=== PATIENT | male | born 1960 | race Caucasian/White ===

== ENCOUNTER 2021-08-29 17:02 | Emergency (ER) | payer OTHER, MEDICAID, SELFPAY ==
[2021-08-29] VITALS (7 sets, daily range): BP systolic 139–178; BP diastolic 89–104; PULSE 74–100; RESP 16–18; TEMP 36.8; O2SAT 96–99; BMI 21.8
[2021-08-29 18:05] LABS: Bacteria Urine None Seen; RBC Urine None Seen (0-5/HPF); WBC Urine None Seen (0-5/HPF)
[2021-08-29 18:57] LABS: Add Manual Diff / Slide Review NO; Basophils Absolute Auto 0 /uL (0-100); Basophils Percent Auto 0.5 % (0-2); Eosinophils Absolute Auto 0 /uL (0-450); Eosinophils Percent Auto 0.1 % (2-4); Hematocrit 36.5 % (41-53); Hemoglobin 12.7 g/dL (13.5-17.5); Lymphocytes Absolute Auto 1100 /uL (1100-4500); Lymphocytes Percent Auto 16.4 % (25-40); Mean Corpuscular HGB Conc 34.9 % (30-36); Mean Corpuscular Hemoglobin 28.6 PG (26-34); Mean Corpuscular Volume 82.1 fL (80-100); Monocytes Absolute Auto 600 /uL (0-900); Monocytes Percent Auto 9.3 % (3-14); Neutrophils Absolute Auto 5000 /uL (1500-7000); Neutrophils Percent Auto 73.7 % (50-75); Platelet Count 221 X10^3/uL (150-400); Red Blood Cell Count 4.45 X10^6/uL (4.5-5.9); White Blood Cell Count 6.8 X10^3/uL (4.5-11.0)
[2021-08-29] MEDS: KETOROLAC 30 MG/ML VIAL IV (18:57)
[2021-08-29 19:08] LABS: Alanine Aminotransferase 56 IU/L (<50); Albumin 3.7 g/dL (3.5-5.0); Alkaline Phosphatase 165 U/L (38-126); Aspartate Aminotransferase 33 IU/L (17-59); BUN Creatinine Ratio 26.2 (6-22); Bilirubin Total 0.5 mg/dL (0.2-1.3); Blood Urea Nitrogen 17 mg/dL (9-20); Carbon Dioxide 32 mmol/L (22-32); Chloride 88 mmol/L (98-107); Estimated Glomerular Filt Rate > 60.0 mL/min (>60); Globulin 3.3 g/dL (1.7-4.1); Potassium 3.7 mmol/L (3.4-5.1); Sodium 128 mmol/L (137-145)
[2021-08-29 19:09] LABS: Albumin Globulin Ratio 1.1 (1.0-2.8); HEMOLYSIS < 15 (0-50); Lipase 65 U/L (23-300)
[2021-08-29 19:11] LABS: Glucose 604 mg/dL (70-100)
--- NOTE | 2021-08-29 19:54 | ED_ITS ---
HPI - Back Pain/Injury General Chief Complaint: Back Pain/Injury Stated Complaint: BODY ACHES/ABD AND LOW BACK PAIN Time Seen by Provider: 08/29/21 18:51 Source: patient History of Present Illness HPI Narrative: Patient is a 60-year-old male with history of uncontrolled type 2 diabetes presenting with variety of complaints. He has had ongoing lower lumbar spine pain for last several months which he thinks started when he was getting a mold infested RV. He has no new numbness tingling or weakness in his legs. He does state he has some tingling down his legs but it has been ongoing since this summer when his back started. He also is states that he has not had a bowel movement for about 9 days. He was seen evaluated at [facility] on 08/26/2021 where he had blood work and CT of his abdomen and pelvis. He has been constipated for few days before that time, CT was negative. He was given hydrocodone is to control the pain which he says does help some he says ibuprofen is not helping. He continues to have on going back pain. He has been taking CBD and marijuana. He denies any abdominal pain. His back is definitely worse with any type of movement. He has a urinal at his bedside because he is unable to get to the restroom due to pain. Related Data Allergies Allergy/AdvReac Type Severity Reaction Status Date / Time No Known Drug Allergies Allergy Verified 08/29/21 17:17 Review of Systems Review of Systems Narrative: GENERAL: Denies chills, fatigue, malaise, fever, sweats, travel HEENT: Denies sinus pain, ear pain, sore throat, difficulty swallowing, neck pain RESPIRATORY: Denies dyspnea, cough, wheezing, hemoptysis, sputum. CARDIOVASCULAR: Denies chest pain, palpitations, orthopnea, edema GASTROINTESTINAL: See HPI : Denies dysuria, frequency, incontinence, hematuria, urinary retention, flank pain. MUSCULOSKELETAL: See HPI SKIN: No rash, no erythema, no pruritus NEUROLOGIC: Denies weakness, dizziness, headache, numbness, change in speech, confusion PSYCHIATRIC: No concerning psychosocial issues. 12 point review of systems is negative except for those stated above and HPI Patient History Social History Smoking Status: Former smoker Smoking Status: Former smoker alcohol intake frequency: holidays/special occasions only Substance Use Type: marijuana Exam Initial Vital Signs Initial Vital Signs: Vital Signs Temperature 98.2 F 08/29/21 17:17 Pulse Rate 100 H 08/29/21 17:17 Respiratory Rate 18 08/29/21 17:17 Blood Pressure 139/89 08/29/21 17:17 Pulse Oximetry 99 08/29/21 17:17 GENERAL: Thin chronically ill 60-year-old male appears older than stated age HEENT: Head atraumatic,EOMI, pupils reactive, face symmetric, [moist] mucous membranes CARDIOVASCULAR: Regular rate and rhythm without murmurs, rubs or gallops. RESPIRATORY: Breath sounds equal bilaterally, no wheezes rales or rhonchi. ABDOMEN: Soft, nontender. Normoactive bowel sounds all 4 quadrants. No guarding or rebound. BACK: Vertebral tenderness and L4-L5 area no step-off no sign of trauma : No CVA tenderness EXTREMITIES: Normal range of motion, no clubbing or edema. Neurovascularly intact NEUROLOGICAL: Alert and oriented x4.Normal gait and speech. Lower extremity strength equals sensation in lower extremities intact no saddle anesthesia SKIN: Warm, dry, no laceration, no petechiae, no rashes or lesions. Course Orders Ordered: ED Orders 08/29/21 17:30 Urine Culture Stat Urine Microscopic Stat 08/29/21 18:45 Complete Blood Count AUTO DIFF Stat Comprehensive Metabolic Panel Stat Lipase Stat 08/29/21 20:05 XR abdomen min 2V Stat Discontinued Medications Hydromorphone HCl (Hydromorphone 1 Mg Inj) 1 mg IV NOW ONE Stop: 08/29/21 22:15 Last Admin: 08/29/21 22:26 Dose: 1 mg Documented by: KELSY Ketorolac Tromethamine (Ketorolac 30 Mg/Ml Vial) 30 mg IV NOW ONE Stop: 08/29/21 18:52 Last Admin: 08/29/21 18:57 Dose: 30 mg Documented by: JESUS Magnesium Citrate (Magnesium Citrate 300 Ml Solution) 300 ml PO NOW ONE Stop: 08/29/21 22:15 Last Admin: 08/29/21 22:27 Dose: 300 ml Documented by: KELSY Vital Signs Vital signs: Vital Signs - 8 hr 08/29/21 17:17 08/29/21 21:10 08/29/21 21:11 Temperature 98.2 F Pulse Rate 100 H 82 84 Respiratory Rate 18 16 Blood Pressure 139/89 172/96 H Pulse Oximetry 99 97 98 08/29/21 21:30 08/29/21 22:00 08/29/21 22:30 Temperature Pulse Rate 84 74 84 Respiratory Rate Blood Pressure Pulse Oximetry 96 96 99 08/29/21 22:31 Temperature Pulse Rate 86 Respiratory Rate Blood Pressure 178/104 H Pulse Oximetry 99 MDM - Back Pain/Injury Lab Data Result diagrams: 08/29/21 18:45 08/29/21 18:45 Labs: Lab Results 08/29/21 08/29/21 08/29/21 Range/Units 17:30 18:45 18:45 WBC 6.8 (4.5-11.0) X10^3/uL RBC 4.45 L (4.5-5.9) X10^6/uL Hgb 12.7 L (13.5-17.5) g/dL Hct 36.5 L (41-53) % MCV 82.1 (80-100) fL MCH 28.6 (26-34) PG MCHC 34.9 (30-36) % RDW 13.0 (11.6-14.8) % Plt Count 221 (150-400) X10^3/uL Neut % (Auto) 73.7 (50-75) % Lymph % (Auto) 16.4 L (25-40) % Emmons % (Auto) 9.3 (3-14) % Eos % (Auto) 0.1 L (2-4) % Baso % (Auto) 0.5 (0-2) % Neut # (Auto) 5000 (8526-1636) /uL Lymph # (Auto) 1100 (3381-7581) /uL Emmons # (Auto) 600 (0-900) /uL Eos # (Auto) 0 (0-450) /uL Baso # (Auto) 0 (0-100) /uL Sodium 128 L (137-145) mmol/L Potassium 3.7 (3.4-5.1) mmol/L Chloride 88 L (98-107) mmol/L Carbon Dioxide 32 (22-32) mmol/L BUN 17 (9-20) mg/dL Creatinine 0.65 L (0.66-1.25) mg/dL Estimated GFR > 60.0 (>60) mL/min BUN/Creatinine Ratio 26.2 H (6-22) Glucose 604 H* (70-100) mg/dL Calcium 9.0 (8.4-10.2) mg/dL Total Bilirubin 0.5 (0.2-1.3) mg/dL AST 33 (17-59) IU/L ALT 56 H (<50) IU/L Alkaline Phosphatase 165 H (38-126) U/L Total Protein 7.0 (6.3-8.2) g/dL Albumin 3.7 (3.5-5.0) g/dL Globulin 3.3 (1.7-4.1) g/dL Albumin/Globulin Ratio 1.1 (1.0-2.8) Lipase 65 (23-300) U/L Urine RBC None seen (0-5/HPF) Urine WBC None seen (0-5/HPF) Urine Bacteria None seen (None) Ur Culture Indicated? Culture not indicate Point of Care Testing Glucose POC 480 Urine Dip Bedside Urine Glucose 1000 mg/dl Bedside Urine Bilirubin - Negative Bedside Urine Ketone ++ 40 Urine Specific [place]range 1.010 Bedside Urine Occult Blood - Negative Bedside Urine pH 6 Bedside Urine Protein - Negative Bedside Urine Urobilinogen - Negative Bedside Urine Nitrite - Negative Bedside Urine Leukocytes - Negative Esterase Imaging Data Abdominal x-ray: Radiologist's Impression: PROCEDURE:? XR ABDOMEN MIN 2V ? INDICATIONS:? ab pain no bm [address] at [facility] ? TECHNIQUE:? 2 views of the abdomen were acquired.? ? COMPARISON:? CT abdomen pelvis dated August 26, 2021. ? FINDINGS:? Surgical changes and devices:? None.? ? Bowel:? No pneumoperitoneum.? Scattered air-fluid levels throughout the small bowel, concerning for enteritis or ileus.? Moderate stool burden in the descending colon. ? Soft tissues:? No masses; visualized solid organ contours appear normal in size.? No suspicious abdominal calcifications.? ? Bones:? No suspicious bony abnormalities.? ? IMPRESSION:? Nonobstructive bowel gas pattern. ? ? MDM Narrative Medical decision making narrative: Patient has uncontrolled diabetes glucose remains elevated with hyponatremia which does correct to 136. No evidence of DKA. He has chronic on going back pain which he has had for a number of months. He has had no new changes since then. He has numbness and tingling in the bottom of his feet probable neuropathy from uncontrolled diabetes he states the pain is so bad when he has to urinate at night he can not get to the bathroom in time. However no incontinence. Pain is definitely worse with movement. CT from a few days ago shows no abdominal process and lumbar degenerative changes with canal stenosis L4-L5. He does have primary care provider. Also complaining of no bowel movem ent but actually has no abdominal pain abdomen is quite soft he has no nausea or vomiting. X-ray shows nonspecific nonobstructive bowel. No large amounts of stool. However patient has not had bowel movement for 9 days. Abdomen remains soft and nontender, no need to repeat CT at this time. At this time patient is given a bottle of magnesium citrate to take at home. Along with discussion of [id number] medications to try to have bowel movement. X-ray does suggest possible ileus. Again patient does not have abdominal pain only complaining of ongoing back pain for at least the last 4-5 months. Recommend patient have outpatient MRI. Discharge Plan Departure Patient Disposition: Home Clinical Impression: Chronic back pain, Constipation Instructions: DI for Low Back Pain, DI for Constipation Activity Restrictions/Additional Instructions: *You have been diagnosed with constipation in acute on chronic back pain *What to do: At this time please discuss with your primary care provider outpatient MRI and physical therapy. Opiate medication will continue to cause constipation. Recommend increasing water intake and movement as tolerated. Your diabetes is also significantly out of control likely contributing to some symptoms, and causing complications. Please discuss treatment and care with your primary care provider *Continue to take medications as directed MiraLax once daily as needed for constipation. Senna 2-4 tabs, 1- 2 times a day as needed for constipation Docustae 1-2 tabs, 1-2 times a day as needed for constipation *Follow up with your primary care provider in 2-3 days or call [phone] *Return to ER if you should have increasing pain, weakness in legs, unable to toe when you after use the restroom, increasing abdominal pain, persistent vomiting or new, worsening or concerning symptoms Referrals: Jhony Dodd MD [Primary Care Provider] -
--- NOTE | 2021-08-29 20:05 | DI.RAD.S_ITS ---
PROCEDURE: XR ABDOMEN MIN 2V INDICATIONS: ab pain no bm [address] at [facility] TECHNIQUE: 2 views of the abdomen were acquired. COMPARISON: CT abdomen pelvis dated August 26, 2021. FINDINGS: Surgical changes and devices: None. Bowel: No pneumoperitoneum. Scattered air-fluid levels throughout the small bowel, concerning for enteritis or ileus. Moderate stool burden in the descending colon. Soft tissues: No masses; visualized solid organ contours appear normal in size. No suspicious abdominal calcifications. Bones: No suspicious bony abnormalities. IMPRESSION: Nonobstructive bowel gas pattern. Dictated by: Ye Angelo M.D. on 08/29/2021 at 20:35 Approved by: Ye Angelo M.D. on 08/29/2021 at 20:37
[2021-08-29] MEDS: HYDROMORPHONE 1 MG INJ IV (22:26)
[2021-08-29] MEDS: MAGNESIUM CITRATE 300 ML SOLUTION PO (22:27)
== END 2021-08-29 22:50 | disposition home or self-care (01) ==
PROVIDERS: Emergency Medicine; Emergency Provider Emergency Medicine; PCP Internal Medicine
DX: M54.59 Other low back pain (principal); K59.00 Constipation, unspecified; E11.65 Type 2 diabetes mellitus with hyperglycemia
CPT/HCPCS: 36415; 74019; 80053; 81003; 81015; 82962; 83690; 85025; 87086; 96374; 96375; 99284; J1170; J1885

== ENCOUNTER 2021-11-03 19:00 | Emergency (ER) | payer OTHER, MEDICAID, SELFPAY ==
[2021-11-03] VITALS (11 sets, daily range): BP systolic 153–188; BP diastolic 87–107; PULSE 87–100; RESP 9–25; TEMP 36.9; O2SAT 94–100; BMI 24.4
--- NOTE | 2021-11-03 19:22 | DI.CT.S_ITS ---
PROCEDURE: CT THORACIC SPINE W CON INDICATIONS: pain prior L4/L5 infection now having hi pain TECHNIQUE: After the administration of intravenous Isovue contrast, 3 mm thick sections acquired through the levels of interest. Sagittal and coronal reformats were then constructed. For radiation dose reduction, the following was used: automated exposure control. COMPARISON: None. FINDINGS: Image quality: Diagnostic Bones: Osseous structures are intact. No acute fracture identified. No acute compression fractures of the imaged spine. Multilevel thoracic spondylitic changes seen throughout. Alignment is anatomic. Soft tissues: Visualized portions of the inferior liver, stomach, spleen, adrenal glands, heart, mediastinal structures, and thyroid appear unremarkable. Atherosclerosis of the coronary arteries. Visualized vascular structures appear to be normally opacified. No aneurysmal dilatation of the thoracic aorta or pulmonary artery. No suspicious areas of enhancement. No evidence for significant stenosis of the spinal canal. Visualized portion of the lungs demonstrate no acute airspace disease. IMPRESSION: Thoracic spine without acute osseous abnormalities. No suspicious soft tissue abnormalities or abnormal enhancement identified. No acute osseous abnormalities or malalignment. No evidence for spinal canal stenosis secondary to bony or soft tissue etiology. Multilevel thoracic spondylosis. Dictated by: Colin Cantu M.D. on 11/03/2021 at 20:02 Approved by: Colin Cantu M.D. on 11/03/2021 at 20:07
--- NOTE | 2021-11-03 19:22 | DI.CT.S_ITS ---
PROCEDURE: CT LUMBAR SPINE W CON INDICATIONS: pain, prior infection TECHNIQUE: After the administration of intravenous Isovue contrast, 3 mm thick sections acquired through the levels of interest. Sagittal and coronal reformats were then constructed. For radiation dose reduction, the following was used: automated exposure control. COMPARISON: None. FINDINGS: Image quality: Excellent. Findings: There is osseous destruction involving the inferior endplate of L4 and the superior endplate of L5 with numerous osseous fragments. There is a moderate amount of surrounding perivertebral soft tissue prominence and inflammation which extends to the distal abdominal aorta and iliac vessels. There is also heterogeneous attenuation of the medial margins of the bilateral psoas muscles more pronounced on the right. Inflammatory changes also surround the common iliac veins bilaterally. There is suggestion of mild narrowing of the common iliac veins. No evidence for intraluminal filling defects on this examination. Inflammation extends into the epidural space with severe stenosis noted at L4-5 extending to L5-S1. There also apparent postsurgical changes involving the posterior aspect of the L4-5 interspace with a suspected fluid collection measuring 3.1 x 2.9 cm in transverse dimension (image 63/series 4). There is a small locule of air. There is overlying subcutaneous soft tissue edema and skin thickening at this level. No acute compression fractures of the lumbar spine. Multilevel spondylitic changes. Severe bilateral neural foraminal narrowing at L3-4, L4-5, and L5-S1. IMPRESSION: 1. Findings compatible with osteomyelitis/discitis at L4-5 with associated osseous destruction of the inferior endplate of L4 and superior endplate of L5 with extensive inflammatory soft tissue changes at this level extending to the paravertebral space as well as the epidural space. Inflammatory changes extend into the retroperitoneum of the lower pelvis. Findings also result in significant spinal canal stenosis from L4-5 through L5-S1. 2. Apparent postsurgical changes of the posterior elements of L4-5 with associated fluid collection measuring 3.1 x 2.9 cm. There is a small locule of air which may represent sequela of recent intervention versus possible early abscess formation. 3. Background advanced degenerative changes of the lumbar spine most severe from L3-4 through L5-S1. There is also severe bilateral neuroforaminal stenosis at these levels. 4. Inflammatory changes extend to involve the distal abdominal aorta near the bifurcation, common iliac arteries as well as the common iliac veins. Although there appears to be some mild mass effect, no evidence for occlusion or intraluminal filling defects. Findings were discussed with Dr. Velasco at 2024 hrs. Dictated by: Colin Cantu M.D. on 11/03/2021 at 20:08 Approved by: Colin Cantu M.D. on 11/03/2021 at 20:33
--- NOTE | 2021-11-03 19:22 | ED.BACK ---
HPI - Back Pain/Injury General Chief Complaint: Back Pain/Injury Stated Complaint: Low back pain Time Seen by Provider: 11/03/21 19:09 History of Present Illness HPI Narrative: Patient is a 61-year-old female with history of insulin-dependent diabetes, recent intraspinal abscess and granuloma, osteomyelitis of the vertebrae in the lumbar region and foot ulcer. He was hospitalized September 05 at [facility] in [place], he was released and went to rehab facility he has been home for approximately 5 days. He is having increased pain. He denies any fever. He can still tell when he has to urinate however he has not had a bowel movement for a number of days. He has severe back pain whenever he moves his legs. He states his furniture is not high enough he has difficulty getting in and out of it. He can walk with a walker but is shuffling only. Overall not doing well at home. Related Data Allergies Allergy/AdvReac Type Severity Reaction Status Date / Time No Known Drug Allergies Allergy Verified 08/29/21 17:17 Review of Systems Review of Systems Narrative: GENERAL: Denies chills, fatigue, malaise, fever, sweats, travel HEENT: Denies sinus pain, ear pain, sore throat, difficulty swallowing, neck pain RESPIRATORY: Denies dyspnea, cough, wheezing, hemoptysis, sputum. CARDIOVASCULAR: Denies chest pain, palpitations, orthopnea, edema GASTROINTESTINAL: Denies nausea, vomiting, abdominal pain, diarrhea, constipation, melena. : Denies dysuria, frequency, incontinence, hematuria, urinary retention, flank pain. MUSCULOSKELETAL: See HPI SKIN: No rash, no erythema, no pruritus NEUROLOGIC: Denies weakness, dizziness, headache, numbness, change in speech, confusion PSYCHIATRIC: No concerning psychosocial issues. 12 point review of systems is negative except for those stated above and HPI Patient History Social History Smoking Status: Former smoker Smoking Status: Former smoker alcohol intake frequency: holidays/special occasions only Substance Use Type: marijuana Exam Initial Vital Signs Initial Vital Signs: Vital Signs Temperature 98.5 F 11/03/21 19:19 Pulse Rate 96 H 11/03/21 19:19 Respiratory Rate 18 11/03/21 19:19 Blood Pressure 188/100 H 11/03/21 19:19 Pulse Oximetry 100 11/03/21 19:19 GENERAL: Alert 61-year-old male appears older than stated age HEENT: Head atraumatic,EOMI, pupils reactive, face symmetric, moist mucous membranes CARDIOVASCULAR: Regular rate and rhythm without murmurs, rubs or gallops. RESPIRATORY: Breath sounds equal bilaterally, no wheezes rales or rhonchi. ABDOMEN: Soft, nontender. Normoactive bowel sounds all 4 quadrants. No guarding or rebound. EXTREMITIES: Normal range of motion, no clubbing or edema. Neurovascularly intact BACK: Midline tenderness, lower thoracic and Lumbar, healing incision. NEUROLOGICAL: Alert and oriented x4. SKIN: Skin breakdown and sacral area with erythema only incision site has scab Course Orders Ordered: ED Orders 11/03/21 19:22 CT lumbar spine w con Stat CT thoracic spine w con Stat 11/03/21 19:27 CBC Auto Diff [Complete Blood Count AUTO DIFF] Stat CMP [Comprehensive Metabolic Panel] Stat CRP [C-Reactive Protein Quant] Stat ESR [Erythrocyte Sedimentation Rate] Stat Lactate (Lactic Acid) Stat Procalcitonin Stat Troponin & CK Cardiac Panel Stat EKG-12 Lead Stat 11/03/21 20:08 Blood Culture Stat 11/03/21 23:56 COVID19 -Nasal swab/Pre-Proc Stat Discontinued Medications Hydromorphone HCl (Hydromorphone 1 Mg Inj) 1 mg IV NOW ONE Stop: 11/03/21 19:23 Last Admin: 11/03/21 19:58 Dose: 1 mg Documented by: BOO Hydromorphone HCl (Hydromorphone 1 Mg Inj) 1 mg IV NOW ONE Stop: 11/03/21 20:51 Last Admin: 11/03/21 21:06 Dose: 1 mg Documented by: MAXINE Hydromorphone HCl (Hydromorphone 1 Mg Inj) 1 mg IV NOW ONE Stop: 11/03/21 23:05 Last Admin: 11/03/21 23:09 Dose: 1 mg Documented by: REED Hydromorphone HCl (Hydromorphone 1 Mg Inj) 1 mg IV NOW ONE Stop: 11/04/21 01:48 Last Admin: 11/04/21 01:54 Dose: 1 mg Documented by: BOO Sodium Chloride (Normal Saline 0.9%) 1,000 mls @ 1,000 mls/hr IV BOLUS ONE Stop: 11/03/21 21:04 Last Infusion: 11/03/21 23:03 Dose: 0 mls/hr Documented by: Admin: 11/03/21 20:16 Dose: 1,000 mls/hr Documented by: BOO Piperacillin Sod/Tazobactam (Sod 4.5 gm/ Sodium Chloride) 100 mls @ 200 mls/hr IV NOW ONE Stop: 11/03/21 20:25 Last Infusion: 11/03/21 23:03 Dose: 0 mls/hr Documented by: Admin: 11/03/21 21:06 Dose: 200 mls/hr Documented by: MAXINE Vancomycin HCl (Vancomycin) 1,250 mg in 250 mls @ 250 mls/hr IV NOW ONE Stop: 11/03/21 21:24 Last Infusion: 11/03/21 23:03 Dose: 0 mls/hr Documented by: Admin: 11/03/21 21:53 Dose: 250 mls/hr Documented by: MAXINE Vital Signs Vital signs: Vital Signs - 8 hr 11/03/21 20:00 11/03/21 20:12 11/03/21 20:30 Pulse Rate 96 H 100 H 96 H Respiratory Rate 20 Blood Pressure 184/107 H 175/106 H Pulse Oximetry 95 94 97 11/03/21 21:00 11/03/21 21:30 11/03/21 22:00 Pulse Rate 95 H 93 H 89 Respiratory Rate 25 H 19 20 Blood Pressure Pulse Oximetry 99 97 96 11/03/21 22:30 11/03/21 22:44 11/03/21 23:00 Pulse Rate 87 87 87 Respiratory Rate 9 L 18 23 Blood Pressure 153/87 H Pulse Oximetry 96 98 98 11/03/21 23:30 11/04/21 00:00 11/04/21 00:30 Pulse Rate 90 86 87 Respiratory Rate 22 21 18 Blood Pressure Pulse Oximetry 99 99 99 11/04/21 01:00 11/04/21 01:30 11/04/21 02:00 Pulse Rate 88 88 90 Respiratory Rate 19 22 19 Blood Pressure Pulse Oximetry 98 98 100 11/04/21 02:30 Pulse Rate 87 Respiratory Rate 16 Blood Pressure Pulse Oximetry 99 MDM - Back Pain/Injury Lab Data Result diagrams: 11/03/21 19:27 11/03/21 19:27 Labs: Lab Results 11/03/21 11/03/21 11/03/21 Range/Units 19:27 19:27 19:27 WBC 5.4 (4.5-11.0) X10^3/uL RBC 4.23 L (4.5-5.9) X10^6/uL Hgb 11.2 L (13.5-17.5) g/dL Hct 33.4 L (41-53) % MCV 79.0 L (80-100) fL MCH 26.4 (26-34) PG MCHC 33.4 (30-36) % RDW 14.8 (11.6-14.8) % Plt Count 277 (150-400) X10^3/uL Neut % (Auto) 64.1 (50-75) % Lymph % (Auto) 21.7 L (25-40) % [place] % (Auto) 12.7 (3-14) % Eos % (Auto) 0.5 L (2-4) % Baso % (Auto) 1.0 (0-2) % Neut # (Auto) 3500 (4415-7149) /uL Lymph # (Auto) 1200 (0821-0508) /uL [place] # (Auto) 700 (0-900) /uL Eos # (Auto) 0 (0-450) /uL Baso # (Auto) 100 (0-100) /uL ESR 66 H (0-15) MM/HR Sodium 136 L (137-145) mmol/L Potassium 3.1 L (3.4-5.1) mmol/L Chloride 97 L (98-107) mmol/L Carbon Dioxide 28 (22-32) mmol/L BUN 14 (9-20) mg/dL Creatinine 0.59 L (0.66-1.25) mg/dL Estimated GFR > 60.0 (>60) mL/min BUN/Creatinine Ratio 23.7 H (6-22) Glucose 228 H (70-100) mg/dL Lactate 3.1 H (0.7-2.1) mmol/L Calcium 9.6 (8.4-10.2) mg/dL Total Bilirubin 0.7 (0.2-1.3) mg/dL AST 24 (17-59) IU/L ALT 13 (<50) IU/L Alkaline Phosphatase 86 (38-126) U/L Total Creatine Kinase (55-170) U/L CK-MB (CK-2) CK-MB (CK-2) Rel Index Troponin I (0.01-0.034) ng/mL C-Reactive Protein 6.4 H (<1.0) mg/dL Total Protein 8.5 H (6.3-8.2) g/dL Albumin 4.4 (3.5-5.0) g/dL Globulin 4.1 (1.7-4.1) g/dL Albumin/Globulin Ratio 1.1 (1.0-2.8) Procalcitonin (<0.5) ng/mL SARS-CoV-2 (PCR) (Negative) 11/03/21 11/03/21 11/03/21 Range/Units 19:27 19:27 21:45 WBC (4.5-11.0) X10^3/uL RBC (4.5-5.9) X10^6/uL Hgb (13.5-17.5) g/dL Hct (41-53) % MCV (80-100) fL MCH (26-34) PG MCHC (30-36) % RDW (11.6-14.8) % Plt Count (150-400) X10^3/uL Neut % (Auto) (50-75) % Lymph % (Auto) (25-40) % [place] % (Auto) (3-14) % Eos % (Auto) (2-4) % Baso % (Auto) (0-2) % Neut # (Auto) (6814-1864) /uL Lymph # (Auto) (6879-3843) /uL [place] # (Auto) (0-900) /uL Eos # (Auto) (0-450) /uL Baso # (Auto) (0-100) /uL ESR (0-15) MM/HR Sodium (137-145) mmol/L Potassium (3.4-5.1) mmol/L Chloride (98-107) mmol/L Carbon Dioxide (22-32) mmol/L BUN (9-20) mg/dL Creatinine (0.66-1.25) mg/dL Estimated GFR (>60) mL/min BUN/Creatinine Ratio (6-22) Glucose (70-100) mg/dL Lactate 1.2 (0.7-2.1) mmol/L Calcium (8.4-10.2) mg/dL Total Bilirubin (0.2-1.3) mg/dL AST (17-59) IU/L ALT (<50) IU/L Alkaline Phosphatase (38-126) U/L Total Creatine Kinase 47 L (55-170) U/L CK-MB (CK-2) TNP CK-MB (CK-2) Rel Index TNP Troponin I < 0.012 (0.01-0.034) ng/mL C-Reactive Protein (<1.0) mg/dL Total Protein (6.3-8.2) g/dL Albumin (3.5-5.0) g/dL Globulin (1.7-4.1) g/dL Albumin/Globulin Ratio (1.0-2.8) Procalcitonin 0.16 (<0.5) ng/mL SARS-CoV-2 (PCR) (Negative) 11/03/21 Range/Units 23:56 WBC (4.5-11.0) X10^3/uL RBC (4.5-5.9) X10^6/uL Hgb (13.5-17.5) g/dL Hct (41-53) % MCV (80-100) fL MCH (26-34) PG MCHC (30-36) % RDW (11.6-14.8) % Plt Count (150-400) X10^3/uL Neut % (Auto) (50-75) % Lymph % (Auto) (25-40) % [place] % (Auto) (3-14) % Eos % (Auto) (2-4) % Baso % (Auto) (0-2) % Neut # (Auto) (2832-4196) /uL Lymph # (Auto) (4245-8137) /uL [place] # (Auto) (0-900) /uL Eos # (Auto) (0-450) /uL Baso # (Auto) (0-100) /uL ESR (0-15) MM/HR Sodium (137-145) mmol/L Potassium (3.4-5.1) mmol/L Chloride (98-107) mmol/L Carbon Dioxide (22-32) mmol/L BUN (9-20) mg/dL Creatinine (0.66-1.25) mg/dL Estimated GFR (>60) mL/min BUN/Creatinine Ratio (6-22) Glucose (70-100) mg/dL Lactate (0.7-2.1) mmol/L Calcium (8.4-10.2) mg/dL Total Bilirubin (0.2-1.3) mg/dL AST (17-59) IU/L ALT (<50) IU/L Alkaline Phosphatase (38-126) U/L Total Creatine Kinase (55-170) U/L CK-MB (CK-2) CK-MB (CK-2) Rel Index Troponin I (0.01-0.034) ng/mL C-Reactive Protein (<1.0) mg/dL Total Protein (6.3-8.2) g/dL Albumin (3.5-5.0) g/dL Globulin (1.7-4.1) g/dL Albumin/Globulin Ratio (1.0-2.8) Procalcitonin (<0.5) ng/mL SARS-CoV-2 (PCR) Negative (Negative) Imaging Data CT Thoracic: Radiologist's Impression: PROCEDURE:? CT THORACIC SPINE W CON ? INDICATIONS:? pain prior L4/L5 infection now having hi pain ? TECHNIQUE:? After the administration of intravenous Isovue contrast, 3 mm thick sections acquired through the levels of interest.? Sagittal and coronal reformats were then constructed.? For radiation dose reduction, the following was used:? automated exposure control.? ? COMPARISON:? None. ? FINDINGS:? Image quality:? Diagnostic ? Bones:? Osseous structures are intact.? No acute fracture identified.? No acute compression fractures of the imaged spine.? Multilevel thoracic spondylitic changes seen throughout.? Alignment is anatomic. ? Soft tissues:? Visualized portions of the inferior liver, stomach, spleen, adrenal glands, heart, mediastinal structures, and thyroid appear unremarkable.? Atherosclerosis of the coronary arteries.? Visualized vascular structures appear to be normally opacified.? No aneurysmal dilatation of the thoracic aorta or pulmonary artery.? No suspicious areas of enhancement.? No evidence for significant stenosis of the spinal canal.? Visualized portion of the lungs demonstrate no acute airspace disease. ? IMPRESSION:? Thoracic spine without acute osseous abnormalities.? No suspicious soft tissue abnormalities or abnormal enhancement identified.? No acute osseous abnormalities or malalignment.? No evidence for spinal canal stenosis secondary to bony or soft tissue etiology. Multilevel thoracic spondylosis.? ? Dictated by: Colin Cantu M.D. on 11/03/2021 at 20:02 ? ? CT Lumbar: Radiologist's Impression: PROCEDURE:? CT LUMBAR SPINE W CON ? INDICATIONS:? pain, prior infection ? TECHNIQUE:? After the administration of intravenous Isovue contrast, 3 mm thick sections acquired through the levels of interest.? Sagittal and coronal reformats were then constructed.? For radiation dose reduction, the following was used:? automated exposure control.? ? COMPARISON:? None. ? FINDINGS:? Image quality:? Excellent.? ? Findings:? There is osseous destruction involving the inferior endplate of L4 and the superior endplate of L5 with numerous osseous fragments.? There is a moderate amount of surrounding perivertebral soft tissue prominence and inflammation which extends to the distal abdominal aorta and iliac vessels.? There is also heterogeneous attenuation of the medial margins of the bilateral psoas muscles more pronounced on the right.? Inflammatory changes also surround the common iliac veins bilaterally.? There is suggestion of mild narrowing of the common iliac veins.? No evidence for intraluminal filling defects on this examination.? Inflammation extends into the epidural space with severe stenosis noted at L4-5 extending to L5-S1.? There also apparent postsurgical changes involving the posterior aspect of the L4-5 interspace with a suspected fluid collection measuring 3.1 x 2.9 cm in transverse dimension (image 63/series 4).? There is a small locule of air.? There is overlying subcutaneous soft tissue edema and skin thickening at this level. No acute compression fractures of the lumbar spine.? Multilevel spondylitic changes.? Severe bilateral neural foraminal narrowing at L3-4, L4-5, and L5-S1. ? IMPRESSION:? ? 1. Findings compatible with osteomyelitis/discitis at L4-5 with associated osseous destruction of the inferior endplate of L4 and superior endplate of L5 with extensive inflammatory soft tissue changes at this level extending to the paravertebral space as well as the epidural space.? Inflammatory changes extend into the retroperitoneum of the lower pelvis.? Findings also result in significant spinal canal stenosis from L4-5 through L5-S1. ? 2. Apparent postsurgical changes of the posterior elements of L4-5 with associated fluid collection measuring 3.1 x 2.9 cm.? There is a small locule of air which may represent sequela of recent intervention versus possible early abscess formation. ? 3. Background advanced degenerative changes of the lumbar spine most severe from L3-4 through L5-S1.? There is also severe bilateral neuroforaminal stenosis at these levels. ? 4. Inflammatory changes extend to involve the distal abdominal aorta near the bifurcation, common iliac arteries as well as the common iliac veins.? Although there appears to be some mild mass effect, no evidence for occlusion or intraluminal filling defects. ? Findings were discussed with Dr. Velasco at 2024 hrs. ? Dictated by: Colin Cantu M.D. on 11/03/2021 at 20:08 ? ? Approved by: Colin Cantu M.D. on 11/03/2021 at 20:33 ? ECG Data Interpretation: Sinus tachycardia rate 95 ME interval 148 QRS [address] changes or T-wave inversions MDM Narrative Medical decision making narrative: Patient has had prior surgery he is having increasing pain over last few days he is also having difficulty at home. Elevated ESR CRP lactic acid, concerning for possible new infection. He is afebrile without leukocytosis. However CT does show a lot of inflammation difficult to tell if this is old or new. Patient is empirically given Zosyn and vancomycin. Otherwise he is hemodynamically stable. He has an improving lactic acid. The patient also noted to have visual hallucinations after dilaudid. He is neurologically intact. No saddle anesthesia or cauda equina syndromes. Unable to get MRI currently his hospital MRI is down and usually not available at this time. 22:51 Dr. Urbina, orthopedic on-call at [facility] has reviewed patient's I have updated him on symptoms on test results today. He previously had MRI in September which did show a phlegmon that was 4 cm. However it appears that his ESR and CRP are rising. Difficult to tell again if this is old or new. Agrees to transfer patient. 00:20 Dr. Mcintyre hospitalist is updated patient's symptoms test results and is happily accept patient. Discharge Plan Departure Patient Disposition: [facility] Clinical Impression: Osteomyelitis of lumbar vertebra Referrals: Jhony Dodd MD [Primary Care Provider] -
--- NOTE | 2021-11-03 19:28 | PC.NURSE ---
EMS reports pt is type II DM w/ hx of foot ulcer/wound.
[2021-11-03 19:38] LABS: Add Manual Diff / Slide Review NO; Basophils Absolute Auto 100 /uL (0-100); Eosinophils Absolute Auto 0 /uL (0-450); Eosinophils Percent Auto 0.5 % (2-4); Hematocrit 33.4 % (41-53); Hemoglobin 11.2 g/dL (13.5-17.5); Lymphocytes Absolute Auto 1200 /uL (1100-4500); Lymphocytes Percent Auto 21.7 % (25-40); Mean Corpuscular HGB Conc 33.4 % (30-36); Mean Corpuscular Hemoglobin 26.4 PG (26-34); Monocytes Absolute Auto 700 /uL (0-900); Monocytes Percent Auto 12.7 % (3-14); Neutrophils Absolute Auto 3500 /uL (1500-7000); Neutrophils Percent Auto 64.1 % (50-75); Platelet Count 277 X10^3/uL (150-400); Red Blood Cell Count 4.23 X10^6/uL (4.5-5.9); Red Cell Distribution Width 14.8 % (11.6-14.8); White Blood Cell Count 5.4 X10^3/uL (4.5-11.0)
[2021-11-03 19:51] LABS: Creatine Kinase 47 U/L (55-170); Lactate (Lactic Acid) 3.1 mmol/L (0.7-2.1)
[2021-11-03 19:53] LABS: Alanine Aminotransferase 13 IU/L (<50); Albumin 4.4 g/dL (3.5-5.0); Albumin Globulin Ratio 1.1 (1.0-2.8); Alkaline Phosphatase 86 U/L (38-126); Aspartate Aminotransferase 24 IU/L (17-59); BUN Creatinine Ratio 23.7 (6-22); Bilirubin Total 0.7 mg/dL (0.2-1.3); Blood Urea Nitrogen 14 mg/dL (9-20); C-Reactive Protein Quant 6.4 mg/dL (<1.0); Calcium 9.6 mg/dL (8.4-10.2); Carbon Dioxide 28 mmol/L (22-32); Chloride 97 mmol/L (98-107); Estimated Glomerular Filt Rate > 60.0 mL/min (>60); Globulin 4.1 g/dL (1.7-4.1); Glucose 228 mg/dL (70-100); Sodium 136 mmol/L (137-145); Total Protein 8.5 g/dL (6.3-8.2)
[2021-11-03 19:58] LABS: HEMOLYSIS 52 (0-50); Potassium 3.1 mmol/L (3.4-5.1)
[2021-11-03] MEDS: HYDROMORPHONE 1 MG INJ IV ×3 (19:58→23:09)
[2021-11-03 20:04] LABS: Erythrocyte Sedimentation Rate 66 MM/HR (0-15); Troponin I < 0.012 ng/mL (0.01-0.034)
[2021-11-03 20:09] LABS: Procalcitonin 0.16 ng/mL (<0.5)
[2021-11-03] MEDS: SODIUM CHLORIDE 0.9% 1,000 ML 1000 ML IV (20:16)
[2021-11-03] MEDS: PIPERACILLIN/TAZO 4.5 GM in SODIUM CHLORIDE 0.9% 100 ML 200 ML IV (21:06)
[2021-11-03 21:34] LABS: Reflexed Lactate in 2 Hours Y
[2021-11-03] MEDS: VANCOMYCIN 1,250 MG/250 ML PIGGYBACK 250 MG IV (21:53)
[2021-11-03 22:04] LABS: Lactate 2HR (Lactic Acid Rflx) 1.2 mmol/L (0.7-2.1)
[2021-11-04] VITALS: PULSE 86; RESP 21; O2SAT 99
[2021-11-04 00:21] LABS: COVID19 -Nasal RAPID Negative (Negative)
[2021-11-04 00:30] VITALS: PULSE 87; RESP 18; O2SAT 99
[2021-11-04 01:00] VITALS: PULSE 88; RESP 19; O2SAT 98
[2021-11-04 01:30] VITALS: PULSE 88; RESP 22; O2SAT 98
[2021-11-04] MEDS: HYDROMORPHONE 1 MG INJ IV (01:54)
[2021-11-04 02:00] VITALS: PULSE 90; RESP 19; O2SAT 100
[2021-11-04 02:30] VITALS: PULSE 87; RESP 16; O2SAT 99
== END 2021-11-04 02:41 | disposition short-term general hospital (02) ==
PROVIDERS: Emergency Provider Emergency Medicine; PCP Internal Medicine
DX: E11.69 Type 2 diabetes mellitus with other specified complication (principal); M46.26 Osteomyelitis of vertebra, lumbar region; Z79.4 Long term (current) use of insulin; Z87.891 Personal history of nicotine dependence; Z20.822 Contact with and (suspected) exposure to COVID-19
CPT/HCPCS: 36415; 72129; 72132; 80053; 82550; 83605; 84145; 84484; 85025; 85651; 86140; 87040; 87635; 93005; 96361; 96365; 96366; 96368; 96375; 96376; 99284; 99285; C9803; J1170; J2543; Q9967

== ENCOUNTER 2023-08-24 21:03 | Emergency (ER) | payer OTHER, MEDICAID, SELFPAY ==
[2023-08-24 21:08] VITALS: BP 232/123; PULSE 89; RESP 18; TEMP 36.3; O2SAT 99; BMI 23.7
--- NOTE | 2023-08-24 21:26 | ED.SKABFB ---
HPI - Skin/Abscess/Foreign Bdy General Chief complaint: Skin/Abscess/Foreign Body Stated complaint: abscesses showing up Time Seen by Provider: 08/24/23 21:15 Source: patient and family Mode of arrival: Ambulatory History of Present Illness HPI narrative: Patient is a 62-year-old male who is here for evaluation of a swelling/redness/abscess to his left inguinal region and also a wound on his penis. He states that they have been there between 1 and 2 days. Denies any trauma. No history of sexually transmitted diseases. He states the 1 in his penis is now draining. There is redness on the area. He is not having any urinary symptoms. No concern about sexually transmitted infections. He is a diabetic. He has been doing illicit drugs such as methamphetamine to try to control the discomfort. No fevers. Related Data Previous Rx's Medication Instructions Recorded doxycycline monohydrate 100 mg 100 mg PO BID 7 days #14 caps 08/24/23 capsule Allergies Allergy/AdvReac Type Severity Reaction Status Date / Time No Known Drug Allergies Allergy Verified 08/29/21 17:17 Review of Systems Constitutional Constitutional: Reports system reviewed and no additional complaints, except as documented Genitourinary Genitourinary: Reports system reviewed and no additional complaints, except as documented Musculoskeletal Musculoskeletal: Reports system reviewed and no additional complaints, except as documented Integumentary/Breasts Skin/Breast: Reports system reviewed and no additional complaints, except as documented Neurologic Neurologic: Reports system reviewed and no additional complaints, except as documented Patient History Social History Smoking Status: Former smoker Smoking Status: Former smoker alcohol intake frequency: holidays/special occasions only Substance Use Type: marijuana and prescription drug Exam Initial Vital Signs Initial Vital Signs: Vital Signs Temperature 97.4 F L 08/24/23 21:08 Pulse Rate 89 08/24/23 21:08 Respiratory Rate 18 08/24/23 21:08 Blood Pressure 232/123 H 08/24/23 21:08 Pulse Oximetry 99 08/24/23 21:08 Oxygen Delivery Method Room Air 08/24/23 21:08 Const General: No ill appearing Other: Disheveled HENMT Head: normal to inspection and normocephalic Resp Effort & Inspection: normal respiratory effort Cardio Rate: regular rate GI Inspection: no edema and non-distended External: circumcised Penis: no masses, no nodules, no swelling and no vesicles Meatus: meatus normal Skin Other: Patient with a 2 cm x 2 cm abscess with a black top on it to his left inguinal region. There is a surrounding area of erythema. He has a separate lesion on the right side of his penile shaft. It is approximately 0.5 cm x 1 cm. It is an ulceration. It does appear to be purulent drainage. There is also surrounding erythema from this. No vesicles noted. Neuro General: patient alert, patient awake and moves all extremities Procedures Abscess I/D I&D #1: Site: other (Inguinal region) Side (if applicable): left Local Anesthetic: lidocaine 1% Amount of anesthesia used (mL): 2 Technique: incised with #11 blade Irrigation: No Packing used?: none Complications: pain Course Orders Ordered: ED Orders 08/24/23 21:27 Hepatitis Acute Panel Stat RPR W Reflex to Titer Stat 08/24/23 21:44 Chlamydia Gonorrhea PCR -URINE Stat Wound Culture and Gram Stain Stat Wound Culture and Gram Stain Stat 08/24/23 21:47 BMP [Basic Metabolic Panel] Stat CBC Auto Diff [Complete Blood Count AUTO DIFF] Stat HIV 1 & 2 Ab/Ag 4th Gen Combo Stat Discontinued Medications Doxycycline Hyclate (Doxycycline Hyclate 100 Mg Tablet) 100 mg PO NOW ONE Stop: 08/24/23 21:40 Last Admin: 08/24/23 21:54 Dose: 100 mg Documented By: DEBORAH Vital Signs Vital signs: Vital Signs - 8 hr 08/24/23 21:08 08/24/23 22:15 Temperature 97.4 F L 97.7 F Pulse Rate 89 92 H Respiratory Rate 18 18 Blood Pressure 232/123 H 188/100 H Pulse Oximetry 99 98 Oxygen Delivery Method Room Air Room Air MDM - Skin/Abscess/Foreign Bdy Lab Data Attestation: I reviewed the patient's lab results. 08/24/23 21:47 08/24/23 21:47 Labs: Lab Results 08/24/23 Range/Units 21:47 WBC 7.6 (4.5-11.0) X10^3/uL RBC 4.57 (4.5-5.9) X10^6/uL Hgb 12.7 L (13.5-17.5) g/dL Hct 37.9 L (41-53) % MCV 83.0 (80-100) fL MCH 27.9 (26-34) PG MCHC 33.6 (30-36) % RDW 14.2 (11.6-14.8) % Plt Count 209 (150-400) X10^3/uL Neut % (Auto) 71.3 (50-75) % Lymph % (Auto) 20.0 L (25-40) % [place] % (Auto) 6.8 (3-14) % Eos % (Auto) 1.2 L (2-4) % Baso % (Auto) 0.7 (0-2) % Neut # (Auto) 5400 (8069-7208) /uL Lymph # (Auto) 1500 (2648-6896) /uL [place] # (Auto) 500 (0-900) /uL Eos # (Auto) 100 (0-450) /uL Baso # (Auto) 100 (0-100) /uL Sodium 136 L (137-145) mmol/L Potassium 3.5 (3.4-5.1) mmol/L Chloride 98 (98-107) mmol/L Carbon Dioxide 26 (22-32) mmol/L BUN 27 H (9-20) mg/dL Creatinine 0.88 (0.66-1.25) mg/dL Estimated GFR > 60 (>60) mL/min BUN/Creatinine Ratio 30.7 H (6-22) Glucose 473 H (80-110) mg/dL Calcium 9.8 (8.4-10.2) mg/dL HIV 1&2 Ab/P24 Ag 4thGn Negative (NEGATIVE) MDM Narrative Medical decision making narrative: The wound in his left inguinal region is consistent with an abscess. It was incised and drained. There was surrounding erythema so he will be started on antibiotics. His 1st dose was given here in the emergency department. He does have wound on his penis that does appear to be an ulceration. This could very well have been an abscess that has drained but there was also some concern about chancroid, syphilis for other STD. Bacterial and viral cultures were obtained from this wound. Just a bacterial culture was obtained from the wound in his inguinal region. Patient is not septic. Blood work was obtained and we did test for HIV which was negative. Also do an RPR which was pending at the time of discharge. Patient was given strict return precautions and care instructions. He expressed understanding and agreement. Discharge Plan Departure Patient Disposition: Home Clinical Impression: Abscess, Cellulitis Instructions: DI for Incision and Drainage of a Skin Abscess, DI for Skin Abscess Activity Restrictions/Additional Instructions: We did take multiple cultures and blood work during your visit here today. These will take several days to result we will contact you if we need to start were change any antibiotics. I would expect some drainage from the area that we cut open today. Take the antibiotics as directed. Return to the emergency department for new symptoms. Prescriptions: New doxycycline monohydrate 100 mg capsule 100 mg PO BID 7 Days Qty: 14 0RF Referrals: Jhony Dodd MD [Primary Care Provider] - Stand Alone Forms: Patient Portal/API
[2023-08-24] MEDS: DOXYCYCLINE HYCLATE 100 MG TABLET PO (21:54)
[2023-08-24 22:07] LABS: Add Manual Diff / Slide Review NO; Basophils Absolute Auto 100 /uL (0-100); Basophils Percent Auto 0.7 % (0-2); Eosinophils Absolute Auto 100 /uL (0-450); Eosinophils Percent Auto 1.2 % (2-4); Hematocrit 37.9 % (41-53); Hemoglobin 12.7 g/dL (13.5-17.5); Lymphocytes Absolute Auto 1500 /uL (1100-4500); Mean Corpuscular HGB Conc 33.6 % (30-36); Mean Corpuscular Hemoglobin 27.9 PG (26-34); Monocytes Absolute Auto 500 /uL (0-900); Monocytes Percent Auto 6.8 % (3-14); Neutrophils Absolute Auto 5400 /uL (1500-7000); Neutrophils Percent Auto 71.3 % (50-75); Platelet Count 209 X10^3/uL (150-400); Red Blood Cell Count 4.57 X10^6/uL (4.5-5.9); Red Cell Distribution Width 14.2 % (11.6-14.8); White Blood Cell Count 7.6 X10^3/uL (4.5-11.0)
[2023-08-24 22:15] VITALS: BP 188/100; PULSE 92; RESP 18; TEMP 36.5; O2SAT 98
[2023-08-24 22:42] LABS: BUN Creatinine Ratio 30.7 (6-22); Blood Urea Nitrogen 27 mg/dL (9-20); Calcium 9.8 mg/dL (8.4-10.2); Carbon Dioxide 26 mmol/L (22-32); Chloride 98 mmol/L (98-107); Estimated Glomerular Filt Rate > 60 mL/min (>60); Glucose 473 mg/dL (80-110); HEMOLYSIS 16 (0-50); Potassium 3.5 mmol/L (3.4-5.1); Sodium 136 mmol/L (137-145)
[2023-08-24 23:37] LABS: HIV 1 & 2 Ab/Ag 4th Gen Combo NEGATIVE (NEGATIVE)
[2023-09-02 09:47] LABS: HBsAg Screen Negative (Negative); Hepatitis A Antibody IgM Negative (Negative); Hepatitis B Core Antibody IgM Negative (Negative); Hepatitis C Antibody Non Reactive (Non Reactive)
== END 2023-08-24 22:19 | disposition home or self-care (01) ==
PROVIDERS: Emergency Provider Emergency Medicine; PCP Internal Medicine
DX: L02.214 Cutaneous abscess of groin (principal); N48.89 Other specified disorders of penis
CPT/HCPCS: 10060; 80048; 80074; 85025; 86592; 87070; 87075; 87077; 87147; 87186; 87205; 87252; 87389; 99283

== ENCOUNTER 2023-09-16 00:05 | Inpatient (IN) | payer MEDICAID, OTHER, SELFPAY ==
[2023-09-16] VITALS (13 sets, daily range): BP systolic 155–218; BP diastolic 81–110; PULSE 84–132; RESP 16–25; TEMP 36.4–37; O2SAT 97–100; BMI 23.4; BMI 23.1
--- NOTE | 2023-09-16 00:19 | DI.CT.S_ITS ---
PROCEDURE: CT LE LT W CON INDICATIONS: Left lower extremity swelling/infection TECHNIQUE: After the administration of intravenous contrast, 3 mm axial sections acquired of the left , with coronal and sagittal reformats. COMPARISON: None. FINDINGS: Image quality: Excellent. Bones: The osseous structures are intact without evidence of osteomyelitis. Soft tissues: Diffuse subcutaneous edema and skin thickening throughout the left lower leg. The muscles of the calf are within normal limits without abscess or intramuscular edema. Heterogeneity of the plantar muscles of the foot medially and posteriorly with small collections, for example a 12 x 7 mm collection (7/554) posteriorly and a 29 x 7 mm collection medially. Additional collections are noted within the medial plantar musculature of the foot. There appears to be ulceration on the posterior medial aspect of the foot, recommend clinical correlation. IMPRESSION: 1. Diffuse subcutaneous edema and skin thickening throughout the left lower leg and foot. There appears to be ulceration along the posterior medial aspect of the foot. Small collections are noted within the plantar musculature of the foot, most pronounced within the medial musculature, as described above. Findings concerning for myositis and abscess. 2. The osseous structures are intact. No evidence of osteomyelitis. Dictated by: Allan Garcia M.D. on 09/16/2023 at 1:56 Approved by: Allan Garcia M.D. on 09/16/2023 at 2:02
--- NOTE | 2023-09-16 00:21 | ED.EXTPRO ---
HPI - Extremity Problem General Chief complaint: Extremity Problem,Nontraumatic Stated complaint: R Foot red&swollen/fell yest. passed out Time Seen by Provider: 09/16/23 00:12 History of Present Illness HPI Narrative: 63-year-old male who presents with distal left lower extremity erythema, edema, purulent drainage and multiple lesions noticed several days ago. Patient denies known left lower extremity injuries or fall. Patient does report striking his head yesterday on a board while exiting a storage unit. Loss of consciousness unknown. Patient has various lesions over the right lower extremity at various stages of healing. Patient has a history of diabetes and reports being out of his insulin for a couple weeks. Patient was seen in this emergency department on 08/24/2023 for evaluation of abscesses located of left groin. Patient reports that groin abscesses have healed. Patient is brought into the emergency department by ?friend. Patient arrives awake, alert, in no apparent distress and maintaining his own airway. Related Data Home Medications Medication Instructions Recorded Confirmed amlodipine 5 mg tablet mg PO BID 09/16/23 lisinopril 40 mg tablet 40 mg PO DAILY 09/16/23 09/16/23 Allergies Allergy/AdvReac Type Severity Reaction Status Date / Time No Known Drug Allergies Allergy Verified 08/29/21 17:17 Review of Systems Review of Systems Narrative: See HPI for pertinent positives, otherwise review of systems negative Patient History Social History Smoking Status: Former smoker Smoking Status: Former smoker alcohol intake frequency: holidays/special occasions only Substance Use Type: marijuana and prescription drug Exam Initial Vital Signs Initial Vital Signs: Vital Signs Temperature 98.2 F 09/16/23 00:10 Pulse Rate 108 H 09/16/23 00:10 Respiratory Rate 19 09/16/23 00:10 Blood Pressure 218/110 H 09/16/23 00:10 Pulse Oximetry 98 09/16/23 00:10 Oxygen Delivery Method Room Air 09/16/23 00:10 Const General: cooperative, well developed, No acute distress, disheveled, No ill appearing and No lethargic HENMT Head: normal to inspection, normocephalic and atraumatic Nose: external nose normal and nares normal Eyes General: Yes appearance normal, both eyes and all related structures Neck Neck: normal visual inspection, full ROM and no meningeal signs Chest Chest: normal inspection of the chest Resp Effort & Inspection: normal respiratory effort, able to speak in complete sentences and no respiratory distress Cardio Rate: tachycardic Rhythm: regular rhythm Pulses: radial pulses present GI Inspection: normal to inspection External: normal external exam, circumcised and other (Bilateral inguinal healing sides of I &D from prior abscesses) Penis: normal penis Back/Spine/Pelvis Back: normal to inspection, No back tenderness and No crepitance Skin General: other (Distal left, posterior medial erythema, edema of left lower extremity ) Other: See nursing pictures for visualization diabetic wounds Neuro General: patient alert, patient awake, patient oriented x3, moves all extremities and no focal motor deficits Extrem General: full ROM Other: See skin findings Psych Appearance: disheveled Speech and Movement: speech and movement normal Course Course Course Narrative: See MDM Orders Ordered: ED Orders 09/16/23 00:19 CT LE LT w con Stat 09/16/23 00:30 CBC Auto Diff [Complete Blood Count AUTO DIFF] Stat CMP [Comprehensive Metabolic Panel] Stat Lactate (Lactic Acid) Stat 09/16/23 00:31 Blood Culture Stat 09/16/23 00:52 Urinalysis and Microscopic Stat Potassium Chloride/Sodium Chloride (Ns With Kcl 20 Meq) 1,000 mls @ 125 mls/hr IV CONT SRAAH Last Admin: 09/16/23 01:39 Dose: 125 mls/hr Documented By: MAXIMINO Discontinued Medications Sodium Chloride (Normal Saline 0.9%) 1,000 mls @ 1,000 mls/hr IV BOLUS ONE Stop: 09/16/23 01:19 Last Infusion: 09/16/23 01:36 Dose: Infused Documented By: Admin: 09/16/23 00:33 Dose: 1,000 mls/hr Documented By: MAXIMINO Piperacillin Sod/Tazobactam (Sod 3.375 gm/ Sodium Chloride) 100 mls @ 200 mls/hr IV NOW ONE Stop: 09/16/23 00:21 Last Infusion: 09/16/23 01:20 Dose: Infused Documented By: Admin: 09/16/23 00:50 Dose: 200 mls/hr Documented By: CARLINE Vancomycin HCl (Vancomycin) 1,250 mg in 250 mls @ 250 mls/hr IV NOW ONE Stop: 09/16/23 01:52 Last Admin: 09/16/23 01:37 Dose: 250 mls/hr Documented By: MAXIMINO Insulin Human Regular (Insulin Regular 100 Unit/Ml 3 Ml Vial) 15 unit IV NOW ONE Stop: 09/16/23 01:07 Last Admin: 09/16/23 01:13 Dose: 15 unit Documented By: CARLINE Co-signed By: SB Morphine Sulfate (Morphine 4 Mg/Ml Inj) 4 mg IV NOW ONE Stop: 09/16/23 01:08 Last Admin: 09/16/23 01:15 Dose: 4 mg Documented By: CARLINE Vital Signs Vital signs: Vital Signs - 8 hr 09/16/23 00:10 09/16/23 01:05 09/16/23 01:06 Temperature 98.2 F Pulse Rate 108 H 98 H 99 H Respiratory Rate 19 21 22 Blood Pressure 218/110 H Pulse Oximetry 98 97 97 Oxygen Delivery Method Room Air Room Air 09/16/23 01:06 09/16/23 01:36 Temperature Pulse Rate 100 H Respiratory Rate 25 H Blood Pressure 178/84 H Pulse Oximetry 97 Oxygen Delivery Method MDM - Extremity (Nontraumatic) Differential Diagnosis Differential diagnosis: Likely gout, cellulitis, lower extremity edema, deep vein thrombosis of lower extremity and other (Abscess, myositis, osteomyelitis) Lab Data Lab results narrative: Leukocytosis with pseudohyponatremia and hyperglycemia 09/16/23 00:30 09/16/23 00:30 Labs: Lab Results 09/16/23 09/16/23 Range/Units 00:30 00:52 WBC 11.8 H (4.5-11.0) X10^3/uL RBC 4.03 L (4.5-5.9) X10^6/uL Hgb 11.1 L (13.5-17.5) g/dL Hct 32.7 L (41-53) % MCV 81.1 (80-100) fL MCH 27.4 (26-34) PG MCHC 33.8 (30-36) % RDW 13.6 (11.6-14.8) % Plt Count 220 (150-400) X10^3/uL Neut % (Auto) 85.4 H (50-75) % Lymph % (Auto) 6.0 L (25-40) % [place] % (Auto) 8.2 (3-14) % Eos % (Auto) 0.1 L (2-4) % Baso % (Auto) 0.3 (0-2) % Neut # (Auto) 63868 H (9079-8236) /uL Lymph # (Auto) 700 L (2526-2886) /uL [place] # (Auto) 1000 H (0-900) /uL Eos # (Auto) 0 (0-450) /uL Baso # (Auto) 0 (0-100) /uL Sodium 130 L (137-145) mmol/L Potassium 3.7 (3.4-5.1) mmol/L Chloride 94 L (98-107) mmol/L Carbon Dioxide 28 (22-32) mmol/L BUN 18 (9-20) mg/dL Creatinine 0.64 L (0.66-1.25) mg/dL Estimated GFR > 60 (>60) mL/min BUN/Creatinine Ratio 28.1 H (6-22) Glucose 597 H* (80-110) mg/dL Lactate 1.8 (0.7-2.1) mmol/L Calcium 8.7 (8.4-10.2) mg/dL Total Bilirubin 0.5 (0.2-1.3) mg/dL AST 21 (17-59) IU/L ALT 20 (<50) IU/L Alkaline Phosphatase 143 H (38-126) U/L Total Protein 7.2 (6.3-8.2) g/dL Albumin 3.5 (3.5-5.0) g/dL Globulin 3.7 (1.7-4.1) g/dL Albumin/Globulin Ratio 0.9 L (1.0-2.8) Urine Color Yellow Urine Appearance Clear Urine pH 5.0 (4.5-8.0) Ur Specific [place] <=1.005 (1.000-1.035) Urine Protein Negative (Negative) Urine Glucose (UA) 3+ H (Negative) g/dL Urine Ketones 1+ H (NEGATIVE) Urine Occult Blood 1+ H (Negative) Urine Nitrate Negative (Negative) Urine Bilirubin Negative (NEGATIVE) Urine Urobilinogen 1.0 (0.2) E.U./dL Ur Leukocyte Esterase Negative (NEGATIVE) Urine RBC 5-10/hpf H (0-5/HPF) Urine WBC None seen (0-5/HPF) Ur Squamous Epith Cells 0-1 /hpf (0-5/HPF) Urine Bacteria None seen (None) Ur Culture Indicated? Cult not indicated Urine Dip Bedside Urine Glucose 1000 mg/dl Bedside Urine Bilirubin - Negative Bedside Urine Ketone + 15 Urine Specific [place] 1.010 Bedside Urine Occult Blood ++ Bedside Urine pH 6.0 Bedside Urine Protein +/- 15 Bedside Urine Urobilinogen - Negative Bedside Urine Nitrite - Negative Bedside Urine Leukocytes - Negative Esterase Imaging Data CT Lower extremity: My Impression: Diffuse edema of left lower extremity with fluid collections of plantar surface suggestive of abscess and/or myositis Radiologist's Impression: See above MDM Narrative Medical decision making narrative: Patient presents with left lower extremity erythema, edema and presumed diabetic foot ulcers. Tachycardia noted along with hypertension. Pain control given with lower blood pressure reading and currently nonactionable. Patient reports taking amlodipine and lisinopril but questionable whether patient has been taking medication as patient reports not taking insulin for at least 2 weeks. Leukocytosis noted along with pseudohyponatremia and hyperglycemia. 1 L 0.9% normal saline IV bolus given. 20 mEq potassium given as 15 units regular insulin IV given. Zosyn 3.375 g IV given along with 12 50 mg of vancomycin given. Patient did culture positive for MRSA from prior wound culture. Imaging warranted and shows diffuse edema of left lower extremity concerning for myositis and small collections of plantar muscle concerning for developing abscesses. Patient is stable the warrants admission for further evaluation and management. Discussed case with hospitalist at 0230. Patient stable at time of transfer to the floor at [facility] Discharge Plan Departure Patient Disposition: Admitted As Inpatient Clinical Impression: Abscess, Hyperglycemia due to diabetes mellitus Cellulitis Qualifiers: Site of cellulitis: extremity Site of cellulitis of extremity: lower extremity Laterality: left Qualified Code(s): L03.116 - Cellulitis of left lower limb Referrals: Jhony Dodd MD [Primary Care Provider] - Admit Date/Time: 09/16/23 02:34 Admit Provider: Boone Stock
[2023-09-16] MEDS: SODIUM CHLORIDE 0.9% 1,000 ML 1000 ML IV (00:33)
[2023-09-16 00:44] LABS: Add Manual Diff / Slide Review NO; Basophils Absolute Auto 0 /uL (0-100); Basophils Percent Auto 0.3 % (0-2); Eosinophils Absolute Auto 0 /uL (0-450); Eosinophils Percent Auto 0.1 % (2-4); Hematocrit 32.7 % (41-53); Hemoglobin 11.1 g/dL (13.5-17.5); Lymphocytes Absolute Auto 700 /uL (1100-4500); Mean Corpuscular HGB Conc 33.8 % (30-36); Mean Corpuscular Hemoglobin 27.4 PG (26-34); Mean Corpuscular Volume 81.1 fL (80-100); Monocytes Absolute Auto 1000 /uL (0-900); Monocytes Percent Auto 8.2 % (3-14); Neutrophils Absolute Auto 10100 /uL (1500-7000); Neutrophils Percent Auto 85.4 % (50-75); Platelet Count 220 X10^3/uL (150-400); Red Blood Cell Count 4.03 X10^6/uL (4.5-5.9); Red Cell Distribution Width 13.6 % (11.6-14.8); White Blood Cell Count 11.8 X10^3/uL (4.5-11.0)
[2023-09-16] MEDS: PIPERACILLIN/TAZO 3.375 GM in SODIUM CHLORIDE 0.9% 100 ML IV (00:50)
[2023-09-16 00:53] LABS: Lactate (Lactic Acid) 1.8 mmol/L (0.7-2.1)
[2023-09-16 00:54] LABS: Alanine Aminotransferase 20 IU/L (<50); Albumin 3.5 g/dL (3.5-5.0); Albumin Globulin Ratio 0.9 (1.0-2.8); Alkaline Phosphatase 143 U/L (38-126); Aspartate Aminotransferase 21 IU/L (17-59); BUN Creatinine Ratio 28.1 (6-22); Bilirubin Total 0.5 mg/dL (0.2-1.3); Blood Urea Nitrogen 18 mg/dL (9-20); Calcium 8.7 mg/dL (8.4-10.2); Carbon Dioxide 28 mmol/L (22-32); Chloride 94 mmol/L (98-107); Estimated Glomerular Filt Rate > 60 mL/min (>60); Globulin 3.7 g/dL (1.7-4.1); HEMOLYSIS < 15 (0-50); Potassium 3.7 mmol/L (3.4-5.1); Sodium 130 mmol/L (137-145); Total Protein 7.2 g/dL (6.3-8.2)
--- NOTE | 2023-09-16 00:57 | PC.NURSE ---
Left foot wounds
[2023-09-16 01:02] LABS: Appearance Urine UA CLEAR; Bilirubin Urine UA NEGATIVE (NEGATIVE); Color Urine UA YELLOW; Glucose Urine UA 3+ g/dL (Negative); Ketones Urine UA 1+ (NEGATIVE); Leukocyte Esterase Urine UA NEGATIVE (NEGATIVE); Nitrite Urine UA NEGATIVE (Negative); Occult Blood Urine UA 1+ (Negative); Protein Urine UA NEGATIVE (Negative); Specific Gravity Urine UA <=1.005 (1.000-1.035)
[2023-09-16 01:06] LABS: Glucose 597 mg/dL (80-110)
[2023-09-16 01:07] LABS: Bacteria Urine None Seen; Culture Indicated Urine Cult Not Indicated; RBC Urine 5-10/HPF (0-5/HPF); Squamous Epithelial Cell Urine 0-1 /HPF (0-5/HPF); WBC Urine None Seen (0-5/HPF)
[2023-09-16] MEDS: INSULIN REGULAR 100 UNIT/ML 3 ML VIAL 15 UNIT IV (01:13)
[2023-09-16] MEDS: MORPHINE 4 MG/ML INJ IV (01:15)
[2023-09-16] MEDS: VANCOMYCIN 1,250 MG/250 ML PIGGYBACK 250 MG IV ×3 (01:37→17:20)
[2023-09-16] MEDS: KCL 20 MEQ IN NS 1,000 ML 125 MEQ IV (01:39)
--- NOTE | 2023-09-16 03:18 | PM.HP.1 ---
History of Present Illness History of Present Illness Date Patient Seen: 09/16/23 Chief complaint: L Foot red&swollen/fell, passed out Narrative: 63 y/o with PMH of HTN, IDDMT2, non-compliance with medications, presented to ED with Lt foot cellulitis and large blister over the heel that got de-roofed in the ED. His Rt foot has several ulcers and wounds as well. 2-3 weeks ago seen in ED with Lt groin abscess. Glc and BP on admission high. Not in DKA. Ran out of medications couple of weeks ago. Admitted for IV abx [facility] Medical History (Updated 09/16/23 @ 04:22 by Boone Carrera MD) HTN (hypertension) Type 2 diabetes mellitus Social History household members: none Smoking Status: Former smoker alcohol intake: current Meds Home Medications and Allergies Home Medications Medication Instructions Recorded Confirmed Type amlodipine 5 mg tablet 5 mg PO BID 09/16/23 09/16/23 History baclofen 10 mg tablet 10 mg PO QID PRN Spasms 09/16/23 09/16/23 History insulin glargine 100 unit/mL 22 unit SUBCUT QAM 09/16/23 09/16/23 History subcutaneous cartridge insulin lispro 100 unit/mL 5 unit SUBCUT TID 09/16/23 09/16/23 History subcutaneous cartridge (Humalog U-100 Insulin) lisinopril 40 mg tablet 40 mg PO DAILY 09/16/23 09/16/23 History Allergies Allergy/AdvReac Type Severity Reaction Status Date / Time No Known Drug Allergies Allergy Verified 08/29/21 17:17 Review of Systems Constitutional Comments: w/p fever or chills Eyes Comments: w/o vision changes Cardiovascular Comments: w/o chest pain or palpitations Respiratory Comments: w/o shortness of breath Gastrointestinal Comments: w/o complaints Genitourinary Comments: w/o difficulty voiding Musculoskeletal Comments: Lt foot / heel pain, difficulty bearing weight and walking Exam Vital Signs (past 8 hours): - 09/16/23 00:10 09/16/23 01:05 09/16/23 01:06 Temperature 98.2 F Pulse Rate 108 H 98 H 99 H Respiratory Rate 19 21 22 Blood Pressure 218/110 H Pulse Oximetry 98 97 97 Oxygen Delivery Method Room Air Room Air 09/16/23 01:06 09/16/23 01:36 09/16/23 02:00 Temperature Pulse Rate 100 H 111 H Respiratory Rate 25 H Blood Pressure 178/84 H Pulse Oximetry 97 97 Oxygen Delivery Method 09/16/23 02:21 09/16/23 02:26 09/16/23 02:30 Temperature Pulse Rate 132 H 115 H Respiratory Rate Blood Pressure 195/95 H Pulse Oximetry 99 99 Oxygen Delivery Method 09/16/23 02:30 Temperature Pulse Rate Respiratory Rate Blood Pressure 195/88 H Pulse Oximetry Oxygen Delivery Method Oxygen Delivery Method Room Air Const Other: in no distress, laying in bed HENMT Other: normocephalic Eyes Other: normal appearance, eomi Neck Other: supple Resp Other: normal respiratory effort Cardio Other: RRR GI Other: w/o distension, not tender Skin Other: see HPI Neuro Other: w/o focal deficits Extrem Other: swollen, erythematous, tender Lt foot Psych Other: decisional Objective Labs 09/16/23 00:30 09/16/23 00:30 Labs: Laboratory Results - last 24 hr 09/16/23 09/16/23 00:30 00:52 WBC 11.8 H RBC 4.03 L Hgb 11.1 L Hct 32.7 L MCV 81.1 MCH 27.4 MCHC 33.8 RDW 13.6 Plt Count 220 Neut % (Auto) 85.4 H Lymph % (Auto) 6.0 L [place] % (Auto) 8.2 Eos % (Auto) 0.1 L Baso % (Auto) 0.3 Neut # (Auto) 44619 H Lymph # (Auto) 700 L [place] # (Auto) 1000 H Eos # (Auto) 0 Baso # (Auto) 0 Sodium 130 L Potassium 3.7 Chloride 94 L Carbon Dioxide 28 BUN 18 Creatinine 0.64 L Estimated GFR > 60 BUN/Creatinine Ratio 28.1 H Glucose 597 H* Lactate 1.8 Calcium 8.7 Total Bilirubin 0.5 AST 21 ALT 20 Alkaline Phosphatase 143 H Total Protein 7.2 Albumin 3.5 Globulin 3.7 Albumin/Globulin Ratio 0.9 L Urine Color Yellow Urine Appearance Clear Urine pH 5.0 Ur Specific [place] <=1.005 Urine Protein Negative Urine Glucose (UA) 3+ H Urine Ketones 1+ H Urine Occult Blood 1+ H Urine Nitrate Negative Urine Bilirubin Negative Urine Urobilinogen 1.0 Ur Leukocyte Esterase Negative Urine RBC 5-10/hpf H Urine WBC None seen Ur Squamous Epith Cells 0-1 /hpf Urine Bacteria None seen Ur Culture Indicated? Cult not indicated Assessment & Plan Assessment and plan (1) Cellulitis and abscess of left lower extremity: Status: Acute Plan: - got Zosyn / Vancomycin in the ED - Lt groin abscess from ~ 2 weeks ago grew MRSA - continue vancomycin - not septic - he might need debridement of Lt heel (2) Uncontrolled hypertension: Status: Acute Plan: - doesn't take medications regularly - Lisinopril 40 mg daily, Norbasc 5 mg daily (3) Type 2 diabetes, uncontrolled, with pressure ulcer of heel: Status: Acute Plan: - not using insulin in the last few weeks, ran out of it - 22 U of long acting, SS, CCD - A1C pending (4) Noncompliance w/medication treatment due to intermit use of medication: Status: Acute Plan: see above - at risk for limb loss
[2023-09-16] MEDS: BACLOFEN 10 MG TABLET PO ×3 (03:53→15:25)
[2023-09-16] MEDS: OXYCODONE IR 10 MG TABLET PO ×5 (03:53→21:14)
[2023-09-16] MEDS: lisinopriL 10 MG TABLET 20 MG PO (05:15)
[2023-09-16 06:41] LABS: BUN Creatinine Ratio 22.7 (6-22); Blood Urea Nitrogen 15 mg/dL (9-20); Calcium 8.3 mg/dL (8.4-10.2); Carbon Dioxide 25 mmol/L (22-32); Chloride 96 mmol/L (98-107); Estimated Glomerular Filt Rate > 60 mL/min (>60); Glucose 343 mg/dL (80-110); HEMOLYSIS < 15 (0-50); Potassium 3.5 mmol/L (3.4-5.1); Sodium 130 mmol/L (137-145)
[2023-09-16] MEDS: ACETAMINOPHEN 325 MG TABLET 650 MG PO ×3 (07:47→21:14)
[2023-09-16] MEDS: INFLUENZA VACCINE QIV 0.5 ML SYRINGE IM (08:55)
[2023-09-16] MEDS: INSULIN GLARGINE 100 UNIT/ML 3ML PEN 22 UNIT SUBCUT (08:56)
[2023-09-16] MEDS: AMLODIPINE 5 MG TABLET PO ×2 (08:57→21:14)
[2023-09-16] MEDS: lisinopriL 20 MG TABLET 40 MG PO (08:57)
[2023-09-16] MEDS: POTASSIUM CHLORIDE 20 MEQ TAB 40 MEQ PO (08:57)
[2023-09-16] MEDS: ENOXAPARIN 40 MG/0.4 ML SYRINGE SUBCUT (08:59)
[2023-09-16] MEDS: SODIUM CHLORIDE 0.9% FLUSH 10 ML IV ×2 (08:59→21:15)
--- NOTE | 2023-09-16 09:23 | P.HP_ITS ---
History of Present Illness History of Present Illness Date Patient Seen: 09/16/23 Time Patient Seen: 09:23 Chief complaint: L Foot red&swollen/fell, passed out Narrative: 63 year old male with PMH of HTN, DM with insulin use, history of polymicrobial bacteremia, sepsis, vertebral (lumbar L4/5) osteomyelitis/discitis in 2021 at [facility], s/p drainage of epidural abscess who presents with l ankle and foot swelling, pain, and redness he says for the past couple of days. He has also been out of his insulin for the past couple of weeks. He was recently here in the ER with a groin abscess which cultures grew MRSA. He started developing severe pain on his left foot, with swelling and then blistering. He was given antibiotics in the ER, one of the lesions was drained in the emergency room. He was then admitted for further management. Overnight he was given zosyn in the ER, vancomycin ordered per pharmacy. I placed him on ceftriaxone in addition to the vancomycin this morning. [facility] Medical History HTN (hypertension) Type 2 diabetes mellitus Social History household members: none Smoking Status: Former smoker alcohol intake: current Meds Home Medications and Allergies Home Medications Medication Instructions Recorded Confirmed Type amlodipine 5 mg tablet 5 mg PO BID 09/16/23 09/16/23 History baclofen 10 mg tablet 10 mg PO QID PRN Spasms 09/16/23 09/16/23 History insulin glargine 100 unit/mL 22 unit SUBCUT QAM 09/16/23 09/16/23 History subcutaneous cartridge insulin lispro 100 unit/mL 5 unit SUBCUT TID 09/16/23 09/16/23 History subcutaneous cartridge (Humalog U-100 Insulin) lisinopril 40 mg tablet 40 mg PO DAILY 09/16/23 09/16/23 History Allergies Allergy/AdvReac Type Severity Reaction Status Date / Time No Known Drug Allergies Allergy Verified 08/29/21 17:17 Review of Systems Review of Systems Narrative: All other systems reviewed with the patient and are negative unless otherwise stated. Exam Vital Signs (past 8 hours): - 09/16/23 01:36 09/16/23 02:00 09/16/23 02:21 Temperature Pulse Rate 100 H 111 H 132 H Respiratory Rate 25 H Blood Pressure Pulse Oximetry 97 97 99 Oxygen Flow Rate 09/16/23 02:26 09/16/23 02:30 09/16/23 02:30 Temperature Pulse Rate 115 H Respiratory Rate Blood Pressure 195/95 H 195/88 H Pulse Oximetry 99 Oxygen Flow Rate 09/16/23 02:50 09/16/23 05:15 Temperature 97.6 F Pulse Rate 94 H 90 Respiratory Rate 17 Blood Pressure 184/103 H 168/81 H Pulse Oximetry 100 Oxygen Flow Rate 0 Oxygen Delivery Method Room Air Oxygen Flow Rate 0 Narrative Exam Narrative: General:?Chronically ill appearing male, no acute distress, appears comfortable in hospital bed. HEENT:? Normocephalic, atraumatic, extraocular muscles intact, oral pharynx is clear and mucous membranes are moist. Neck: supple and symmetric, trachea is midline, no cervical adenopathy. Chest:? Normal AP diameter and contour without kyphoscoliosis, no tachypnea, equal chest rise bilaterally. Lungs:? CTA b/l no wheezing rhonchi or rales. Cardio:?RRR no m/r/g. Abdomen: S NT ND. Musculoskeletal:? Muscle strength and tone are equal within normal limits, no deformity. Extremities: Left foot and ankle bandaged, with, edema, erythema, warmth circumferentially. extends proximally to lower 1/3 of his shaw. Skin: as above Neuro:? Alert and orientated x3, no focal deficits Psych:? Patient has a well-kept appearance, appropriate affect, mental status attitude thought context and judgment are appropriate for age. Objective Labs 09/16/23 00:30 09/16/23 05:28 Labs: Laboratory Results - last 24 hr 09/16/23 09/16/23 09/16/23 00:30 00:52 05:28 WBC 11.8 H RBC 4.03 L Hgb 11.1 L Hct 32.7 L MCV 81.1 MCH 27.4 MCHC 33.8 RDW 13.6 Plt Count 220 Neut % (Auto) 85.4 H Lymph % (Auto) 6.0 L [place] % (Auto) 8.2 Eos % (Auto) 0.1 L Baso % (Auto) 0.3 Neut # (Auto) 59111 H Lymph # (Auto) 700 L [place] # (Auto) 1000 H Eos # (Auto) 0 Baso # (Auto) 0 Sodium 130 L 130 L Potassium 3.7 3.5 Chloride 94 L 96 L Carbon Dioxide 28 25 BUN 18 15 Creatinine 0.64 L 0.66 Estimated GFR > 60 > 60 BUN/Creatinine Ratio 28.1 H 22.7 H Glucose 597 H* 343 H D Lactate 1.8 Calcium 8.7 8.3 L Total Bilirubin 0.5 AST 21 ALT 20 Alkaline Phosphatase 143 H Total Protein 7.2 Albumin 3.5 Globulin 3.7 Albumin/Globulin Ratio 0.9 L Urine Color Yellow Urine Appearance Clear Urine pH 5.0 Ur Specific [place] <=1.005 Urine Protein Negative Urine Glucose (UA) 3+ H Urine Ketones 1+ H Urine Occult Blood 1+ H Urine Nitrate Negative Urine Bilirubin Negative Urine Urobilinogen 1.0 Ur Leukocyte Esterase Negative Urine RBC 5-10/hpf H Urine WBC None seen Ur Squamous Epith Cells 0-1 /hpf Urine Bacteria None seen Ur Culture Indicated? Cult not indicated Assessment & Plan Assessment & Plan narrative: (1) Diabetic foot infection / Cellulitis and abscess of left lower extremity: - continue ceftriaxone and vancomycin, patient also with notable history of bacteremia, spinal osteomyelitis with need for neurosurgery. No lower extremity symptoms currently to suggest involvement of spine currently. With extensive involvement of his foot, lower calf, and possible need for surgery for drainage, patient's stay is anticipated to exceed two midnights. - Recent L groin abscess drained in the ER with MRSA from cultures. - consulted with orthopedics provider whom will formally evaluate tomorrow but recommended ESR, CRP and MRI of left foot which were ordered. - CT shows multiple plantar fluid collections - pain control as needed. - DM control as noted below (2) hypertension: - doesn't take medications regularly - continue Lisinopril 40 mg daily, Norvasc 5 mg BID, may need additional adjustments (3) Type 2 diabetes, uncontrolled, with pressure ulcer of heel: - not using insulin in the last few weeks, ran out of it, fired by PCP per patient. 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 Per prior D/C summary he was well controlled on the lantus only while in the hospital. - A1C ordered Code: Full, surrogate is patient's friend Pat DVT: Lovenox, hold if surgical procedure is needed. I have utilized all available immediate resources to obtain, update, or review the patient's current medications. Discussed with case management, orthopedics provider, and overnight hospitalist to formulate the above history, assessment and plan. Quality MIPS - Admit I confirm the patient?s Advance Care Plan is present, Code status is documented, Surrogate decision maker is in patient?s record [If Yes, STOP here]: Yes
[2023-09-16] MEDS: cefTRIAXone 2,000 MG in SODIUM CHLORIDE 0.9% 100 ML 200 MG IV (09:26)
--- NOTE | 2023-09-16 10:09 | DI.MRI.S_ITS ---
PROCEDURE: MR FOOT LT WO/W CON INDICATIONS: assess infection of L foot, ? osteomyelitis TECHNIQUE: Noncontrast coronal T1 spin echo and STIR, sagittal T1 spin echo with fat saturation and STIR, axial T1 spin echo and T2 fast spin echo with fat saturation. After the administration of contrast, axial/sagittal/coronal T1 spin echo with fat saturation through the forefoot. COMPARISON: [facility], CT, CT LE LT W CON, 09/16/2023, 0:34. [facility], CR, XR FOOT 3+ VIEWS RIGHT, 09/15/2022, 0:28. FINDINGS: Image quality: Excellent. Bones: Generalized degenerative changes are seen. The degenerative changes are worst involving the 1st metatarsophalangeal joint. No significant abnormal signal can be seen within the bones. No abnormal enhancement can be seen. Toe alignment abnormalities are seen. Soft tissues: Extensive distal soft tissue swelling is seen, with generalized edema. Mild T2 hyperintense stranding can be seen involving the muscles of the plantar foot. Mildly increased enhancement can be seen. On these images, no loculated/rim enhancing abscess can be seen. IMPRESSION: Generalized soft tissue swelling can be seen, with fluid and fatty stranding. There is stranding seen of the muscles inferiorly, with mildly increased enhancement, which is consistent with myositis. No focal abscess is seen. No findings of osteomyelitis Dictated by: Wilmar Ray M.D. on 09/16/2023 at 13:52 Approved by: Wilmar Ray M.D. on 09/16/2023 at 13:56
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
[2023-09-16] MEDS: INSULIN LISPRO 100 UNIT/ML 3ML VIAL SUBCUT ×3 (12:14→21:15)
[2023-09-17 02:00] VITALS: BP 167/89; PULSE 91; RESP 18; TEMP 36.6; O2SAT 97
[2023-09-17] MEDS: VANCOMYCIN 1,250 MG/250 ML PIGGYBACK 250 MG IV ×3 (02:11→18:55)
[2023-09-17] MEDS: OXYCODONE IR 10 MG TABLET PO ×2 (02:12→05:33)
[2023-09-17] MEDS: SODIUM CHLORIDE 0.9% FLUSH 10 ML IV ×2 (02:12→20:27)
[2023-09-17] MEDS: BACLOFEN 10 MG TABLET PO ×2 (02:12→16:07)
--- NOTE | 2023-09-17 02:59 | PC.NURSE ---
Patient is alert and oriented. Breath sounds CTA with RA sat of 97%. HRR. Continues to have elevated BP at 155/96 and 167/89 but improved over admission BP. Denied nausea. BT present and abdomen is soft. Denied dysuria and is voiding per urinal. Is able to move himself in bed. Gait not assessed as has not been out of bed related to pain in left LE. Left LE remains erythemic but does not seem as bright; continues to be swollen and warm to touch. When staff not in room patient is quiet, calm and mostly sleeping but as soon as awakened he being crying and holler out related to pain. When questioned he states pain never better than 8/10 and is 10/10 with any movement; has been medicated twice this shift, so far, with oxycodone as well as given baclofen x 1. Has numbness in left foot but able to feel light touch. Dressing to left foot is intact with areas of shadow drainage. Fall risk assessment is high and bed alarm is activated. CBG trending high and is on sliding scale coverage + Lantus.
[2023-09-17] MEDS: ACETAMINOPHEN 325 MG TABLET 650 MG PO ×4 (03:14→20:27)
[2023-09-17 06:11] LABS: Add Manual Diff / Slide Review NO; Basophils Absolute Auto 0 /uL (0-100); Basophils Percent Auto 0.4 % (0-2); Eosinophils Absolute Auto 200 /uL (0-450); Eosinophils Percent Auto 1.4 % (2-4); Hematocrit 29.7 % (41-53); Hemoglobin 10.1 g/dL (13.5-17.5); Lymphocytes Absolute Auto 1300 /uL (1100-4500); Lymphocytes Percent Auto 11.4 % (25-40); Mean Corpuscular HGB Conc 34.1 % (30-36); Mean Corpuscular Hemoglobin 27.3 PG (26-34); Mean Corpuscular Volume 79.8 fL (80-100); Monocytes Absolute Auto 800 /uL (0-900); Monocytes Percent Auto 7.2 % (3-14); Neutrophils Absolute Auto 9100 /uL (1500-7000); Neutrophils Percent Auto 79.6 % (50-75); Platelet Count 201 X10^3/uL (150-400); Red Blood Cell Count 3.72 X10^6/uL (4.5-5.9); Red Cell Distribution Width 13.8 % (11.6-14.8); White Blood Cell Count 11.4 X10^3/uL (4.5-11.0)
[2023-09-17 06:18] LABS: BUN Creatinine Ratio 26.9 (6-22); Blood Urea Nitrogen 18 mg/dL (9-20); Calcium 8.8 mg/dL (8.4-10.2); Carbon Dioxide 30 mmol/L (22-32); Chloride 94 mmol/L (98-107); Estimated Glomerular Filt Rate > 60 mL/min (>60); Glucose 259 mg/dL (80-110); HEMOLYSIS < 15 (0-50); Magnesium 1.9 mg/dL (1.6-2.3); Potassium 3.4 mmol/L (3.4-5.1); Sodium 130 mmol/L (137-145)
[2023-09-17 06:25] LABS: Hemoglobin A1C% w Est Avg Glu 12.1 % (4.0-6.0)
[2023-09-17 06:34] LABS: C-Reactive Protein Quant 21.8 mg/dL (<1.0)
[2023-09-17 07:30] VITALS: BP 178/100; PULSE 85; RESP 24; O2SAT 97
[2023-09-17] MEDS: cefTRIAXone 2,000 MG in SODIUM CHLORIDE 0.9% 100 ML 200 MG IV (08:23)
[2023-09-17] MEDS: INSULIN GLARGINE 100 UNIT/ML 3ML PEN 22 UNIT SUBCUT (08:23)
[2023-09-17] MEDS: INSULIN LISPRO 100 UNIT/ML 3ML VIAL SUBCUT ×5 (08:24→20:27)
[2023-09-17] MEDS: lisinopriL 20 MG TABLET 40 MG PO (08:25)
[2023-09-17] MEDS: ENOXAPARIN 40 MG/0.4 ML SYRINGE SUBCUT (08:25)
[2023-09-17] MEDS: AMLODIPINE 5 MG TABLET PO ×2 (08:25→20:27)
[2023-09-17 08:38] VITALS: TEMP 37.2
[2023-09-17] MEDS: POTASSIUM CHLORIDE 20 MEQ TAB 40 MEQ PO (08:49)
--- NOTE | 2023-09-17 09:35 | DI.CT.S_ITS ---
PROCEDURE: CT THORACIC SPINE WO CON INDICATIONS: ground level fall TECHNIQUE: Noncontrast 3 mm thick sections acquired through the region of interest in the thoracic spine. Sagittal and coronal reformats were then constructed. For radiation dose reduction, the following was used: automated exposure control. COMPARISON: [facility], CR, XR CHEST 1 VIEW, 09/15/2022, 0:28. FINDINGS: Image quality: Excellent. Bones: There is normal overall bony alignment. No acute vertebral body compression fractures. No suspicious sclerotic or lytic bony lesions. Central spinal canal is of normal overall caliber. Age-appropriate bony degenerative changes are seen. Accentuated thoracic kyphosis is seen. Minimal dextroconvex scoliotic curvature is seen. Soft tissues: There is a small left-sided pleural effusion and a trace right-sided pleural effusion. Overlying atelectasis can be seen. There is a moderate volume of stool seen within the visualized colon. A water density right renal cyst is seen. Moderate coronary artery calcification can be seen. IMPRESSION: Negative for acute fracture. There is a small left-sided pleural effusion and a trace right-sided pleural effusion. Degenerative changes and minimal dextroconvex scoliotic curvature can be seen. There is a moderate amount of stool seen within the colon. Please correlate with an underlying history of constipation. Additional findings: Moderate coronary artery calcification Simple right renal cyst Dictated by: Wilmar Ray M.D. on 09/17/2023 at 12:15 Approved by: Wilmar Ray M.D. on 09/17/2023 at 12:17
--- NOTE | 2023-09-17 09:36 | PM.PN.1 ---
Subjective Subjective Date Patient Seen: 09/17/23 Interval history: Pt with c/o sev pain in left foot. Also having intermittent sev pain in thoracic spine since he fell on his back several days ago. Awaiting ortho consult on left foot MRI findings. Exam Vital Signs (past 8 hours): - 09/17/23 02:00 09/17/23 02:50 09/17/23 07:30 Temperature 98 F Pulse Rate 91 H 85 Respiratory Rate 18 24 Blood Pressure 167/89 H 178/100 H Pulse Oximetry 97 97 Oxygen Delivery Method Room Air Oxygen Flow Rate 0 0 09/17/23 08:38 Temperature 99.0 F Pulse Rate Respiratory Rate Blood Pressure Pulse Oximetry Oxygen Delivery Method Oxygen Flow Rate Oxygen Delivery Method Room Air Oxygen Flow Rate 0 Narrative Exam Narrative: Gen: alert, grimacing in obvious pain Lungs: Breathing normally Back: no bruising, tender over mid thoracic spine Ext: Left foot and ankle bandaged, with, edema, erythema, warmth circumferentially. extends proximally to lower 1/3 of his shaw. Objective Labs 09/17/23 05:25 09/17/23 05:25 Labs: Laboratory Results - last 24 hr 09/17/23 05:25 WBC 11.4 H RBC 3.72 L Hgb 10.1 L Hct 29.7 L MCV 79.8 L MCH 27.3 MCHC 34.1 RDW 13.8 Plt Count 201 Neut % (Auto) 79.6 H Lymph % (Auto) 11.4 L [place] % (Auto) 7.2 Eos % (Auto) 1.4 L Baso % (Auto) 0.4 Neut # (Auto) 9100 H Lymph # (Auto) 1300 [place] # (Auto) 800 Eos # (Auto) 200 Baso # (Auto) 0 Sodium 130 L Potassium 3.4 Chloride 94 L Carbon Dioxide 30 BUN 18 Creatinine 0.67 Estimated GFR > 60 BUN/Creatinine Ratio 26.9 H Glucose 259 H Hemoglobin A1c 12.1 H Calcium 8.8 Magnesium 1.9 C-Reactive Protein 21.8 H PFSH Medical History HTN (hypertension) Type 2 diabetes mellitus Social History household members: none Smoking Status: Former smoker alcohol intake: current Assessment & Plan Assessment & Plan narrative: (1) Diabetic foot infection / Cellulitis and abscess of left lower extremity: - continue ceftriaxone and vancomycin, patient also with notable history of bacteremia, spinal osteomyelitis with need for neurosurgery 2021, prev hx osteo in rt foot big toe. - has extensive involvement of his foot, lower calf, and possible need for surgery for drainage, patient's stay is anticipated to exceed two midnights. - Recent L groin abscess drained in the ER with MRSA from cultures. - consulted with orthopedics pending - MR shows extensive soft tissue swelling, findings of stranding in muscles of plantar foot, no evidence of abscess or osteo - pain control as needed - inc oxycodone to 15 mg q3h prn. - DM control as noted below (2) hypertension: - doesn't take medications regularly - continue Lisinopril 40 mg daily, Norvasc 5 mg BID, may need additional adjustments (3) Type 2 diabetes, uncontrolled, with pressure ulcer of heel: - not using insulin in the last few weeks, ran out of it, fired by PCP per patient. 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 Per prior D/C summary he was well controlled on the lantus only while in the hospital. - A1C 12.1, poor control (4) Thoracic spine pain s/p recent GLF - ordered t-spine CT, r/o fx Code: Full, surrogate is patient's friend Pat DVT: Lovenox, hold if surgical procedure is needed.
[2023-09-17] MEDS: OXYCODONE IR 5 MG TABLET 15 MG PO ×3 (09:47→19:06)
[2023-09-17 10:21] LABS: Vancomycin Trough 10.1 ug/mL (10-20)
[2023-09-17] MEDS: VANCOMYCIN TROUGH 1 REQUEST MISC (10:30)
[2023-09-17 12:00] VITALS: BP 141/80; PULSE 81; RESP 20; TEMP 36.7; O2SAT 97
--- NOTE | 2023-09-17 12:20 | P.HP_ITS ---
History of Present Illness History of Present Illness Chief complaint: L Foot red&swollen/fell, passed out Narrative: 63-year-old male seen at the request of the primary service for his left foot. He came in with redness and swelling. He has been placed on antibiotics while inpatient and has had improvement in the coloration of the foot. He also complains of back pain. He has a history of infections both in his feet and his spine. He continues to complain of pain which is aggravated by movement and partially alleviated by rest. Per chart review he is a poorly-controlled diabetic who has been off of his medications recently [facility] Medical History HTN (hypertension) Type 2 diabetes mellitus Social History household members: none Smoking Status: Former smoker alcohol intake: current Meds Home Medications and Allergies Home Medications Medication Instructions Recorded Confirmed Type amlodipine 5 mg tablet 5 mg PO BID 09/16/23 09/16/23 History baclofen 10 mg tablet 10 mg PO QID PRN Spasms 09/16/23 09/16/23 History insulin glargine 100 unit/mL 22 unit SUBCUT QAM 09/16/23 09/16/23 History subcutaneous cartridge insulin lispro 100 unit/mL 5 unit SUBCUT TID 09/16/23 09/16/23 History subcutaneous cartridge (Humalog U-100 Insulin) lisinopril 40 mg tablet 40 mg PO DAILY 09/16/23 09/16/23 History Allergies Allergy/AdvReac Type Severity Reaction Status Date / Time No Known Drug Allergies Allergy Verified 08/29/21 17:17 Review of Systems Review of Systems ROS: Yes All systems reviewed with the patient and are negative except as otherwise documented Exam Vital Signs (past 8 hours): - 09/17/23 07:30 09/17/23 08:38 Temperature 99.0 F Pulse Rate 85 Respiratory Rate 24 Blood Pressure 178/100 H Pulse Oximetry 97 Oxygen Flow Rate 0 Oxygen Delivery Method Room Air Oxygen Flow Rate 0 Narrative Exam Narrative: Left lower extremity examination demonstrates a chronic appearing superficial wound over the medial aspect of the 1st metacarpophalangeal joint. There is eschar over that wound. Additionally over the medial aspect of the heel is skin desquamation with blistering. This appears to be limited to the skin and subcutaneous tissues. It is not a full-thickness defect. There was no calcaneus exposed in the wound bed. There is relatively mild erythema throughout the foot. There is no purulent drainage from any of the wounds Const General: cooperative Orientation: alert and awake [facility] Head: normal to inspection Ears: hearing grossly normal bilaterally Eyes General: appearance normal, both eyes and all related structures Neck Neck: normal visual inspection Resp Effort & Inspection: normal respiratory effort and able to speak in complete sentences Cardio Pulses: other (peripheral pulses present) Skin Lesions: no lesions Rashes: no rashes Neuro General: patient alert, patient awake and moves all extremities Psych Appearance: grossly normal Objective Imaging Left foot MRI: My impression: Left foot MRI reviewed which does not demonstrate any focal osteomyelitis or large abscess formation in the subcutaneous tissues surrounding the wounds in the medial hallux and calcaneus Radiologist's impression: IMPRESSION:?? Generalized?soft?tissue?swelling?can?be?seen,?with?fluid?and?fatty?stranding.??T here?is?stranding?se en?of?the?muscles?inferiorly,?with?mildly?increased?enhancement,?which?is?consis tent?with?myositis. No?focal?abscess?is?seen. No?findings?of?osteomyelitis Labs 09/17/23 05:25 09/17/23 05:25 Labs: Laboratory Results - last 24 hr 09/17/23 09/17/23 05:25 09:35 WBC 11.4 H RBC 3.72 L Hgb 10.1 L Hct 29.7 L MCV 79.8 L MCH 27.3 MCHC 34.1 RDW 13.8 Plt Count 201 Neut % (Auto) 79.6 H Lymph % (Auto) 11.4 L [place] % (Auto) 7.2 Eos % (Auto) 1.4 L Baso % (Auto) 0.4 Neut # (Auto) 9100 H Lymph # (Auto) 1300 [place] # (Auto) 800 Eos # (Auto) 200 Baso # (Auto) 0 Sodium 130 L Potassium 3.4 Chloride 94 L Carbon Dioxide 30 BUN 18 Creatinine 0.67 Estimated GFR > 60 BUN/Creatinine Ratio 26.9 H Glucose 259 H Hemoglobin A1c 12.1 H Calcium 8.8 Magnesium 1.9 C-Reactive Protein 21.8 H Vancomycin Trough 10.1 Assessment & Plan Assessment and plan (1) Cellulitis and abscess of left lower extremity: Status: Acute Plan Uncontrolled diabetic with chronic appearing wound to the 1st ray and a new wound in the medial aspect of his heel. Neither of these associated with osteomyelitis or abscess formation on MRI. Erythema has improved with antibiotics. Recommend continued wound care during this admission and outpatient follow up with Podiatry. Do not see any obvious areas in which his condition would be improved with urgent surgical debridement at this time. CRP is markedly elevated at 21. Primary team planning to obtain CT scan for evaluation of spine given history of epidural abscess
--- NOTE | 2023-09-17 12:25 | PC.NURSE ---
Dr. Quinonez in room, drg. removed. See provider note. Drg. was remove by provider. Redressed by RN.
[2023-09-17 16:58] VITALS: BP 182/101; PULSE 97; RESP 24; TEMP 37.9; O2SAT 93
[2023-09-17 20:00] VITALS: BP 152/91; PULSE 86; RESP 16; TEMP 36.5; O2SAT 94
[2023-09-17] MEDS: SENNOSIDES 8.6 MG TABLET 17.2 MG PO (20:27)
[2023-09-17] MEDS: DOCUSATE 100 MG CAPSULE PO (20:27)
[2023-09-18 02:00] VITALS: BP 156/89; PULSE 87; RESP 18; TEMP 36.7; O2SAT 96
[2023-09-18] MEDS: VANCOMYCIN 1,250 MG/250 ML PIGGYBACK 250 MG IV ×3 (02:39→17:10)
[2023-09-18] MEDS: OXYCODONE IR 5 MG TABLET 15 MG PO ×4 (02:45→13:25)
[2023-09-18] MEDS: ACETAMINOPHEN 325 MG TABLET 650 MG PO ×3 (02:45→21:03)
[2023-09-18 06:08] LABS: Add Manual Diff / Slide Review NO; Basophils Absolute Auto 0 /uL (0-100); Basophils Percent Auto 0.3 % (0-2); Eosinophils Absolute Auto 100 /uL (0-450); Eosinophils Percent Auto 1.4 % (2-4); Hematocrit 29.6 % (41-53); Hemoglobin 10.1 g/dL (13.5-17.5); Lymphocytes Absolute Auto 1100 /uL (1100-4500); Lymphocytes Percent Auto 11.1 % (25-40); Mean Corpuscular HGB Conc 34.2 % (30-36); Mean Corpuscular Hemoglobin 27.2 PG (26-34); Mean Corpuscular Volume 79.7 fL (80-100); Monocytes Absolute Auto 800 /uL (0-900); Monocytes Percent Auto 8.5 % (3-14); Neutrophils Absolute Auto 7700 /uL (1500-7000); Neutrophils Percent Auto 78.7 % (50-75); Platelet Count 213 X10^3/uL (150-400); Red Blood Cell Count 3.71 X10^6/uL (4.5-5.9); Red Cell Distribution Width 14.1 % (11.6-14.8); White Blood Cell Count 9.8 X10^3/uL (4.5-11.0)
[2023-09-18 06:18] LABS: BUN Creatinine Ratio 20.5 (6-22); Blood Urea Nitrogen 15 mg/dL (9-20); Calcium 8.8 mg/dL (8.4-10.2); Carbon Dioxide 30 mmol/L (22-32); Chloride 95 mmol/L (98-107); Estimated Glomerular Filt Rate > 60 mL/min (>60); Glucose 209 mg/dL (80-110); HEMOLYSIS < 15 (0-50); Magnesium 1.9 mg/dL (1.6-2.3); Potassium 3.6 mmol/L (3.4-5.1); Sodium 131 mmol/L (137-145)
[2023-09-18 07:39] VITALS: BP 124/72; PULSE 86; RESP 24; TEMP 36.8; O2SAT 93
[2023-09-18] MEDS: INSULIN LISPRO 100 UNIT/ML 3ML VIAL SUBCUT ×7 (08:17→21:04)
[2023-09-18 08:19] VITALS: BP 124/72
[2023-09-18] MEDS: SODIUM CHLORIDE 0.9% FLUSH 10 ML IV ×2 (08:19→21:03)
[2023-09-18] MEDS: lisinopriL 20 MG TABLET 40 MG PO (08:19)
[2023-09-18] MEDS: DOCUSATE 100 MG CAPSULE PO ×2 (08:19→21:03)
[2023-09-18] MEDS: polyethylene glycoL 3350 17 GM POWD.PACK PO (08:19)
[2023-09-18] MEDS: AMLODIPINE 5 MG TABLET PO ×2 (08:19→21:03)
[2023-09-18] MEDS: ENOXAPARIN 40 MG/0.4 ML SYRINGE SUBCUT (08:19)
[2023-09-18] MEDS: cefTRIAXone 2,000 MG in SODIUM CHLORIDE 0.9% 100 ML 200 MG IV (08:21)
[2023-09-18] MEDS: INSULIN GLARGINE 100 UNIT/ML 3ML PEN 25 UNIT SUBCUT (08:35)
--- NOTE | 2023-09-18 11:17 | CM.DPC ---
DCP Cont: Per MD, pt remains on IV-Abx and pain management and Wound Consult order placed as Ortho Consulted and currently no need for surgical intervention and no current sign of osteomyelitis. PT ordered and pending. SW called [facility] and updated on Wound Consult order and faxed facesheet and H&P to review. They confirm that they will meet bedside with pt later today. NOEMY called pt's PCP office for Dr. Dodd as pt states he was fired for missing a couple appointments. [facility] confirms that they cannot schedule pt for a f/u appointment until he calls [facility] at [phone] to discuss the process of being reinstated with Dr. Dodd. SW called Medicaid transportation and confirmed that pt DOES have Medicaid transportation benefits in case needed at discharge to get pt back home if his friend cannot drive him. SW met bedside with pt and updated on above and provided the number for him to call [facility] towards attempting to remain established with Dr. Dodd. SW also inquired if pt has applied for LTC or RUTH and he states at a prior hospitalization he completed the application process and was approved but no RUTH CG ever started and he states he was also very sick at that time and might have missed finalizing the RUTH process. Pt confirms that he has been to [facility] for wound care previously and had Dr. Zamora and would be willing to go there again if needed as [place] would likely be too far for him to travel from [place]. NOEMY called [facility] and confirmed that pt did have an application submitted in March 2023 this summer and in May a SW reached out to patient without a return call and a letter was issued to him via mail. Pt is part of the [employer] program and therefore would not need to re-submit a LTC/RUTH application and that [facility] will just submit right now a request for RUTH and pt should receive a call from [facility] in the next 1-2 weeks for assessment and RUTH. [facility] will attempt to call pt now on his cell phone and hospital room phone to update him and confirm his phone number so that they can move forward with getting pt approved for RUTH. NOEMY made referral to [facility] in anticipation of likely ongoing care and currently [facility] only agency that can accept [facility] and covers [place]. F2F completed but not faxed. Plan: SW to follow closely for Wound Consult and PT eval to determine patient's discharge needs and his current lack of PCP may be a barrier but [facility] reviewing to determine if he would qualify for HH or HACH program. Jennyfer Miramontes MSW
[2023-09-18 11:54] VITALS: BP 125/71; PULSE 76; RESP 16; TEMP 36.5; O2SAT 93
[2023-09-18] MEDS: MAGNESIUM HYDROXIDE 30 ML UDC PO (13:25)
--- NOTE | 2023-09-18 13:26 | PM.CN ---
History of Present Illness Consult details Date Patient Seen: 09/18/23 Time Patient Seen: 12:30 Chief complaint: L Foot red&swollen/fell, passed out Narrative: The patient is a 63-year-old male with poorly controlled diabetes who was admitted to the hospital September 16 2023 for treatment of a left diabetic foot infection. The patient reports developing redness, pain, and swelling along the medial aspect of his left heel that 1st began about 1 week prior to his admission. He denies having any fever or chills. The patient did have a CT scan of the left lower extremity which showed evidence for some fluid collections on the medial plantar side however the MRI did not show any obvious abscess or evidence for osteomyelitis. The patient was admitted to the hospital started on vancomycin and ceftriaxone. A wound consult was then obtained for recommendations regarding the wound on his medial left heel and over the 1st metatarsal head. The patient does have a prior history of having diabetic foot infections and has previously undergone a toe amputation on the right. He also has a past history of having an epidural abscess as well as recent MRSA abscess of the groin. The patient reports that his left foot remains very painful and he is unable to bear weight. Meds Home Medications and Allergies Home Medications Medication Instructions Recorded Confirmed Type amlodipine 5 mg tablet 5 mg PO BID 09/16/23 09/16/23 History baclofen 10 mg tablet 10 mg PO QID PRN Spasms 09/16/23 09/16/23 History insulin glargine 100 unit/mL 22 unit SUBCUT QAM 09/16/23 09/16/23 History subcutaneous cartridge insulin lispro 100 unit/mL 5 unit SUBCUT TID 09/16/23 09/16/23 History subcutaneous cartridge (Humalog U-100 Insulin) lisinopril 40 mg tablet 40 mg PO DAILY 09/16/23 09/16/23 History Allergies Allergy/AdvReac Type Severity Reaction Status Date / Time No Known Drug Allergies Allergy Verified 08/29/21 17:17 Review of Systems Musculoskeletal Comments: Swelling and tenderness left foot, history of callus over 1st metatarsal head left foot Exam Vital Signs (past 8 hours): - 09/18/23 07:39 09/18/23 08:19 09/18/23 11:54 Temperature 98.2 F 97.7 F Pulse Rate 86 76 Respiratory Rate 24 16 Blood Pressure 124/72 124/72 125/71 Pulse Oximetry 93 93 Oxygen Flow Rate 0 0 Oxygen Delivery Method Room Air Oxygen Flow Rate 0 Const Other: Well-developed well-nourished male alert and oriented no apparent distress Skin Other: erythema left foot Extrem Other: Erythema, swelling, and tenderness medial plantar aspect of left foot with large ulcer medial left heel with necrotic tissue and excoriation of periwound skin, thick callous over 1st metatarsal head with small ulcer Objective Labs 09/18/23 05:32 09/18/23 05:32 Labs: Laboratory Results - last 24 hr 09/18/23 05:32 WBC 9.8 RBC 3.71 L Hgb 10.1 L Hct 29.6 L MCV 79.7 L MCH 27.2 MCHC 34.2 RDW 14.1 Plt Count 213 Neut % (Auto) 78.7 H Lymph % (Auto) 11.1 L [place] % (Auto) 8.5 Eos % (Auto) 1.4 L Baso % (Auto) 0.3 Neut # (Auto) 7700 H Lymph # (Auto) 1100 [place] # (Auto) 800 Eos # (Auto) 100 Baso # (Auto) 0 Sodium 131 L Potassium 3.6 Chloride 95 L Carbon Dioxide 30 BUN 15 Creatinine 0.73 Estimated GFR > 60 BUN/Creatinine Ratio 20.5 Glucose 209 H Calcium 8.8 Magnesium 1.9 PFSH Medical History HTN (hypertension) Type 2 diabetes mellitus Social History household members: none Tobacco & Substance Use Smoking Status: Former smoker alcohol intake: current Assessment & Plan Assessment and plan (1) Type 2 diabetes mellitus with foot ulcer: Status: Acute (2) Non-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 CT scan did show evidence for fluid collection on the plantar medial aspect higher of the MRI did not clearly show an abscess. Recommend dressing changes with Hydrofera blue, continue IV antibiotic therapy, arterial Doppler to assess arterial circulation, consider I&D if foot fails to improve with IV antibiotic therapy, follow up at wound center after discharge. Time Spent With Patient Time with patient: 30 to 49 minutes with 50% spent counseling/coordinating care
[2023-09-18] MEDS: OXYCODONE IR 10 MG TABLET PO (17:09)
[2023-09-18] MEDS: hydrOXYzine pamoate 25 MG CAPSULE PO ×2 (17:09→21:13)
--- NOTE | 2023-09-18 18:35 | P.PN_ITS ---
Subjective Subjective Interval history: Patient dealing with alot right now. Says he is still having pain in his foot. Said he hasn't had a BM in several days. Exam Vital Signs (past 8 hours): - 09/18/23 11:54 Temperature 97.7 F Pulse Rate 76 Respiratory Rate 16 Blood Pressure 125/71 Pulse Oximetry 93 Oxygen Flow Rate 0 Oxygen Delivery Method Room Air Oxygen Flow Rate 0 Narrative Exam Narrative: Gen: alert, appears to be in pain Lungs: Breathing normally Back: no bruising, tender over mid thoracic spine Ext: Left foot and ankle bandaged, with, edema, erythema, warmth circumferentially. extends proximally to lower 1/3 of his shaw. Objective Labs 09/18/23 05:32 09/18/23 05:32 Labs: Laboratory Results - last 24 hr 09/18/23 05:32 WBC 9.8 RBC 3.71 L Hgb 10.1 L Hct 29.6 L MCV 79.7 L MCH 27.2 MCHC 34.2 RDW 14.1 Plt Count 213 Neut % (Auto) 78.7 H Lymph % (Auto) 11.1 L [place] % (Auto) 8.5 Eos % (Auto) 1.4 L Baso % (Auto) 0.3 Neut # (Auto) 7700 H Lymph # (Auto) 1100 [place] # (Auto) 800 Eos # (Auto) 100 Baso # (Auto) 0 Sodium 131 L Potassium 3.6 Chloride 95 L Carbon Dioxide 30 BUN 15 Creatinine 0.73 Estimated GFR > 60 BUN/Creatinine Ratio 20.5 Glucose 209 H Calcium 8.8 Magnesium 1.9 PFSH Medical History HTN (hypertension) Type 2 diabetes mellitus Social History household members: none Smoking Status: Former smoker alcohol intake: current Assessment & Plan Assessment & Plan narrative: # Diabetic foot infection / Cellulitis and abscess of left lower extremity: - continue ceftriaxone and vancomycin, patient also with notable history of bacteremia, spinal osteomyelitis with need for neurosurgery 2021, prev hx osteo in rt foot big toe. - has extensive involvement of his foot, lower calf, and possible need for surgery for drainage, patient's stay is anticipated to exceed two midnights. - Recent L groin abscess drained in the ER with MRSA from cultures. - consulted with orthopedics, no surgery needed at this time - MR shows extensive soft tissue swelling, findings of stranding in muscles of plantar foot, no evidence of abscess or osteo - pain control as needed - inc oxycodone to 15 mg q3h prn. - DM control as noted below - wound care gave dressings recs on 09/18, said if not improving consider OR debridement # Hypertension: - doesn't take medications regularly - continue Lisinopril 40 mg daily, Norvasc 5 mg BID, may need additional adjustments # Type 2 diabetes, uncontrolled, with pressure ulcer of heel: - not using insulin in the last few weeks, ran out of it, fired by PCP per patient. 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 Per prior D/C summary he was well controlled on the lantus only while in the hospital. - A1C 12.1, poor control # Thoracic spine pain s/p recent GLF - CT thoracic negative for fracture - pain control # constipation - daily laxatives - dulcolax PRN Code: Full, surrogate is patient's friend Pat DVT: Lovenox, hold if surgical procedure is needed. Dispo: Pending improvement in cellulitis. 2-3 days.
[2023-09-18 20:34] VITALS: BP 151/75; PULSE 92; RESP 20; TEMP 37; O2SAT 92
[2023-09-18] MEDS: SENNOSIDES 8.6 MG TABLET 17.2 MG PO (21:02)
--- NOTE | 2023-09-18 21:20 | PC.NURSE ---
This RN went to give bedtime and pain medications, checked patient's pulse ox, Sa02 in low 80s. Placed on 4L NC now at 94%. RR 22 equal rise and fall of chest. Educated patient on respiratory depression from oxycodone, agreeable to taking vistaril for pain. Updated hospitalist Dr. Carrera.
[2023-09-18] MEDS: OXYCODONE IR 5 MG TABLET PO (23:26)
[2023-09-18] MEDS: IBUPROFEN 400 MG TABLET PO (23:27)
[2023-09-19] VITALS (7 sets, daily range): BP systolic 132–157; BP diastolic 79–89; PULSE 62–84; RESP 16–22; TEMP 36.4–37.1; O2SAT 92–100
[2023-09-19] MEDS: VANCOMYCIN 1,250 MG/250 ML PIGGYBACK 250 MG IV ×2 (02:38→10:35)
[2023-09-19] MEDS: ACETAMINOPHEN 325 MG TABLET 650 MG PO ×4 (02:38→20:13)
[2023-09-19] MEDS: hydrOXYzine pamoate 25 MG CAPSULE PO ×2 (02:38→09:30)
[2023-09-19 06:46] LABS: Add Manual Diff / Slide Review NO; Basophils Absolute Auto 100 /uL (0-100); Basophils Percent Auto 1.2 % (0-2); Eosinophils Absolute Auto 100 /uL (0-450); Eosinophils Percent Auto 2.1 % (2-4); Hematocrit 28.3 % (41-53); Hemoglobin 9.7 g/dL (13.5-17.5); Lymphocytes Absolute Auto 1100 /uL (1100-4500); Lymphocytes Percent Auto 15.7 % (25-40); Mean Corpuscular HGB Conc 34.3 % (30-36); Mean Corpuscular Hemoglobin 27.8 PG (26-34); Mean Corpuscular Volume 80.8 fL (80-100); Monocytes Absolute Auto 600 /uL (0-900); Monocytes Percent Auto 7.9 % (3-14); Neutrophils Absolute Auto 5300 /uL (1500-7000); Neutrophils Percent Auto 73.1 % (50-75); Platelet Count 233 X10^3/uL (150-400); Red Cell Distribution Width 14.1 % (11.6-14.8); White Blood Cell Count 7.2 X10^3/uL (4.5-11.0)
[2023-09-19 06:59] LABS: BUN Creatinine Ratio 21.7 (6-22); Blood Urea Nitrogen 15 mg/dL (9-20); Calcium 8.8 mg/dL (8.4-10.2); Carbon Dioxide 32 mmol/L (22-32); Chloride 98 mmol/L (98-107); Estimated Glomerular Filt Rate > 60 mL/min (>60); Glucose 119 mg/dL (80-110); HEMOLYSIS < 15 (0-50); Potassium 3.6 mmol/L (3.4-5.1); Sodium 135 mmol/L (137-145)
--- NOTE | 2023-09-19 08:15 | PM.PN.1 ---
Subjective Subjective Date Patient Seen: 09/19/23 Time Patient Seen: 08:15 Interval history: Patient states he continues to have significant left foot pain. Denies fever or chills. No nausea or vomiting. Exam Vital Signs (past 8 hours): - 09/19/23 02:40 09/19/23 06:00 Temperature 98.4 F Pulse Rate 75 62 Respiratory Rate 16 17 Blood Pressure 132/80 Pulse Oximetry 96 100 Oxygen Delivery Method Nasal Cannula Oxygen Flow Rate 3 2 Oxygen Delivery Method Nasal Cannula Oxygen Flow Rate 2 Narrative Exam Narrative: Dressing taken down. Shows erythema and ulcer medial aspect of the left foot/calcaneus. No active drainage. Dressing reapplied. Const General: cooperative and comfortable Nutritional Appearance: average body habitus Resp Effort & Inspection: normal respiratory effort and able to speak in complete sentences Objective Labs 09/19/23 06:20 09/19/23 06:20 Labs: Laboratory Results - last 24 hr 09/19/23 06:20 WBC 7.2 RBC 3.50 L Hgb 9.7 L Hct 28.3 L MCV 80.8 MCH 27.8 MCHC 34.3 RDW 14.1 Plt Count 233 Neut % (Auto) 73.1 Lymph % (Auto) 15.7 L [place] % (Auto) 7.9 Eos % (Auto) 2.1 Baso % (Auto) 1.2 Neut # (Auto) 5300 Lymph # (Auto) 1100 [place] # (Auto) 600 Eos # (Auto) 100 Baso # (Auto) 100 Sodium 135 L Potassium 3.6 Chloride 98 Carbon Dioxide 32 BUN 15 Creatinine 0.69 Estimated GFR > 60 BUN/Creatinine Ratio 21.7 Glucose 119 H Calcium 8.8 PFSH Medical History HTN (hypertension) Type 2 diabetes mellitus Social History household members: none Smoking Status: Former smoker alcohol intake: current Assessment & Plan Assessment & Plan narrative: Dr. Brenner September 17, 2023. Continue antibiotics per hospitalist. Continue wound management per wound care. Follow up with Podiatry as an outpatient. Ortho. to continue to follow while inpatient.
[2023-09-19] MEDS: DOCUSATE 100 MG CAPSULE PO ×2 (09:22→20:12)
[2023-09-19] MEDS: ENOXAPARIN 40 MG/0.4 ML SYRINGE SUBCUT (09:22)
[2023-09-19] MEDS: INSULIN GLARGINE 100 UNIT/ML 3ML PEN 25 UNIT SUBCUT (09:22)
[2023-09-19] MEDS: AMLODIPINE 5 MG TABLET PO ×2 (09:23→20:12)
[2023-09-19] MEDS: lisinopriL 20 MG TABLET 40 MG PO (09:24)
[2023-09-19] MEDS: cefTRIAXone 2,000 MG in SODIUM CHLORIDE 0.9% 100 ML 200 MG IV (09:24)
[2023-09-19] MEDS: INSULIN LISPRO 100 UNIT/ML 3ML VIAL SUBCUT ×5 (09:24→16:35)
[2023-09-19] MEDS: polyethylene glycoL 3350 17 GM POWD.PACK PO (09:24)
[2023-09-19] MEDS: SODIUM CHLORIDE 0.9% FLUSH 10 ML IV ×2 (09:24→20:13)
[2023-09-19] MEDS: OXYCODONE IR 5 MG TABLET PO (09:30)
--- NOTE | 2023-09-19 11:11 | PT.IIE ---
Current Diagnoses Type 2 diabetes mellitus with foot ulcer (09/16/23) Essential (primary) hypertension (09/16/23) Cutaneous abscess of left lower limb (09/16/23) Cellulitis of left lower limb (09/16/23) Non-pressure chronic ulcer of left heel and midfoot with fat layer exposed (09/16/23) Non-pressure chronic ulcer of other part of unspecified foot with unspecified severity (09/16/23) Patient's other noncompliance with medication regimen for other reason (09/16/23) Medical History (Last Reviewed 09/18/23 @ 13:29 by Felton Braden MD) HTN (hypertension) Type 2 diabetes mellitus Physical Therapy Inpatient Evaluation/Re-Eval M1 PT/OT-IP Prior Functional Status Start: 09/19/23 12:18 Freq: NEEDED Status: Active Protocol: Document 09/19/23 11:11 AB (Rec: 09/19/23 12:36 AB [email or web address]) Medical Review Prior Functional Status Medical History Reviewed Yes Communication able to make needs known Mobility and Gait pt stated that he is modified independent with all mobilities and ambulation without AD but occasionally uses SPC due to LE and back pain Social History Household Members none Living Arrangements Apartment/Condo Number of Floors (Floors) One Floor Number of Stairs To Enter/Railing? pt lives on a 2nd level apartment: 20 steps B rails to enter Home Environment High Toilet,Tub/Shower M2 PT-IP Current Condition Start: 09/19/23 12:18 Freq: NEEDED Status: Active Protocol: Document 09/19/23 11:11 AB (Rec: 09/19/23 12:36 AB [email or web address]) Physical Therapy Current Condition Current Condition Evaluation Date 09/19/23 Treatment Diagnosis LLE cellulitis; difficulty in walking Onset Date 09/16/23 M3 PT-IP Subjective Start: 09/19/23 12:18 Freq: NEEDED Status: Active Protocol: Document 09/19/23 11:11 AB (Rec: 09/19/23 12:36 AB [email or web address]) Subjective Physical Therapy Visit Type Type Initial Evaluation Visit Start Time 11:11 Visit Stop Time 11:50 Total Visit Minutes 39 Number of PLATFORM SOFTWARE ENGINEER Visits 0 Physical Therapy Visit Comments Patient Comments agreeable to do PT Therapy Pain Assessment Pain When Pain Assessed At Rest Pain Present Pain Present Pain Reported Location Left Leg Intensity 9 Scale Used Numeric (0 - 10) Pain Management Techniques Distraction,Modification of Treatment,Re-positioning, Timing of Activity with Medications M4 PT-IP Mobility and Gait Start: 09/19/23 12:18 Freq: NEEDED Status: Active Protocol: Document 09/19/23 11:11 AB (Rec: 09/19/23 12:36 AB [email or web address]) PT-Bed Mobility Assessment Supine to Sit Supine to Sit Standby Assistance PT-Transfer Assessment Sit to and From Stand Sit to and from Stand Contact Guard Assistance,1 Person Assistance,Use of Upper Extremities Equipment Transfer Assistive Device Gait Belt,Front Wheeled Walker Orthotic/Prosthetic Devices or Brace: No Transfers Transfer Destination Chair Transfer Technique ambulated Transfer Ability Level of Assist Contact Guard Assistance,1 Person Assistance,Use of Upper Extremities Comments Mobility Comments pt supine in bed and agreeable to do PT. PLOF and home set up obtained. Pt with O2 at 2L /min and O2 sat 98%. assesed O2 sat without O2 on and O2 sat maintained 93-96% throughout PT session. BP in supine: 130/78. pt completed supine to sit SBA. able to sit on EOB SBA. completed sit to stand CGA and ambulated in room ~ 25 ft using FWW. pt presents with antalgic gait withh heavy UE use on FWW. pt c/o L foot pain. pt agreed to stay up on the chair. positioned pt on the chair. call light and table placed within reach. Gait Assessment Gait Gait Assistance Required: Contact Guard Assist Distance (Feet) 25 Able to Maintain Weight Bearing Status Yes During Gait Assistive Devices Assistive Device Gait Belt,Front Wheeled Walker Orthotic/Prosthetic Devices or Brace: No Gait Deviations General Gait Pattern Antalgic,Decreased Stride Length,Decreased Feet Clearance,Step-to Gait Factors Limiting Gait Function Factors Limiting Gait Function Decreased Activity Tolerance, Decreased Sensation,Decreased Strength,Limited Range of Motion,Pain,Poor Balance,Poor Safety Awareness PT-Balance Assessment Sitting Balance and Reactions Static Sitting Balance Ability Normal Dynamic Sitting Balance Ability Good Standing Balance and Reactions Static Standing Balance Ability Fair Dynamic Standing Balance Ability Fair Device Used FWW M5 PT-IP Objective Assessments Start: 09/19/23 12:18 Freq: NEEDED Status: Active Protocol: Document 09/19/23 11:11 AB (Rec: 01/09/24 12:36 AB [email or web address]) Orientation Orientation/Cognition Level of Alertness Alert Orientation Name,Place,Situation Language Function Ability No Deficits Noted Safety Awareness Decreased Safety Awareness Memory Description No Deficits Noted Gross Range of Motion Lower Extremity ROM Assessment Within Functional Limits Strength Lower Extremity Strength Assessment Within Functional Limits Muscle Tone Muscle Tone WNL Yes M6 PT-IP Treatment Start: 09/19/23 12:18 Freq: NEEDED Status: Active Protocol: Document 09/19/23 11:11 AB (Rec: 09/19/23 12:36 AB [email or web address]) Physical Therapy Treatment Education Education Provided Safety M7 PT-IP Assessment and Plan Start: 09/19/23 12:18 Freq: NEEDED Status: Active Protocol: Document 09/19/23 11:11 AB (Rec: 09/19/23 12:36 AB [email or web address]) PT Summary Assessment and Plan Potential Rehabilitation Potential Fair Status of Condition at Evaluation Evolving Summary Impairments Pain,ROM,Strength,Balance, Coordination,Sensation,Tone, Cognition,Bed Mobility, Transfers,Gait,Activity Tolerance Assessment Summary pt is a 63 y/o M who presented to the ED for LLE edema, erythema and drainage. pt admitted for LLE cellulitis. pt requiring SBA with bed mobility, CGA for transfers and ambulation using FWW but pt only was able to ambulate ~ 25 ft. pt presents with antalgic gait with c/o increase L foot pain. pt lives alone and has 20 steps to get into his apartment. pt will benefit from SNF at this time. will continue to assess progress. Goals Bed Mobility Goal Independent Transfer Goal Independent,Front Wheeled Walker Gait Goal Independent,Front Wheel Walker Gait Distance 250 Other Goals up/down 20 steps B rail SBA improve transfers/ambulation using LRAD/without AD 300 ft SBA Days to Meet Goals 10 Frequency of Treatment Frequency Of Treatment Once a Day Treatment Plan Physical Therapy Treatment Plan Bed Mobility Training,Transfer Training,Gait Training, Therapeutic Exercise,Balance Retraining,Discharge Planning, Hot or Cold Pack,Neuromuscular Re-ed,Coordination Retraining Precautions Other Precautions contact precautions: MRSA nares/wound: pending Recommendations To Nursing Amount of Assist Needed 1 Person Assist Discharge Recommendations PT Discharge Recommendations SNF Rehab Equipment Needed for Home Before FWW Discharge Transportation Needs at Discharge Private Vehicle,Wheelchair/ Cabulance
[2023-09-19] MEDS: OXYCODONE IR 10 MG TABLET PO ×2 (12:16→15:50)
--- NOTE | 2023-09-19 12:30 | DI.US.S_ITS ---
PROCEDURE: US ARTERIAL DUPLEX LE BI INDICATIONS: rule out claudication TECHNIQUE: Color and pulse Doppler interrogation was performed of both lower extremity arterial systems, with image documentation. COMPARISON: None. FINDINGS: Left lower extremity: Common femoral artery: 102 cm/sec, with triphasic flow. Deep femoral artery: 56 cm/sec, with triphasic flow. Proximal superficial femoral artery: 68 cm/sec, with triphasic flow. Mid superficial femoral artery: 105 cm/sec, with triphasic flow. Distal superficial femoral artery: 76 cm/sec, with triphasic flow. Popliteal artery: 87 cm/sec, with triphasic flow. Posterior tibial artery: 104 cm/sec, with biphasic (above baseline) flow. Anterior tibial artery/dorsalis pedis: 141 cm/sec, with biphasic (above baseline) flow. Glez-scale imaging description: Minimal scattered plaque below the knee. Right lower extremity: Common femoral artery: 75 cm/sec, with triphasic flow. Deep femoral artery: 42 cm/sec, with triphasic flow. Proximal superficial femoral artery: 65 cm/sec, with triphasic flow. Mid superficial femoral artery: 77 cm/sec, with triphasic flow. Distal superficial femoral artery: 65 cm/sec, with triphasic flow. Popliteal artery: 63 cm/sec, with triphasic flow. Posterior tibial artery: 74 cm/sec, with triphasic flow. Anterior tibial artery/dorsalis pedis: 43 cm/sec, with biphasic flow. Glez-scale imaging description: Minimal scattered plaque [id number]. IMPRESSION: Multiphasic waveforms of the bilateral lower extremity arterial vasculature with no velocity shift to suggest a hemodynamically significant stenosis. Dictated by: Jeri Aguilera M.D. on 09/19/2023 at 15:00 Approved by: Jeri Aguilera M.D. on 09/19/2023 at 15:03
--- NOTE | 2023-09-19 12:30 | DI.MRI.S_ITS ---
PROCEDURE: MR ANKLE LT WO/W CON INDICATIONS: heel ulcer TECHNIQUE: Noncontrast sagittal T1 spin echo and T2 fast spin echo with fat saturation, axial proton density fast spin echo and T2 fast spin echo with fat saturation, axial T1 spin echo with fat saturation, coronal T1 spin echo and T2 fast spin echo with fat saturation through the ankle/hindfoot. Post-contrast axial, coronal, and sagittal T1 spin echo with fat saturation through the ankle/hindfoot. COMPARISON: None. FINDINGS: Image quality: Excellent. Bones and joints: There is [id number] marrow edema involving mid to posterior portion of calcaneus with subtle cortical irregularity involving medial cortex of posterior calcaneus and show mild contrast enhancement in this area concerning for early osteomyelitis. No other area of abnormal marrow signal. No acute fracture or dislocation. Well-defined plantar calcaneal enthesophyte is seen. No gross osteochondral injuries of talar dome. Moderate tibiotalar and subtalar joint effusion is seen, no gross loose bodies. Medial structures: Soft tissue ulceration involving medial aspect of hindfoot is seen with significant soft tissue swelling, extensive subcutaneous fat stranding and edema and show heterogeneous contrast enhancement. There is extensive edema involving abductor hallucis muscle as well as quadratus plantar muscle with lobulated intramuscular T2 hyperintense signal and peripheral contrast enhancement concerning for myositis and intramuscular abscess collection. Extensive edema involving flexor digitorum brevis muscle and abductor digiti minimi muscle is also seen. Heterogeneous contrast enhancement in the visualized medial and plantar foot muscles are noted. The posterior tibialis, flexor digitorum longus, and flexor hallucis longus tendons are intact. Fluid distending flexor tendon sheath is seen. The posterior tibial neurovascular bundle appears normal within the tarsal tunnel, without extrinsic mass effect. The deltoid ligament and spring ligament are grossly intact. Lateral structures: The anterior talofibular, calcaneofibular, and posterior talofibular ligaments appear intact. More superiorly, the anterior and posterior tibiofibular ligaments appear intact, as is the intermalleolar ligament. The tibiofibular syndesmosis is normal in width at 2 mm or less. The peroneus longus and brevis tendons demonstrate normal location and morphology. Adjacent bony peroneal tubercle and retrotrochlear prominence are normal in size. The sinus tarsi demonstrates normal fatty signal, without edema, fibrosis, or cyst formation. Visualized sinus tarsi components (cervical ligament, interosseous talocalcaneal ligament, roots of the inferior extensor retinaculum) appear normal. Anterior structures: The tibialis anterior, extensor hallucis longus, and extensor digitorum longus tendons appear intact. The dorsal talonavicular ligament appears intact. Posterior and plantar structures: Achilles tendon is intact. Medial and lateral bands of the plantar fascia are of normal thickness. IMPRESSION: 1. Ulceration involving medial aspect of hindfoot with extensive cellulitis in midfoot and hindfoot as well as distal lower leg. Suggestion of extensive myositis throughout medial and plantar foot muscles as described above. Suggestion of ill-defined intramuscular abscess collections within abductor hallucis muscle as well as quadratus plantar muscle. 2. Finding is concerning for early osteomyelitis involving posterior and medial periphery of calcaneus with subtle cortical erosion and adjacent marrow edema. No fracture or dislocation. No other area of abnormal marrow signal. Well-defined plantar and dorsal calcaneal enthesophytes. No gross osteochondral injuries of talar dome. 3. Moderate joint effusion in tibiotalar joint and subtalar joint, no gross loose bodies. 4. Low-grade tenosynovitis involving flexor tendons. Dictated by: Joel Ho M.D. on 09/19/2023 at 15:16 Approved by: Joel Ho M.D. on 09/19/2023 at 15:35
[2023-09-19 13:46] LABS: MRSA (Nasal) PCR DETECTED (Not Detect)
--- NOTE | 2023-09-19 17:35 | DIET.CONS ---
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 RD consulted due to MNA of 10. Noah reports PMH of T2DM for 20+ years. States he does not have a PCP due to missed appts. Use to have wound care and diabetes ed visits, but all stopped due to insurance and and no longer having a PCP per report. He does tell me that SW has contacted PCP and he can call them after discharge. States he was keeping BG under 150mg/dl when seeing Dm educator at [facility]. Open to resuming these visits. H/o CGM use to manage BG. Endorses transportation as a barrier, however is able to utilize [employer] public transportation prn. Also endorses limited income, but states he is able to access enough food. use to work at [employer]. Arrived with elevated BG due to running out of insulin. HgA1c elevated at 12.1%. Endorses drinking mostly juice and milk for fluids. Also endorses cutting foot calluses off with heated and rubbing alcohol dipped knife. Also endorses finding beads embedded in his feet. Checks feet once per week. Wears socks, no slippers in the home. Tries to keep floors clear of items he could step on. Reports he continues to get infections and is unsure why. Reports toe amputation Apr 2023. Per wt hx, has had some modest weight loss. Perhaps r/t hyperglycemia. States he is unable to put weight on. -2kg in the last month (no significant for PCM). Some mild wasting at temples. Ht: 180.34 cm Wt: 75.1 kg BMI: 23.1 Last BM: 09/15/23 (09/16/23 02:52) MNA: 10 Pal Score: 19 Diet: 09/16/23 Breakfast Carbohydrate Consistent Diet Diet Modifications: Carbohydrate level: Medium (3 CHO) Reflex DM orders: No 09/20/23 00:01 NPO Diet Diet Modifications: NPO Type: NPO except for Meds Nutrition Percent Meal Consumed 25% 09/18/23 19:00 Percent Meal Consumed 75% 09/17/23 17:52 Labs: RBC 3.50 X10^6/uL (4.5-5.9) L 09/19/23 06:20 Hgb 9.7 g/dL (13.5-17.5) L 09/19/23 06:20 Hct 28.3 % (41-53) L 09/19/23 06:20 Creatinine 0.69 mg/dL (0.66-1.25) 09/19/23 06:20 Hemoglobin A1c 12.1 % (4.0-6.0) H 09/17/23 05:25 Lactate 1.8 mmol/L (0.7-2.1) 09/16/23 00:30 Nutrition Diagnosis: Excessive carbohydrate intake r/t nutrition knowledge deficit and stage of change aeb report of high sugar beverages and hga1c of 12.1% and chronic LE wounds Interventions: 1. Will send Chuck BID for enhanced wound healing 2. Reviewed importance of foot health and risk for amputation. Checking feet daily Avoiding removing calluses himself Podiatry referral once established with PCP 3. Reviewed impact of hyperglycemia on wounds and amputation risk Encouraged reconnecting with [employer] simulation educator Encouraged reduced/discontinued intake of juice and reduced milk intake EER: 45g CCD Monitoring/Evaluations: Rec OP follow-up in DSME program Electronically Signed by: Echo Morales 09/19/23 17:36 Clinical Dietitian [address] [id number]
--- NOTE | 2023-09-19 17:44 | PM.CN ---
History of Present Illness Consult details Date Patient Seen: 09/19/23 Time Patient Seen: 17:44 Chief complaint: L Foot red&swollen/fell, passed out Reason for consult: Left heel ulcer Requesting provider: John Berger Narrative: 63 year old male with PMH of HTN, DM with insulin use, history of polymicrobial bacteremia, sepsis, vertebral (lumbar L4/5) osteomyelitis/discitis in [address] [facility], s/p drainage of epidural abscess who presents with l ankle and foot swelling, pain, and redness he says for the past couple of days. He has also been out of his insulin for the past couple of weeks. He was recently here in the ER with a groin abscess which cultures grew MRSA. He started developing severe pain on his left foot, with swelling and then blistering. He states this is really started over the last week or week and half. He was given antibiotics in the ER, one of the lesions was drained in the emergency room. He was then admitted for further management. Overnight he was given zosyn in the ER, vancomycin ordered per pharmacy. Hospitalist placed him on ceftriaxone in addition to the vancomycin---hemoglobin A1c 12 History of the callus, ulceration around the 1st MTP joint that he has been watching. Endorses a lot of pain from the new medial ankle and foot swelling and wound. States it kind of came up all of a sudden. He endorses difficulty weight-bearing. Pain with motion. Meds Home Medications and Allergies Home Medications Medication Instructions Recorded Confirmed Type amlodipine 5 mg tablet 5 mg PO BID 09/16/23 09/16/23 History baclofen 10 mg tablet 10 mg PO QID PRN Spasms 09/16/23 09/16/23 History insulin glargine 100 unit/mL 22 unit SUBCUT QAM 09/16/23 09/16/23 History subcutaneous cartridge insulin lispro 100 unit/mL 5 unit SUBCUT TID 09/16/23 09/16/23 History subcutaneous cartridge (Humalog U-100 Insulin) lisinopril 40 mg tablet 40 mg PO DAILY 09/16/23 09/16/23 History Allergies Allergy/AdvReac Type Severity Reaction Status Date / Time No Known Drug Allergies Allergy Verified 08/29/21 17:17 Review of Systems Review of Systems Narrative: Alert and oriented no acute distress lying in bed. Denies acute fever but states he has been hot and cold. Otherwise grossly negative review of systems except for the recent groin abscess Exam Vital Signs (past 8 hours): - 09/19/23 09:57 09/19/23 16:37 Temperature 97.5 F L 98.5 F Pulse Rate 62 84 Respiratory Rate 18 16 Blood Pressure 144/79 H 154/85 H Pulse Oximetry 98 92 Oxygen Flow Rate 2 2 Oxygen Delivery Method Nasal Cannula Oxygen Flow Rate 2 Narrative Exam Narrative: Alert oriented no acute distress lying in bed wants to questions appropriately HEENT exam normocephalic atraumatic Respiratory exam unlabored on room air Heart regular rate and rhythm Extremities left lower extremity demonstrates swelling erythema medial foot and heel to the medial ankle. There is a distal medial heel ulceration full-thickness with central eschar measuring approximately 4 x 5 cm and necrotic white tissue superior to this just distal to the medial malleolus. There is firmness and induration traveling along the course of the abductor hallucis towards the midfoot. There is a palpable dorsalis pedis pulse. Calf is soft. There is no streaking up the calf or thigh. Knee is benign. There is a chronic appearing callus partial-thickness ulceration at the plantar 1st MTP joint. Patient is painful to movement of the ankle and foot. Moderate peripheral neuropathy there does appear to be a scant amount of purulence around the medial heel ulceration Objective Imaging MRI ankle left: My impression: Medial heel ulceration. Swelling intramedullary access medial toe the ulceration at the heel and the subcutaneous fat and along the abductor hallucis Radiologist's impression: Ulceration involving medial aspect of hindfoot with extensive cellulitis in midfoot and hindfoot as well as distal lower leg. Suggestion of extensive myositis throughout medial and plantar foot muscles as described above. Suggestion of ill-defined intramuscular abscess collections within abductor hallucis muscle as well as quadratus plantar muscle. 2. Finding is concerning for early osteomyelitis involving posterior and medial periphery of calcaneus with subtle cortical erosion and adjacent marrow edema. No fracture or dislocation. No other area of abnormal marrow signal. Well-defined plantar and dorsal calcaneal enthesophytes. No gross osteochondral injuries of talar dome. 3. Moderate joint effusion in tibiotalar joint and subtalar joint, no gross loose bodies. 4. Low-grade tenosynovitis involving flexor tendons. Dictated by: Joel Ho M.D. on 09/19/2023 at 15:16 Labs 09/19/23 06:20 09/19/23 06:20 Labs: Laboratory Results - last 24 hr 09/19/23 09/19/23 06:20 11:55 WBC 7.2 RBC 3.50 L Hgb 9.7 L Hct 28.3 L MCV 80.8 MCH 27.8 MCHC 34.3 RDW 14.1 Plt Count 233 Neut % (Auto) 73.1 Lymph % (Auto) 15.7 L [place] % (Auto) 7.9 Eos % (Auto) 2.1 Baso % (Auto) 1.2 Neut # (Auto) 5300 Lymph # (Auto) 1100 [place] # (Auto) 600 Eos # (Auto) 100 Baso # (Auto) 100 Sodium 135 L Potassium 3.6 Chloride 98 Carbon Dioxide 32 BUN 15 Creatinine 0.69 Estimated GFR > 60 BUN/Creatinine Ratio 21.7 Glucose 119 H Calcium 8.8 Nasal Screen MRSA (PCR) Detected H [facility] Medical History HTN (hypertension) Type 2 diabetes mellitus Social History household members: none Tobacco & Substance Use Smoking Status: Former smoker alcohol intake: current Assessment & Plan Assessment and plan (1) Non-pressure chronic ulcer of left heel and midfoot with fat layer exposed: Status: Acute (2) Type 2 diabetes mellitus with foot ulcer: Status: Acute (3) Cellulitis and abscess of left lower extremity: Status: Acute (4) Type 2 diabetes, uncontrolled, with pressure ulcer of heel: Status: Acute Plan The patient has a medial heel ulceration with extensive myositis intramedullary abscess and uncontrolled diabetes. I discussed with this patient he is at very high risk for necessity of below-knee amputation. We discussed difficulty with wound healing in this area risk for proximal extension and chronic wounds. I discussed trying a debridement with debridement of muscle and the abscess and application of wound VAC. At minimum he would need extensive wound care with VAC changes as an outpatient with wound care. I discussed that he still may require below-knee amputation to the extensive this of the soft tissue involvement at the level of the medial heel and the location is often not a candidate for other tissue coverage. The patient understands. We will plan for irrigation debridement heel abscess skin soft tissue muscle and bone with bone biopsies and application of wound VAC in the operating room for tomorrow. I discussed if he has any acute worsening prior to the operation that the salvage procedure would be below-knee amputation. Patient understands agrees with plan. Does not currently have a leukocytosis. He will be maintained on his IV antibiotics as scheduled. Plan was communicated to the hospitalist Dr. John Berger High-level medical decision-making. Decision for surgery. Time Spent With Patient Time with patient: 50 to 69 minutes with 50% spent counseling/coordinating care
--- NOTE | 2023-09-19 17:49 | PM.PN.1 ---
Subjective Subjective Interval history: Patient still having quite a bit of pain in his left foot. Spoke with ortho who recommended repeat MRI of ankle to assess heel fully. Also dopplers to assess for blood flow to extremities. Exam Vital Signs (past 8 hours): - 09/19/23 09:57 09/19/23 16:37 Temperature 97.5 F L 98.5 F Pulse Rate 62 84 Respiratory Rate 18 16 Blood Pressure 144/79 H 154/85 H Pulse Oximetry 98 92 Oxygen Flow Rate 2 2 Oxygen Delivery Method Nasal Cannula Oxygen Flow Rate 2 Narrative Exam Narrative: Gen: alert, appears to be in pain Lungs: Breathing normally Back: no bruising, tender over mid thoracic spine Ext: Left foot and ankle bandaged, with, edema, erythema, warmth circumferentially. extends proximally to lower 1/3 of his shaw. Objective Labs 09/19/23 06:20 09/19/23 06:20 Labs: Laboratory Results - last 24 hr 09/19/23 09/19/23 06:20 11:55 WBC 7.2 RBC 3.50 L Hgb 9.7 L Hct 28.3 L MCV 80.8 MCH 27.8 MCHC 34.3 RDW 14.1 Plt Count 233 Neut % (Auto) 73.1 Lymph % (Auto) 15.7 L [place] % (Auto) 7.9 Eos % (Auto) 2.1 Baso % (Auto) 1.2 Neut # (Auto) 5300 Lymph # (Auto) 1100 [place] # (Auto) 600 Eos # (Auto) 100 Baso # (Auto) 100 Sodium 135 L Potassium 3.6 Chloride 98 Carbon Dioxide 32 BUN 15 Creatinine 0.69 Estimated GFR > 60 BUN/Creatinine Ratio 21.7 Glucose 119 H Calcium 8.8 Nasal Screen MRSA (PCR) Detected H [facility] Medical History HTN (hypertension) Type 2 diabetes mellitus Social History household members: none Smoking Status: Former smoker alcohol intake: current Assessment & Plan Assessment & Plan narrative: # Diabetic foot infection / Cellulitis and abscess of left lower extremity: - continue ceftriaxone and vancomycin, patient also with notable history of bacteremia, spinal osteomyelitis with need for neurosurgery 2021, prev hx osteo in rt foot big toe. - has extensive involvement of his foot, lower calf, and possible need for surgery for drainage, patient's stay is anticipated to exceed two midnights. - Recent L groin abscess drained in the ER with MRSA from cultures. - consulted with orthopedics, no surgery needed at this time - MR foot shows extensive soft tissue swelling, findings of stranding in muscles of plantar foot - pain control as needed - oxycodone 10mg q3h prn. - DM control as noted below - wound care gave dressings recs on 09/18, said if not improving consider OR debridement - repeat MRI of L ankle with abscess and possible osteo of calcaneus, arterial doppler US without stenosis - Dr. Sultana ortho evaluated on 09/19 and recommended OR debridement and possible BKA - NPO midnight for OR on 09/20 # Hypertension: - doesn't take medications regularly - continue Lisinopril 40 mg daily, Norvasc 5 mg BID, may need additional adjustments # Type 2 diabetes, uncontrolled, with pressure ulcer of heel: - not using insulin in the last few weeks, ran out of it, fired by PCP per patient. 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 Per prior D/C summary he was well controlled on the lantus only while in the hospital. - A1C 12.1, poor control # Thoracic spine pain s/p recent GLF - CT thoracic negative for fracture - pain control # constipation - daily laxatives - dulcolax PRN Code: Full, surrogate is patient's friend Pat DVT: Lovenox, hold if surgical procedure is needed. Dispo: Pending OR debridement on 09/20.
[2023-09-19] MEDS: VANCOMYCIN 1,250 MG/250 ML PIGGYBACK 200 MG IV (18:30)
[2023-09-19] MEDS: SENNOSIDES 8.6 MG TABLET 17.2 MG PO (20:13)
[2023-09-20] VITALS (18 sets, daily range): BP systolic 120–181; BP diastolic 66–101; PULSE 68–85; RESP 10–18; TEMP 35.9–37.1; O2SAT 91–98; BMI 23.1
--- NOTE | 2023-09-20 | DI.RAD.S_ITS ---
PROCEDURE: XR CALCANEOUS LT MIN 2V INDICATIONS: INCISION AND DRAINAGE LEFT CALCANEOUS TECHNIQUE: Single lateral views of the calcaneus is acquired. COMPARISON: [facility], MR, ANKLE LT WO/W CON, 09/19/2023, 14:25. [facility], MR, FOOT LT WO/W CON, 09/16/2023, 13:06. FINDINGS: Bones: Single fluoroscopic lateral view of the calcaneus is provided with surgical instrument projecting over the posterior calcaneus. Soft tissues: Unremarkable on fluoroscopically. IMPRESSION: Intraoperative image as noted above Dictated by: Cr Wright M.D. on 09/21/2023 at 10:58 Approved by: Cr Wright M.D. on 09/21/2023 at 11:04
[2023-09-20] MEDS: OXYCODONE IR 10 MG TABLET PO ×3 (02:11→20:13)
[2023-09-20] MEDS: ACETAMINOPHEN 325 MG TABLET 650 MG PO ×3 (02:11→20:12)
[2023-09-20] MEDS: VANCOMYCIN 1,250 MG/250 ML PIGGYBACK 250 MG IV ×2 (02:12→18:35)
[2023-09-20 06:59] LABS: Add Manual Diff / Slide Review NO; Basophils Absolute Auto 0 /uL (0-100); Basophils Percent Auto 0.4 % (0-2); Eosinophils Absolute Auto 100 /uL (0-450); Eosinophils Percent Auto 1.4 % (2-4); Hematocrit 29.9 % (41-53); Hemoglobin 10.2 g/dL (13.5-17.5); Lymphocytes Absolute Auto 1200 /uL (1100-4500); Lymphocytes Percent Auto 14.8 % (25-40); Mean Corpuscular Hemoglobin 27.5 PG (26-34); Mean Corpuscular Volume 80.7 fL (80-100); Monocytes Absolute Auto 600 /uL (0-900); Monocytes Percent Auto 7.2 % (3-14); Neutrophils Absolute Auto 6100 /uL (1500-7000); Neutrophils Percent Auto 76.2 % (50-75); Platelet Count 331 X10^3/uL (150-400); Red Blood Cell Count 3.71 X10^6/uL (4.5-5.9)
[2023-09-20 07:07] LABS: BUN Creatinine Ratio 24.7 (6-22); Blood Urea Nitrogen 18 mg/dL (9-20); Calcium 8.8 mg/dL (8.4-10.2); Carbon Dioxide 30 mmol/L (22-32); Chloride 98 mmol/L (98-107); Estimated Glomerular Filt Rate > 60 mL/min (>60); Glucose 125 mg/dL (80-110); HEMOLYSIS < 15 (0-50); Potassium 3.9 mmol/L (3.4-5.1); Sodium 134 mmol/L (137-145)
--- NOTE | 2023-09-20 08:44 | P.PN_ITS ---
Subjective Subjective Interval history: Patient awaiting foot surgery today. He is worried he may lose his foot, but understands that may be what it takes to improve. He has no other complaints. Exam Vital Signs (past 8 hours): - 09/20/23 02:00 09/20/23 08:18 Temperature 98.8 F 97.8 F Pulse Rate 85 80 Respiratory Rate 16 18 Blood Pressure 171/94 H 169/93 H Pulse Oximetry 95 91 Oxygen Flow Rate 0 0 Oxygen Delivery Method Nasal Cannula Oxygen Flow Rate 0 Narrative Exam Narrative: Gen: alert, appears to be in pain Lungs: Breathing normally Back: no bruising, tender over mid thoracic spine Ext: Left foot and ankle bandaged, with, edema, erythema, warmth circumferentially which is improving. extends proximally to lower 1/3 of his shaw. Objective Labs 09/20/23 06:20 09/20/23 06:20 Labs: Laboratory Results - last 24 hr 09/19/23 09/20/23 11:55 06:20 WBC 8.0 RBC 3.71 L Hgb 10.2 L Hct 29.9 L MCV 80.7 MCH 27.5 MCHC 34.0 RDW 14.0 Plt Count 331 Neut % (Auto) 76.2 H Lymph % (Auto) 14.8 L [place] % (Auto) 7.2 Eos % (Auto) 1.4 L Baso % (Auto) 0.4 Neut # (Auto) 6100 Lymph # (Auto) 1200 [place] # (Auto) 600 Eos # (Auto) 100 Baso # (Auto) 0 Sodium 134 L Potassium 3.9 Chloride 98 Carbon Dioxide 30 BUN 18 Creatinine 0.73 Estimated GFR > 60 BUN/Creatinine Ratio 24.7 H Glucose 125 H Calcium 8.8 Nasal Screen MRSA (PCR) Detected H [facility] Medical History HTN (hypertension) Type 2 diabetes mellitus Social History household members: none Smoking Status: Former smoker alcohol intake: current Assessment & Plan Assessment & Plan narrative: # Diabetic foot infection / Cellulitis and abscess of left lower extremity: - continue ceftriaxone and vancomycin, patient also with notable history of bacteremia, spinal osteomyelitis with need for neurosurgery 2021, prev hx osteo in rt foot big toe. - has extensive involvement of his foot, lower calf, and possible need for surgery for drainage, patient's stay is anticipated to exceed two midnights. - Recent L groin abscess drained in the ER with MRSA from cultures. - consulted with orthopedics, no surgery needed at this time - MR foot shows extensive soft tissue swelling, findings of stranding in muscles of plantar foot - pain control as needed - oxycodone 10mg q3h prn. - DM control as noted below - wound care gave dressings recs on 09/18, said if not improving consider OR debridement - repeat MRI of L ankle with abscess and possible osteo of calcaneus, arterial doppler US without stenosis - Dr. Sultana ortho evaluated on 09/19 and recommended OR debridement and possible BKA - OR today 09/20 for washout and wound vac placement # Hypertension: - doesn't take medications regularly - continue Lisinopril 40 mg daily, Norvasc 5 mg BID, may need additional adjustments # Type 2 diabetes, uncontrolled, with pressure ulcer of heel: - not using insulin in the last few weeks, ran out of it, fired by PCP per patient. 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 Per prior D/C summary he was well controlled on the lantus only while in the hospital. - A1C 12.1, poor control # Thoracic spine pain s/p recent GLF - CT thoracic negative for fracture - pain control # constipation - daily laxatives - dulcolax PRN Code: Full, surrogate is patient's friend Pat DVT: Lovenox, hold if surgical procedure is needed. Dispo: Pending OR course and possible BKA. Several days.
[2023-09-20] MEDS: lisinopriL 20 MG TABLET 40 MG PO (09:24)
[2023-09-20] MEDS: AMLODIPINE 5 MG TABLET PO ×2 (09:24→20:14)
[2023-09-20] MEDS: DOCUSATE 100 MG CAPSULE PO ×2 (09:24→20:14)
[2023-09-20] MEDS: cefTRIAXone 2,000 MG in SODIUM CHLORIDE 0.9% 100 ML 200 MG IV (09:25)
[2023-09-20] MEDS: SODIUM CHLORIDE 0.9% FLUSH 10 ML IV (09:25)
[2023-09-20] MEDS: INSULIN GLARGINE 100 UNIT/ML 3ML PEN 25 UNIT SUBCUT (09:28)
--- NOTE | 2023-09-20 10:17 | CM.DPNOTE ---
Addendum entered by HOME Nj 09/20/23 10:28: ADD: May also be helpful to place call to [facility] to update on clinical course and discharge plan once clinical course unfolds Original Note: DCP Cont According to conversation in multi-disciplinary rounds, patient is scheduled for the OR this afternoon w/Dr Sultana. According to DR Berger, Dr Sultana is starting with I+D however patient is at risk of amputation. Wound vac anticipated per RN Coordinator. PT currently recommending SNF as patient lives alone. Anticipate patient will need SNF upon discharge, CM team following clinical course closely. Plan to review discharge plan options with patient once discharge needs are better defined after OR JW
[2023-09-20 10:33] LABS: Vancomycin Trough 15.1 ug/mL (10-20)
[2023-09-20] MEDS: VANCOMYCIN 1,250 MG/250 ML PIGGYBACK 200 MG IV (10:40)
[2023-09-20] MEDS: polyethylene glycoL 3350 17 GM POWD.PACK PO (10:41)
--- NOTE | 2023-09-20 11:49 | PT-IP ANOTE ---
checked on pt and pt refused PT. stated that he is tired and just want to rest before scheduled I&D on his LLE. will f/u .
--- NOTE | 2023-09-20 14:05 | PT-IP ANOTE ---
pt is scheduled for surgery this afternoon. will hold PT at this time. will f/u tomorrow.
--- NOTE | 2023-09-20 14:11 | PC.NURSE ---
Pt to OR via bed with chart by OR personnel.
[2023-09-20] MEDS: LACTATED RINGERS 1,000 ML 42 ML IV (14:38)
--- NOTE | 2023-09-20 15:29 | PM.PREOP ---
Pre-operative Note Interval Note History & Physical reviewed/Exam performed by Physician: Yes Changes to H&P: No
--- NOTE | 2023-09-20 16:24 | SUR.OPER ---
Supine on padded OR bed, head on pillow, arms secured on padded arm boards at <90 degrees abduction, legs uncrossed, safety belt at thigh, tape over blanket over RIGHT LOWER LEG.
[2023-09-20] MEDS: BUPIVACAINE 0.25% (PF) 30 ML, EPINEPHrine 0.15 MG INJ (16:36)
[2023-09-20] MEDS: THROMBIN (RECOMBINANT) 5,000 UNIT VIAL 5000 UNIT TOP (16:58)
[2023-09-20] MEDS: OXYCODONE IR 5 MG TABLET PO (17:35)
[2023-09-20] MEDS: hydrOXYzine pamoate 25 MG CAPSULE PO ×2 (17:36→20:13)
--- NOTE | 2023-09-20 17:45 | P.OP_ITS ---
Operative Date/Time/Diagnoses Date of procedure: 09/20/23 Time of procedure: 16:00 Pre-op diagnosis: Diabetic heel ulcer full-thickness, uncontrolled diabetes, foot cellulitis and abscess, intramuscular abscess Post-op diagnosis: same Procedure & Clinicians Procedure: Excisional debridement and irrigation, extensive left foot involving bone fascia skin subcutaneous tissue 24890 Calcaneus bone biopsy Application of negative pressure wound VAC dressing device CPT 94740 Same procedure as scheduled: Yes Indications: Patient is a 63-year-old diabetic male with uncontrolled diabetes hemoglobin A1c of 12. Came in for acute swelling pain and medial heel ulceration left heel. MRI of the ankle demonstrated intramuscular abscess. Patient was started on IV antibiotics. He was indicated for incision and drainage. I discussed with the patient very high risk of necessity for below-knee amputation. He is indicated for incision debridement calcaneal bone biopsy and wound VAC placement and exploration. The risks and benefits of the procedure have been discussed with the patient and given the opportunity to ask questions. The risks of surgery include but are not limited to infection, malunion, nonunion, persistence of pain, damage to nerves and blood vessels, posttraumatic arthritis, DVT, PE, cardiopulmonary complications and . The patient expressed a thorough understanding of the risks and benefits of surgery and has elected to proceed. Consent was signed. Surgeon: Marisa Sultana Click Yes if Unassisted: Yes Anesthesia Type: General Operative Notes Findings: Medial heel ulcer measuring approximately 2 x 3 cm with purulence. Induration swelling along the medial ankle and foot into the arch. Upon incision there was copious purulence tracking down to the medial wall of the calcaneus as well as posteriorly around the back of the heel and into the sub calcaneal fat with fat necrosis. Additionally there was abscess intramuscular in the abductor hallucis muscle and into the quadratus plantae. Neurovascular bundle was visualized and protected. After evacuation of the purulence and debridement of the necrotic bone skin fascia and muscle there was noted to be brisk bleeding from the bone and soft tissues demonstrating adequate vascular supply. After excisional debridement the remaining wound was 9 cm x 3 cm x 2 cm deep Closure Type: not applicable Specimen(s): other (Calcaneus bone sent for culture) Applied: other (Wound VAC) Estimated Blood Loss (mL): 50 Blood products transfused: none Tourniquet time (min): 25 Procedure in detail: Patient was seen in the preoperative area the site of surgery was marked informed consent confirmed. The patient was brought back to the operating room by the anesthesia team positioned supine on operative table. Anesthetic was administered. Was noted by the BROKERAGE OFFICE MANAGER that on opening the patient's jaw to insert the LMA 1 of his few remaining bottom incisors did break. The left lower extremity was prepped and draped in standard sterile fashion a formal time-out procedure was performed confirming the patient's side and site of surgery administration of appropriate antibiotics. The patient was on scheduled antibiotics. Attention was turned to the left lower extremity gravity exsanguination was utilized and the tourniquet raised in the thigh to 250 mmHg. Wounds were ellipsed to size out on the medial heel and foot and extended proximally just posterior to the medial malleolus and distally along the course of the plantar arch and abductor hallucis muscle. Next sharp scalpel was used to ellipse size the ulcer wounds and extend the incisions. Copious purulence was noted tract along the quadratus plantae abductor hallucis and into the sub calcaneal fat plantar and posterior. The neurovascular bundle was carefully dissected and protected. The medial wall of the calcaneus was exposed a trephine was used to obtain a bone biopsy. Additionally a rongeur was used to debride necrotic skin fascia muscle and bone. Next the pulsatile lavage was brought in and 3 L of saline was used to irrigate the wound following this irrigation the tourniquet was released hemostasis was achieved using Gelfoam and thrombin and pressure. The muscle and bone were noted to bleed well. Once I was satisfied that all necrotic tissue possible was debrided wound was once again irrigated with saline and then dried. Maribel-ulcer area was cleaned and the wound VAC dressing film was placed around this area. Then the small black wound VAC sponge was placed into the wound. The distal limb the arch was closed with simple nylon sutures. The remainder of the wound measured 9 cm x 3 cm x 2 cm and was filled with a VAC sponge. The sponge film dressing was then placed and the track pad placed in the usual fashion and hooked up to suction at -125 mmHg. Good suction was obtained. The foot had been noted to pink up well after tourniquet released. An ABD pad and Hoang wrap were placed on the lower extremity and the patient was woken from anesthesia drapes removed and the patient was taken to the recovery unit in good condition. Complications: other (BROKERAGE OFFICE MANAGER noted while placing the LMA 1 of the patient's inferior teeth broke) Post-operative Condition: stable Disposition: PACU Plan for aftercare: Touchdown for balance on the left lower extremity. Continued scheduled antibiotics we will plan for wound VAC change on the floor 09/23/2023. Depending on what this looks like and other medical factors were discussed further timing of below-knee amputation versus continued wound care with wound VAC changes. Guarded prognosis. Due to the size and location of the wound it will be very difficult for coverage for for closure and due to level of contamination may ultimately require below-knee amputation but at this point patient is not septic this would not be urgent and we can see what his response to the antibiotics and debridement are over the next few days.
[2023-09-20] MEDS: SODIUM CHLORIDE 0.9% 1,000 ML 100 ML IV (18:39)
[2023-09-20] MEDS: HYDROMORPHONE 0.5 MG INJ IV ×2 (18:46→22:30)
[2023-09-20] MEDS: BACLOFEN 10 MG TABLET PO (18:46)
[2023-09-20] MEDS: IBUPROFEN 400 MG TABLET PO (20:13)
[2023-09-20] MEDS: INSULIN LISPRO 100 UNIT/ML 3ML VIAL SUBCUT (20:23)
[2023-09-20] MEDS: SENNOSIDES 8.6 MG TABLET 17.2 MG PO (22:31)
[2023-09-21] MEDS: SODIUM CHLORIDE 0.9% FLUSH 10 ML IV ×2 (00:18→21:47)
[2023-09-21] MEDS: hydrOXYzine pamoate 25 MG CAPSULE PO ×2 (00:49→04:09)
[2023-09-21] MEDS: OXYCODONE IR 10 MG TABLET PO ×6 (00:49→22:30)
[2023-09-21 01:00] VITALS: BP 138/75; PULSE 74; RESP 16; TEMP 36.4; O2SAT 94
[2023-09-21] MEDS: VANCOMYCIN 1,250 MG/250 ML PIGGYBACK 250 MG IV ×3 (02:09→17:39)
[2023-09-21] MEDS: HYDROMORPHONE 0.5 MG INJ IV ×2 (02:09→17:51)
[2023-09-21] MEDS: IBUPROFEN 400 MG TABLET PO ×2 (04:09→12:13)
[2023-09-21] MEDS: ACETAMINOPHEN 325 MG TABLET 650 MG PO ×4 (04:09→21:54)
[2023-09-21] MEDS: SODIUM CHLORIDE 0.9% 1,000 ML 100 ML IV (05:55)
[2023-09-21 06:00] VITALS: BP 144/85; PULSE 88; RESP 16; TEMP 37; O2SAT 96
[2023-09-21 06:14] LABS: Add Manual Diff / Slide Review NO; Basophils Absolute Auto 100 /uL (0-100); Basophils Percent Auto 1.1 % (0-2); Eosinophils Absolute Auto 100 /uL (0-450); Eosinophils Percent Auto 1.5 % (2-4); Hematocrit 28.6 % (41-53); Hemoglobin 9.8 g/dL (13.5-17.5); Lymphocytes Absolute Auto 1000 /uL (1100-4500); Lymphocytes Percent Auto 13.5 % (25-40); Mean Corpuscular HGB Conc 34.1 % (30-36); Mean Corpuscular Hemoglobin 27.7 PG (26-34); Mean Corpuscular Volume 81.3 fL (80-100); Monocytes Absolute Auto 700 /uL (0-900); Monocytes Percent Auto 8.5 % (3-14); Neutrophils Absolute Auto 5700 /uL (1500-7000); Neutrophils Percent Auto 75.4 % (50-75); Platelet Count 337 X10^3/uL (150-400); Red Blood Cell Count 3.52 X10^6/uL (4.5-5.9); Red Cell Distribution Width 14.1 % (11.6-14.8); White Blood Cell Count 7.6 X10^3/uL (4.5-11.0)
[2023-09-21 06:37] LABS: Blood Urea Nitrogen 17 mg/dL (9-20); Calcium 8.4 mg/dL (8.4-10.2); Carbon Dioxide 30 mmol/L (22-32); Chloride 98 mmol/L (98-107); Estimated Glomerular Filt Rate > 60 mL/min (>60); Glucose 208 mg/dL (80-110); HEMOLYSIS < 15 (0-50); Potassium 4.1 mmol/L (3.4-5.1); Sodium 134 mmol/L (137-145)
[2023-09-21] MEDS: INSULIN GLARGINE 100 UNIT/ML 3ML PEN 25 UNIT SUBCUT (08:05)
[2023-09-21] MEDS: INSULIN LISPRO 100 UNIT/ML 3ML VIAL SUBCUT ×7 (08:07→20:43)
[2023-09-21] MEDS: CEFEPIME 2 GM in SODIUM CHLORIDE 0.9% 100 ML IV ×2 (08:17→20:30)
[2023-09-21 08:20] VITALS: BP 125/78; PULSE 93
[2023-09-21] MEDS: AMLODIPINE 5 MG TABLET PO ×2 (08:20→20:38)
[2023-09-21] MEDS: DOCUSATE 100 MG CAPSULE PO ×2 (08:20→20:38)
[2023-09-21] MEDS: lisinopriL 20 MG TABLET 40 MG PO (08:20)
[2023-09-21] MEDS: metroNIDAZOLE 500 MG TABLET PO ×3 (08:21→20:38)
[2023-09-21] MEDS: polyethylene glycoL 3350 17 GM POWD.PACK PO (08:21)
[2023-09-21] MEDS: ENOXAPARIN 40 MG/0.4 ML SYRINGE SUBCUT (08:21)
--- NOTE | 2023-09-21 08:55 | P.PN_ITS ---
Subjective Subjective Date Patient Seen: 09/21/23 Time Patient Seen: 08:55 Interval history: 63 year old male with PMH of HTN, DM with insulin use, history of polymicrobial bacteremia, sepsis, vertebral (lumbar L4/5) osteomyelitis/discitis in [address] [facility], s/p drainage of epidural abscess who presented with left ankle and foot swelling, pain, and redness he says for the past couple of days. He has also been out of his insulin for the past couple of weeks. He was recently here in the ER with a groin abscess which cultures grew MRSA. He started developing severe pain on his left foot, with swelling and then blistering. He states this is really started over the last week or week and half. He was given antibiotics in the ER, one of the lesions was drained in the emergency room. He was then admitted for further management. Overnight he was given zosyn in the ER, vancomycin ordered per pharmacy. Hospitalist placed him on ceftriaxone in addition to the vancomycin---hemoglobin A1c 12 He has an ulceration around the 1st MTP joint that he has been watching. He also has a medial heel ulceration with extensive myositis, intramedullary abscess and uncontrolled diabetes. Dr Sultana took him to the OR last night for extensive debridement of the heel including skin, fascia, muscle and bone. Calcaneous bone was sent for culture and a wound VAC was placed. Dr Sultana has discussed the possible need for eventual BKA with the pt. On visit this morning, he is sitting up in bed comfortably eating breakfast. He expresses gratitude for Dr Sultana's intervention and his hopeful that he can avoid BKA. Exam Vital Signs (past 8 hours): - 09/21/23 01:00 09/21/23 06:00 09/21/23 08:20 Temperature 97.6 F 98.6 F Pulse Rate 74 88 93 H Respiratory Rate 16 16 Blood Pressure 138/75 144/85 H 125/78 Pulse Oximetry 94 96 Oxygen Flow Rate 0 0 Oxygen Delivery Method Room Air Oxygen Flow Rate 0 Narrative Exam Narrative: MC wrap over wound VAC in place. Pt able to wiggle toes, has intact sensation to touch. 1st MTP joint ulcer noted. Gram stain w/ GPC, aerobic and anaerobic cultures pending. Objective Labs 09/21/23 05:55 09/21/23 05:55 Labs: Laboratory Results - last 24 hr 09/20/23 09/21/23 09:30 05:55 WBC 7.6 RBC 3.52 L Hgb 9.8 L Hct 28.6 L MCV 81.3 MCH 27.7 MCHC 34.1 RDW 14.1 Plt Count 337 Neut % (Auto) 75.4 H Lymph % (Auto) 13.5 L [place] % (Auto) 8.5 Eos % (Auto) 1.5 L Baso % (Auto) 1.1 Neut # (Auto) 5700 Lymph # (Auto) 1000 L [place] # (Auto) 700 Eos # (Auto) 100 Baso # (Auto) 100 Sodium 134 L Potassium 4.1 Chloride 98 Carbon Dioxide 30 BUN 17 Creatinine 0.74 Estimated GFR > 60 BUN/Creatinine Ratio 23.0 H Glucose 208 H Calcium 8.4 Vancomycin Trough 15.1 PFSH Medical History HTN (hypertension) Type 2 diabetes mellitus Social History household members: none Smoking Status: Former smoker alcohol intake: current Assessment & Plan Post-op Assessment and plan (1) Cellulitis and abscess of left lower extremity: Assessment and Plan narrative: Continue scheduled antibiotics (cefepime and vanco). Plan for wound VAC change on the floor 09/23/2023. Depending on what this looks like and other medical factors, will discuss further below-knee amputation versus continued wound care with wound VAC changes. Guarded prognosis. Due to the size and location of the wound it will be very difficult for coverage for for closure and due to level of contamination may ultimately require below-knee amputation but at this point patient is not septic this would not be urgent and we can see what his response to the antibiotics and debridement are over the next few days. Postoperative Procedures: Procedures Operation Date: 09/20/23 13:15 Actual Procedure Side Surgeon p Incision and Drainage Heel + wound vac Left Marisa Sultana MD Postoperative day: 1
[2023-09-21] MEDS: BACLOFEN 10 MG TABLET PO (10:05)
[2023-09-21 12:00] VITALS: BP 135/79; PULSE 80; RESP 16; TEMP 37; O2SAT 93
--- NOTE | 2023-09-21 13:59 | CM.DPNOTE ---
DCP Cont Patient is POD1 from I+D, bone biopsy and wound vac placement for diabetic heel ulcer with possible osteo of calcaneus. Patient may require ongoing, lengthy admission. Faxed expedited request to [facility] for functional assessment. Received call from Keisha at [facility] [phone]. Keisha is requesting assistance with obtaining patient's signatures on utility assistance forms. Agreed to help facilitate. Keisha emailed these forms. This [employer]NA[employer] printed the forms, met with patient-obtained patient signatures and emailed back to Keisha Christie at [email or web address]. During visit with patient, discussed discharge plan briefly. Medical plan of care still unfolding. Suggested to patient he may benefit from SNF stay and patient agrees, says he has been to a SNF in the past. Explained SNF search will be in consideration of patient's [facility] MCR and patient states understanding. Plan: CM team will continue to follow clinical course closely as it unfolds. Patient will likely benefit from SNF stay, begin referrals once needs are better identified. DARIA
--- NOTE | 2023-09-21 14:16 | P.PN_ITS ---
Subjective Subjective Interval history: Patient underwent successful washout of foot in OR yesterday. He is more pain today and requesting higher dose pain meds. Wound cultures growing GNR so cefepime and flagyl added. Plan is for wound vac change on 09/23. Exam Vital Signs (past 8 hours): - 09/21/23 08:20 Pulse Rate 93 H Blood Pressure 125/78 Oxygen Delivery Method Room Air Oxygen Flow Rate 0 Narrative Exam Narrative: Gen: alert, oriented, calm Lungs: Breathing normally Back: no bruising, tender over mid thoracic spine Ext: Left foot and ankle with MC wrap and wound vac in place Objective Labs 09/21/23 05:55 09/21/23 05:55 Labs: Laboratory Results - last 24 hr 09/21/23 05:55 WBC 7.6 RBC 3.52 L Hgb 9.8 L Hct 28.6 L MCV 81.3 MCH 27.7 MCHC 34.1 RDW 14.1 Plt Count 337 Neut % (Auto) 75.4 H Lymph % (Auto) 13.[address] [place] % (Auto) 8.5 Eos % (Auto) 1.5 L Baso % (Auto) 1.1 Neut # (Auto) 5700 Lymph # (Auto) [address] [place] # (Auto) 700 Eos # (Auto) 100 Baso # (Auto) 100 Sodium 134 L Potassium 4.1 Chloride 98 Carbon Dioxide 30 BUN 17 Creatinine 0.74 Estimated GFR > 60 BUN/Creatinine Ratio 23.0 H Glucose 208 H Calcium 8.4 PFSH Medical History HTN (hypertension) Type 2 diabetes mellitus Social History household members: none Smoking Status: Former smoker alcohol intake: current Assessment & Plan Assessment & Plan narrative: # Diabetic foot infection / Cellulitis and abscess of left lower extremity: - patient also with notable history of bacteremia, spinal osteomyelitis with need for neurosurgery 2021, prev hx osteo in rt foot big toe. - has extensive involvement of his foot, lower calf, and possible need for surgery for drainage, patient's stay is anticipated to exceed two midnights. - Recent L groin abscess drained in the ER with MRSA from cultures. - consulted with orthopedics, no surgery needed at this time - MR foot shows extensive soft tissue swelling, findings of stranding in muscles of plantar foot - pain control as needed - oxycodone 10mg q3h prn and dilaudid IV PRN - DM control as noted below - wound care gave dressings recs on 09/18, said if not improving consider OR debridement - repeat MRI of L ankle with abscess and possible osteo of calcaneus, arterial doppler US without stenosis - Dr. Sultana ortho evaluated on 09/19 and recommended OR debridement and possible BKA - underwent washout and wound vac placement on 09/20 - plan for wound vac change on 09/23 to decide if able to continue wound care vs BKA - continue cefepime, vanc and flagyl - follow-up wound cultures then narrow abx # Hypertension: - doesn't take medications regularly - continue Lisinopril 40 mg daily, Norvasc 5 mg BID, may need additional adjustments # Type 2 diabetes, uncontrolled, with pressure ulcer of heel: - not using insulin in the last few weeks, ran out of it, fired by PCP per patient. 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 Per prior D/C summary he was well controlled on the lantus only while in the hospital. - A1C 12.1, poor control # Thoracic spine pain s/p recent GLF - CT thoracic negative for fracture - pain control # constipation - daily laxatives - dulcolax PRN Code: Full, surrogate is patient's friend Pat DVT: Lovenox, hold if surgical procedure is needed. Dispo: Pending course of wound healing and potential need for BKA. Several days.
--- NOTE | 2023-09-21 14:54 | PT.IPRE ---
Current Diagnoses Type 2 diabetes mellitus with foot ulcer (09/16/23) Essential (primary) hypertension (09/16/23) Cutaneous abscess of left lower limb (09/16/23) Cellulitis of left lower limb (09/16/23) Non-pressure chronic ulcer of left heel and midfoot with fat layer exposed (09/16/23) Non-pressure chronic ulcer of other part of unspecified foot with unspecified severity (09/16/23) Patient's other noncompliance with medication regimen for other reason (09/16/23) Surgery Performed Operation Date: 09/20/23 13:15 Actual Procedures p Incision and Drainage Heel + wound vac(Left) - Marisa Sultana MD Medical History (Last Reviewed 09/19/23 @ 17:46 by Marisa Sultana MD) HTN (hypertension) Type 2 diabetes mellitus Physical Therapy Inpatient Evaluation/Re-Eval M1 PT/OT-IP Prior Functional Status Start: 09/19/23 12:18 Freq: NEEDED Status: Active Protocol: Document 09/21/23 14:25 MB (Rec: 09/21/23 14:53 MB [id number]) Medical Review Prior Functional Status Medical History Reviewed Yes Communication able to make needs known Mobility and Gait pt stated that he is modified independent with all mobilities and ambulation without AD but occasionally uses SPC due to LE and back pain Social History Household Members none Living Arrangements Apartment/Condo Number of Floors (Floors) One Floor Number of Stairs To Enter/Railing? pt lives on a 2nd level apartment: 20 steps B rails to enter M2 PT-IP Current Condition Start: 09/19/23 12:18 Freq: NEEDED Status: Active Protocol: Document 09/19/23 11:11 AB (Rec: 09/19/23 12:36 AB [id number]) Physical Therapy Current Condition Current Condition Evaluation Date 09/19/23 Treatment Diagnosis LLE cellulitis; difficulty in walking Onset Date 09/16/23 M3 PT-IP Subjective Start: 09/19/23 12:18 Freq: NEEDED Status: Active Protocol: Document 09/21/23 14:25 MB (Rec: 09/21/23 14:53 MB [id number]) Subjective Physical Therapy Visit Type Type Re-Evaluation Visit Start Time 14:25 Visit Stop Time 14:45 Total Visit Minutes 20 Number of POULTRY FARMER EGG Visits 0 Physical Therapy Visit Comments Patient Comments Pt reports 9/10 pain in his left heel/foot Therapy Pain Assessment Pain When Pain Assessed At Rest Pain Present Pain Present Pain Reported Location Left Leg Intensity 9 Scale Used Numeric (0 - 10) Pain Management Techniques Distraction,Modification of Treatment,Re-positioning M4 PT-IP Mobility and Gait Start: 09/19/23 12:18 Freq: NEEDED Status: Active Protocol: Document 09/21/23 14:25 MB (Rec: 09/21/23 14:53 MB [id number]) PT-Bed Mobility Assessment Supine to Sit Supine to Sit Standby Assistance Sit to Supine Sit to Supine Standby Assistance PT-Transfer Assessment Sit to and From Stand Sit to and from Stand Minimal Assistance,1 Person Assistance,Use of Upper Extremities Equipment Transfer Assistive Device Gait Belt,Front Wheeled Walker Orthotic/Prosthetic Devices or Brace: No Transfer Ability Level of Assist Minimal Assistance,1 Person Assistance,Use of Upper Extremities Comments Mobility Comments Pt s/p left heel surgery and wound vac placement and he has skin breakdown at right metatarsal area as well. He is now touchdown WB for balance post-op. He requires cues for hand placement for transfers. Gait Assessment Gait Gait Assistance Required: Minimum Assistance,1 Person Assist Distance (Feet) 1 Able to Maintain Weight Bearing Status Yes During Gait Assistive Devices Assistive Device Gait Belt,Front Wheeled Walker Orthotic/Prosthetic Devices or Brace: No Gait Deviations General Gait Pattern Antalgic,Decreased Stride Length,Decreased Feet Clearance,Step-to Gait Factors Limiting Gait Function Factors Limiting Gait Function Decreased Activity Tolerance, Decreased Sensation,Decreased Strength,Limited Range of Motion,Pain,Poor Balance,Poor Safety Awareness Comments Gait Comments Pt takes left side steps up to the HOB and c/o pain with mobility and does not tolerate further mobility/gait. He is able to maintain touchdown/toe touch WB with use of RW PT-Balance Assessment Sitting Balance and Reactions Static Sitting Balance Ability Good Dynamic Sitting Balance Ability Good Standing Balance and Reactions Static Standing Balance Ability Fair Dynamic Standing Balance Ability Fair Device Used RW M5 PT-IP Objective Assessments Start: 09/19/23 12:18 Freq: NEEDED Status: Active Protocol: Document 09/19/23 11:11 AB (Rec: 09/19/23 12:36 AB [id number]) Orientation Orientation/Cognition Level of Alertness Alert Orientation Name,Place,Situation Language Function Ability No Deficits Noted Safety Awareness Decreased Safety Awareness Memory Description No Deficits Noted Gross Range of Motion Lower Extremity ROM Assessment Within Functional Limits Strength Lower Extremity Strength Assessment Within Functional Limits Muscle Tone Muscle Tone WNL Yes M6 PT-IP Treatment Start: 09/19/23 12:18 Freq: NEEDED Status: Active Protocol: Document 09/21/23 14:25 MB (Rec: 09/21/23 14:53 MB [id number]) Physical Therapy Treatment Education Education Provided Weight Bearing Status,Safety M7 PT-IP Assessment and Plan Start: 09/19/23 12:18 Freq: NEEDED Status: Active Protocol: Document 09/21/23 14:25 MB (Rec: 09/21/23 14:53 MB [id number]) PT Summary Assessment and Plan Potential Rehabilitation Potential Fair Status of Condition at Evaluation Unstable Summary Impairments Pain,ROM,Strength,Balance, Coordination,Sensation,Bed Mobility,Transfers,Gait, Activity Tolerance Assessment Summary Pt underwent PT assessment on 09/19/23. Since that time, he underwent ankle MRI and was found to have osteo in his left calcaneus and he underwent surgical debridement and wound vac placement. Pt has high pain. He also has skin breakdown under his first metatarsal and so PT performs toe touch WB on the left with pt. Per notes, pt may be candidate for BKA in the future. He has 20 steps to enter his second story apartment and this is going to be very challenging. Will want to minimize WB/gait/time up on feet d/t wounds. Goals Bed Mobility Goal Independent Transfer Goal Independent,Front Wheeled Walker Gait Goal Independent,Front Wheel Walker Gait Distance 25 Other Goals up/down 20 steps B rail SBA Days to Meet Goals 10 Frequency of Treatment Frequency Of Treatment Once a Day Treatment Plan Physical Therapy Treatment Plan Bed Mobility Training,Transfer Training,Gait Training, Therapeutic Exercise,Balance Retraining,Discharge Planning, Hot or Cold Pack,Neuromuscular Re-ed,Coordination Retraining Precautions Other Precautions contact precautions: MRSA nares/wound: pending Recommendations To Nursing Amount of Assist Needed 1 Person Assist Discharge Recommendations PT Discharge Recommendations SNF Rehab Equipment Needed for Home Before FWW Discharge Transportation Needs at Discharge Private Vehicle,Wheelchair/ Cabulance
--- NOTE | 2023-09-21 14:55 | PT.IPRE ---
Current Diagnoses Type 2 diabetes mellitus with foot ulcer (09/16/23) Essential (primary) hypertension (09/16/23) Cutaneous abscess of left lower limb (09/16/23) Cellulitis of left lower limb (09/16/23) Non-pressure chronic ulcer of left heel and midfoot with fat layer exposed (09/16/23) Non-pressure chronic ulcer of other part of unspecified foot with unspecified severity (09/16/23) Patient's other noncompliance with medication regimen for other reason (09/16/23) Surgery Performed Operation Date: 09/20/23 13:15 Actual Procedures p Incision and Drainage Heel + wound vac(Left) - Marisa Sultana MD Medical History (Last Reviewed 09/19/23 @ 17:46 by Marisa Sultana MD) HTN (hypertension) Type 2 diabetes mellitus Physical Therapy Inpatient Evaluation/Re-Eval M1 PT/OT-IP Prior Functional Status Start: 09/19/23 12:18 Freq: NEEDED Status: Active Protocol: Document 09/21/23 14:25 MB (Rec: 09/21/23 14:53 MB [id number]) Medical Review Prior Functional Status Medical History Reviewed Yes Communication able to make needs known Mobility and Gait pt stated that he is modified independent with all mobilities and ambulation without AD but occasionally uses SPC due to LE and back pain Social History Household Members none Living Arrangements Apartment/Condo Number of Floors (Floors) One Floor Number of Stairs To Enter/Railing? pt lives on a 2nd level apartment: 20 steps B rails to enter M2 PT-IP Current Condition Start: 09/19/23 12:18 Freq: NEEDED Status: Active Protocol: Document 09/19/23 11:11 AB (Rec: 09/19/23 12:36 AB [id number]) Physical Therapy Current Condition Current Condition Evaluation Date 09/19/23 Treatment Diagnosis LLE cellulitis; difficulty in walking Onset Date 09/16/23 M3 PT-IP Subjective Start: 09/19/23 12:18 Freq: NEEDED Status: Active Protocol: Document 09/21/23 14:25 MB (Rec: 09/21/23 14:53 MB [id number]) Subjective Physical Therapy Visit Type Type Re-Evaluation Visit Start Time 14:25 Visit Stop Time 14:45 Total Visit Minutes 20 Number of MECHANICAL INSPECTOR Visits 0 Physical Therapy Visit Comments Patient Comments Pt reports 9/10 pain in his left heel/foot Therapy Pain Assessment Pain When Pain Assessed At Rest Pain Present Pain Present Pain Reported Location Left Leg Intensity 9 Scale Used Numeric (0 - 10) Pain Management Techniques Distraction,Modification of Treatment,Re-positioning M4 PT-IP Mobility and Gait Start: 09/19/23 12:18 Freq: NEEDED Status: Active Protocol: Document 09/21/23 14:25 MB (Rec: 09/21/23 14:53 MB [id number]) PT-Bed Mobility Assessment Supine to Sit Supine to Sit Standby Assistance Sit to Supine Sit to Supine Standby Assistance PT-Transfer Assessment Sit to and From Stand Sit to and from Stand Minimal Assistance,1 Person Assistance,Use of Upper Extremities Equipment Transfer Assistive Device Gait Belt,Front Wheeled Walker Orthotic/Prosthetic Devices or Brace: No Transfer Ability Level of Assist Minimal Assistance,1 Person Assistance,Use of Upper Extremities Comments Mobility Comments Pt s/p left heel surgery and wound vac placement and he has skin breakdown at right metatarsal area as well. He is now touchdown WB for balance post-op. He requires cues for hand placement for transfers. Gait Assessment Gait Gait Assistance Required: Minimum Assistance,1 Person Assist Distance (Feet) 1 Able to Maintain Weight Bearing Status Yes During Gait Assistive Devices Assistive Device Gait Belt,Front Wheeled Walker Orthotic/Prosthetic Devices or Brace: No Gait Deviations General Gait Pattern Antalgic,Decreased Stride Length,Decreased Feet Clearance,Step-to Gait Factors Limiting Gait Function Factors Limiting Gait Function Decreased Activity Tolerance, Decreased Sensation,Decreased Strength,Limited Range of Motion,Pain,Poor Balance,Poor Safety Awareness Comments Gait Comments Pt takes left side steps up to the HOB and c/o pain with mobility and does not tolerate further mobility/gait. He is able to maintain touchdown/toe touch WB with use of RW PT-Balance Assessment Sitting Balance and Reactions Static Sitting Balance Ability Good Dynamic Sitting Balance Ability Good Standing Balance and Reactions Static Standing Balance Ability Fair Dynamic Standing Balance Ability Fair Device Used RW M5 PT-IP Objective Assessments Start: 09/19/23 12:18 Freq: NEEDED Status: Active Protocol: Document 09/19/23 11:11 AB (Rec: 09/19/23 12:36 AB [id number]) Orientation Orientation/Cognition Level of Alertness Alert Orientation Name,Place,Situation Language Function Ability No Deficits Noted Safety Awareness Decreased Safety Awareness Memory Description No Deficits Noted Gross Range of Motion Lower Extremity ROM Assessment Within Functional Limits Strength Lower Extremity Strength Assessment Within Functional Limits Muscle Tone Muscle Tone WNL Yes M6 PT-IP Treatment Start: 09/19/23 12:18 Freq: NEEDED Status: Active Protocol: Document 09/21/23 14:25 MB (Rec: 09/21/23 14:53 MB [id number]) Physical Therapy Treatment Education Education Provided Weight Bearing Status,Safety M7 PT-IP Assessment and Plan Start: 09/19/23 12:18 Freq: NEEDED Status: Active Protocol: Document 09/21/23 14:25 MB (Rec: 09/21/23 14:53 MB [id number]) PT Summary Assessment and Plan Potential Rehabilitation Potential Fair Status of Condition at Evaluation Unstable Summary Impairments Pain,ROM,Strength,Balance, Coordination,Sensation,Bed Mobility,Transfers,Gait, Activity Tolerance Assessment Summary Pt underwent PT assessment on 09/19/23. Since that time, he underwent ankle MRI and was found to have osteo in his left calcaneus and he underwent surgical debridement and wound vac placement. Pt has high pain. He also has skin breakdown under his first metatarsal and so PT performs toe touch WB on the left with pt. Per notes, pt may be candidate for BKA in the future. He has 20 steps to enter his second story apartment and this is going to be very challenging. Will want to minimize WB/gait/time up on feet d/t wounds. Goals Bed Mobility Goal Independent Transfer Goal Independent,Front Wheeled Walker Gait Goal Independent,Front Wheel Walker Gait Distance 25 Other Goals up/down 20 steps B rail SBA Days to Meet Goals 10 Frequency of Treatment Frequency Of Treatment Once a Day Treatment Plan Physical Therapy Treatment Plan Bed Mobility Training,Transfer Training,Gait Training, Therapeutic Exercise,Balance Retraining,Discharge Planning, Hot or Cold Pack,Neuromuscular Re-ed,Coordination Retraining Precautions Other Precautions contact precautions: MRSA nares/wound: pending Weight Bearing Status Weight Bearing Status Touch Down Weight Bearing Recommendations To Nursing Amount of Assist Needed 1 Person Assist Discharge Recommendations PT Discharge Recommendations SNF Rehab Equipment Needed for Home Before FWW Discharge Transportation Needs at Discharge Private Vehicle,Wheelchair/ Cabulance
--- NOTE | 2023-09-21 16:41 | P.PN_ITS ---
Subjective Subjective Interval history: Spoke with pt this evening regarding tooth breakage during anesthetic. Explained to pt exactly what happened: was using scissor maneuver to open mouth and bottom tooth broke under pressure. Pt states he understands and that his other teeth have broken under very little stress as well. Pt states he is not upset and does not wish to pursue incident further. States he is happy it happened in a controlled environment and not while he was eating when he may have choked on it. He is not feeling any pain from the tooth and no notable sharpness from the remaining piece that may cause injury. No further action taken at this time. Explained to pt how to contact anesthesia if he had further questions. Exam Vital Signs (past 8 hours): - 09/21/23 12:00 Temperature 98.6 F Pulse Rate 80 Respiratory Rate 16 Blood Pressure 135/79 Pulse Oximetry 93 Oxygen Delivery Method Room Air Oxygen Flow Rate 0 Objective Labs 09/21/23 05:55 09/21/23 05:55 Labs: Laboratory Results - last 24 hr 09/21/23 05:55 WBC 7.6 RBC 3.52 L Hgb 9.8 L Hct 28.6 L MCV 81.3 MCH 27.7 MCHC 34.1 RDW 14.1 Plt Count 337 Neut % (Auto) 75.4 H Lymph % (Auto) 13.5 L [place] % (Auto) 8.5 Eos % (Auto) 1.5 L Baso % (Auto) 1.1 Neut # (Auto) 5700 Lymph # (Auto) 1000 L [place] # (Auto) 700 Eos # (Auto) 100 Baso # (Auto) 100 Sodium 134 L Potassium 4.1 Chloride 98 Carbon Dioxide 30 BUN 17 Creatinine 0.74 Estimated GFR > 60 BUN/Creatinine Ratio 23.0 H Glucose 208 H Calcium 8.4 PFSH Medical History HTN (hypertension) Type 2 diabetes mellitus Social History household members: none Smoking Status: Former smoker alcohol intake: current Assessment & Plan Post-op Postoperative Procedures: Procedures Operation Date: 09/20/23 13:15 Actual Procedure Side Surgeon p Incision and Drainage Heel + wound vac Left Marisa Sultana MD
[2023-09-21 18:00] VITALS: BP 149/79; PULSE 78; RESP 16; TEMP 36.7; O2SAT 92
[2023-09-21 20:00] VITALS: BP 160/74; PULSE 72; RESP 16; TEMP 37; O2SAT 96
[2023-09-21] MEDS: HYDROMORPHONE 1 MG INJ IV (20:29)
[2023-09-21] MEDS: SENNOSIDES 8.6 MG TABLET 17.2 MG PO (20:38)
[2023-09-22] MEDS: OXYCODONE IR 10 MG TABLET PO ×5 (01:23→21:43)
[2023-09-22] MEDS: VANCOMYCIN 1,250 MG/250 ML PIGGYBACK 250 MG IV ×3 (01:24→17:47)
[2023-09-22 02:00] VITALS: BP 132/66; PULSE 74; RESP 16; TEMP 36.5; O2SAT 95
[2023-09-22] MEDS: BACLOFEN 10 MG TABLET PO ×3 (04:00→20:25)
[2023-09-22] MEDS: ACETAMINOPHEN 325 MG TABLET 650 MG PO ×3 (04:00→20:26)
[2023-09-22] MEDS: HYDROMORPHONE 0.5 MG INJ IV ×2 (05:31→23:34)
[2023-09-22 06:23] LABS: Add Manual Diff / Slide Review NO; Basophils Absolute Auto 0 /uL (0-100); Basophils Percent Auto 0.7 % (0-2); Eosinophils Absolute Auto 200 /uL (0-450); Eosinophils Percent Auto 3.6 % (2-4); Hematocrit 28.3 % (41-53); Hemoglobin 9.5 g/dL (13.5-17.5); Lymphocytes Absolute Auto 1300 /uL (1100-4500); Lymphocytes Percent Auto 22.3 % (25-40); Mean Corpuscular HGB Conc 33.4 % (30-36); Mean Corpuscular Hemoglobin 27.1 PG (26-34); Mean Corpuscular Volume 81.1 fL (80-100); Monocytes Absolute Auto 500 /uL (0-900); Monocytes Percent Auto 8.2 % (3-14); Neutrophils Absolute Auto 3900 /uL (1500-7000); Neutrophils Percent Auto 65.2 % (50-75); Platelet Count 381 X10^3/uL (150-400); Red Blood Cell Count 3.49 X10^6/uL (4.5-5.9); Red Cell Distribution Width 14.1 % (11.6-14.8)
[2023-09-22 06:28] LABS: Blood Urea Nitrogen 21 mg/dL (9-20); Calcium 8.5 mg/dL (8.4-10.2); Carbon Dioxide 32 mmol/L (22-32); Chloride 98 mmol/L (98-107); Estimated Glomerular Filt Rate > 60 mL/min (>60); Glucose 150 mg/dL (80-110); HEMOLYSIS < 15 (0-50); Potassium 4.3 mmol/L (3.4-5.1); Sodium 133 mmol/L (137-145)
[2023-09-22 06:43] LABS: C-Reactive Protein Quant 10.6 mg/dL (<1.0)
[2023-09-22 08:00] VITALS: BP 161/88; PULSE 73; RESP 16; TEMP 36.5; O2SAT 95
[2023-09-22] MEDS: INSULIN LISPRO 100 UNIT/ML 3ML VIAL SUBCUT ×4 (08:10→12:11)
[2023-09-22] MEDS: INSULIN GLARGINE 100 UNIT/ML 3ML PEN 25 UNIT SUBCUT (08:16)
[2023-09-22 08:26] VITALS: BP 161/88
[2023-09-22] MEDS: polyethylene glycoL 3350 17 GM POWD.PACK PO (08:26)
[2023-09-22] MEDS: AMLODIPINE 5 MG TABLET PO ×2 (08:26→20:27)
[2023-09-22] MEDS: lisinopriL 20 MG TABLET 40 MG PO (08:26)
[2023-09-22] MEDS: DOCUSATE 100 MG CAPSULE PO ×2 (08:26→20:26)
[2023-09-22] MEDS: ENOXAPARIN 40 MG/0.4 ML SYRINGE SUBCUT (08:27)
[2023-09-22] MEDS: CEFEPIME 2 GM in SODIUM CHLORIDE 0.9% 100 ML IV ×2 (08:28→20:33)
--- NOTE | 2023-09-22 09:17 | PT.IPTN ---
Current Diagnoses Type 2 diabetes mellitus with foot ulcer (09/16/23) Essential (primary) hypertension (09/16/23) Cutaneous abscess of left lower limb (09/16/23) Cellulitis of left lower limb (09/16/23) Non-pressure chronic ulcer of left heel and midfoot with fat layer exposed (09/16/23) Non-pressure chronic ulcer of other part of unspecified foot with unspecified severity (09/16/23) Patient's other noncompliance with medication regimen for other reason (09/16/23) Surgery Performed Operation Date: 09/20/23 13:15 Actual Procedures p Incision and Drainage Heel + wound vac(Left) - Marisa Sultana MD Physical Therapy Treatment Note M2 PT-IP Current Condition Start: 09/19/23 12:18 Freq: NEEDED Status: Active Protocol: Document 09/19/23 11:11 AB (Rec: 09/19/23 12:36 AB [id number]) Physical Therapy Current Condition Current Condition Evaluation Date 09/19/23 Treatment Diagnosis LLE cellulitis; difficulty in walking Onset Date 09/16/23 M3 PT-IP Subjective Start: 09/19/23 12:18 Freq: NEEDED Status: Active Protocol: Document 09/22/23 09:17 AB (Rec: 09/22/23 12:05 AB [email or web address]) Subjective Physical Therapy Visit Type Type Treatment Note Visit Start Time 09:17 Visit Stop Time 09:33 Total Visit Minutes 16 Number of YOUTH PROBATION OFFICER Visits 0 Physical Therapy Visit Comments Patient Comments agreeable to do PT Therapy Pain Assessment Pain When Pain Assessed At Rest Location Left Leg Intensity 8 Scale Used increases to >10/10 with mobility per pt Pain Management Techniques Distraction,Elevation, Modification of Treatment,Re- positioning,Timing of Activity with Medications M4 PT-IP Mobility and Gait Start: 09/19/23 12:18 Freq: NEEDED Status: Active Protocol: Document 09/22/23 09:17 AB (Rec: 09/22/23 12:05 AB [id number]) PT-Bed Mobility Assessment Supine to Sit Supine to Sit Standby Assistance Sit to Supine Sit to Supine Standby Assistance PT-Transfer Assessment Sit to and From Stand Sit to and from Stand Contact Guard Assistance,1 Person Assistance,Use of Upper Extremities Equipment Transfer Assistive Device Gait Belt,Front Wheeled Walker Orthotic/Prosthetic Devices or Brace: No Comments Mobility Comments pt agreeable to do PT. pt is aware of NWB on LLE to minimize weight bearing on LLE but can do touch down weight bearing for balance per ortho MD order. completed supine to sit SBA. completed sit to stand CGA and cues to maintain NWB on LLE. pt ambulated 5 ft forward using FWW min A and wants to go back to bed and stepped backwards 5 ft uisng FWW min A. pt able to maintain NWB/touch down weight bearing on LLE. completed sit to supine SBA. positioned pt on the bed. call light and table placed within reach. Gait Assessment Gait Gait Assistance Required: Minimum Assistance Distance (Feet) 10 Able to Maintain Weight Bearing Status Yes During Gait Assistive Devices Assistive Device Gait Belt,Front Wheeled Walker Orthotic/Prosthetic Devices or Brace: No Factors Limiting Gait Function Factors Limiting Gait Function Decreased Activity Tolerance, Decreased Strength,Limited Range of Motion,Pain,Poor Balance,Poor Safety Awareness M5 PT-IP Objective Assessments Start: 09/19/23 12:18 Freq: NEEDED Status: Active Protocol: Document 09/19/23 11:11 AB (Rec: 09/19/23 12:36 AB [id number]) Orientation Orientation/Cognition Level of Alertness Alert Orientation Name,Place,Situation Language Function Ability No Deficits Noted Safety Awareness Decreased Safety Awareness Memory Description No Deficits Noted Gross Range of Motion Lower Extremity ROM Assessment Within Functional Limits Strength Lower Extremity Strength Assessment Within Functional Limits Muscle Tone Muscle Tone WNL Yes M6 PT-IP Treatment Start: 09/19/23 12:18 Freq: NEEDED Status: Active Protocol: Document 09/22/23 09:17 AB (Rec: 09/22/23 12:05 AB [id number]) Physical Therapy Treatment Education Education Provided Weight Bearing Status,Safety M7 PT-IP Assessment and Plan Start: 09/19/23 12:18 Freq: NEEDED Status: Active Protocol: Document 09/22/23 09:17 AB (Rec: 09/22/23 12:05 AB [email or web address]) PT Summary Assessment and Plan Potential Rehabilitation Potential Fair Summary Impairments Pain,ROM,Strength,Balance, Coordination,Sensation,Tone, Cognition,Bed Mobility, Transfers,Gait,Activity Tolerance Progress Towards Goals Slow Progress due to Pain,Slow Progress due to Medical Issues,Slow Progress due to Activity Tolerance Assessment Summary pt progressing slowly and ambulated ~ 10 ft using FWW min A and cues and continue to have decrease actvity tolerance. pt s/p L foot I&D and wound vac placement and is touch down weight bearing on LLE for balance. educated pt to do NWB during ambulation using FWW to minimize weight bearing on LLE. pt will benefit from SNF rehab to improve mobility. will continue to assess progress. Goals Bed Mobility Goal Independent Transfer Goal Independent,Front Wheeled Walker Gait Goal Independent,Front Wheel Walker Gait Distance 50 Other Goals improve ambulation using FWW 100 ft SBA up/down 20 steps B rail SBA Days to Meet Goals 10 Frequency of Treatment Frequency Of Treatment Once a Day Treatment Plan Physical Therapy Treatment Plan Bed Mobility Training,Transfer Training,Gait Training, Therapeutic Exercise,Balance Retraining,Post Op Education, Discharge Planning,Hot or Cold Pack,Neuromuscular Re-ed, Coordination Retraining Precautions Other Precautions contact precautions: MRSA nares Weight Bearing Status Weight Bearing Status Touch Down Weight Bearing Allowed Weight Bearing Amount (enter % LLE: touch down weight bearing or #) (%) for balance Recommendations To Nursing Amount of Assist Needed 1 Person Assist Discharge Recommendations PT Discharge Recommendations SNF Rehab Equipment Needed for Home Before FWW Discharge Transportation Needs at Discharge Private Vehicle,Wheelchair/ Cabulance
[2023-09-22] MEDS: metroNIDAZOLE 500 MG TABLET PO ×3 (09:44→20:25)
--- NOTE | 2023-09-22 11:34 | P.PN_ITS ---
Subjective Subjective Date Patient Seen: 09/22/23 Time Patient Seen: 11:34 Interval history: Pt lying in bed, c/o more pain today. Exam Vital Signs (past 8 hours): - 09/22/23 08:00 09/22/23 08:26 Temperature 97.7 F Pulse Rate 73 Respiratory Rate 16 Blood Pressure 161/88 H 161/88 H Pulse Oximetry 95 Oxygen Delivery Method Room Air Oxygen Flow Rate 0 Narrative Exam Narrative: MC wrap over wound VAC in place. Pt able to wiggle toes, has intact sensation to touch. 1st MTP joint ulcer noted. Wound cultures w/ GPC, Klebsiella oxytoca and S aureus. Objective Labs 09/22/23 05:26 09/22/23 05:26 Labs: Laboratory Results - last 24 hr 09/22/23 05:26 WBC 6.0 RBC 3.49 L Hgb 9.5 L Hct 28.3 L MCV 81.1 MCH 27.1 MCHC 33.4 RDW 14.1 Plt Count 381 Neut % (Auto) 65.2 Lymph % (Auto) 22.3 L [place] % (Auto) 8.2 Eos % (Auto) 3.6 Baso % (Auto) 0.7 Neut # (Auto) 3900 Lymph # (Auto) 1300 [place] # (Auto) 500 Eos # (Auto) 200 Baso # (Auto) 0 Sodium 133 L Potassium 4.3 Chloride 98 Carbon Dioxide 32 BUN 21 H Creatinine 0.75 Estimated GFR > 60 BUN/Creatinine Ratio 28.0 H Glucose 150 H Calcium 8.5 C-Reactive Protein 10.6 H [facility] Medical History HTN (hypertension) Type 2 diabetes mellitus Social History household members: none Smoking Status: Former smoker alcohol intake: current Assessment & Plan Post-op Assessment and plan (1) Cellulitis and abscess of left lower extremity: Assessment and Plan narrative: 1) Pt currently on cefepime and vanco; S aureus sensitivities pending, K oxytoca sensitive to cefepime. 2) Plan for wound VAC change on the floor by Dr Sultana on 09/23/2023. Depending on what this looks like and other medical factors, will discuss further below-knee amputation versus continued wound care with wound VAC changes. Guarded prognosis. Due to the size and location of the wound it will be very difficult for coverage for for closure and due to level of contamination may ultimately require below-knee amputation but at this point patient is not septic this would not be urgent and we can see what his response to the antibiotics and debridement are over the next few days. Postoperative Procedures: Procedures Operation Date: 09/20/23 13:15 Actual Procedure Side Surgeon p Incision and Drainage Heel + wound vac Left Marisa Sultana MD Postoperative day: 2
[2023-09-22] MEDS: SODIUM CHLORIDE 0.9% FLUSH 10 ML IV ×2 (11:40→21:06)
--- NOTE | 2023-09-22 11:44 | CM.DPNOTE ---
DCP Note SENIOR ENLISTED ADVISOR reviewed EMR. Per previous CM notes, pt will likely need SNF after pt's scheduled wound vac change 09.23.23. Per provider, pt at risk of BKA. Ins: [facility] [employer] [facility]. SENIOR ENLISTED ADVISOR entered room and introduced self and role. Pt resting in bed. Reports open to SNF if needed. At this time, dc needs are not solidified due to continually developing medical POC. Pt preference is to remain closest to [place] as possible, [place] or [place] first choices. SENIOR ENLISTED ADVISOR reported we would send referrals but could cancel if not needed. Pt adamantly does not want to go anywhere in [facility]- a woman lives there that he hates and he does not want to be in the same city as her. SENIOR ENLISTED ADVISOR completed PASSR. Plan: CM team will continue to follow clinical course closely as it unfolds. Patient will likely benefit from SNF stay, begin referrals once needs are better identified to [place] and [place]. HOME Andrew
--- NOTE | 2023-09-22 15:20 | PC.NURSE ---
Pt resting at intervals. Med w/Oxy and Baclefen as per orders w/relief. Dsg to left foot CDI, wound vac in place. CBG requiring S/S coverage as per orders. Saline Lock TINY intact/patent. Call light w/in reach, bed alarm on for pt safety. Continue w/plan of care.
--- NOTE | 2023-09-22 17:21 | PM.PN.1 ---
Subjective Subjective Interval history: Patient's pain much better controlled today. Wound cultures growing staph aureus and klebsiella. Will keep abx as is for now. Plan for wound vac change tomorrow. Exam Vital Signs (past 8 hours): Oxygen Delivery Method Room Air Oxygen Flow Rate 0 Narrative Exam Narrative: Gen: alert, oriented, calm Lungs: Breathing normally Back: no bruising, tender over mid thoracic spine Ext: Left foot and ankle with MC wrap and wound vac in place Objective Labs 09/22/23 05:26 09/22/23 05:26 Labs: Laboratory Results - last 24 hr 09/22/23 05:26 WBC 6.0 RBC 3.49 L Hgb 9.5 L Hct 28.3 L MCV 81.1 MCH 27.1 MCHC 33.4 RDW 14.1 Plt Count 381 Neut % (Auto) 65.2 Lymph % (Auto) 22.3 L [place] % (Auto) 8.2 Eos % (Auto) 3.6 Baso % (Auto) 0.7 Neut # (Auto) 3900 Lymph # (Auto) 1300 [place] # (Auto) 500 Eos # (Auto) 200 Baso # (Auto) 0 Sodium 133 L Potassium 4.3 Chloride 98 Carbon Dioxide 32 BUN 21 H Creatinine 0.75 Estimated GFR > 60 BUN/Creatinine Ratio 28.0 H Glucose 150 H Calcium 8.5 C-Reactive Protein 10.6 H PFSH Medical History HTN (hypertension) Type 2 diabetes mellitus Social History household members: none Smoking Status: Former smoker alcohol intake: current Assessment & Plan Assessment & Plan narrative: # Diabetic foot infection / Cellulitis and abscess of left lower extremity: - patient also with notable history of bacteremia, spinal osteomyelitis with need for neurosurgery 2021, prev hx osteo in rt foot big toe, recent L groin abscess drained in the ER with MRSA from cultures. - MR foot shows extensive soft tissue swelling, findings of stranding in muscles of plantar foot - pain control as needed - oxycodone 10mg q3h prn and dilaudid IV PRN - DM control as noted below - repeat MRI of L ankle with abscess and possible osteo of calcaneus, arterial doppler US without stenosis - Dr. Sultana ortho evaluated on 09/19 and recommended OR debridement and possible BKA - underwent washout and wound vac placement on 09/20 - plan for wound vac change on 09/23 to decide if able to continue wound care vs BKA - continue cefepime, vanc and flagyl - wound cultures with staph aureus and klebsiella oxytoca, keep abx as is until cultures finalize # Hypertension: - doesn't take medications regularly - continue Lisinopril 40 mg daily, Norvasc 5 mg BID, may need additional adjustments # Type 2 diabetes, uncontrolled, with pressure ulcer of heel: - not using insulin in the last few weeks, ran out of it, fired by PCP per patient. 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 Per prior D/C summary he was well controlled on the lantus only while in the hospital. - A1C 12.1, poor control # Thoracic spine pain s/p recent GLF - CT thoracic negative for fracture - pain control # constipation - daily laxatives - dulcolax PRN Code: Full, surrogate is patient's friend Pat DVT: Lovenox, hold if surgical procedure is needed. Dispo: Pending course of wound healing and potential need for BKA. Several days.
[2023-09-22 18:00] VITALS: BP 157/89; PULSE 76; RESP 16; TEMP 36.3; O2SAT 95
[2023-09-22] MEDS: SENNOSIDES 8.6 MG TABLET 17.2 MG PO (20:25)
[2023-09-22] MEDS: HYDROMORPHONE 1 MG INJ IV (20:32)
[2023-09-22 20:37] VITALS: BP 160/97; PULSE 81; RESP 18; TEMP 36.8; O2SAT 95
[2023-09-23 01:35] VITALS: BP 146/77; PULSE 72; RESP 16; TEMP 36.7; O2SAT 95
[2023-09-23] MEDS: VANCOMYCIN 1,250 MG/250 ML PIGGYBACK 250 MG IV ×3 (01:48→17:22)
[2023-09-23] MEDS: ACETAMINOPHEN 325 MG TABLET 650 MG PO ×3 (01:48→21:30)
[2023-09-23] MEDS: OXYCODONE IR 10 MG TABLET PO ×5 (01:48→21:30)
[2023-09-23 05:52] LABS: Add Manual Diff / Slide Review NO; Basophils Absolute Auto 0 /uL (0-100); Basophils Percent Auto 0.7 % (0-2); Eosinophils Absolute Auto 200 /uL (0-450); Eosinophils Percent Auto 2.9 % (2-4); Hematocrit 29.3 % (41-53); Hemoglobin 9.8 g/dL (13.5-17.5); Lymphocytes Absolute Auto 1400 /uL (1100-4500); Lymphocytes Percent Auto 24.9 % (25-40); Mean Corpuscular HGB Conc 33.5 % (30-36); Mean Corpuscular Hemoglobin 27.2 PG (26-34); Mean Corpuscular Volume 81.2 fL (80-100); Monocytes Absolute Auto 500 /uL (0-900); Monocytes Percent Auto 9.3 % (3-14); Neutrophils Absolute Auto 3500 /uL (1500-7000); Neutrophils Percent Auto 62.2 % (50-75); Platelet Count 497 X10^3/uL (150-400); Red Blood Cell Count 3.61 X10^6/uL (4.5-5.9); Red Cell Distribution Width 14.2 % (11.6-14.8); White Blood Cell Count 5.5 X10^3/uL (4.5-11.0)
[2023-09-23 05:58] LABS: BUN Creatinine Ratio 29.6 (6-22); Blood Urea Nitrogen 24 mg/dL (9-20); Carbon Dioxide 31 mmol/L (22-32); Chloride 96 mmol/L (98-107); Estimated Glomerular Filt Rate > 60 mL/min (>60); Glucose 300 mg/dL (80-110); HEMOLYSIS < 15 (0-50); Potassium 4.2 mmol/L (3.4-5.1); Sodium 132 mmol/L (137-145)
[2023-09-23] MEDS: INSULIN LISPRO 100 UNIT/ML 3ML VIAL SUBCUT ×4 (08:00→17:24)
[2023-09-23 08:21] VITALS: BP 148/80
[2023-09-23] MEDS: lisinopriL 20 MG TABLET 40 MG PO (08:21)
[2023-09-23] MEDS: ENOXAPARIN 40 MG/0.4 ML SYRINGE SUBCUT (08:21)
[2023-09-23] MEDS: DOCUSATE 100 MG CAPSULE PO ×2 (08:22→20:10)
[2023-09-23] MEDS: AMLODIPINE 5 MG TABLET PO ×2 (08:22→20:10)
[2023-09-23] MEDS: INSULIN GLARGINE 100 UNIT/ML 3ML PEN 25 UNIT SUBCUT (08:22)
[2023-09-23] MEDS: polyethylene glycoL 3350 17 GM POWD.PACK PO (08:28)
[2023-09-23] MEDS: CEFEPIME 2 GM in SODIUM CHLORIDE 0.9% 100 ML IV ×2 (08:34→19:38)
[2023-09-23] MEDS: metroNIDAZOLE 500 MG TABLET PO ×3 (08:34→20:09)
[2023-09-23 10:03] LABS: Vancomycin Trough 9.9 ug/mL (10-20)
--- NOTE | 2023-09-23 10:12 | CM.DPNOTE ---
Addendum entered by HOME Andrew 09/23/23 15:43: COLLEGE TUTOR lvm with [place] at [facility]- while that is pt's number 1 choice for SNF they are not contracted with his insurance. It is also unclear if they provide wound vac services- which pt would need. COLLEGE TUTOR spoke with Julienne at . Agreed to review. Typically can do wound vacs but sometimes managed plans such as pt's insurance consider it a HH need. However, with his wound needs also impacting his mobility, he may be able to get rehab for PT/OT needs. Julienne will review and report back to this COLLEGE TUTOR tomorrow with her thoughts. Plan: likely dc to SNF. CM team will follow closely. SL Addendum entered by HOME Andrew 09/23/23 12:25: Per RN, no BKA at this time. Per RN, ortho debating on if they want pt to remain here for wound vac change on 09/26/23 vs dc home vs dc to SNF. CM team will continue to follow clinical course closely as it unfolds Original Note: DCP Note COLLEGE TUTOR reviewed EMR. Per provider in rounds, Dr. Sultana to assess pt today if BKA is appropriate. Wound vac scheduled for today. This COLLEGE TUTOR will hold on SNF referrals pending dcp needs. Pt's preferences remain [facility] vs [facility]. Plan: CM team will continue to follow clinical course closely as it unfolds. Patient will likely benefit from SNF stay, begin referrals once needs are better identified to [facility] and [facility]. HOME Andrew
[2023-09-23] MEDS: SODIUM CHLORIDE 0.9% FLUSH 10 ML IV ×2 (10:20→21:30)
[2023-09-23] MEDS: HYDROMORPHONE 1 MG INJ IV ×3 (10:20→23:58)
[2023-09-23] MEDS: VANCOMYCIN TROUGH 1 REQUEST MISC (10:38)
--- NOTE | 2023-09-23 10:53 | P.PN_ITS ---
Subjective Subjective Date Patient Seen: 09/23/23 Time Patient Seen: 10:54 Interval history: Postop day 3 irrigation debridement excisional debridement left medial heel ulcer and osteomyelitis, bone biopsy and placement of wound VAC. Lying in bed pain controlled at rest. Patient notes that pain is better than presentation redness much improved from presentation. He is in good spirits this morning Exam Vital Signs (past 8 hours): - 09/23/23 08:21 Blood Pressure 148/80 H Oxygen Delivery Method Room Air Oxygen Flow Rate 0 Narrative Exam Narrative: Alert oriented no acute distress Cooperative, in good spirits Pain around the left lower extremity but improved from presentation he notes the erythema and swelling are improved. Wound VAC on left lower extremity functioning bloody drainage in canister. No erythema outside the medial incision site no streaking. Calf is soft. Wound VAC change at bedside today. Wound VAC is taken down patient tolerated this well with 1 mg of Dilaudid IV at the time of wound VAC change. Momentary pain with sponge removal otherwise tolerated well. Wound bed demonstrated appropriate bleeding. No purulence was noted. Wound dimensions approximately 9 x 3 x 2 cm full-thickness to medial calcaneal wall. Distal plantar incision with sutures intact. There is some healing skin around the edges of the wound. No gross necrosis. No malodor on today's exam. No gross purulence. Wound margins are cleansed with chlorhexidine. Border VAC dressing placed and then New small black wound VAC placed into the incision wound VAC film applied and track pad applied and the wound VAC was hooked up to suction again with a good suction obtained at -125 mmHg. The patient tolerated the procedure well. Sensation grossly intact. Objective Labs 09/23/23 05:09 09/23/23 05:09 Labs: Laboratory Results - last 24 hr 09/23/23 09/23/23 05:09 09:30 WBC 5.5 RBC 3.61 L Hgb 9.8 L Hct 29.3 L MCV 81.2 MCH 27.2 MCHC 33.5 RDW 14.2 Plt Count 497 H Neut % (Auto) 62.2 Lymph % (Auto) 24.9 L [place] % (Auto) 9.3 Eos % (Auto) 2.9 Baso % (Auto) 0.7 Neut # (Auto) 3500 Lymph # (Auto) 1400 [place] # (Auto) 500 Eos # (Auto) 200 Baso # (Auto) 0 Sodium 132 L Potassium 4.2 Chloride 96 L Carbon Dioxide 31 BUN 24 H Creatinine 0.81 Estimated GFR > 60 BUN/Creatinine Ratio 29.6 H Glucose 300 H D Calcium 9.0 Vancomycin Trough 9.9 L PFSH Medical History HTN (hypertension) Type 2 diabetes mellitus Social History household members: none Smoking Status: Former smoker alcohol intake: current Assessment & Plan Post-op Postoperative Procedures: Procedures Operation Date: 09/20/23 13:15 Actual Procedure Side Surgeon p Incision and Drainage Heel + wound vac Left Marisa Sultana MD Postoperative day: 3 Postoperative status: doing well Postoperative status narrative: Pain better controlled. Erythema improving. Wound appearance stable no new purulence. Wound VAC working. Postoperative plan narrative: Wound appearance is stable good blood flow and bleeding. Grossly neurovascularly intact. Do not note any significant new necrosis or purulence. Reasonable to attempt serial wound VAC changes and re- engage the wound care team for serial wound VAC changes and consideration of hyperbaric oxygen therapy. Again discussed guarded prognosis and for any acute worsening or prolonged nonhealing the salvage option would be below-knee amputation. He understands he would like to attempt limb salvage with serial wound VAC changes at this time. We did discuss he has a very high risk location wound and may still end up with below-knee amputation despite attempted wound care with serial wound VAC changes. He understands and agrees with the plan. Next wound VAC change would be in approximately 3 days or next Monday itchy there I can do or the wound care team. Patient did tolerate this bedside well with 1 mg of Dilaudid today. Discussed 1st wound VAC change usually the worst mesh and he will tolerate serial VAC changes without problem based on how the VAC change today. Overall feeling better. Nonseptic appearing. On appropriate IV antibiotics for cultures. Time Spent With Patient Time with patient: 15-24 minutes Quality VTE Deep Vein Thrombosis/Pulmonary Embolism Present on Admission: No
--- NOTE | 2023-09-23 11:53 | P.PN_ITS ---
Subjective Subjective Interval history: Minimal left foot pain. He did have issues with insomnia and does take melatonin at home. He denies any dyspnea or chest pain. No other concerns or issues. He had his wound VAC changed today, the orthopedic surgeon thinks that things look somewhat more promising. He continues on antibiotics. He does have multiple small wounds on the right foot and relates a story of using a knife to trim calluses on his feet. Exam Vital Signs (past 8 hours): - 09/23/23 08:21 Blood Pressure 148/80 H Oxygen Delivery Method Room Air Oxygen Flow Rate 0 Narrative Exam Narrative: NAD, fluent speech. Lungs are clear, normal effort. Heart is regular, no murmur. Abdomen is nondistended, non tender. Extremities are free of edema. The left foot has a wrapping and wound VAC. The right foot is examined has multiple small punctate wounds but no areas of fluctuance. Objective Labs 09/23/23 05:09 09/23/23 05:09 Labs: Laboratory Results - last 24 hr 09/23/23 09/23/23 05:09 09:30 WBC 5.5 RBC 3.61 L Hgb 9.8 L Hct 29.3 L MCV 81.2 MCH 27.2 MCHC 33.5 RDW 14.2 Plt Count 497 H Neut % (Auto) 62.2 Lymph % (Auto) 24.9 L [place] % (Auto) 9.3 Eos % (Auto) 2.9 Baso % (Auto) 0.7 Neut # (Auto) 3500 Lymph # (Auto) 1400 [place] # (Auto) 500 Eos # (Auto) 200 Baso # (Auto) 0 Sodium 132 L Potassium 4.2 Chloride 96 L Carbon Dioxide 31 BUN 24 H Creatinine 0.81 Estimated GFR > 60 BUN/Creatinine Ratio 29.6 H Glucose 300 H D Calcium 9.0 Vancomycin Trough 9.9 L PFSH Medical History HTN (hypertension) Type 2 diabetes mellitus Social History household members: none Smoking Status: Former smoker alcohol intake: current Assessment & Plan Assessment & Plan narrative: 1. Diabetic foot infection / Cellulitis and abscess of left lower extremity (medial calcaneous), POA and active: - patient also with notable history of bacteremia, spinal osteomyelitis with need for neurosurgery 2021, prev hx osteo in rt foot big toe, recent L groin abscess drained in the ER with MRSA from cultures. - MR foot shows extensive soft tissue swelling, findings of stranding in muscles of plantar foot - pain control as needed - oxycodone 10mg q3h prn and dilaudid IV PRN - repeat MRI of L ankle with abscess and possible osteo of calcaneus, arterial doppler US without stenosis - Dr. Sultana ortho evaluated on 09/19 and recommended OR debridement. - underwent washout and wound vac placement on 09/20 - plan for wound vac change on 09/23 , this was done and looks better. Continue wound vac for now, next change 09/26. - continue cefepime, vanc and flagyl - wound cultures with staph aureus and klebsiella oxytoca, keep abx as is until cultures finalize 2. Hypertension, POA and active. - doesn't take medications regularly - continue Lisinopril 40 mg daily, Norvasc 5 mg BID, may need additional adjustments 3. Type 2 diabetes, uncontrolled, with pressure ulcer of heel, POA and active. - not using insulin in the last few weeks, ran out of it, fired by PCP per patient. 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 Per prior D/C summary he was well controlled on the lantus only while in the hospital. - A1C 12.1, poor control 4. Thoracic spine pain s/p recent GLF, POA and improving. - CT thoracic negative for fracture - pain control 5. Constipation, POA and improved. - daily laxatives - dulcolax PRN Code: Full, surrogate is patient's friend Pat DVT: Lovenox, hold if surgical procedure is needed. Discharge planning: home with wound vac vs SNF. Quality VTE Deep Vein Thrombosis/Pulmonary Embolism Present on Admission: No
[2023-09-23 12:00] VITALS: RESP 18
--- NOTE | 2023-09-23 13:35 | PT.IPTN ---
Current Diagnoses Type 2 diabetes mellitus with foot ulcer (09/16/23) Essential (primary) hypertension (09/16/23) Cutaneous abscess of left lower limb (09/16/23) Cellulitis of left lower limb (09/16/23) Non-pressure chronic ulcer of left heel and midfoot with fat layer exposed (09/16/23) Non-pressure chronic ulcer of other part of unspecified foot with unspecified severity (09/16/23) Patient's other noncompliance with medication regimen for other reason (09/16/23) Surgery Performed Operation Date: 09/20/23 13:15 Actual Procedures p Incision and Drainage Heel + wound vac(Left) - Marisa Sultana MD Physical Therapy Treatment Note M2 PT-IP Current Condition Start: 09/19/23 12:18 Freq: NEEDED Status: Active Protocol: Document 09/19/23 11:11 AB (Rec: 09/19/23 12:36 AB [id number]) Physical Therapy Current Condition Current Condition Evaluation Date 09/19/23 Treatment Diagnosis LLE cellulitis; difficulty in walking Onset Date 09/16/23 M3 PT-IP Subjective Start: 09/19/23 12:18 Freq: NEEDED Status: Active Protocol: Document 09/23/23 14:11 TS (Rec: 09/23/23 14:29 TS [id number]) Subjective Physical Therapy Visit Type Type Treatment Note Visit Start Time 13:35 Visit Stop Time 14:05 Total Visit Minutes 30 Number of TEACHING PASTOR Visits 1 Physical Therapy Visit Comments Patient Comments Pt found resting in bed, reports irritation and soreness right above buttocks, RN called to check skin, air cushion was provided. Therapy Pain Assessment Pain When Pain Assessed At Rest Pain Present Pain Present Pain Reported Location Left Leg Intensity 9 Description Acute Pain Behaviors Facial Grimacing,Moaning, Wincing Pain Management Techniques Distraction,Elevation, Modification of Treatment,Re- positioning,Timing of Activity with Medications M4 PT-IP Mobility and Gait Start: 09/19/23 12:18 Freq: NEEDED Status: Active Protocol: Document 09/23/23 14:11 TS (Rec: 09/23/23 14:29 TS [id number]) PT-Bed Mobility Assessment Supine to Sit Supine to Sit Standby Assistance Sit to Supine Sit to Supine Standby Assistance Scooting Scooting to Edge of Bed Standby Assistance PT-Transfer Assessment Sit to and From Stand Sit to and from Stand Standby Assistance,Use of Upper Extremities Equipment Transfer Assistive Device Gait Belt,Front Wheeled Walker Orthotic/Prosthetic Devices or Brace: No Comments Mobility Comments Supine to sit SBA with BUE support. He performed sit to stand SBA with heavy UE assist and increased wbering on RLE, pt demonstrates good awareness of TTWB on LLE. Wound vac attached to front of FWW. Pt ambulated ~15' in room SBA with TTWBerin on LLE. Sit to supine into bed SBA, air cushion placed under sacrum. Pt was left in bed, all needs met. Gait Assessment Gait Gait Assistance Required: Standby Assistance Distance (Feet) 15 Able to Maintain Weight Bearing Status Yes During Gait Assistive Devices Assistive Device Gait Belt,Front Wheeled Walker Orthotic/Prosthetic Devices or Brace: No Gait Deviations General Gait Pattern Antalgic,Decreased Stride Length,Decreased Feet Clearance,Step-to Gait Factors Limiting Gait Function Factors Limiting Gait Function Decreased Activity Tolerance, Decreased Strength,Limited Range of Motion,Pain,Poor Balance,Poor Safety Awareness Comments Gait Comments See mobility comments PT-Balance Assessment Sitting Balance and Reactions Static Sitting Balance Ability Good Dynamic Sitting Balance Ability Good Standing Balance and Reactions Static Standing Balance Ability Fair Dynamic Standing Balance Ability Fair Device Used RW M5 PT-IP Objective Assessments Start: 09/19/23 12:18 Freq: NEEDED Status: Active Protocol: Document 09/19/23 11:11 AB (Rec: 09/19/23 12:36 AB [id number]) Orientation Orientation/Cognition Level of Alertness Alert Orientation Name,Place,Situation Language Function Ability No Deficits Noted Safety Awareness Decreased Safety Awareness Memory Description No Deficits Noted Gross Range of Motion Lower Extremity ROM Assessment Within Functional Limits Strength Lower Extremity Strength Assessment Within Functional Limits Muscle Tone Muscle Tone WNL Yes M6 PT-IP Treatment Start: 09/19/23 12:18 Freq: NEEDED Status: Active Protocol: Document 09/23/23 14:11 TS (Rec: 09/23/23 14:29 TS [id number]) Physical Therapy Treatment Education Education Provided Weight Bearing Status,Safety M7 PT-IP Assessment and Plan Start: 09/19/23 12:18 Freq: NEEDED Status: Active Protocol: Document 09/23/23 14:11 TS (Rec: 09/23/23 14:29 TS [id number]) PT Summary Assessment and Plan Potential Rehabilitation Potential Fair Summary Impairments Pain,ROM,Strength,Balance, Coordination,Sensation,Tone, Cognition,Bed Mobility, Transfers,Gait,Activity Tolerance Progress Towards Goals Slow Progress due to Pain,Slow Progress due to Medical Issues,Slow Progress due to Activity Tolerance Assessment Summary Noah continues to make slow progress with his mobility. He is SBA for all bed mobility from flat bed. He performed sit to stand with FWW and demonstrates good awareness of TTB on LLE. He continues to walk a short distance in room with FWW. PT continues to recommend SNF to progress functional mobility and activity tolerance. Goals Bed Mobility Goal Independent Transfer Goal Independent,Front Wheeled Walker Gait Goal Independent,Front Wheel Walker Gait Distance 50 Other Goals improve ambulation using FWW 100 ft SBA up/down 20 steps B rail SBA Days to Meet Goals 10 Frequency of Treatment Frequency Of Treatment Once a Day Treatment Plan Physical Therapy Treatment Plan Bed Mobility Training,Transfer Training,Gait Training, Therapeutic Exercise,Balance Retraining,Post Op Education, Discharge Planning,Hot or Cold Pack,Neuromuscular Re-ed, Coordination Retraining Precautions Other Precautions contact precautions: MRSA nares Weight Bearing Status Weight Bearing Status Touch Down Weight Bearing Allowed Weight Bearing Amount (enter % LLE: touch down weight bearing or #) (%) for balance Recommendations To Nursing Amount of Assist Needed 1 Person Assist Discharge Recommendations PT Discharge Recommendations SNF Rehab Equipment Needed for Home Before FWW Discharge Transportation Needs at Discharge Private Vehicle,Wheelchair/ Cabulance
[2023-09-23] MEDS: VANCOMYCIN PEAK 1 REQUEST MISC (13:45)
[2023-09-23 14:03] LABS: Vancomycin Peak 21.1 ug/mL (20-40)
[2023-09-23] MEDS: HYDROMORPHONE 0.5 MG INJ IV (15:27)
[2023-09-23] MEDS: BACLOFEN 10 MG TABLET PO ×2 (17:21→21:40)
[2023-09-23 18:00] VITALS: RESP 18
--- NOTE | 2023-09-23 18:22 | PC.NURSE ---
Pt A/O MD replaced wound vac dsg Rahul savannahhoharjeet = 9.9 Peak 21 IVBP ABO as per orders. Med several times for discomfort w/relief. Call light w/in reach, bed alarm on for pt safety. Continue w/ plan of care.
[2023-09-23] MEDS: SENNOSIDES 8.6 MG TABLET 17.2 MG PO (20:09)
[2023-09-23 20:45] VITALS: BP 155/84; PULSE 67; RESP 18; TEMP 36.6; O2SAT 96
[2023-09-24] MEDS: OXYCODONE IR 10 MG TABLET PO ×6 (00:55→20:53)
[2023-09-24] MEDS: VANCOMYCIN 1,250 MG/250 ML PIGGYBACK 250 MG IV ×3 (00:57→18:01)
[2023-09-24] MEDS: HYDROMORPHONE 1 MG INJ IV ×5 (03:11→23:34)
[2023-09-24 05:00] VITALS: BP 145/84; PULSE 63; RESP 17; TEMP 36.7; O2SAT 97
[2023-09-24] MEDS: ACETAMINOPHEN 325 MG TABLET 650 MG PO ×4 (05:06→20:53)
[2023-09-24] MEDS: INSULIN LISPRO 100 UNIT/ML 3ML VIAL SUBCUT ×5 (08:12→17:57)
[2023-09-24] MEDS: INSULIN GLARGINE 100 UNIT/ML 3ML PEN 25 UNIT SUBCUT (08:13)
[2023-09-24] MEDS: AMLODIPINE 5 MG TABLET PO ×2 (08:16→20:53)
[2023-09-24 08:17] VITALS: BP 152/92; PULSE 61
[2023-09-24] MEDS: ENOXAPARIN 40 MG/0.4 ML SYRINGE SUBCUT (08:17)
[2023-09-24] MEDS: metroNIDAZOLE 500 MG TABLET PO (08:17)
[2023-09-24] MEDS: polyethylene glycoL 3350 17 GM POWD.PACK PO (08:17)
[2023-09-24] MEDS: lisinopriL 20 MG TABLET 40 MG PO (08:17)
[2023-09-24] MEDS: DOCUSATE 100 MG CAPSULE PO ×2 (08:17→20:54)
[2023-09-24] MEDS: CEFEPIME 2 GM in SODIUM CHLORIDE 0.9% 100 ML IV (08:18)
[2023-09-24 08:27] VITALS: BP 152/92; PULSE 61; RESP 19; TEMP 36.4; O2SAT 99
--- NOTE | 2023-09-24 10:07 | PM.PN.1 ---
Subjective Subjective Interval history: Ongoing left foot pain. He also notes ongoing insomnia and constipation. No BM for about 5 days. He denies any chest pain or dyspnea. He is agreeable to correction facility for rehab both like to limit this to 2 weeks or less. Exam Vital Signs (past 8 hours): - 09/24/23 05:00 09/24/23 08:17 09/24/23 08:27 Temperature 98.1 F 97.6 F Pulse Rate 63 61 61 Respiratory Rate 17 19 Blood Pressure 145/84 H 152/92 H 152/92 H Pulse Oximetry 97 99 Oxygen Flow Rate 0 0 Oxygen Delivery Method Room Air Oxygen Flow Rate 0 Narrative Exam Narrative: NAD, fluent speech. Lungs are clear, normal rate and effort. Heart is regular, no murmur. Abdomen is soft, nontender. Extremities are free of edema. Left foot is wrapped with wound VAC in place. Skin is free of rash or lesions. Objective Labs 09/23/23 05:09 09/23/23 05:09 Labs: Laboratory Results - last 24 hr 09/23/23 13:35 Vancomycin Peak 21.1 PFSH Medical History HTN (hypertension) Type 2 diabetes mellitus Social History household members: none Smoking Status: Former smoker alcohol intake: current Assessment & Plan Assessment & Plan narrative: 1. Diabetic foot infection with abscess of left lmedial foot (medial calcaneous), POA and active: - patient also with notable history of bacteremia, spinal osteomyelitis with need for neurosurgery 2021, prev hx osteo in rt foot big toe, recent L groin abscess drained in the ER with MRSA from cultures. - MR foot shows extensive soft tissue swelling, findings of stranding in muscles of plantar foot - pain control as needed - oxycodone 10mg q3h prn and dilaudid IV PRN - repeat MRI of L ankle with abscess and possible osteo of calcaneus, arterial doppler US without stenosis - Dr. Sultana ortho evaluated on 09/19 and recommended OR debridement. - underwent washout and wound vac placement on 09/20, change on 09/23. - plan for wound vac change on 09/23 , this was done and looks better. Continue wound vac for now, next change 09/26. - initially on cefepime, vanc and flagyl - wound cultures with staph aureus and klebsiella oxytoca. -Will focus antiobiotics to Vanco (MRSA) and Ceftriaxone 2 G daily. Stop flagyl (09/24). 2. Hypertension, POA and active. Stable. - doesn't take medications regularly - continue Lisinopril 40 mg daily, Norvasc 5 mg BID, may need additional adjustments 3. Type 2 diabetes, uncontrolled, with pressure ulcer of heel, POA and active. - not using insulin in the last few weeks, ran out of it, fired by PCP per patient. 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 Per prior D/C summary he was well controlled on the lantus only while in the hospital. - A1C 12.1, poor control 4. Thoracic spine pain s/p recent GLF, POA and improving. - CT thoracic negative for fracture - pain control 5. Constipation, POA and active. - daily laxatives - dulcolax PRN - add Miralax 6. Insomnia, POA and active. -add melatonin. Code: Full, surrogate is patient's friend Pat DVT: Lovenox Discharge planning: trying for [facility]. Quality VTE Deep Vein Thrombosis/Pulmonary Embolism Present on Admission: No
--- NOTE | 2023-09-24 12:15 | P.PN_ITS ---
Subjective Subjective Date Patient Seen: 09/24/23 Time Patient Seen: 12:15 Interval history: Postop day 4 I&D left calcaneus medial ulceration intramuscular abscess and osteomyelitis. Wound VAC in place. Wound VAC was changed yesterday. Next change planned for Tuesday 09/26 Alert oriented no acute distress. On scheduled antibiotics. States at rest pain okay sometimes when he moves suddenly he will get sharp shooting pain. Denies fevers or chills. Working towards nursing home discharge Exam Vital Signs (past 8 hours): - 09/24/23 05:00 09/24/23 08:17 09/24/23 08:27 Temperature 98.1 F 97.6 F Pulse Rate 63 61 61 Respiratory Rate 17 19 Blood Pressure 145/84 H 152/92 H 152/92 H Pulse Oximetry 97 99 Oxygen Flow Rate 0 0 Oxygen Delivery Method Room Air Oxygen Flow Rate 0 Narrative Exam Narrative: Alert oriented no acute distress Left lower extremity examination no streaking or erythema. Thigh is soft. Palpable dorsalis pedis pulse. Bloody drainage and VAC canister. VAC good suction to -125. Wound VAC in place medial foot and ankle wiggles toes. Demonstrates dorsiflexion plantar flexion actively Objective Labs 09/23/23 05:09 09/23/23 05:09 Labs: Laboratory Results - last 24 hr 09/23/23 13:35 Vancomycin Peak 21.1 PFSH Medical History HTN (hypertension) Type 2 diabetes mellitus Social History household members: none Smoking Status: Former smoker alcohol intake: current Assessment & Plan Post-op Postoperative Procedures: Procedures Operation Date: 09/20/23 13:15 Actual Procedure Side Surgeon p Incision and Drainage Heel + wound vac Left Marisa Sultana MD Postoperative day: 4 Postoperative status: doing well Postoperative status narrative: Postop day 4 from I&D. Doing okay. Vital signs stable. Labs stable. No current signs or symptoms of sepsis. Had a floor wound VAC change on 09/23. Next planned for 09/26. Toe-touch weight-bearing left foot. Try to order a heel offloading orthopedic shoe for the patient. He will need serial wound VAC changes and reengaging the wound care team. Possible candidate for hyperbaric oxygen would defer to the wound care team. He will need outpatient IV antibiotics. Likely referral to [facility] infectious disease team. After discharge and wound VAC changes arranged with wound care see orthopedic surgery Dr. Dobson in 2 weeks to assess progress. For any acute worsening-or long-term failure to heal the patient understands the salvage treatment would be below-knee amputation. Time Spent With Patient Time with patient: less than 15 minutes Quality VTE Deep Vein Thrombosis/Pulmonary Embolism Present on Admission: No
[2023-09-24] MEDS: INSULIN GLARGINE 100 UNIT/ML 10ML VIAL SUBCUT (12:17)
--- NOTE | 2023-09-24 13:08 | PT.IPTN ---
Current Diagnoses Type 2 diabetes mellitus with foot ulcer (09/16/23) Essential (primary) hypertension (09/16/23) Cutaneous abscess of left lower limb (09/16/23) Cellulitis of left lower limb (09/16/23) Non-pressure chronic ulcer of left heel and midfoot with fat layer exposed (09/16/23) Non-pressure chronic ulcer of other part of unspecified foot with unspecified severity (09/16/23) Patient's other noncompliance with medication regimen for other reason (09/16/23) Surgery Performed Operation Date: 09/20/23 13:15 Actual Procedures p Incision and Drainage Heel + wound vac(Left) - Marisa Sultana MD Physical Therapy Treatment Note M2 PT-IP Current Condition Start: 09/19/23 12:18 Freq: NEEDED Status: Active Protocol: Document 09/19/23 11:11 AB (Rec: 09/19/23 12:36 AB [id number]) Physical Therapy Current Condition Current Condition Evaluation Date 09/19/23 Treatment Diagnosis LLE cellulitis; difficulty in walking Onset Date 09/16/23 M3 PT-IP Subjective Start: 09/19/23 12:18 Freq: NEEDED Status: Active Protocol: Document 09/24/23 12:51 MB (Rec: 09/24/23 13:08 MB [id number]) Subjective Physical Therapy Visit Type Type Treatment Note Visit Start Time 12:51 Visit Stop Time 13:01 Total Visit Minutes 10 Number of AIR TRANSPORT PROFESSIONALS Visits 0 Physical Therapy Visit Comments Patient Comments I just got pain medication so I'll do a little but I can't do much. Therapy Pain Assessment Pain When Pain Assessed During Mobility Pain Present Pain Present Pain Reported Location Left Leg Intensity 12 Scale Used Numeric (0 - 10) Pain Behaviors Calling Out,Facial Grimacing, Guarding,Moaning,Restlessness Pain Management Techniques Modification of Treatment,Re- positioning,Timing of Activity with Medications M4 PT-IP Mobility and Gait Start: 09/19/23 12:18 Freq: NEEDED Status: Active Protocol: Document 09/24/23 12:51 MB (Rec: 09/24/23 13:08 MB [id number]) PT-Bed Mobility Assessment Supine to Sit Supine to Sit Standby Assistance,1 Person Assistance,Head of Bed Elevated,Bedrails Sit to Supine Sit to Supine Standby Assistance,1 Person Assistance,Head of Bed Elevated,Bedrails Scooting Scooting to Edge of Bed Standby Assistance PT-Transfer Assessment Sit to and From Stand Sit to and from Stand Standby Assistance,1 Person Assistance,Use of Upper Extremities Equipment Transfer Assistive Device Gait Belt,Front Wheeled Walker Orthotic/Prosthetic Devices or Brace: No Comments Mobility Comments PT assists with wound vac and pt hands PT wound vac line and PT encourages him to move it himself to get used to moving with the machine. Pt with increased moaning with reports of pain in LLE with all mobility. Left foot with some discoloration and mild edema. Gait Assessment Gait Gait Assistance Required: Standby Assistance Distance (Feet) 10 Able to Maintain Weight Bearing Status Yes During Gait Assistive Devices Assistive Device Gait Belt,Front Wheeled Walker Orthotic/Prosthetic Devices or Brace: No Gait Deviations General Gait Pattern Antalgic,Decreased Stride Length,Decreased Feet Clearance,Step-to Gait Factors Limiting Gait Function Factors Limiting Gait Function Decreased Activity Tolerance, Decreased Strength,Limited Range of Motion,Pain,Poor Balance,Poor Safety Awareness Comments Gait Comments Pt manages TTWB with occ NWB left foot with step-to gait today, pain with all steps and pt unable to tolerate further mobility and asks to return to bed PT-Balance Assessment Sitting Balance and Reactions Static Sitting Balance Ability Good Dynamic Sitting Balance Ability Good Standing Balance and Reactions Static Standing Balance Ability Fair Dynamic Standing Balance Ability Fair Device Used RW M5 PT-IP Objective Assessments Start: 09/19/23 12:18 Freq: NEEDED Status: Active Protocol: Document 09/19/23 11:11 AB (Rec: 09/19/23 12:36 AB [id number]) Orientation Orientation/Cognition Level of Alertness Alert Orientation Name,Place,Situation Language Function Ability No Deficits Noted Safety Awareness Decreased Safety Awareness Memory Description No Deficits Noted Gross Range of Motion Lower Extremity ROM Assessment Within Functional Limits Strength Lower Extremity Strength Assessment Within Functional Limits Muscle Tone Muscle Tone WNL Yes M6 PT-IP Treatment Start: 09/19/23 12:18 Freq: NEEDED Status: Active Protocol: Document 09/24/23 12:51 MB (Rec: 09/24/23 13:08 MB [id number]) Physical Therapy Treatment Education Education Provided Weight Bearing Status,Safety M7 PT-IP Assessment and Plan Start: 09/19/23 12:18 Freq: NEEDED Status: Active Protocol: Document 09/24/23 12:51 MB (Rec: 09/24/23 13:08 MB [id number]) PT Summary Assessment and Plan Potential Rehabilitation Potential Fair Summary Impairments Pain,ROM,Strength,Balance, Sensation,Bed Mobility, Transfers,Gait,Activity Tolerance Progress Towards Goals Slow Progress due to Pain,Slow Progress due to Medical Issues,Slow Progress due to Activity Tolerance Assessment Summary Noah is not able to progress much with gait distance and activity tolerance today. He c /o -08/20 pain in his left foot with all activity and he states he had recently received pain medication before PT. Pain is unstable and high and this affects functional mobility tolerance. Goals Bed Mobility Goal Independent Transfer Goal Independent,Front Wheeled Walker Gait Goal Independent,Front Wheel Walker Gait Distance 50 Other Goals improve ambulation using FWW 100 ft SBA up/down 20 steps B rail SBA Days to Meet Goals 10 Frequency of Treatment Frequency Of Treatment Once a Day Treatment Plan Physical Therapy Treatment Plan Bed Mobility Training,Transfer Training,Gait Training, Therapeutic Exercise,Balance Retraining,Post Op Education, Discharge Planning,Hot or Cold Pack,Neuromuscular Re-ed, Coordination Retraining Precautions Other Precautions contact precautions: MRSA nares Weight Bearing Status Weight Bearing Status Touch Down Weight Bearing Allowed Weight Bearing Amount (enter % LLE: touch down weight bearing or #) (%) for balance Recommendations To Nursing Amount of Assist Needed 1 Person Assist Discharge Recommendations PT Discharge Recommendations SNF Rehab Equipment Needed for Home Before FWW Discharge Transportation Needs at Discharge Private Vehicle,Wheelchair/ Cabulance
[2023-09-24] MEDS: BACLOFEN 10 MG TABLET PO ×2 (14:16→21:55)
[2023-09-24 15:40] VITALS: BP 134/79; PULSE 65; RESP 18; TEMP 36.6; O2SAT 98
--- NOTE | 2023-09-24 15:45 | CM.DPC ---
Faxed referral over to [facility] in [place], had left a message prior to see if they have beds. Savanna Goldman RN/Beam House Inspector
--- NOTE | 2023-09-24 16:01 | CM.DPNOTE ---
DCP Note [employer] reviewed EMR. Julienne at reports unable to accept at this time. due to 1) unclear dcp following rehab and 2) the antibiotic combination is too expensive (Ceftriaxone and Vanko). Per February, the [facility] Medicaid rate too small to accommodate therapy/wound vac/antibiotic need. If cheaper antibiotic plan arranged and there is a more concrete dcp, [facility] would be willing to rereview. [employer] updated provider. Provider reports attempting to have an appropriate abx plan that SNFs would be more likely to agree to afford. HOME lvm with [place] at [facility], refaxed and emailed referral. This [employer] is hopeful that because they are not contracted with pt's insurance, they could negotiate a one time agreement due to lack of another accepting facility. One time contract ideally would include a rate that meets all of his needs. RN DCP Luisa kindly agree to fax referral to [facility] and charles inquiring about bed availability. [employer] unable to meet with pt today to discuss plan due to triaging needs. Plan: Ideally, [facility] or [facility] for SNF for antibiotic/wound vac/rehab needs. CM team will continue to follow closely. HOME Andrew
[2023-09-24] MEDS: cefTRIAXone 2,000 MG in SODIUM CHLORIDE 0.9% 100 ML 200 MG IV (20:52)
[2023-09-24] MEDS: SENNOSIDES 8.6 MG TABLET 17.2 MG PO (20:53)
[2023-09-24] MEDS: MELATONIN 3 MG TABLET 6 MG PO (20:53)
[2023-09-24 21:00] VITALS: BP 151/79; PULSE 66; RESP 18; TEMP 36.8; O2SAT 97
[2023-09-24] MEDS: SODIUM CHLORIDE 0.9% FLUSH 10 ML IV (22:50)
[2023-09-25] MEDS: VANCOMYCIN 1,250 MG/250 ML PIGGYBACK 250 MG IV ×3 (01:22→17:39)
[2023-09-25] MEDS: IBUPROFEN 400 MG TABLET PO ×2 (01:22→08:58)
[2023-09-25] MEDS: OXYCODONE IR 10 MG TABLET PO ×4 (01:22→17:39)
[2023-09-25] MEDS: HYDROMORPHONE 1 MG INJ IV ×3 (04:00→20:16)
[2023-09-25] MEDS: ACETAMINOPHEN 325 MG TABLET 650 MG PO ×2 (04:00→20:27)
[2023-09-25 05:35] VITALS: BP 153/91; PULSE 62; RESP 17; TEMP 36.3; O2SAT 99
[2023-09-25] MEDS: BACLOFEN 10 MG TABLET PO ×2 (05:56→12:35)
--- NOTE | 2023-09-25 07:34 | PM.PNPO.1 ---
Subjective Subjective Date Patient Seen: 09/25/23 Time Patient Seen: 07:34 Interval history: Postop day 5 I&D left calcaneus medial ulceration intramuscular abscess and osteomyelitis. Wound VAC in place. Pt sitting up in bed comfortably. Per pt, plan is transfer to [facility] in the next couple days. Good pain control. Contact precautions for MRSA. Exam Vital Signs (past 8 hours): - 09/25/23 05:35 Temperature 97.3 F L Pulse Rate 62 Respiratory Rate 17 Blood Pressure 153/91 H Pulse Oximetry 99 Oxygen Flow Rate 0 Oxygen Delivery Method Room Air Oxygen Flow Rate 0 Narrative Exam Narrative: LLE: VAC functioning w/ bloody drainage. DF and PF intact. Pt able to wiggle toes, sensation to touch intact. Calf soft and compressible. Objective Labs 09/23/23 05:09 09/23/23 05:09 [facility] Medical History HTN (hypertension) Type 2 diabetes mellitus Social History household members: none Smoking Status: Former smoker alcohol intake: current Assessment & Plan Post-op Assessment and plan (1) Cellulitis and abscess of left lower extremity: Assessment and Plan narrative: 1) No current signs or symptoms of sepsis. Had a floor wound VAC change on 09/23. Next planned for 09/26 w/ Dr Sultana. 2) Toe-touch weight-bearing left foot. Heel offloading orthopedic shoe ordered. 3) He will need serial wound VAC changes and reengaging the wound care team. Possible candidate for hyperbaric oxygen would defer to the wound care team. 4) He will need outpatient IV antibiotics. Currently receiving vancomycin and ceftriaxone. Recommend referral to [facility] infectious disease team. 5) After discharge and wound VAC changes arranged with wound care see orthopedic surgery Dr. Dobson in 2 weeks to assess progress. For any acute worsening-or long-term failure to heal the patient understands the salvage treatment would be below-knee amputation. Postoperative Procedures: Procedures Operation Date: 09/20/23 13:15 Actual Procedure Side Surgeon p Incision and Drainage Heel + wound vac Left Marisa Sultana MD Postoperative day: 5 Quality VTE Deep Vein Thrombosis/Pulmonary Embolism Present on Admission: No
[2023-09-25] MEDS: INSULIN LISPRO 100 UNIT/ML 3ML VIAL SUBCUT ×3 (08:51→17:40)
[2023-09-25] MEDS: INSULIN GLARGINE 100 UNIT/ML 3ML PEN 30 UNIT SUBCUT (08:52)
[2023-09-25] MEDS: DOCUSATE 100 MG CAPSULE PO ×2 (08:57→20:15)
[2023-09-25] MEDS: polyethylene glycoL 3350 17 GM POWD.PACK PO (08:58)
[2023-09-25] MEDS: AMLODIPINE 5 MG TABLET PO ×2 (08:58→20:15)
[2023-09-25] MEDS: lisinopriL 20 MG TABLET 40 MG PO (08:58)
[2023-09-25] MEDS: ENOXAPARIN 40 MG/0.4 ML SYRINGE SUBCUT (08:59)
[2023-09-25] MEDS: SODIUM CHLORIDE 0.9% FLUSH 10 ML IV ×2 (09:00→20:16)
--- NOTE | 2023-09-25 11:21 | PT.IPTN ---
Current Diagnoses Type 2 diabetes mellitus with foot ulcer (09/16/23) Essential (primary) hypertension (09/16/23) Cutaneous abscess of left lower limb (09/16/23) Cellulitis of left lower limb (09/16/23) Non-pressure chronic ulcer of left heel and midfoot with fat layer exposed (09/16/23) Non-pressure chronic ulcer of other part of unspecified foot with unspecified severity (09/16/23) Patient's other noncompliance with medication regimen for other reason (09/16/23) Surgery Performed Operation Date: 09/20/23 13:15 Actual Procedures p Incision and Drainage Heel + wound vac(Left) - Marisa Sultana MD Physical Therapy Treatment Note M2 PT-IP Current Condition Start: 09/19/23 12:18 Freq: NEEDED Status: Active Protocol: Document 09/19/23 11:11 AB (Rec: 09/19/23 12:36 AB [id number]) Physical Therapy Current Condition Current Condition Evaluation Date 09/19/23 Treatment Diagnosis LLE cellulitis; difficulty in walking Onset Date 09/16/23 M3 PT-IP Subjective Start: 09/19/23 12:18 Freq: NEEDED Status: Active Protocol: Document 09/25/23 12:01 ZF (Rec: 09/25/23 12:16 ZF [id number]) Subjective Physical Therapy Visit Type Type Treatment Note Visit Start Time 11:21 Visit Stop Time 11:56 Total Visit Minutes 35 Number of CERTIFIED PERFORMANCE TECHNOLOGIST Visits 1 Physical Therapy Visit Comments Patient Comments Pt found resting in bed, agreeable to therapy. Therapy Pain Assessment Pain When Pain Assessed During Mobility Pain Present Pain Present Pain Reported Location Left Leg Pain Behaviors Calling Out,Facial Grimacing, Guarding Pain Management Techniques Elevation,Modification of Treatment,Re-positioning, Timing of Activity with Medications M4 PT-IP Mobility and Gait Start: 09/19/23 12:18 Freq: NEEDED Status: Active Protocol: Document 09/25/23 12:01 ZF (Rec: 09/25/23 12:16 ZF [id number]) PT-Bed Mobility Assessment Supine to Sit Supine to Sit Standby Assistance,1 Person Assistance,Head of Bed Elevated Scooting Scooting to Edge of Bed Standby Assistance PT-Transfer Assessment Sit to and From Stand Sit to and from Stand Standby Assistance,1 Person Assistance,Use of Upper Extremities Equipment Transfer Assistive Device Gait Belt,Front Wheeled Walker Orthotic/Prosthetic Devices or Brace: No Comments Mobility Comments Supine>Sitting EOB requires SBA. Wound vac positioned on 2ww. STS from EOB w/2ww, SBA. Pt amb x15' to window, adhering to TTWB LLE. Pt tolarates >15 mins of standing , reports dizziness in standing, but declines sitting during that time. After ~15 mins of standing, pt reports significant dizziness and requires seated RB. Nursing came in to get vitals at this point, blood sugar and vitals were WNL. Pt requires lengthy RB, and is very loquacious, and difficult to redirect. STS from recliner requires SBA, Pt cries out in pain, stating that he put too much weight through L LE. Pt requests getting back to bed, is SBA for all mobility. Gait Assessment Gait Gait Assistance Required: Standby Assistance Distance (Feet) 15 Able to Maintain Weight Bearing Status Yes During Gait Assistive Devices Assistive Device Gait Belt,Front Wheeled Walker Orthotic/Prosthetic Devices or Brace: No Gait Deviations General Gait Pattern Antalgic,Decreased Stride Length,Decreased Feet Clearance,Step-to Gait Factors Limiting Gait Function Factors Limiting Gait Function Decreased Activity Tolerance, Decreased Strength,Limited Range of Motion,Pain,Poor Balance,Poor Safety Awareness Comments Gait Comments See mobility comments PT-Balance Assessment Sitting Balance and Reactions Static Sitting Balance Ability Good Dynamic Sitting Balance Ability Good Standing Balance and Reactions Static Standing Balance Ability Fair Dynamic Standing Balance Ability Fair Device Used RW M5 PT-IP Objective Assessments Start: 09/19/23 12:18 Freq: NEEDED Status: Active Protocol: Document 09/19/23 11:11 AB (Rec: 09/19/23 12:36 AB [id number]) Orientation Orientation/Cognition Level of Alertness Alert Orientation Name,Place,Situation Language Function Ability No Deficits Noted Safety Awareness Decreased Safety Awareness Memory Description No Deficits Noted Gross Range of Motion Lower Extremity ROM Assessment Within Functional Limits Strength Lower Extremity Strength Assessment Within Functional Limits Muscle Tone Muscle Tone WNL Yes M6 PT-IP Treatment Start: 09/19/23 12:18 Freq: NEEDED Status: Active Protocol: Document 09/25/23 12:01 CHRISTIANA (Rec: 09/25/23 12:16 ZF [id number]) Physical Therapy Treatment Education Education Provided Weight Bearing Status,Safety M7 PT-IP Assessment and Plan Start: 09/19/23 12:18 Freq: NEEDED Status: Active Protocol: Document 09/25/23 12:01 CHRISTIANA (Rec: 09/25/23 12:16 CHRISTIANA [id number]) PT Summary Assessment and Plan Potential Rehabilitation Potential Fair Summary Impairments Pain,ROM,Strength,Balance, Sensation,Bed Mobility, Transfers,Gait,Activity Tolerance Progress Towards Goals Slow Progress due to Pain,Slow Progress due to Medical Issues,Slow Progress due to Activity Tolerance Assessment Summary Pt had pain meds prior to therapy and was able to amb, and stand w/o complaints of pain until end of session when he reports putting too much weight through L LE with STS. Pt is SBA w/all functional mobility. Recommending SNF at [place] due to home environment and x20 steps to get into second floor apartment. Goals Bed Mobility Goal Independent Transfer Goal Independent,Front Wheeled Walker Gait Goal Independent,Front Wheel Walker Gait Distance 50 Other Goals improve ambulation using FWW 100 ft SBA up/down 20 steps B rail SBA Days to Meet Goals 10 Frequency of Treatment Frequency Of Treatment Once a Day Treatment Plan Physical Therapy Treatment Plan Bed Mobility Training,Transfer Training,Gait Training, Therapeutic Exercise,Balance Retraining,Post Op Education, Discharge Planning,Hot or Cold Pack,Neuromuscular Re-ed, Coordination Retraining Precautions Other Precautions contact precautions: MRSA nares Weight Bearing Status Weight Bearing Status Touch Down Weight Bearing Allowed Weight Bearing Amount (enter % LLE: touch down weight bearing or #) (%) for balance Recommendations To Nursing Amount of Assist Needed 1 Person Assist Discharge Recommendations PT Discharge Recommendations SNF Rehab Equipment Needed for Home Before FWW Discharge Transportation Needs at Discharge Private Vehicle,Wheelchair/ Cabulance
[2023-09-25 12:00] VITALS: BP 142/84; PULSE 67; RESP 18; TEMP 36.3; O2SAT 99
--- NOTE | 2023-09-25 12:13 | CM.DPNOTE ---
Addendum entered by Marilia Cooley, HOME 09/25/23 13:25: Ernestine from [facility] confirmed they were able to accept pt- waiting for orders/dc information. Addendum entered by Marilia Cooley, HOME 09/25/23 13:23: [facility] denied pt at this time due to [facility] Medicaid rate not covering cost of therapy/iv abx/wound vac needs. SL Original Note: DCP Note FIELD RETURN REPAIRER reviewed EMR. Per provider in morning rounds, unable to put pt on a cheaper abx plan at this time due to current need. FIELD RETURN REPAIRER spoke with [place] at [facility], they are unable to accept pt's at this time with [facility] Medicaid and cannot negotiate a one time agreement. SNF search is as follows: [facility] due to too low of daily rate to meet his therapy/wound vac/IV abx needs. Additionally, they do not feel like pt has a good dcp post SNF and would need a clearer dcp for him. [facility]- have referral and this FIELD RETURN REPAIRER has left multiple vms, no response [facility] unclear if [facility] accept his insurance, SANTIAGO Diana kindly agreed to send referral [facility]- lvm with Ev. SANTIAGO Diana kindly agreed to send referral. Plan: ideally SNF placement for wound vac/iv abx/therapy needs. CM team will continue to follow closely. HOME Andrew
--- NOTE | 2023-09-25 12:23 | PM.PN.1 ---
Subjective Subjective Interval history: 63 M admitted with diabetic foot infection, L foot osteomyelitis, now on ceftriaxone and vanco. Difficulties with SNF placement due to low rate and high medical needs (wound vac, ceftriaxone, vanco). Continues to complain of near constant pain. He previously was requiring long acting opiates after prior back surgery. Will reattempt today to see if improvement in pain. Exam Vital Signs (past 8 hours): - 09/25/23 05:35 09/25/23 12:00 Temperature 97.3 F L 97.3 F L Pulse Rate 62 67 Respiratory Rate 17 18 Blood Pressure 153/91 H 142/84 H Pulse Oximetry 99 99 Oxygen Flow Rate 0 0 Oxygen Delivery Method Room Air Oxygen Flow Rate 0 Narrative Exam Narrative: NAD, fluent speech. Lungs are clear, normal rate and effort. Heart is regular, no murmur. Abdomen is soft, nontender. Extremities are free of edema. Left foot is wrapped with wound VAC in place. Skin is free of rash or lesions. Objective Labs 09/23/23 05:09 09/23/23 05:09 [facility] Medical History HTN (hypertension) Type 2 diabetes mellitus Social History household members: none Smoking Status: Former smoker alcohol intake: current Assessment & Plan Assessment & Plan narrative: 1. Diabetic foot infection with abscess of left lmedial foot (medial calcaneous), POA and active: - patient also with notable history of bacteremia, spinal osteomyelitis with need for neurosurgery 2021, prev hx osteo in rt foot big toe, recent L groin abscess drained in the ER with MRSA from cultures. - MR foot shows extensive soft tissue swelling, findings of stranding in muscles of plantar foot - pain control as needed - oxycodone 10mg q3h prn and dilaudid IV PRN - repeat MRI of L ankle with abscess and possible osteo of calcaneus, arterial doppler US without stenosis - Dr. Sultana ortho evaluated on 09/19 and recommended OR debridement. - underwent washout and wound vac placement on 09/20, change on 09/23. - Continue wound vac for now, next change 09/26. - initially on cefepime, vanc and flagyl - wound cultures with staph aureus and klebsiella oxytoca. Metronidazole stopped on 09/24. Will need 6 weeks of ceftriaxone and vanco or other antibiotics depending on SNF coverage or if home. 2. Hypertension, POA and active. Stable. - doesn't take medications regularly - continue Lisinopril 40 mg daily, Norvasc 5 mg BID, may need additional adjustments 3. Type 2 diabetes, uncontrolled, with pressure ulcer of heel, POA and active. - not using insulin in the last few weeks, ran out of it, fired by PCP per patient. 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 Per prior D/C summary he was well controlled on the lantus only while in the hospital. - A1C 12.1, poor control 4. Thoracic spine pain s/p recent GLF, POA and improving. - CT thoracic negative for fracture - pain control 5. Constipation, POA and active. - daily laxatives - dulcolax PRN - add Miralax 6. Insomnia, POA and active. -add melatonin. Code: Full, surrogate is patient's friend Pat DVT: Lovenox Discharge planning: trying for SNF, though difficulties with insurance coverage currently. Backup may need to be home with home health, infusions if unable to get accepting SNF. Quality VTE Deep Vein Thrombosis/Pulmonary Embolism Present on Admission: No
[2023-09-25] MEDS: OXYCODONE ER 20 MG TAB PO ×2 (15:26→22:12)
--- NOTE | 2023-09-25 16:02 | CM.DPNOTE ---
DCP Note FINANCIAL ANALYSIS CONSULTANT spoke with pt at length about barriers to discharging to SNF at this time due to expense of his wound vac/iv abx/therapy needs. Pt agreeable to [facility] for wound vac/therapy and infusion solutions pending cost. However, pt reports he's worried about going home alone without fitter's assistant. Pt reports he has no one that could come stay with him short term, and he is unsure if he has someone that could being him meals. He would be interested in Meals on Wheels. Pt reports [facility] [place] in [place] working on getting him set up with [employer] transport. Pt worried about being in a SNF at the first of the month- claiming that if he is in a care facility at the first he would not get social security benefit? Reports would be open to branching out to [facility] for SNF placement as well but really cannot stay at a SNF past the end of the month. Pt reports car isn't working and would struggle to get to appointments for IV abx. FINANCIAL ANALYSIS CONSULTANT lvm again with Martin (p [phone]) about expedited [facility] caregiver assessment, no response. FINANCIAL ANALYSIS CONSULTANT left multiple vms with [facility] and [facility] today, no response. Plan: 1) if [facility] or [facility] could accept, dc there. 2) dc home with [facility], home infusion, and potentially [facility] caregivers? CM team will continue to follow closely. HOME Andrew
[2023-09-25 18:00] VITALS: BP 169/97; PULSE 96; RESP 18; TEMP 36.6; O2SAT 97
--- NOTE | 2023-09-25 18:54 | PC.NURSE ---
Addendum entered by Jessica Henry R.N. 09/28/23 14:28: Late Entry: Patient was given iv hydromorphone 0.5mg at 0845, EMR documentation not saved. Original Note: Wound vac is in place to left foot, with bloody drainage in chamber. He is tolerating this well. Patient has had multiple pain medications today and tolerated them all well. He had a large bowel movement this morning. Patient is resting comfortably.
[2023-09-25] MEDS: SENNOSIDES 8.6 MG TABLET 17.2 MG PO (20:15)
[2023-09-25] MEDS: cefTRIAXone 2,000 MG in SODIUM CHLORIDE 0.9% 100 ML 200 MG IV (20:15)
[2023-09-25] MEDS: MELATONIN 3 MG TABLET 6 MG PO (20:15)
[2023-09-26] VITALS: BP 155/85; PULSE 74; RESP 16; TEMP 36.3; O2SAT 99
[2023-09-26] MEDS: VANCOMYCIN 1,250 MG/250 ML PIGGYBACK 250 MG IV (01:02)
[2023-09-26] MEDS: BACLOFEN 10 MG TABLET PO ×3 (01:02→18:53)
[2023-09-26] MEDS: OXYCODONE IR 10 MG TABLET PO ×3 (03:58→18:53)
[2023-09-26] MEDS: ACETAMINOPHEN 325 MG TABLET 650 MG PO ×4 (03:58→20:09)
[2023-09-26 06:27] VITALS: BP 138/89; PULSE 64; RESP 16; O2SAT 98
[2023-09-26] MEDS: OXYCODONE ER 20 MG TAB PO ×3 (06:36→22:56)
[2023-09-26 08:00] VITALS: BP 152/86; PULSE 67; RESP 16; TEMP 36.3; O2SAT 100
--- NOTE | 2023-09-26 08:28 | P.PN_ITS ---
Subjective Subjective Interval history: Patient's pain much better controlled today and he tolerated the bedside wound vac change well. He and WINE CELLAR STOCK CLERK are coordinating how to safely get him home with IV home infusions, wound care and caregiving. Exam Vital Signs (past 8 hours): - 09/26/23 06:27 Pulse Rate 64 Respiratory Rate 16 Blood Pressure 138/89 Pulse Oximetry 98 Oxygen Delivery Method Room Air Oxygen Flow Rate 0 Narrative Exam Narrative: NAD, fluent speech. Lungs are clear, normal rate and effort. Heart is regular, no murmur. Abdomen is soft, nontender. Extremities are free of edema. Left foot is wrapped with wound VAC in place. Skin is free of rash or lesions. Objective Labs 09/26/23 09:06 09/26/23 09:06 [facility] Medical History HTN (hypertension) Type 2 diabetes mellitus Social History household members: none Smoking Status: Former smoker alcohol intake: current Assessment & Plan Assessment & Plan narrative: 1. Diabetic foot infection with abscess of left lmedial foot (medial calcaneous), POA and active: - patient also with notable history of bacteremia, spinal osteomyelitis with need for neurosurgery 2021, prev hx osteo in rt foot big toe, recent L groin abscess drained in the ER with MRSA from cultures. - MR foot shows extensive soft tissue swelling, findings of stranding in muscles of plantar foot - pain control as needed - oxycodone 10mg q3h prn and dilaudid IV PRN - repeat MRI of L ankle with abscess and possible osteo of calcaneus, arterial doppler US without stenosis - Dr. Sultana ortho evaluated on 09/19 and recommended OR debridement. - underwent washout and wound vac placement on 09/20, change on 09/23. - Continue wound vac for now, next change 09/26. - initially on cefepime, vanc and flagyl - wound cultures with staph aureus and klebsiella oxytoca. Metronidazole stopped on 09/24. Will need 6 weeks of ceftriaxone and likely dapto, both once daily. - PICC placed on 09/26 2. Hypertension, POA and active. Stable. - doesn't take medications regularly - continue Lisinopril 40 mg daily, Norvasc 5 mg BID, may need additional adjustments 3. Type 2 diabetes, uncontrolled, with pressure ulcer of heel, POA and active. - not using insulin in the last few weeks, ran out of it, fired by PCP per patient. 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 Per prior D/C summary he was well controlled on the lantus only while in the hospital. - A1C 12.1, poor control 4. Thoracic spine pain s/p recent GLF, POA and improving. - CT thoracic negative for fracture - pain control 5. Constipation, POA and active. - daily laxatives - dulcolax PRN - add Miralax 6. Insomnia, POA and active. -add melatonin. Code: Full, surrogate is patient's friend Pat DVT: Lovenox Discharge planning: Trying for home with HH wound care, IV infusions and caregiving. 1-2 days. Quality VTE Deep Vein Thrombosis/Pulmonary Embolism Present on Admission: No
--- NOTE | 2023-09-26 09:12 | PT.IPTN ---
Current Diagnoses Type 2 diabetes mellitus with foot ulcer (09/16/23) Essential (primary) hypertension (09/16/23) Cutaneous abscess of left lower limb (09/16/23) Cellulitis of left lower limb (09/16/23) Non-pressure chronic ulcer of left heel and midfoot with fat layer exposed (09/16/23) Non-pressure chronic ulcer of other part of unspecified foot with unspecified severity (09/16/23) Patient's other noncompliance with medication regimen for other reason (09/16/23) Surgery Performed Operation Date: 09/20/23 13:15 Actual Procedures p Incision and Drainage Heel + wound vac(Left) - Marisa Sultana MD Physical Therapy Treatment Note M2 PT-IP Current Condition Start: 09/19/23 12:18 Freq: NEEDED Status: Active Protocol: Document 09/19/23 11:11 AB (Rec: 09/19/23 12:36 AB [id number]) Physical Therapy Current Condition Current Condition Evaluation Date 09/19/23 Treatment Diagnosis LLE cellulitis; difficulty in walking Onset Date 09/16/23 M3 PT-IP Subjective Start: 09/19/23 12:18 Freq: NEEDED Status: Active Protocol: Document 09/26/23 10:19 TS (Rec: 09/26/23 10:30 TS [id number]) Subjective Physical Therapy Visit Type Type Treatment Note Visit Start Time 09:12 Visit Stop Time 09:38 Total Visit Minutes 26 Number of MASTER SCHEDULER Visits 2 Physical Therapy Visit Comments Patient Comments Pt found resting in bed, therapy ad pt discussed stair set up. Pt has 2-3 steps with no rails then ~20 with B handrails.Pt is agreeable to PT. Therapy Pain Assessment Pain When Pain Assessed During Mobility Pain Present Pain Present Pain Reported M4 PT-IP Mobility and Gait Start: 09/19/23 12:18 Freq: NEEDED Status: Active Protocol: Document 09/26/23 10:19 TS (Rec: 09/26/23 10:30 TS [id number]) PT-Bed Mobility Assessment Supine to Sit Supine to Sit Standby Assistance,1 Person Assistance,Head of Bed Elevated Sit to Supine Sit to Supine Standby Assistance,1 Person Assistance,Head of Bed Elevated,Bedrails Scooting Scooting to Edge of Bed Standby Assistance PT-Transfer Assessment Sit to and From Stand Sit to and from Stand Standby Assistance,1 Person Assistance,Use of Upper Extremities Equipment Transfer Assistive Device Gait Belt,Front Wheeled Walker Orthotic/Prosthetic Devices or Brace: No Comments Mobility Comments Supine to sit SBA with HOB elevated. Pt sat EOB with good balance, wound vac placed on FWW. Sit to stand SBA with FWW , pt has some difficulty maintaining TTWB on LLE and states so. He ambulated in room ~20', c/o increased dizziness, required to sit EOB . Nursing came into room for dispsensing of meds, pt's dizziness symptoms resolved. Pt was left with nursing, all needs met. Gait Assessment Gait Gait Assistance Required: Standby Assistance Distance (Feet) 20 Able to Maintain Weight Bearing Status Yes During Gait Assistive Devices Assistive Device Gait Belt,Front Wheeled Walker Orthotic/Prosthetic Devices or Brace: No Gait Deviations General Gait Pattern Antalgic,Decreased Stride Length,Decreased Feet Clearance,Step-to Gait Factors Limiting Gait Function Factors Limiting Gait Function Decreased Activity Tolerance, Decreased Strength,Limited Range of Motion,Pain,Poor Balance,Poor Safety Awareness Comments Gait Comments See mobility comments PT-Balance Assessment Sitting Balance and Reactions Static Sitting Balance Ability Good Dynamic Sitting Balance Ability Good Standing Balance and Reactions Static Standing Balance Ability Fair Dynamic Standing Balance Ability Fair Device Used RW M5 PT-IP Objective Assessments Start: 09/19/23 12:18 Freq: NEEDED Status: Active Protocol: Document 09/19/23 11:11 AB (Rec: 09/19/23 12:36 AB [id number]) Orientation Orientation/Cognition Level of Alertness Alert Orientation Name,Place,Situation Language Function Ability No Deficits Noted Safety Awareness Decreased Safety Awareness Memory Description No Deficits Noted Gross Range of Motion Lower Extremity ROM Assessment Within Functional Limits Strength Lower Extremity Strength Assessment Within Functional Limits Muscle Tone Muscle Tone WNL Yes M6 PT-IP Treatment Start: 09/19/23 12:18 Freq: NEEDED Status: Active Protocol: Document 09/26/23 10:19 TS (Rec: 09/26/23 10:30 TS [id number]) Physical Therapy Treatment Education Education Provided Weight Bearing Status,Safety M7 PT-IP Assessment and Plan Start: 09/19/23 12:18 Freq: NEEDED Status: Active Protocol: Document 09/26/23 10:19 TS (Rec: 09/26/23 10:30 TS [id number]) PT Summary Assessment and Plan Potential Rehabilitation Potential Fair Summary Impairments Pain,ROM,Strength,Balance, Sensation,Bed Mobility, Transfers,Gait,Activity Tolerance Progress Towards Goals Slow Progress due to Pain,Slow Progress due to Medical Issues,Slow Progress due to Activity Tolerance Assessment Summary Noah continues to make slow progress with his mobility. He continues to be SBA for all mobility. He has some difficulty maintaining TTWB with sit to stand and with ambulation, he is aware. He continues to ambulate short distances in room before becoming dizzy and requiring to sit. Discussed stair set up with pt and he has 2-3 steps with no rails and ~20 with B rails. PT continues to recommend SNF rehab at this time. Goals Bed Mobility Goal Independent Transfer Goal Independent,Front Wheeled Walker Gait Goal Independent,Front Wheel Walker Gait Distance 50 Other Goals improve ambulation using FWW 100 ft SBA up/down 20 steps B rail SBA Days to Meet Goals 10 Frequency of Treatment Frequency Of Treatment Once a Day Treatment Plan Physical Therapy Treatment Plan Bed Mobility Training,Transfer Training,Gait Training, Therapeutic Exercise,Balance Retraining,Post Op Education, Discharge Planning,Hot or Cold Pack,Neuromuscular Re-ed, Coordination Retraining Precautions Other Precautions contact precautions: MRSA nares Weight Bearing Status Weight Bearing Status Touch Down Weight Bearing Allowed Weight Bearing Amount (enter % LLE: touch down weight bearing or #) (%) for balance Recommendations To Nursing Amount of Assist Needed 1 Person Assist Discharge Recommendations PT Discharge Recommendations SNF Rehab Equipment Needed for Home Before FWW Discharge Transportation Needs at Discharge Private Vehicle,Wheelchair/ Cabulance
[2023-09-26 09:14] LABS: Add Manual Diff / Slide Review NO; Basophils Absolute Auto 100 /uL (0-100); Basophils Percent Auto 1.1 % (0-2); Eosinophils Absolute Auto 200 /uL (0-450); Eosinophils Percent Auto 2.7 % (2-4); Hematocrit 31.2 % (41-53); Hemoglobin 10.6 g/dL (13.5-17.5); Lymphocytes Absolute Auto 2000 /uL (1100-4500); Lymphocytes Percent Auto 26.3 % (25-40); Mean Corpuscular Hemoglobin 27.2 PG (26-34); Mean Corpuscular Volume 79.9 fL (80-100); Monocytes Absolute Auto 400 /uL (0-900); Monocytes Percent Auto 5.9 % (3-14); Neutrophils Absolute Auto 4800 /uL (1500-7000); Platelet Count 656 X10^3/uL (150-400); Red Blood Cell Count 3.91 X10^6/uL (4.5-5.9); White Blood Cell Count 7.5 X10^3/uL (4.5-11.0)
[2023-09-26] MEDS: ENOXAPARIN 40 MG/0.4 ML SYRINGE SUBCUT (09:23)
[2023-09-26 09:24] VITALS: BP 152/86
[2023-09-26 09:24] LABS: BUN Creatinine Ratio 36.4 (6-22); Blood Urea Nitrogen 28 mg/dL (9-20); Calcium 9.3 mg/dL (8.4-10.2); Carbon Dioxide 30 mmol/L (22-32); Chloride 102 mmol/L (98-107); Estimated Glomerular Filt Rate > 60 mL/min (>60); Glucose 140 mg/dL (80-110); HEMOLYSIS < 15 (0-50); Potassium 4.9 mmol/L (3.4-5.1); Sodium 136 mmol/L (137-145)
[2023-09-26] MEDS: lisinopriL 20 MG TABLET 40 MG PO (09:24)
[2023-09-26 09:25] LABS: Magnesium 2.3 mg/dL (1.6-2.3)
[2023-09-26] MEDS: AMLODIPINE 5 MG TABLET PO ×2 (09:25→20:05)
[2023-09-26] MEDS: DOCUSATE 100 MG CAPSULE PO ×2 (09:25→20:05)
[2023-09-26] MEDS: INSULIN GLARGINE 100 UNIT/ML 3ML PEN 30 UNIT SUBCUT (09:26)
[2023-09-26] MEDS: polyethylene glycoL 3350 17 GM POWD.PACK PO (09:27)
[2023-09-26] MEDS: SODIUM CHLORIDE 0.9% FLUSH 10 ML IV ×2 (09:28→21:19)
[2023-09-26] MEDS: INSULIN LISPRO 100 UNIT/ML 3ML VIAL SUBCUT ×4 (09:29→16:54)
[2023-09-26] MEDS: HYDROMORPHONE 1 MG INJ IV ×3 (09:29→21:18)
[2023-09-26 10:02] LABS: Vancomycin Trough 20.7 ug/mL (10-20)
[2023-09-26] MEDS: VANCOMYCIN 1,000 MG/200 ML PIGGYBACK 200 MG IV ×2 (11:32→18:45)
[2023-09-26] MEDS: SODIUM CHLORIDE 0.9% 250 ML 21 ML IV (11:32)
[2023-09-26] MEDS: hydrOXYzine pamoate 25 MG CAPSULE PO ×2 (12:10→20:05)
--- NOTE | 2023-09-26 12:39 | PM.PNPO.1 ---
Subjective Subjective Date Patient Seen: 09/26/23 Time Patient Seen: 12:39 Interval history: Postop day 6 I&D left calcaneus medial ulceration intramuscular abscess and osteomyelitis. Wound VAC in place. Wound VAC was changed today Next change planned for today Tuesday 09/26 Alert oriented no acute distress. On scheduled antibiotics. States at rest pain okay sometimes when he moves suddenly he will get sharp shooting pain. Denies fevers or chills. Working towards [facility] discharge Exam Vital Signs (past 8 hours): - 09/26/23 06:27 09/26/23 08:00 09/26/23 09:24 Temperature 97.3 F L Pulse Rate 64 67 Respiratory Rate 16 16 Blood Pressure 138/89 152/86 H 152/86 H Pulse Oximetry 98 100 Oxygen Delivery Method Room Air Oxygen Flow Rate 0 Narrative Exam Narrative: Alert oriented male in no acute distress Left lower extremity examination wound VAC is removed. A vertical part of incision measures 7-1/2 cm x 2 cm x 2 cm deep. There is granulation tissue in the base of the wound. No gross purulence. Bleeding well. No erythema or fluctuance. Once while serous blister at the proximal aspect of the wound. Distal part of the incision along the plantar border of the foot with sutures in place. New wound VAC cut and placed to good suction at -125 mmHg. Patient tolerated the procedure well. Objective Labs 09/26/23 09:06 09/26/23 09:06 Labs: Laboratory Results - last 24 hr 09/26/23 09/26/23 09:06 09:30 WBC 7.5 RBC 3.91 L Hgb 10.6 L Hct 31.2 L MCV 79.9 L MCH 27.2 MCHC 34.0 RDW 14.0 Plt Count 656 H Neut % (Auto) 64.0 Lymph % (Auto) 26.3 [place] % (Auto) 5.9 Eos % (Auto) 2.7 Baso % (Auto) 1.1 Neut # (Auto) 4800 Lymph # (Auto) 2000 [place] # (Auto) 400 Eos # (Auto) 200 Baso # (Auto) 100 Sodium 136 L Potassium 4.9 Chloride 102 Carbon Dioxide 30 BUN 28 H Creatinine 0.77 Estimated GFR > 60 BUN/Creatinine Ratio 36.4 H Glucose 140 H D Calcium 9.3 Magnesium 2.3 Vancomycin Trough 20.7 H* PFSH Medical History HTN (hypertension) Type 2 diabetes mellitus Social History household members: none Smoking Status: Former smoker alcohol intake: current Assessment & Plan Post-op Postoperative Procedures: Procedures Operation Date: 09/20/23 13:15 Actual Procedure Side Surgeon p Incision and Drainage Heel + wound vac Left Marisa Sultana MD Postoperative day: 1 Postoperative status: doing well Postoperative status narrative: Postop day 6 from I&D. Doing okay. Vital signs stable. Labs stable. No current signs or symptoms of sepsis. Had a floor wound VAC change on 09/26. Next planned for outpatient and can be with wound care 3-4 days. Toe-touch weight-bearing left foot. Try to order a heel offloading orthopedic shoe for the patient. He will need serial wound VAC changes and reengaging the wound care team. Possible candidate for hyperbaric oxygen would defer to the wound care team. He will need outpatient IV antibiotics. Likely referral to [facility] infectious disease team. After discharge and wound VAC changes arranged with wound care see orthopedic surgery Dr. Sultana in 2 weeks to assess progress. For any acute worsening-or long-term failure to heal the patient understands the salvage treatment would be below-knee amputation. Time Spent With Patient Time Spent With Patient Time with patient: 15-24 minutes Quality VTE Deep Vein Thrombosis/Pulmonary Embolism Present on Admission: No
--- NOTE | 2023-09-26 13:36 | CM.DPNOTE ---
DCP Cont Patient discussed in multidisciplinary rounds. Recommendation at this time is for facility care for IV abx, wound vac changes approx x3 weekly and therapies. [facility] unable to accept. Dr Berger suggests swing beds. Placed call to the care management team at [facility] P [phone] F# [phone], they have bed availability and will consider patient's insurance, request referral for review. In addition, placed call to care management team at [facility] P# [phone] ext [phone]. They have bed availability however may not be able to accommodate patient's wound care/wound vac management. ULISES Diana, kindly agreed to send referrals to both [facility] and [facility] for review. Meanwhile, placed call to [facility] and learned that patient has been assigned to [facility] worker Rodrigo Crouch P# [phone], [email or web address]. Placed call and had to leave [facility] requesting CB to discuss patient. CM team following closely for coordination of discharge plan. Focusing efforts on facility placement at this time. DARIA
[2023-09-26 14:00] VITALS: BP 167/90; PULSE 72; RESP 16; TEMP 36.4; O2SAT 100
--- NOTE | 2023-09-26 14:03 | DI.RAD.S_ITS ---
PROCEDURE: XR CHEST FOR PICC 1V INDICATIONS: line placement COMPARISON: [facility], CR, XR CHEST 1 VIEW, 09/15/2022, 0:28. FINDINGS: PICC was placed by the intravenous therapy team from the left side. Fluoroscopic spot film demonstrates the tip of PICC projecting to the area of of the distal SVC/superior cavoatrial junction. IMPRESSION: Tip of PICC projects to the area of superior cavoatrial junction. Approved by: Nigel Friedman M.D. on 09/26/2023 at 16:40
[2023-09-26 20:00] VITALS: BP 187/104; PULSE 77; RESP 20; TEMP 36.9; O2SAT 98
[2023-09-26] MEDS: cefTRIAXone 2,000 MG in SODIUM CHLORIDE 0.9% 100 ML 200 MG IV (20:05)
[2023-09-26] MEDS: MELATONIN 3 MG TABLET 6 MG PO (20:05)
[2023-09-26] MEDS: SENNOSIDES 8.6 MG TABLET 17.2 MG PO (20:05)
[2023-09-27 02:37] VITALS: BP 148/85; PULSE 63; RESP 18; TEMP 36.6; O2SAT 98
[2023-09-27] MEDS: VANCOMYCIN 1,000 MG/200 ML PIGGYBACK 200 MG IV ×2 (02:43→12:03)
[2023-09-27] MEDS: BACLOFEN 10 MG TABLET PO ×2 (02:43→11:43)
[2023-09-27] MEDS: OXYCODONE IR 10 MG TABLET PO ×4 (02:44→15:16)
[2023-09-27] MEDS: hydrOXYzine pamoate 25 MG CAPSULE PO ×3 (02:44→15:16)
[2023-09-27] MEDS: ACETAMINOPHEN 325 MG TABLET 650 MG PO ×4 (02:44→21:40)
[2023-09-27] MEDS: IBUPROFEN 400 MG TABLET PO (05:20)
[2023-09-27] MEDS: OXYCODONE ER 20 MG TAB PO ×2 (05:20→21:36)
[2023-09-27 05:22] LABS: Add Manual Diff / Slide Review NO; Basophils Absolute Auto 100 /uL (0-100); Basophils Percent Auto 1.3 % (0-2); Eosinophils Absolute Auto 200 /uL (0-450); Eosinophils Percent Auto 3.3 % (2-4); Hematocrit 28.1 % (41-53); Hemoglobin 9.5 g/dL (13.5-17.5); Lymphocytes Absolute Auto 1800 /uL (1100-4500); Lymphocytes Percent Auto 28.1 % (25-40); Mean Corpuscular HGB Conc 33.7 % (30-36); Mean Corpuscular Volume 79.9 fL (80-100); Monocytes Absolute Auto 500 /uL (0-900); Monocytes Percent Auto 7.3 % (3-14); Neutrophils Absolute Auto 3800 /uL (1500-7000); Platelet Count 585 X10^3/uL (150-400); Red Blood Cell Count 3.51 X10^6/uL (4.5-5.9); Red Cell Distribution Width 14.4 % (11.6-14.8); White Blood Cell Count 6.3 X10^3/uL (4.5-11.0)
[2023-09-27 05:32] LABS: BUN Creatinine Ratio 30.2 (6-22); Blood Urea Nitrogen 26 mg/dL (9-20); Calcium 8.8 mg/dL (8.4-10.2); Carbon Dioxide 29 mmol/L (22-32); Chloride 102 mmol/L (98-107); Estimated Glomerular Filt Rate > 60 mL/min (>60); Glucose 160 mg/dL (80-110); HEMOLYSIS < 15 (0-50); Potassium 4.1 mmol/L (3.4-5.1); Sodium 137 mmol/L (137-145)
--- NOTE | 2023-09-27 06:23 | PC.NURSE ---
@[email or web address] Gomez regarding PT elevated BP that remained w/ Amlodipine 5mg BID (0900/2100). BP readings: 0900 (152/86); 1400 167/90; 2000 (187/104); 0230 (148/85). Requested dose adjustment or additional medications. Provider added Hydralazine 25 mg po q6h prn for SBP >160.
[2023-09-27] MEDS: polyethylene glycoL 3350 17 GM POWD.PACK PO (08:58)
[2023-09-27] MEDS: AMLODIPINE 5 MG TABLET PO ×2 (08:58→21:36)
[2023-09-27] MEDS: DOCUSATE 100 MG CAPSULE PO ×2 (08:58→21:36)
[2023-09-27 08:59] VITALS: BP 105/67
[2023-09-27] MEDS: lisinopriL 20 MG TABLET 40 MG PO (08:59)
[2023-09-27] MEDS: SODIUM CHLORIDE 0.9% FLUSH 10 ML IV (08:59)
[2023-09-27] MEDS: ENOXAPARIN 40 MG/0.4 ML SYRINGE SUBCUT (08:59)
--- NOTE | 2023-09-27 09:00 | PT.IPTN ---
Current Diagnoses Type 2 diabetes mellitus with foot ulcer (09/16/23) Essential (primary) hypertension (09/16/23) Cutaneous abscess of left lower limb (09/16/23) Cellulitis of left lower limb (09/16/23) Non-pressure chronic ulcer of left heel and midfoot with fat layer exposed (09/16/23) Non-pressure chronic ulcer of other part of unspecified foot with unspecified severity (09/16/23) Patient's other noncompliance with medication regimen for other reason (09/16/23) Surgery Performed Operation Date: 09/20/23 13:15 Actual Procedures p Incision and Drainage Heel + wound vac(Left) - Marisa Sultana MD Physical Therapy Treatment Note M2 PT-IP Current Condition Start: 09/19/23 12:18 Freq: NEEDED Status: Active Protocol: Document 09/19/23 11:11 AB (Rec: 09/19/23 12:36 AB [id number]) Physical Therapy Current Condition Current Condition Evaluation Date 09/19/23 Treatment Diagnosis LLE cellulitis; difficulty in walking Onset Date 09/16/23 M3 PT-IP Subjective Start: 09/19/23 12:18 Freq: NEEDED Status: Active Protocol: Document 09/27/23 10:10 TS (Rec: 09/27/23 10:29 TS [id number]) Subjective Physical Therapy Visit Type Type Treatment Note Visit Start Time 09:00 Visit Stop Time 09:48 Total Visit Minutes 48 Number of SCIENTIFIC RESEARCH ASSOCIATE Visits 3 Physical Therapy Visit Comments Patient Comments Pt found resting in bed, is agreeable to PT. Therapy Pain Assessment Pain When Pain Assessed During Mobility Pain Present Pain Present Pain Reported M4 PT-IP Mobility and Gait Start: 09/19/23 12:18 Freq: NEEDED Status: Active Protocol: Document 09/27/23 10:10 TS (Rec: 09/27/23 10:29 TS [id number]) PT-Bed Mobility Assessment Supine to Sit Supine to Sit Standby Assistance,1 Person Assistance,Head of Bed Elevated Sit to Supine Sit to Supine Standby Assistance,1 Person Assistance,Head of Bed Elevated,Bedrails Scooting Scooting to Edge of Bed Standby Assistance PT-Transfer Assessment Sit to and From Stand Sit to and from Stand Standby Assistance,1 Person Assistance,Use of Upper Extremities Equipment Transfer Assistive Device Gait Belt,Front Wheeled Walker Orthotic/Prosthetic Devices or Brace: No Comments Mobility Comments Supine to sit SBA with HOB elevated, pt demonstrates good carryover of sequencing. Sit to stand with TTWB on LLE SBA with FWW. He ambulated in room ~50' SBA, reports some lightheadedness, BP chek in standing unremarkable. Pt sat on EOB for rest break. Sit to stand x1 SBA with FWW, pt ambulated to sink to perform steps on step stool. Steps x3 SBA/CGA with use of FWW, pt maintains TTWB on LLE when performing steps, requires heavy UE assist on FWW. Pt ambulated back to bed, continues to report dizziness. Sit to supine into bed SBA with HOB elevated and BUE support. Pt was left in bed, all needs met. Gait Assessment Gait Gait Assistance Required: Standby Assistance Distance (Feet) 50 Able to Maintain Weight Bearing Status Yes During Gait Assistive Devices Assistive Device Gait Belt,Front Wheeled Walker Orthotic/Prosthetic Devices or Brace: No Gait Deviations General Gait Pattern Antalgic,Decreased Stride Length,Decreased Feet Clearance,Step-to Gait Factors Limiting Gait Function Factors Limiting Gait Function Decreased Activity Tolerance, Decreased Strength,Limited Range of Motion,Pain,Poor Balance,Poor Safety Awareness Comments Gait Comments See mobility comments Stair Climbing Assessment Evaluation Level of Assist On Stairs Standby Assistance Devices Stair Climbing Assistive Devices Front Wheel Walker Technique/Endurance Stair Climbing Direction Ascend and Descend Stair Climbing Technique Step to Step Number of Steps Climbed 3 Comments Stair Climbing Comments See mobility comments PT-Balance Assessment Sitting Balance and Reactions Static Sitting Balance Ability Good Dynamic Sitting Balance Ability Good Standing Balance and Reactions Static Standing Balance Ability Fair Dynamic Standing Balance Ability Fair Device Used RW M5 PT-IP Objective Assessments Start: 09/19/23 12:18 Freq: NEEDED Status: Active Protocol: Document 09/19/23 11:11 AB (Rec: 09/19/23 12:36 AB [id number]) Orientation Orientation/Cognition Level of Alertness Alert Orientation Name,Place,Situation Language Function Ability No Deficits Noted Safety Awareness Decreased Safety Awareness Memory Description No Deficits Noted Gross Range of Motion Lower Extremity ROM Assessment Within Functional Limits Strength Lower Extremity Strength Assessment Within Functional Limits Muscle Tone Muscle Tone WNL Yes M6 PT-IP Treatment Start: 09/19/23 12:18 Freq: NEEDED Status: Active Protocol: Document 09/27/23 10:10 TS (Rec: 09/27/23 10:29 TS [id number]) Physical Therapy Treatment Education Education Provided Weight Bearing Status,Safety M7 PT-IP Assessment and Plan Start: 09/19/23 12:18 Freq: NEEDED Status: Active Protocol: Document 09/27/23 10:10 TS (Rec: 09/27/23 10:29 TS [id number]) PT Summary Assessment and Plan Potential Rehabilitation Potential Fair Summary Impairments Pain,ROM,Strength,Balance, Sensation,Bed Mobility, Transfers,Gait,Activity Tolerance Progress Towards Goals Slow Progress due to Pain,Slow Progress due to Medical Issues,Slow Progress due to Activity Tolerance Assessment Summary Noah is making some progress with his mobility but remains limited by pain and poor activity tolerance. He continues to c/o being dizzy after a few mins working with PT, his BP remains unremarkable. He continues to be SBA for all bed mobility and STS with FWW. He continues to ambulate short distances in room with FWW, maintains TTWB with gait. He progressed to stairs x3 SBA/CGA with use of FWW. He maintains good awareness of his TTWB precaution but does report fatigue and dizziness after 3 steps, pt has a reported 20 steps to get into house. PT continues to recommend SNF at this time. Goals Bed Mobility Goal Independent Transfer Goal Independent,Front Wheeled Walker Gait Goal Independent,Front Wheel Walker Gait Distance 50 Other Goals improve ambulation using FWW 100 ft SBA up/down 20 steps B rail SBA Days to Meet Goals 10 Frequency of Treatment Frequency Of Treatment Once a Day Treatment Plan Physical Therapy Treatment Plan Bed Mobility Training,Transfer Training,Gait Training, Therapeutic Exercise,Balance Retraining,Post Op Education, Discharge Planning,Hot or Cold Pack,Neuromuscular Re-ed, Coordination Retraining Precautions Other Precautions contact precautions: MRSA nares Weight Bearing Status Weight Bearing Status Touch Down Weight Bearing Allowed Weight Bearing Amount (enter % LLE: touch down weight bearing or #) (%) for balance Recommendations To Nursing Amount of Assist Needed 1 Person Assist Discharge Recommendations PT Discharge Recommendations SNF Rehab Equipment Needed for Home Before FWW Discharge Transportation Needs at Discharge Private Vehicle,Wheelchair/ Cabulance,Stretcher/Ambulance
--- NOTE | 2023-09-27 09:00 | PT.IPTN ---
Current Diagnoses Type 2 diabetes mellitus with foot ulcer (09/16/23) Essential (primary) hypertension (09/16/23) Cutaneous abscess of left lower limb (09/16/23) Cellulitis of left lower limb (09/16/23) Non-pressure chronic ulcer of left heel and midfoot with fat layer exposed (09/16/23) Non-pressure chronic ulcer of other part of unspecified foot with unspecified severity (09/16/23) Patient's other noncompliance with medication regimen for other reason (09/16/23) Surgery Performed Operation Date: 09/20/23 13:15 Actual Procedures p Incision and Drainage Heel + wound vac(Left) - Marisa Sultana MD Physical Therapy Treatment Note M2 PT-IP Current Condition Start: 09/19/23 12:18 Freq: NEEDED Status: Active Protocol: Document 09/19/23 11:11 AB (Rec: 09/19/23 12:36 AB [id number]) Physical Therapy Current Condition Current Condition Evaluation Date 09/19/23 Treatment Diagnosis LLE cellulitis; difficulty in walking Onset Date 09/16/23 M3 PT-IP Subjective Start: 09/19/23 12:18 Freq: NEEDED Status: Active Protocol: Document 09/27/23 10:10 TS (Rec: 09/27/23 10:29 TS [id number]) Subjective Physical Therapy Visit Type Type Treatment Note Visit Start Time 09:00 Visit Stop Time 09:48 Total Visit Minutes 48 Number of DELINQUENCY PREVENTION OFFICER Visits 3 Physical Therapy Visit Comments Patient Comments Pt found resting in bed, is agreeable to PT. Therapy Pain Assessment Pain When Pain Assessed During Mobility Pain Present Pain Present Pain Reported M4 PT-IP Mobility and Gait Start: 09/19/23 12:18 Freq: NEEDED Status: Active Protocol: Document 09/27/23 10:10 TS (Rec: 09/27/23 10:29 TS [id number]) PT-Bed Mobility Assessment Supine to Sit Supine to Sit Standby Assistance,1 Person Assistance,Head of Bed Elevated Sit to Supine Sit to Supine Standby Assistance,1 Person Assistance,Head of Bed Elevated,Bedrails Scooting Scooting to Edge of Bed Standby Assistance PT-Transfer Assessment Sit to and From Stand Sit to and from Stand Standby Assistance,1 Person Assistance,Use of Upper Extremities Equipment Transfer Assistive Device Gait Belt,Front Wheeled Walker Orthotic/Prosthetic Devices or Brace: No Comments Mobility Comments Supine to sit SBA with HOB elevated, pt demonstrates good carryover of sequencing. Sit to stand with TTWB on LLE SBA with FWW. He ambulated in room ~50' SBA, reports some lightheadedness, BP chek in standing unremarkable. Pt sat on EOB for rest break. Sit to stand x1 SBA with FWW, pt ambulated to sink to perform steps on step stool. Steps x3 SBA/CGA with use of FWW, pt maintains TTWB on LLE when performing steps, requires heavy UE assist on FWW. Pt ambulated back to bed, continues to report dizziness. Sit to supine into bed SBA with HOB elevated and BUE support. Pt was left in bed, all needs met. Gait Assessment Gait Gait Assistance Required: Standby Assistance Distance (Feet) 50 Able to Maintain Weight Bearing Status Yes During Gait Assistive Devices Assistive Device Gait Belt,Front Wheeled Walker Orthotic/Prosthetic Devices or Brace: No Gait Deviations General Gait Pattern Antalgic,Decreased Stride Length,Decreased Feet Clearance,Step-to Gait Factors Limiting Gait Function Factors Limiting Gait Function Decreased Activity Tolerance, Decreased Strength,Limited Range of Motion,Pain,Poor Balance,Poor Safety Awareness Comments Gait Comments See mobility comments Stair Climbing Assessment Evaluation Level of Assist On Stairs Standby Assistance Devices Stair Climbing Assistive Devices Front Wheel Walker Technique/Endurance Stair Climbing Direction Ascend and Descend Stair Climbing Technique Step to Step Number of Steps Climbed 3 Comments Stair Climbing Comments See mobility comments PT-Balance Assessment Sitting Balance and Reactions Static Sitting Balance Ability Good Dynamic Sitting Balance Ability Good Standing Balance and Reactions Static Standing Balance Ability Fair Dynamic Standing Balance Ability Fair Device Used RW M5 PT-IP Objective Assessments Start: 09/19/23 12:18 Freq: NEEDED Status: Active Protocol: Document 09/19/23 11:11 AB (Rec: 09/19/23 12:36 AB [id number]) Orientation Orientation/Cognition Level of Alertness Alert Orientation Name,Place,Situation Language Function Ability No Deficits Noted Safety Awareness Decreased Safety Awareness Memory Description No Deficits Noted Gross Range of Motion Lower Extremity ROM Assessment Within Functional Limits Strength Lower Extremity Strength Assessment Within Functional Limits Muscle Tone Muscle Tone WNL Yes M6 PT-IP Treatment Start: 09/19/23 12:18 Freq: NEEDED Status: Active Protocol: Document 09/27/23 10:10 TS (Rec: 09/27/23 10:29 TS [id number]) Physical Therapy Treatment Education Education Provided Weight Bearing Status,Safety M7 PT-IP Assessment and Plan Start: 09/19/23 12:18 Freq: NEEDED Status: Active Protocol: Document 09/27/23 10:10 TS (Rec: 09/27/23 10:29 TS [id number]) PT Summary Assessment and Plan Potential Rehabilitation Potential Fair Summary Impairments Pain,ROM,Strength,Balance, Sensation,Bed Mobility, Transfers,Gait,Activity Tolerance Progress Towards Goals Slow Progress due to Pain,Slow Progress due to Medical Issues,Slow Progress due to Activity Tolerance Assessment Summary Noah is making some progress with his mobility but remains limited by pain and poor activity tolerance. He continues to c/o being dizzy after a few mins working with PT, his BP remains unremarkable. He continues to be SBA for all bed mobility and STS with FWW. He continues to ambulate short distances in room with FWW, maintains TTWB with gait. He progressed to stairs x3 SBA/CGA with use of FWW. He maintains good awareness of his TTWB precaution but does report fatigue and dizziness after 3 steps, pt has a reported 20 steps to get into house. PT continues to recommend SNF at this time. Goals Bed Mobility Goal Independent Transfer Goal Independent,Front Wheeled Walker Gait Goal Independent,Front Wheel Walker Gait Distance 50 Other Goals improve ambulation using FWW 100 ft SBA up/down 20 steps B rail SBA Days to Meet Goals 10 Frequency of Treatment Frequency Of Treatment Once a Day Treatment Plan Physical Therapy Treatment Plan Bed Mobility Training,Transfer Training,Gait Training, Therapeutic Exercise,Balance Retraining,Post Op Education, Discharge Planning,Hot or Cold Pack,Neuromuscular Re-ed, Coordination Retraining Precautions Other Precautions contact precautions: MRSA nares Weight Bearing Status Weight Bearing Status Touch Down Weight Bearing Allowed Weight Bearing Amount (enter % LLE: touch down weight bearing or #) (%) for balance Recommendations To Nursing Amount of Assist Needed 1 Person Assist Discharge Recommendations PT Discharge Recommendations SNF Rehab Other Discharge Recommendations Pt may need BLS transport up stairs if were to go home and not to [facility] facility. If pt has anyone that will help at home, caregiver training may need to be done for stairs. Equipment Needed for Home Before FWW Discharge Transportation Needs at Discharge Private Vehicle,Wheelchair/ Cabulance,Stretcher/Ambulance
[2023-09-27] MEDS: INSULIN LISPRO 100 UNIT/ML 3ML VIAL SUBCUT ×4 (09:05→11:58)
[2023-09-27] MEDS: INSULIN GLARGINE 100 UNIT/ML 3ML PEN 30 UNIT SUBCUT (09:08)
[2023-09-27 09:31] VITALS: BP 105/67; PULSE 88; RESP 18; TEMP 36.6; O2SAT 95
[2023-09-27 11:46] LABS: Vancomycin Trough 19.5 ug/mL (10-20)
--- NOTE | 2023-09-27 12:25 | PM.PNPO.1 ---
Subjective Subjective Date Patient Seen: 09/27/23 Time Patient Seen: 08:20 Interval history: Patient states he is currently feeling well. Did have increased pain up to his knee last night but was able to control pain with oral pain relievers. Denies any fever chills nausea or vomiting. Exam Vital Signs (past 8 hours): - 09/27/23 08:59 09/27/23 09:31 Temperature 97.8 F Pulse Rate 88 Respiratory Rate 18 Blood Pressure 105/67 105/67 Pulse Oximetry 95 Oxygen Delivery Method Room Air Oxygen Flow Rate 0 Narrative Exam Narrative: Exposed healing eschar over the plantar aspect of the 1st MTP joint. Dressing over the wound of the calcaneus appears to be dry and well-maintained. Vac drain is functional. No signs of streaking up the lower extremity. No pain along the posterior calf or thigh. No pain along the knee. Const General: cooperative and comfortable Resp Effort & Inspection: normal respiratory effort and able to speak in complete sentences Objective Labs 09/27/23 05:05 09/27/23 05:05 Labs: Laboratory Results - last 24 hr 09/27/23 09/27/23 05:05 11:10 WBC 6.3 RBC 3.51 L Hgb 9.5 L Hct 28.1 L MCV 79.9 L MCH 27.0 MCHC 33.7 RDW 14.4 Plt Count 585 H Neut % (Auto) 60.0 Lymph % (Auto) 28.1 [place] % (Auto) 7.3 Eos % (Auto) 3.3 Baso % (Auto) 1.3 Neut # (Auto) 3800 Lymph # (Auto) 1800 [place] # (Auto) 500 Eos # (Auto) 200 Baso # (Auto) 100 Sodium 137 Potassium 4.1 Chloride 102 Carbon Dioxide 29 BUN 26 H Creatinine 0.86 Estimated GFR > 60 BUN/Creatinine Ratio 30.2 H Glucose 160 H Calcium 8.8 Vancomycin Trough 19.5 PFSH Medical History HTN (hypertension) Type 2 diabetes mellitus Social History household members: none Smoking Status: Former smoker alcohol intake: current Assessment & Plan Post-op Postoperative Procedures: Procedures Operation Date: 09/20/23 13:15 Actual Procedure Side Surgeon p Incision and Drainage Heel + wound vac Left Marisa Sultana MD Postoperative day: 7 Postoperative status: doing well Postoperative status narrative: No current signs or symptoms of sepsis. Had a floor wound VAC change on 09/26. It is currently functioning Next planned for outpatient and can be with wound care 2-3 days. Toe-touch weight-bearing left foot. Try to order a heel offloading orthopedic shoe for the patient. He will need serial wound VAC changes and reengaging the wound care team. Possible candidate for hyperbaric oxygen would defer to the wound care team. He will need outpatient IV antibiotics. Likely referral to [facility] infectious disease team. After discharge and wound VAC changes arranged with wound care see orthopedic surgery Dr. Sultana in 2 weeks to assess progress. For any acute worsening-or long-term failure to heal the patient understands the salvage treatment would be below-knee amputation. Time Spent With Patient Time with patient: less than 15 minutes Quality VTE Deep Vein Thrombosis/Pulmonary Embolism Present on Admission: No
--- NOTE | 2023-09-27 12:41 | CM.DPNOTE ---
Addendum entered by HOME Andrew 09/27/23 13:12: Missed call from Mukul (p [phone]) ,[facility] worker assigned to his case. GOLD TOOLER called back and LVM in an attempt to expedite [facility] caregivers at home. No response as of 1314. Original Note: DCP Note GOLD TOOLER reviewed EMR. Per provider, changing vanco to dapo IV abx at pa. GOLD TOOLER Gabi [facility] swing beds, did no received referral. GOLD TOOLER faxed initial referral information (F [phone]) (Facesheet, H&P, med list, labs, PT eval, and updated PNs). Acceptance pending review. GOLD TOOLER spoke with Jose Elias at [facility]. Agreed to review. GOLD TOOLER faxed over initial referral (H&P, face sheet, med list, labs, PICC report and scripts) Plan: 1) [facility] swing bed pending acceptance 2) home with [facility](?) caregivers/friends. Likely BLS needed due to helping pt get into home with stairs. CM team will continue to follow closely. HOME Andrew
[2023-09-27 13:19] LABS: Creatine Kinase 25 U/L (55-170)
[2023-09-27 14:00] VITALS: BP 105/66; PULSE 79; RESP 18; TEMP 36.7; O2SAT 98
--- NOTE | 2023-09-27 14:26 | P.PN_ITS ---
Subjective Subjective Interval history: Patient still working on a discharge to home. Changed IV abx from vanc to dapto today. REPLENISHMENT ANALYST setting up home IV infusions. Exam Vital Signs (past 8 hours): - 09/27/23 08:59 09/27/23 09:31 Temperature 97.8 F Pulse Rate 88 Respiratory Rate 18 Blood Pressure 105/67 105/67 Pulse Oximetry 95 Oxygen Delivery Method Room Air Oxygen Flow Rate 0 Narrative Exam Narrative: NAD, fluent speech. Lungs are clear, normal rate and effort. Heart is regular, no murmur. Abdomen is soft, nontender. Extremities are free of edema. Left foot is wrapped with wound VAC in place. Skin is free of rash or lesions. Objective Labs 09/27/23 05:05 09/27/23 05:05 Labs: Laboratory Results - last 24 hr 09/27/23 09/27/23 09/27/23 00:00 05:05 11:10 WBC 6.3 RBC 3.51 L Hgb 9.5 L Hct 28.1 L MCV 79.9 L MCH 27.0 MCHC 33.7 RDW 14.4 Plt Count 585 H Neut % (Auto) 60.0 Lymph % (Auto) 28.1 Dubois % (Auto) 7.3 Eos % (Auto) 3.3 Baso % (Auto) 1.3 Neut # (Auto) 3800 Lymph # (Auto) 1800 Dubois # (Auto) 500 Eos # (Auto) 200 Baso # (Auto) 100 Sodium 137 Potassium 4.1 Chloride 102 Carbon Dioxide 29 BUN 26 H Creatinine 0.86 Estimated GFR > 60 BUN/Creatinine Ratio 30.2 H Glucose 160 H Calcium 8.8 Total Creatine Kinase 25 L Vancomycin Trough 19.5 PFSH Medical History HTN (hypertension) Type 2 diabetes mellitus Social History household members: none Smoking Status: Former smoker alcohol intake: current Assessment & Plan Assessment & Plan narrative: 1. Diabetic foot infection with abscess of left lmedial foot (medial calcaneous), POA and active: - patient also with notable history of bacteremia, spinal osteomyelitis with need for neurosurgery 2021, prev hx osteo in rt foot big toe, recent L groin abscess drained in the ER with MRSA from cultures. - MR foot shows extensive soft tissue swelling, findings of stranding in muscles of plantar foot - pain control as needed - oxycodone 10mg q3h prn and dilaudid IV PRN - repeat MRI of L ankle with abscess and possible osteo of calcaneus, arterial doppler US without stenosis - Dr. Sultana ortho evaluated on 09/19 and recommended OR debridement. - underwent washout and wound vac placement on 09/20, change on 09/23. - Continue wound vac for now, next change 09/26. - initially on cefepime, vanc and flagyl - wound cultures with staph aureus and klebsiella oxytoca. Metronidazole stopped on 09/24. Will need 6 weeks of ceftriaxone and dapto, both once daily. CK 25. - PICC placed on 09/26 - Trx plan: rocephin 2g daily and dapto 600mg IV daily until 10/28 2. Hypertension, POA and active. Stable. - doesn't take medications regularly - continue Lisinopril 40 mg daily, Norvasc 5 mg BID, may need additional adjustments 3. Type 2 diabetes, uncontrolled, with pressure ulcer of heel, POA and active. - not using insulin in the last few weeks, ran out of it, fired by PCP per patient. 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 Per prior D/C summary he was well controlled on the lantus only while in the hospital. - A1C 12.1, poor control 4. Thoracic spine pain s/p recent GLF, POA and improving. - CT thoracic negative for fracture - pain control 5. Constipation, POA and active. - daily laxatives - dulcolax PRN - add Miralax 6. Insomnia, POA and active. -add melatonin. Code: Full, surrogate is patient's friend Pat DVT: Lovenox Discharge planning: Trying for home with HH wound care, IV infusions and caregiving. Unclear when can discharge. Quality VTE Deep Vein Thrombosis/Pulmonary Embolism Present on Admission: No
[2023-09-27] MEDS: SODIUM CHLORIDE 0.9% IV (18:29)
[2023-09-27] MEDS: DAPTOMYCIN IV (18:29)
[2023-09-27 20:00] VITALS: BP 158/94; PULSE 73; RESP 18; TEMP 36.8; O2SAT 95
[2023-09-27] MEDS: cefTRIAXone 2,000 MG in SODIUM CHLORIDE 0.9% 100 ML 200 MG IV (21:35)
[2023-09-27] MEDS: MELATONIN 3 MG TABLET 6 MG PO (21:36)
[2023-09-27] MEDS: SENNOSIDES 8.6 MG TABLET 17.2 MG PO (21:39)
[2023-09-28] MEDS: SODIUM CHLORIDE 0.9% FLUSH 10 ML IV ×3 (00:40→21:04)
[2023-09-28] MEDS: ACETAMINOPHEN 325 MG TABLET 650 MG PO ×4 (01:44→22:05)
[2023-09-28] MEDS: OXYCODONE IR 10 MG TABLET PO ×5 (01:45→19:49)
[2023-09-28 07:00] VITALS: BP 162/82; PULSE 72; RESP 18; TEMP 36.8; O2SAT 96
--- NOTE | 2023-09-28 08:10 | P.PN_ITS ---
Subjective Subjective Interval history: Postop day #8 s/p I&D left calcaneus medial ulceration intramuscular abscess and osteomyelitis by Dr. Renteria. Overall doing okay, patient has an optimistic attitude about his recovery. On scheduled antibiotics, PICC placed on 09/26, no signs of sepsis at this time. Wound VAC in place. Wound VAC was changed on 09/26 and is planning for next change with outpatient wound care in 3-4 days. Still struggling with pain control, states at rest pain moderate but when he moves or bumps his foot he gets severe shooting pains. Has been open to working with PT despite pain however. Working towards prison discharge. Denies chest pain, SOB, fevers. nausea. Does admit to mild cough with clear sputum. Exam Vital Signs (past 8 hours): Oxygen Delivery Method Room Air Oxygen Flow Rate 0 Narrative Exam Narrative: Exposed healing eschar over the plantar aspect of the 1st MTP joint. Dressing over the wound of the calcaneus is clean and dry. Wound Vac in place and functioning with bloody drainage. DF and PF intact with pain. Pt able to wiggle toes, sensation to touch intact. Calves soft and compressible bilaterally without pain. Const General: cooperative Resp Effort & Inspection: normal respiratory effort and able to speak in complete sentences Cardio Rate: regular rate Neuro General: patient alert, patient awake and patient oriented x3 Objective Labs 09/27/23 05:05 09/27/23 05:05 Labs: Laboratory Results - last 24 hr 09/27/23 09/27/23 00:00 11:10 Total Creatine Kinase 25 L Vancomycin Trough 19.5 PFSH Medical History HTN (hypertension) Type 2 diabetes mellitus Social History household members: none Smoking Status: Former smoker alcohol intake: current Assessment & Plan Post-op Postoperative Procedures: Procedures Operation Date: 09/20/23 13:15 Actual Procedure Side Surgeon p Incision and Drainage Heel + wound vac Left Marisa Sultana MD Postoperative status narrative: struggling with pain control Postoperative plan narrative: -Continue IV antiobic regiment per medicine (rocephin 2g daily and dapto 600mg IV daily until 10/28) -Continue multimodal pain control. -Toe-touch weight-bearing left foot. Try to order a heel offloading orthopedic shoe for the patient. -Working towards d/c to SNF with PILOT PLANT TECHNICIAN and medicine -Had a floor wound VAC change on 09/26. After discharge wound VAC changes with wound care. See orthopedic surgery Dr. Sultana in 2 weeks to assess progress. Quality VTE Deep Vein Thrombosis/Pulmonary Embolism Present on Admission: No
[2023-09-28] MEDS: INSULIN LISPRO 100 UNIT/ML 3ML VIAL SUBCUT ×4 (09:34→18:09)
[2023-09-28] MEDS: IBUPROFEN 400 MG TABLET PO (09:36)
[2023-09-28] MEDS: DOCUSATE 100 MG CAPSULE PO (09:37)
[2023-09-28] MEDS: OXYCODONE ER 20 MG TAB PO ×2 (09:37→21:02)
[2023-09-28] MEDS: ENOXAPARIN 40 MG/0.4 ML SYRINGE SUBCUT (09:37)
[2023-09-28] MEDS: lisinopriL 20 MG TABLET 40 MG PO (09:37)
[2023-09-28] MEDS: AMLODIPINE 5 MG TABLET PO ×2 (09:37→21:02)
[2023-09-28] MEDS: polyethylene glycoL 3350 17 GM POWD.PACK PO (09:38)
[2023-09-28] MEDS: BACLOFEN 10 MG TABLET PO ×3 (09:52→21:02)
[2023-09-28] MEDS: INSULIN GLARGINE 100 UNIT/ML 3ML PEN 30 UNIT SUBCUT (09:52)
--- NOTE | 2023-09-28 10:35 | PT.IPTN ---
Current Diagnoses Type 2 diabetes mellitus with foot ulcer (09/16/23) Essential (primary) hypertension (09/16/23) Cutaneous abscess of left lower limb (09/16/23) Cellulitis of left lower limb (09/16/23) Non-pressure chronic ulcer of left heel and midfoot with fat layer exposed (09/16/23) Non-pressure chronic ulcer of other part of unspecified foot with unspecified severity (09/16/23) Patient's other noncompliance with medication regimen for other reason (09/16/23) Surgery Performed Operation Date: 09/20/23 13:15 Actual Procedures p Incision and Drainage Heel + wound vac(Left) - Marisa Sultana MD Physical Therapy Treatment Note M2 PT-IP Current Condition Start: 09/19/23 12:18 Freq: NEEDED Status: Active Protocol: Document 09/19/23 11:11 AB (Rec: 09/19/23 12:36 AB [id number]) Physical Therapy Current Condition Current Condition Evaluation Date 09/19/23 Treatment Diagnosis LLE cellulitis; difficulty in walking Onset Date 09/16/23 M3 PT-IP Subjective Start: 09/19/23 12:18 Freq: NEEDED Status: Active Protocol: Document 09/28/23 11:19 TS (Rec: 09/28/23 11:33 TS [id number]) Subjective Physical Therapy Visit Type Type Treatment Note Visit Start Time 10:35 Visit Stop Time 11:15 Total Visit Minutes 40 Number of BALANCE CLERK Visits 4 Physical Therapy Visit Comments Patient Comments Pt found resting in bed, is agreeable to PT. Therapy Pain Assessment Pain When Pain Assessed During Mobility Pain Present Pain Present Pain Reported M4 PT-IP Mobility and Gait Start: 09/19/23 12:18 Freq: NEEDED Status: Active Protocol: Document 09/28/23 11:19 TS (Rec: 09/28/23 11:33 TS [id number]) PT-Bed Mobility Assessment Supine to Sit Supine to Sit Standby Assistance,1 Person Assistance,Head of Bed Elevated Sit to Supine Sit to Supine Standby Assistance,1 Person Assistance,Head of Bed Elevated,Bedrails Scooting Scooting to Edge of Bed Standby Assistance PT-Transfer Assessment Sit to and From Stand Sit to and from Stand Standby Assistance,1 Person Assistance,Use of Upper Extremities Equipment Transfer Assistive Device Gait Belt,Front Wheeled Walker Orthotic/Prosthetic Devices or Brace: No Comments Mobility Comments Supine to sit SBA with HOB elevated. He performed sit to stand with FWW and with TTWB on LLE, post-op shoe donned before STS. He ambulated ~25' SBA with TTWB on LLE. Pt was brought to stairs in w/c. He performed steps x12 CGA/SBA with B handrails. Pt bears some weight with steps on LLE, pt reports it is very minimal . Pt was brought back to room, nursing assisting pt with wound vac. Gait Assessment Gait Gait Assistance Required: Standby Assistance Distance (Feet) 25 Able to Maintain Weight Bearing Status Yes During Gait Assistive Devices Assistive Device Gait Belt,Front Wheeled Walker Orthotic/Prosthetic Devices or Brace: No Gait Deviations General Gait Pattern Antalgic,Decreased Stride Length,Decreased Feet Clearance,Step-to Gait Factors Limiting Gait Function Factors Limiting Gait Function Decreased Activity Tolerance, Decreased Strength,Limited Range of Motion,Pain,Poor Balance,Poor Safety Awareness Comments Gait Comments See mobility comments Stair Climbing Assessment Evaluation Level of Assist On Stairs Standby Assistance,Contact Guard Assistance Devices Stair Climbing Assistive Devices Left Railing,Right Railing Technique/Endurance Stair Climbing Direction Ascend and Descend Stair Climbing Technique Step to Step Number of Steps Climbed 12 Comments Stair Climbing Comments See mobility comments PT-Balance Assessment Sitting Balance and Reactions Static Sitting Balance Ability Good Dynamic Sitting Balance Ability Good Standing Balance and Reactions Static Standing Balance Ability Fair Dynamic Standing Balance Ability Fair Device Used RW M5 PT-IP Objective Assessments Start: 09/19/23 12:18 Freq: NEEDED Status: Active Protocol: Document 09/19/23 11:11 AB (Rec: 09/19/23 12:36 AB [id number]) Orientation Orientation/Cognition Level of Alertness Alert Orientation Name,Place,Situation Language Function Ability No Deficits Noted Safety Awareness Decreased Safety Awareness Memory Description No Deficits Noted Gross Range of Motion Lower Extremity ROM Assessment Within Functional Limits Strength Lower Extremity Strength Assessment Within Functional Limits Muscle Tone Muscle Tone WNL Yes M6 PT-IP Treatment Start: 09/19/23 12:18 Freq: NEEDED Status: Active Protocol: Document 09/28/23 11:19 TS (Rec: 09/28/23 11:33 TS [id number]) Physical Therapy Treatment Education Education Provided Weight Bearing Status,Safety M7 PT-IP Assessment and Plan Start: 09/19/23 12:18 Freq: NEEDED Status: Active Protocol: Document 09/28/23 11:19 TS (Rec: 09/28/23 11:33 TS [id number]) PT Summary Assessment and Plan Potential Rehabilitation Potential Fair Summary Impairments Pain,ROM,Strength,Balance, Sensation,Bed Mobility, Transfers,Gait,Activity Tolerance Progress Towards Goals Progressing Toward Goals Assessment Summary Noah is making some progress with his mobility this session . He continues to be SBA with all bed mobility and STS with FWW. He continues to ambulate short distances in room of ~25 ' SBA. He progressed stairs to x12 SBA/CGA with use of B handrails. He did have some difficulty maintaining NWB on LLE, pt reports he is putting small amount of weight through the front of his foot. PT is recommending Home with 24/7 assistance available at this time. Pt will need assistance to get up 15-18 steps at apt. Once he is inside his home he believes he will do well but will need assistance with some ADL's. Goals Bed Mobility Goal Independent Transfer Goal Independent,Front Wheeled Walker Gait Goal Independent,Front Wheel Walker Gait Distance 50 Other Goals improve ambulation using FWW 100 ft SBA up/down 20 steps B rail SBA Days to Meet Goals 10 Frequency of Treatment Frequency Of Treatment Once a Day Treatment Plan Physical Therapy Treatment Plan Bed Mobility Training,Transfer Training,Gait Training, Therapeutic Exercise,Balance Retraining,Post Op Education, Discharge Planning,Hot or Cold Pack,Neuromuscular Re-ed, Coordination Retraining Precautions Other Precautions contact precautions: MRSA nares Weight Bearing Status Weight Bearing Status Touch Down Weight Bearing Allowed Weight Bearing Amount (enter % LLE: touch down weight bearing or #) (%) for balance Recommendations To Nursing Amount of Assist Needed 1 Person Assist Discharge Recommendations PT Discharge Recommendations Home with 24/7 Assist Available,Home Health Equipment Needed for Home Before FWW Discharge Transportation Needs at Discharge Private Vehicle,Wheelchair/ Cabulance
--- NOTE | 2023-09-28 11:44 | PC.NURSE ---
Patients attitude is different today. He is complaining to staff about what he didnt get for lunch, talking to about inappropriate things, and he seems more agitated than usual. He did stairs today, he was given tylenol, ibuprofen, bacolfen, long acting oxycontin 20mg, and 10mg of oxycodone. He then asked for iv dilaudid. Explained to patient that he just had several pain medications and that he was not due for anything more at this time. We are using the iv dilaudid more for his wound vac dressing changes. Patient is resting now and will be eating lunch soon.
--- NOTE | 2023-09-28 15:16 | P.PN_ITS ---
Subjective Subjective Interval history: DEV OPS ENGINEER has setup IV home infusions to start on Sunday 10/01. Wound vac orders being placed to have it changed Monday in the hospital and then again at home on monday with HH. Exam Vital Signs (past 8 hours): Oxygen Delivery Method Room Air Oxygen Flow Rate 0 Narrative Exam Narrative: NAD, fluent speech. Lungs are clear, normal rate and effort. Heart is regular, no murmur. Abdomen is soft, nontender. Extremities are free of edema. Left foot is wrapped with wound VAC in place. Skin is free of rash or lesions. Objective Labs 09/27/23 05:05 09/27/23 05:05 [facility] Medical History HTN (hypertension) Type 2 diabetes mellitus Social History household members: none Smoking Status: Former smoker alcohol intake: current Assessment & Plan Assessment & Plan narrative: 1. Diabetic foot infection with abscess of left lmedial foot (medial calcaneous), POA and active: - patient also with notable history of bacteremia, spinal osteomyelitis with need for neurosurgery 2021, prev hx osteo in rt foot big toe, recent L groin abscess drained in the ER with MRSA from cultures. - MR foot shows extensive soft tissue swelling, findings of stranding in muscles of plantar foot - pain control as needed - oxycodone 10mg q3h prn and dilaudid IV PRN - repeat MRI of L ankle with abscess and possible osteo of calcaneus, arterial doppler US without stenosis - Dr. Sultana ortho evaluated on 09/19 and recommended OR debridement. - underwent washout and wound vac placement on 09/20, change on 09/23. - Continue wound vac for now, next change 09/26. - initially on cefepime, vanc and flagyl - wound cultures with staph aureus and klebsiella oxytoca. Metronidazole stopped on 09/24. Will need 6 weeks of ceftriaxone and dapto, both once daily. CK 25. - PICC placed on 09/26 - Trx plan: rocephin 2g daily and dapto 600mg IV daily until 10/28 2. Hypertension, POA and active. Stable. - doesn't take medications regularly - continue Lisinopril 40 mg daily, Norvasc 5 mg BID, may need additional adjustments 3. Type 2 diabetes, uncontrolled, with pressure ulcer of heel, POA and active. - not using insulin in the last few weeks, ran out of it, fired by PCP per patient. 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 Per prior D/C summary he was well controlled on the lantus only while in the hospital. - A1C 12.1, poor control 4. Thoracic spine pain s/p recent GLF, POA and improving. - CT thoracic negative for fracture - pain control 5. Constipation, POA and active. - daily laxatives - dulcolax PRN - add Miralax 6. Insomnia, POA and active. -add melatonin. Code: Full, surrogate is patient's friend Pat DVT: Lovenox Discharge planning: Hopeful discharge on 09/30 with home IV infusions and HH wound vac changes. Quality VTE Deep Vein Thrombosis/Pulmonary Embolism Present on Admission: No
[2023-09-28] MEDS: DAPTOMYCIN IV (18:44)
[2023-09-28] MEDS: SODIUM CHLORIDE 0.9% IV (18:44)
[2023-09-28] MEDS: cefTRIAXone 2,000 MG in SODIUM CHLORIDE 0.9% 100 ML 200 MG IV (19:50)
[2023-09-28 20:00] VITALS: BP 170/87; PULSE 74; RESP 18; TEMP 37.2; O2SAT 98
[2023-09-28] MEDS: MELATONIN 3 MG TABLET 6 MG PO (21:02)
[2023-09-29] MEDS: IBUPROFEN 400 MG TABLET PO ×2 (00:38→12:35)
[2023-09-29] MEDS: OXYCODONE IR 10 MG TABLET PO ×5 (00:38→23:34)
[2023-09-29] MEDS: ACETAMINOPHEN 325 MG TABLET 650 MG PO ×4 (05:10→20:23)
--- NOTE | 2023-09-29 07:51 | PM.PNPO.1 ---
Subjective Subjective Interval history: Postop day #9 s/p I&D left calcaneus medial ulceration intramuscular abscess and osteomyelitis by Dr. Renteria. Overall doing okay, patient has an optimistic attitude about his recovery. On scheduled antibiotics, PICC placed on 09/26, no signs of sepsis at this time. SPECIAL EVENTS COORDINATOR has setup IV home infusions to start on Sunday 10/01. Wound VAC in place. Wound VAC was changed on 09/26 and is planning for it to be removed tomorrow prior to d/c. Wound vac will be replaced on Monday with HH. Still struggling with pain control, states at rest pain manageable but when he moves or bumps his foot he gets severe shooting pains. Has been open to working with PT despite pain however. Able to get up and use bedside commode. Regular BM and urination has resumed. Working towards senior living discharge. Denies chest pain, SOB, fevers, nausea. Does admit to mild cough with clear sputum. Exam Vital Signs (past 8 hours): Oxygen Delivery Method Room Air Oxygen Flow Rate 0 Narrative Exam Narrative: Exposed healing eschar over the plantar aspect of the 1st left MTP joint. Dressing over the wound of the calcaneus is clean and dry. Wound Vac in place and functioning with bloody drainage. DF and PF intact with pain. Pt able to wiggle toes, sensation to touch intact. Calves soft and compressible bilaterally, mild pain to compression on the left. Const General: cooperative Resp Effort & Inspection: normal respiratory effort and able to speak in complete sentences Cardio Rate: regular rate Neuro General: patient alert, patient awake and patient oriented x3 Objective Labs 09/27/23 05:05 09/27/23 05:05 [facility] Medical History HTN (hypertension) Type 2 diabetes mellitus Social History household members: none Smoking Status: Former smoker alcohol intake: current Assessment & Plan Post-op Postoperative Procedures: Procedures Operation Date: 09/20/23 13:15 Actual Procedure Side Surgeon p Incision and Drainage Heel + wound vac Left Marisa Sultana MD Postoperative plan narrative: -Continue IV antiobic regiment per medicine (rocephin 2g daily and dapto 600mg IV daily until 10/28) -Continue multimodal pain control. -Toe-touch weight-bearing left foot. Try to order a heel offloading orthopedic shoe for the patient. -Working with medicine and SPECIAL EVENTS COORDINATOR towards d/c to SNF tomorrow -Had a floor wound VAC change on 09/26, wound vac to be removed prior to d/c and replaced on Monday with . After discharge wound VAC changes with wound care. See orthopedic surgery Dr. Sultana in 2 weeks to assess progress. Quality VTE Deep Vein Thrombosis/Pulmonary Embolism Present on Admission: No
[2023-09-29 08:14] VITALS: BP 151/77; PULSE 68; RESP 16; TEMP 37.2; O2SAT 96
[2023-09-29 08:21] VITALS: BP 151/77; PULSE 68
[2023-09-29] MEDS: lisinopriL 20 MG TABLET 40 MG PO (08:21)
[2023-09-29] MEDS: AMLODIPINE 5 MG TABLET PO ×2 (08:21→20:11)
[2023-09-29] MEDS: ENOXAPARIN 40 MG/0.4 ML SYRINGE SUBCUT (08:21)
[2023-09-29] MEDS: INSULIN LISPRO 100 UNIT/ML 3ML VIAL SUBCUT ×4 (08:22→18:17)
[2023-09-29] MEDS: INSULIN GLARGINE 100 UNIT/ML 3ML PEN 30 UNIT SUBCUT (08:22)
[2023-09-29] MEDS: polyethylene glycoL 3350 17 GM POWD.PACK PO (08:22)
[2023-09-29] MEDS: DOCUSATE 100 MG CAPSULE PO ×2 (08:22→20:14)
[2023-09-29] MEDS: SODIUM CHLORIDE 0.9% FLUSH 10 ML IV ×2 (08:23→20:25)
[2023-09-29] MEDS: OXYCODONE ER 20 MG TAB PO ×2 (08:23→20:13)
--- NOTE | 2023-09-29 09:00 | PT.IPTN ---
Current Diagnoses Type 2 diabetes mellitus with foot ulcer (09/16/23) Essential (primary) hypertension (09/16/23) Cutaneous abscess of left lower limb (09/16/23) Cellulitis of left lower limb (09/16/23) Non-pressure chronic ulcer of left heel and midfoot with fat layer exposed (09/16/23) Non-pressure chronic ulcer of other part of unspecified foot with unspecified severity (09/16/23) Patient's other noncompliance with medication regimen for other reason (09/16/23) Surgery Performed Operation Date: 09/20/23 13:15 Actual Procedures p Incision and Drainage Heel + wound vac(Left) - Marisa Sultana MD Physical Therapy Treatment Note M2 PT-IP Current Condition Start: 09/19/23 12:18 Freq: NEEDED Status: Active Protocol: Document 09/19/23 11:11 AB (Rec: 09/19/23 12:36 AB [id number]) Physical Therapy Current Condition Current Condition Evaluation Date 09/19/23 Treatment Diagnosis LLE cellulitis; difficulty in walking Onset Date 09/16/23 M3 PT-IP Subjective Start: 09/19/23 12:18 Freq: NEEDED Status: Active Protocol: Document 09/29/23 09:35 TS (Rec: 09/29/23 09:45 TS [id number]) Subjective Physical Therapy Visit Type Type Treatment Note Visit Start Time 09:00 Visit Stop Time 09:30 Total Visit Minutes 30 Number of INDOOR LANDSCAPER/GARDENER Visits 5 Physical Therapy Visit Comments Patient Comments Pt found resting in bed, reports he may have someone to help him up the stairs but no one to assist after that. Pt is agreeable to PT. Therapy Pain Assessment Pain When Pain Assessed During Mobility Pain Present Pain Present Pain Reported M4 PT-IP Mobility and Gait Start: 09/19/23 12:18 Freq: NEEDED Status: Active Protocol: Document 09/29/23 09:35 TS (Rec: 09/29/23 09:45 TS [id number]) PT-Bed Mobility Assessment Supine to Sit Supine to Sit Standby Assistance,1 Person Assistance,Head of Bed Elevated Sit to Supine Sit to Supine Standby Assistance,1 Person Assistance,Head of Bed Elevated,Bedrails Scooting Scooting to Edge of Bed Standby Assistance PT-Transfer Assessment Sit to and From Stand Sit to and from Stand Standby Assistance,1 Person Assistance,Use of Upper Extremities Equipment Transfer Assistive Device Gait Belt,Front Wheeled Walker Orthotic/Prosthetic Devices or Brace: No Comments Mobility Comments Supine to sit SBA with HOB elevated and BUE support. Post -op donned for pt prior to standing. He ambulated ~20'SBA with FWW and TTWB on LLE. Pt brought to steps in w/c. He performed steps x15 SBA with B handrails, has increased wbering through toes on LLE to perform steps. Pt was brought back to room, nursing in to assist pt. Gait Assessment Gait Gait Assistance Required: Standby Assistance Distance (Feet) 20 Able to Maintain Weight Bearing Status Yes During Gait Assistive Devices Assistive Device Gait Belt,Front Wheeled Walker Orthotic/Prosthetic Devices or Brace: No Gait Deviations General Gait Pattern Antalgic,Decreased Stride Length,Decreased Feet Clearance,Step-to Gait Factors Limiting Gait Function Factors Limiting Gait Function Decreased Activity Tolerance, Decreased Strength,Limited Range of Motion,Pain,Poor Balance,Poor Safety Awareness Comments Gait Comments See mobility comments Stair Climbing Assessment Evaluation Level of Assist On Stairs Standby Assistance,Contact Guard Assistance Devices Stair Climbing Assistive Devices Left Railing,Right Railing Technique/Endurance Stair Climbing Direction Ascend and Descend Stair Climbing Technique Step to Step Number of Steps Climbed 15 Comments Stair Climbing Comments See mobility comments PT-Balance Assessment Sitting Balance and Reactions Static Sitting Balance Ability Good Dynamic Sitting Balance Ability Good Standing Balance and Reactions Static Standing Balance Ability Fair Dynamic Standing Balance Ability Fair Device Used RW M5 PT-IP Objective Assessments Start: 09/19/23 12:18 Freq: NEEDED Status: Active Protocol: Document 09/19/23 11:11 AB (Rec: 09/19/23 12:36 AB [id number]) Orientation Orientation/Cognition Level of Alertness Alert Orientation Name,Place,Situation Language Function Ability No Deficits Noted Safety Awareness Decreased Safety Awareness Memory Description No Deficits Noted Gross Range of Motion Lower Extremity ROM Assessment Within Functional Limits Strength Lower Extremity Strength Assessment Within Functional Limits Muscle Tone Muscle Tone WNL Yes M6 PT-IP Treatment Start: 09/19/23 12:18 Freq: NEEDED Status: Active Protocol: Document 09/29/23 09:35 TS (Rec: 09/29/23 09:45 TS [id number]) Physical Therapy Treatment Education Education Provided Weight Bearing Status,Safety M7 PT-IP Assessment and Plan Start: 09/19/23 12:18 Freq: NEEDED Status: Active Protocol: Document 09/29/23 09:35 TS (Rec: 09/29/23 09:45 TS [id number]) PT Summary Assessment and Plan Potential Rehabilitation Potential Fair Summary Impairments Pain,ROM,Strength,Balance, Sensation,Bed Mobility, Transfers,Gait,Activity Tolerance Progress Towards Goals Progressing Toward Goals Assessment Summary Noah continues to make some progress with his mobility. He continues to ambulate short distances in room and transfers to w/c SBA. He progressed stairs to x15 with B handrail assist. He does wber some with steps on LLE through his toes. PT continues to recommend home with 03/04 support and HHPT. Pt reports he may have someone to help him into house but will not have anyone to assist him there after. PT requested orders for OT to evaluate. Goals Bed Mobility Goal Independent Transfer Goal Independent,Front Wheeled Walker Gait Goal Independent,Front Wheel Walker Gait Distance 50 Other Goals improve ambulation using FWW 100 ft SBA up/down 20 steps B rail SBA Days to Meet Goals 10 Frequency of Treatment Frequency Of Treatment Once a Day Treatment Plan Physical Therapy Treatment Plan Bed Mobility Training,Transfer Training,Gait Training, Therapeutic Exercise,Balance Retraining,Post Op Education, Discharge Planning,Hot or Cold Pack,Neuromuscular Re-ed, Coordination Retraining Precautions Other Precautions contact precautions: MRSA nares Weight Bearing Status Weight Bearing Status Touch Down Weight Bearing Allowed Weight Bearing Amount (enter % LLE: touch down weight bearing or #) (%) for balance Recommendations To Nursing Amount of Assist Needed 1 Person Assist Discharge Recommendations PT Discharge Recommendations Home with 03/04 Assist Available,Home Health Equipment Needed for Home Before FWW and shower chair. Discharge Transportation Needs at Discharge Private Vehicle,Wheelchair/ Cabulance
--- NOTE | 2023-09-29 11:40 | OT.IP.EVAL ---
Current Diagnoses Type 2 diabetes mellitus with foot ulcer (09/16/23) Essential (primary) hypertension (09/16/23) Cutaneous abscess of left lower limb (09/16/23) Cellulitis of left lower limb (09/16/23) Non-pressure chronic ulcer of left heel and midfoot with fat layer exposed (09/16/23) Non-pressure chronic ulcer of other part of unspecified foot with unspecified severity (09/16/23) Patient's other noncompliance with medication regimen for other reason (09/16/23) Surgery Performed Operation Date: 09/20/23 13:15 Actual Procedures p Incision and Drainage Heel + wound vac(Left) - Marisa Sultana MD Past Medical History (Last Reviewed 09/19/23 @ 17:46 by Marisa Sultana MD) HTN (hypertension) Type 2 diabetes mellitus Occupational Therapy Inpatient Evaluation/Re-Eval 11:43 Freq: NEEDED Status: Active Protocol: Document 09/29/23 11:10 [facility] (Rec: 09/29/23 12:15 [facility] [id number]) Medical Review Prior Functional Status Medical History Reviewed Yes Communication able to make needs known Mobility and Gait pt stated that he is modified independent with all mobilities and ambulation without AD but occasionally uses SPC due to LE and back pain Activities of Daily Living and IADL's Pt was independent with needs. Social History Household Members none Living Arrangements Apartment/Condo Number of Floors (Floors) One Floor Number of Stairs To Enter/Railing? pt lives on a 2nd level apartment: 20 steps B rails to enter M2 OT-IP Current Condition Start: 09/29/23 11:43 Freq: Status: Active Protocol: Document 09/29/23 11:10 [facility] (Rec: 09/29/23 12:15 [facility] [id number]) Occupational Therapy Current Condition Current Condition Evaluation Date 09/29/23 Treatment Diagnosis S/ P I and D left calcaneus medial ulceration Diagnosis Onset Date 09/16/23 Post Operative Precautions Other Precautions TTBW for LLE just for balance Weight Bearing Status Weight Bearing Status Touch Down Weight Bearing M3 OT- IP Subjective and Pain Start: 09/29/23 11:43 Freq: Status: Active Protocol: Document 09/29/23 11:10 [facility] (Rec: 09/29/23 12:15 [facility] [id number]) OT- Subjective Occupational Therapy Visit Type Type Initial Evaluation Visit Start Time 11:10 Visit Stop Time 11:40 Total Visit Minutes 30 Occupational Therapy Visit Comments Patient Comments Pt in bed and agreed to talk to OT but not wanting to get up due to in pain. Patient/Caregiver Goals To get better. OT Pain Assessment Pain When Pain Assessed At Rest Pain Present Pain Present Pain Reported M4 OT- IP ADL's Start: 09/29/23 11:43 Freq: Status: Active Protocol: Document 09/29/23 11:10 [facility] (Rec: 09/29/23 12:15 [facility] [id number]) OT [id number] General Evaluation Self-Feeding Ability Independent OT ADL-Grooming General Evaluation Grooming Ability Independent OT ADL-Oral Care General Eval Oral Care Ability Independent OT ADL-Dressing Comments OT Dressing Comments Educated pt to dress the LLE first, rip away pants will be best otherwise pt states will just disconnect the wound vac and get clothing on. OT ADL-Toileting Comments OT Toileting Comments Per pt has been able to use the BSC. Suggested pt may want to consider getting a drop arm BSC so just can squat over to the BSC. Pt states has been able to use FWW to the BSC. Suggested pt to have a BSC over the commode or use it seperately closer to his bed. OT ADL-Bathing Comments OT Bathing Comments Suggested pt to get a tub bench for shower. Pt already has a HHSP. M5 OT- IP IADL's Start: 09/29/23 11:43 Freq: Status: Active Protocol: Document 09/29/23 11:10 [facility] (Rec: 09/29/23 12:15 [facility] [id number]) OT-Instrumental Activities of Daily Living Meal Preparation Meal Preparation Comments Pt will need assist and looking into getting Meals on Wheels. M6 OT- IP Functional Cognition Start: 09/29/23 11:43 Freq: Status: Active Protocol: Document 09/29/23 11:10 [facility] (Rec: 09/29/23 12:15 [facility] [id number]) Cognitive Factors Limiting Selfcare Function Cognitive Ability Level of Alertness Alert Patient Orientation Name,Age,Birthday,Month,Date, Year,Day of Week,Place, Situation Attention Span Ability Capable of Focused Attention, Capable of Sustained Attention Ability to Follow Commands Able to Follow Multi-Step Commands Memory Description No Deficits Noted Cognitive Comments Cognitive Assessment Comments Pt able to follow commands and actively looking into getting equipment needs and calling to look into Meals on Wheels. OT- Vision and Hearing OT- Hearing Assessment OT- Hearing Assessment WFL OT- Vision Assessment Visual Acuity Glasses For Reading M7 OT- IP Mobility and Balance Start: 09/29/23 11:43 Freq: Status: Active Protocol: Document 09/29/23 11:10 [facility] (Rec: 09/29/23 12:15 [facility] [id number]) OT-Transfer Assessment Comments Mobility Comments Pt states has been able to get up but to get a FWW. M8 OT- IP Objective Assessments Start: 09/29/23 11:43 Freq: Status: Active Protocol: Document 09/29/23 11:10 [facility] (Rec: 09/29/23 12:15 [facility] [id number]) OT Gross Range of Motion Upper Extremity Range of Motion Assessment Within Functional Limits OT Strength Upper Extremity Strength Assessment Within Functional Limits M9 OT- IP Assessment and Plan Start: 09/29/23 11:43 Freq: Status: Active Protocol: Document 09/29/23 11:10 [facility] (Rec: 09/29/23 12:15 [facility] [id number]) OT Summary Assessment and Plan Potential Rehabilitation Potential Good Analytic Complexity at Evaluation Low Summary OT Impairments Pain,Balance,Functional Mobility,Dressing,Bathing, Shower Transfers Progress Towards Goals Progressing Toward Goals Assessment Summary Pt low complexity and main barriers are pain, and will need assist for some ADL and IADL needs. Able to talk in length of equipment needs of wc, drop arm BSC versus BSC, tub bench, FWW, and LB dressing equipment. Pt given information to where to get equipment. Also was suggested to look into whether he can move to the 1st floor to avoid doing steps. Pt will benefit from home health. Goals Dressing Goal Independent,Dredge Pipe Operator Toileting Goal Independent Bathing Goal Standby Assistance Toilet Transfer Goal Independent Shower Transfer Goal Standby Assistance Days to Meet Goals 5 Frequency of Treatment Frequency Of Treatment Once a Day Treatment Plan OT Treatment Plan ADL Training,Functional Mobility,Patient/Family Education,Discharge Planning Discharge Recommendations OT Discharge Recommendations Home with Assistance,Home Health Home Equipment Needs wc, FWW, drop arm BSC /BSC, LB dressing equipment, tub bench
[2023-09-29] MEDS: BACLOFEN 10 MG TABLET PO ×2 (12:05→20:16)
[2023-09-29] MEDS: SODIUM CHLORIDE 0.9% IV (12:28)
[2023-09-29] MEDS: DAPTOMYCIN IV (12:28)
--- NOTE | 2023-09-29 12:28 | CM.DPC ---
Addendum entered by HOME Hart 09/29/23 15:04: ADD: NOEMY called [facility] Rodrigo Crouch [phone] and confirmed that pt has not yet been reassigned to a worker to complete his in-home assessment as he cannot be reassigned until he actually discharges the hospital. Rodrigo requested SW just leave a vm tomorrow for her stating pt has discharged and then she will make sure he gets re-assigned Mon and that SW will have her notes and pt's information for a faster assessment process. BF Addendum entered by HOME Hart 09/29/23 13:32: ADD: SANTIAGO David kindly updated [facility] on plan of d/c tomorrow and faxed F2F and HH orders today to review to get pt on their schedule. Just need to send d/c summ at discharge. BF Original Note: DCP Home Planning: Per MD, pt will be medically stable to d/c home tomorrow 09/30/22 once he receives his IV-Abx dose. NOEMY confirmed with Anton at [facility] that they received the pwk needed and MD signature from Hospitalist and Home Wound Vac to be delivered to pt's room today 09/29/23 around 1300. NOEMY spoke to Iman at [email or web address] and updated on plan of d/c home tomorrow and she confirms pt is on their schedule for this next week on 10/03 and to have home vac placed prior to discharge. NOEMY updated Ortho PA on wound vac delivery and need for wound vac change from hospital vac to the delivered home vac prior to discharge tomorrow. NOEMY spoke to Jose Elias at [facility] and confirmed that pt on their RN schedule for IV-Abx dosing on Monday10/01/23 after d/c tomorrow and confirmed they have all the pwk needed just need d/c summary at discharge to confirm pt discharged. NOEMY updated [facility] on pt discharge home tomorrow. NOEMY spoke to Pharmacist and confirmed that pt's 1700 IV-Abx dosing can be moved to about 1200 tomorrow for more timely discharge and transport. NOEMY updated MD and RN. NOEMY met bedside with pt and updated on above and he remains in agreement and confirms he has not secured a ride home yet with friend and due to toe-touch weight bearing status PT recommends cabulance would be optimal for transport. SW confirmed pt's address for home and pharmacy. SW stressed to pt that Medicaid cabulance cannot provide physical assist with getting in the house and that pt needs to call today to secure a friend at his apt to be SBA for stairs and pt states he will work on that now. [facility] with his PCP as well. NOEMY completed Medicaid transport for cabulance for tomorrow and faxed and spoke to [place] at Medicaid transport and he confirms he will set up cabulance for 1500 tomorrow 09/30/23. Plan: SW to follow for plan of d/c home tomorrow Sat around 1500 via Medicaid cabulance with [facility] to follow and [facility] appointment set for next week. Jennyfer Miramontes MSW
--- NOTE | 2023-09-29 14:25 | PM.PN.1 ---
Exam Vital Signs (past 8 hours): - 09/29/23 08:14 09/29/23 08:21 Temperature 99.0 F Pulse Rate 68 68 Respiratory Rate 16 Blood Pressure 151/77 H 151/77 H Pulse Oximetry 96 Oxygen Delivery Method Room Air Oxygen Flow Rate 0 Narrative Exam Narrative: NAD, fluent speech. Lungs are clear, normal rate and effort. Heart is regular, no murmur. Abdomen is soft, nontender. Extremities are free of edema. Left foot is wrapped with wound VAC in place. Skin is free of rash or lesions. Objective Labs 09/27/23 05:05 09/27/23 05:05 [facility] Medical History HTN (hypertension) Type 2 diabetes mellitus Social History household members: none Smoking Status: Former smoker alcohol intake: current Assessment & Plan Assessment & Plan narrative: 1. Diabetic foot infection with abscess of left lmedial foot (medial calcaneous), POA and active: - patient also with notable history of bacteremia, spinal osteomyelitis with need for neurosurgery 2021, prev hx osteo in rt foot big toe, recent L groin abscess drained in the ER with MRSA from cultures. - MR foot shows extensive soft tissue swelling, findings of stranding in muscles of plantar foot - pain control as needed - oxycodone 10mg q3h prn and dilaudid IV PRN - repeat MRI of L ankle with abscess and possible osteo of calcaneus, arterial doppler US without stenosis - Dr. Sultana ortho evaluated on 09/19 and recommended OR debridement. - underwent washout and wound vac placement on 09/20, change on 09/23. - Continue wound vac for now, next change 09/26. - initially on cefepime, vanc and flagyl - wound cultures with staph aureus and klebsiella oxytoca. Metronidazole stopped on 09/24. Will need 6 weeks of ceftriaxone and dapto, both once daily. CK 25. - PICC placed on 09/26 - Trx plan: rocephin 2g daily and dapto 600mg IV daily until 10/28 2. Hypertension, POA and active. Stable. - doesn't take medications regularly - continue Lisinopril 40 mg daily, Norvasc 5 mg BID, may need additional adjustments 3. Type 2 diabetes, uncontrolled, with pressure ulcer of heel, POA and active. - not using insulin in the last few weeks, ran out of it, fired by PCP per patient. 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 Per prior D/C summary he was well controlled on the lantus only while in the hospital. - A1C 12.1, poor control 4. Thoracic spine pain s/p recent GLF, POA and improving. - CT thoracic negative for fracture - pain control 5. Constipation, POA and active. - daily laxatives - dulcolax PRN - add Miralax 6. Insomnia, POA and active. -add melatonin. Code: Full, surrogate is patient's friend Pat DVT: Lovenox Discharge planning: Discharge on 09/30 with home IV infusions and HH wound vac changes. Quality VTE Deep Vein Thrombosis/Pulmonary Embolism Present on Admission: No
[2023-09-29] MEDS: HYDROMORPHONE 1 MG INJ IV (18:17)
--- NOTE | 2023-09-29 18:49 | PM.PROC.1 ---
Procedures Date/Time Date of procedure: 09/29/23 Time of procedure: 18:49 General Procedure description: Wound VAC sponge change less than 50 sq cm Left heel ulceration wound VAC sponge change. Permission was obtained. Sponge, wound VAC changed on at bedside. Patient received his as needed 1 mg Dilaudid from nurse as a premedication. Left heel sponge removed. Patient tolerated well. Bloody drainage in canister. Wound bed is inspected. There is granulation tissue. No gross purulence or fluctuance. No periwound erythema. Patient tolerated well. Wound measurements are 7 cm by 2 cm x 1.5 cm deep. Distal L part of the incisions closed with sutures. Periwound area is cleansed with alcohol. Strips of Tegaderm were placed around the wound. The black VAC sponge was cut to size and placed into the wound and covered with a VAC dressing. Hole was cut for the track pad and the track pad secured. The tubing was connected to the home VAC unit and suctioned initiated to-125 mmHg. Good suction was obtained without leak. An ABD pad was used to pad around the suction hose and an Hoang wrap applied. Patient tolerated the procedure well. There were no immediate complications. Complications: none
[2023-09-29 20:05] VITALS: BP 161/88; PULSE 71; RESP 18; TEMP 37.2; O2SAT 97
[2023-09-29] MEDS: SENNOSIDES 8.6 MG TABLET 17.2 MG PO (20:13)
[2023-09-29] MEDS: cefTRIAXone 2,000 MG in SODIUM CHLORIDE 0.9% 100 ML 200 MG IV (20:14)
[2023-09-29] MEDS: MELATONIN 3 MG TABLET 6 MG PO (20:21)
[2023-09-30] MEDS: ACETAMINOPHEN 325 MG TABLET 650 MG PO ×3 (03:04→15:10)
[2023-09-30] MEDS: OXYCODONE IR 10 MG TABLET PO ×3 (03:04→15:10)
[2023-09-30] MEDS: BACLOFEN 10 MG TABLET PO ×2 (06:20→15:09)
[2023-09-30 07:00] VITALS: BP 166/81; PULSE 66; RESP 18; TEMP 36.5; O2SAT 96
--- NOTE | 2023-09-30 07:31 | PM.DS.1 ---
History of Present Illness History of Present Illness Date Patient Seen: 09/16/23 Time Patient Seen: 09:23 Chief complaint: L Foot red&swollen/fell, passed out Narrative: 63 year old male with PMH of HTN, DM with insulin use, history of polymicrobial bacteremia, sepsis, vertebral (lumbar L4/5) osteomyelitis/discitis in 2021 at [facility], s/p drainage of epidural abscess who presents with l ankle and foot swelling, pain, and redness he says for the past couple of days. He has also been out of his insulin for the past couple of weeks. He was recently here in the ER with a groin abscess which cultures grew MRSA. He started developing severe pain on his left foot, with swelling and then blistering. He was given antibiotics in the ER, one of the lesions was drained in the emergency room. He was then admitted for further management. Overnight he was given zosyn in the ER, vancomycin ordered per pharmacy. I placed him on ceftriaxone in addition to the vancomycin this morning. Discharge Providers Provider Date of admission: 09/16/23 02:34 Discharge Date: 09/30/23 Primary care physician: Jhony Dodd MD Consults: 09/16/23 03:12 Consult to Dietitian, Adult Routine Comment: Reason For Exam: MNA = 10 09/16/23 09:47 Consult to Orthopedic Surgery Routine Comment: Consulting Provider: Christophe Brenner Reason for consultation: L foot abscess Has provider been notified: Yes 09/17/23 22:35 Consult to Dietitian, Adult Routine Comment: Reason For Exam: protocol for wound care consult order Consult to Wound Care Routine Comment: Consulting Provider: [facility] 09/18/23 10:09 Consult to Physical Therapy Evaluate & Treat Comment: Physician Instructions: Evaluate and Treat 09/29/23 09:35 Consult to Home Health Routine Comment: diabetic heal ulcer, IV-Abx, non weight bearing Reason For Exam: Set up FWW for home use Consult to Occupational Therapy Evaluate & Treat Comment: Physician Instructions: Evaluate and treat 09/29/23 13:27 Consult to Home Health Routine Comment: osteomyelitis, diabetic foot ulcer Reason For Exam: Set up HH RN/PT/OT for discharge home Discharge provider: John Berger DO Summary Hospital Course Discharge Diagnosis: 1. Diabetic foot infection with abscess of left lmedial foot (medial calcaneous), POA and active: - patient also with notable history of bacteremia, spinal osteomyelitis with need for neurosurgery 2021, prev hx osteo in rt foot big toe, recent L groin abscess drained in the ER with MRSA from cultures. - MR foot shows extensive soft tissue swelling, findings of stranding in muscles of plantar foot - pain control as needed - oxycodone 10mg q3h prn and dilaudid IV PRN - repeat MRI of L ankle with abscess and possible osteo of calcaneus, arterial doppler US without stenosis - Dr. Sultana ortho evaluated on 09/19 and recommended OR debridement. - underwent washout and wound vac placement on 09/20, change on 09/23. - Continue wound vac for now, next change 09/26. - initially on cefepime, vanc and flagyl - wound cultures with staph aureus and klebsiella oxytoca. Metronidazole stopped on 09/24. Will need 6 weeks of ceftriaxone and dapto, both once daily. CK 25. - PICC placed on 09/26 - Trx plan: rocephin 2g daily and dapto 600mg IV daily until 10/28, Dr. Wilson DONOVAN at [facility] to follow and see in clinic 2. Hypertension, POA and active. Stable. - doesn't take medications regularly - continue Lisinopril 40 mg daily, Norvasc 5 mg BID, may need additional adjustments 3. Type 2 diabetes, uncontrolled, with pressure ulcer of heel, POA and active. - not using insulin in the last few weeks, ran out of it, fired by PCP per patient. 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 Per prior D/C summary he was well controlled on the lantus only while in the hospital. - A1C 12.1, poor control - prescribed lantus and humalog on discharge as patient had run out 4. Thoracic spine pain s/p recent GLF, POA and improving. - CT thoracic negative for fracture - pain control 5. Constipation, POA and active. - daily laxatives - dulcolax PRN 6. Insomnia, POA and active. -add melatonin. Hospital Course: Admitted for worsening L heel diabetic ulcer. MRI confirmed osteomyelitis. Taken by ortho to OR with washout and cultures which grew klebsiella , MRSA and enterococcus. Wound vac placed in OR. Was on vanco and rocephin daily which was then switched to dapto and rocephin daily. PICC placed for 6 weeks of IV abx. arranged for wound vac changes and patient will follow-up in wound clinic. Home IV abx infusions also arranged until 10/[address] [facility] [address] Rachel ID will follow abx and see patient in clinic. He needed refills of his meds so given more lantus, humalog, lisinopril, amlodipine and baclofen on discharge. Oxy sent for pain. Exam Vital Signs (past 8 hours): Oxygen Delivery Method Room Air Oxygen Flow Rate 0 Narrative Exam Narrative: NAD, fluent speech. Lungs are clear, normal rate and effort. Heart is regular, no murmur. Abdomen is soft, nontender. Extremities are free of edema. Left foot is wrapped with wound VAC in place. Skin is free of rash or lesions. Objective Labs 09/27/23 05:05 09/27/23 05:05 [facility] Medical History HTN (hypertension) Type 2 diabetes mellitus Social History household members: none Smoking Status: Former smoker alcohol intake: current Discharge Plan Discharge Plan Patient Disposition: Home Health Service Provider Discharge Comment: After discharge and wound VAC changes arranged with wound care see orthopedic surgery Dr. Sultana in 2 weeks to assess progress. Discharge orders & Medications Prescriptions: New insulin glargine [Lantus Solostar U-100 Insulin] 100 unit/mL (3 mL) Insulin Pen 30 unit SUBCUT DAILY Qty: 15 0RF oxycodone-acetaminophen [Percocet] 10-325 mg tablet 1 tab PO Q4-6H PRN (Reason: pain) Qty: 20 0RF Continued insulin glargine 100 unit/mL Cartridge 22 unit SUBCUT QAM amlodipine 5 mg Tablet 5 mg PO BID Qty: 60 0RF baclofen 10 mg Tablet 10 mg PO QID PRN (Reason: Spasms) Qty: 30 0RF lisinopril 40 mg tablet 40 mg PO DAILY Qty: 30 0RF Humalog U-100 Insulin 100 unit/mL Cartridge 5 unit SUBCUT TID Qty: 15 0RF Follow up/Referrals: Jhony Dodd MD [Primary Care Provider] - 2 Weeks (Follow up w/ Dr Sultana in 2 weeks after discharge. ) Other Ambulatory Orders: Referral to: (Schedule) Timeframe: 1 Week Location: Outside Services Ordered By: John Berger Diet/Activity/Treatments Activity: Toe-touch weight-bearing left foot. Visit Report/Discharge Packet Stand Alone Forms: Patient Portal/API, Stroke Signs & Symptoms Discharge Data Primary Care Provider: Jhony Dodd VTE Deep Vein Thrombosis/Pulmonary Embolism Present on Admission: No
[2023-09-30] MEDS: INSULIN LISPRO 100 UNIT/ML 3ML VIAL SUBCUT ×4 (08:49→11:57)
--- NOTE | 2023-09-30 08:50 | PT.IPTN ---
Current Diagnoses Type 2 diabetes mellitus with foot ulcer (09/16/23) Essential (primary) hypertension (09/16/23) Cutaneous abscess of left lower limb (09/16/23) Cellulitis of left lower limb (09/16/23) Non-pressure chronic ulcer of left heel and midfoot with fat layer exposed (09/16/23) Non-pressure chronic ulcer of other part of unspecified foot with unspecified severity (09/16/23) Patient's other noncompliance with medication regimen for other reason (09/16/23) Surgery Performed Operation Date: 09/20/23 13:15 Actual Procedures p Incision and Drainage Heel + wound vac(Left) - Marisa Sultana MD Physical Therapy Treatment Note M2 PT-IP Current Condition Start: 09/19/23 12:18 Freq: NEEDED Status: Active Protocol: Document 09/19/23 11:11 AB (Rec: 09/19/23 12:36 AB [id number]) Physical Therapy Current Condition Current Condition Evaluation Date 09/19/23 Treatment Diagnosis LLE cellulitis; difficulty in walking Onset Date 09/16/23 M3 PT-IP Subjective Start: 09/19/23 12:18 Freq: NEEDED Status: Active Protocol: Document 09/30/23 09:23 TS (Rec: 09/30/23 09:31 TS [id number]) Subjective Physical Therapy Visit Type Type Treatment Note Visit Start Time 08:50 Visit Stop Time 09:20 Total Visit Minutes 30 Number of CHIEF CONTRACT OFFICER Visits 6 Physical Therapy Visit Comments Patient Comments Pt found resting in bed, reports he will be obataining commode, shower chair and 4WW form [employer] on Monday. A friend will be meeting him at his apt to help him up the stairs. pt is agreeable to PT. Therapy Pain Assessment Pain When Pain Assessed During Mobility Pain Present Pain Present Pain Reported M4 PT-IP Mobility and Gait Start: 09/19/23 12:18 Freq: NEEDED Status: Active Protocol: Document 09/30/23 09:23 TS (Rec: 09/30/23 09:31 TS [id number]) PT-Bed Mobility Assessment Supine to Sit Supine to Sit Standby Assistance,1 Person Assistance,Head of Bed Elevated Sit to Supine Sit to Supine Standby Assistance,1 Person Assistance,Head of Bed Elevated,Bedrails Scooting Scooting to Edge of Bed Standby Assistance PT-Transfer Assessment Sit to and From Stand Sit to and from Stand Standby Assistance,1 Person Assistance,Use of Upper Extremities Equipment Transfer Assistive Device Gait Belt,Front Wheeled Walker Orthotic/Prosthetic Devices or Brace: No Comments Mobility Comments Supine to sit SBA with HOB elevated. pt sat EOB, required some assistance to don post- op shoe. He performed STS from bed SBA with TTWB on LLE, pt uses UEs heavily on FWW for support. He ambulated ~60'SBA with step to gait and TTWB on LLE, had no buckling or LOB. Sit to supine into bed SBA with BUE support, pt doffed post-op show in bed. Pt was left in bed, all needs met. Gait Assessment Gait Gait Assistance Required: Standby Assistance Distance (Feet) 60 Able to Maintain Weight Bearing Status Yes During Gait Assistive Devices Assistive Device Gait Belt,Front Wheeled Walker Orthotic/Prosthetic Devices or Brace: No Gait Deviations General Gait Pattern Antalgic,Decreased Stride Length,Decreased Feet Clearance,Step-to Gait Factors Limiting Gait Function Factors Limiting Gait Function Decreased Activity Tolerance, Decreased Strength,Limited Range of Motion,Pain,Poor Balance,Poor Safety Awareness Comments Gait Comments See mobility comments PT-Balance Assessment Sitting Balance and Reactions Static Sitting Balance Ability Good Dynamic Sitting Balance Ability Good Standing Balance and Reactions Static Standing Balance Ability Fair Dynamic Standing Balance Ability Fair Device Used RW M5 PT-IP Objective Assessments Start: 09/19/23 12:18 Freq: NEEDED Status: Active Protocol: Document 09/19/23 11:11 AB (Rec: 09/19/23 12:36 AB [id number]) Orientation Orientation/Cognition Level of Alertness Alert Orientation Name,Place,Situation Language Function Ability No Deficits Noted Safety Awareness Decreased Safety Awareness Memory Description No Deficits Noted Gross Range of Motion Lower Extremity ROM Assessment Within Functional Limits Strength Lower Extremity Strength Assessment Within Functional Limits Muscle Tone Muscle Tone WNL Yes M6 PT-IP Treatment Start: 09/19/23 12:18 Freq: NEEDED Status: Active Protocol: Document 09/30/23 09:23 TS (Rec: 09/30/23 09:31 TS [id number]) Physical Therapy Treatment Education Education Provided Weight Bearing Status,Safety M7 PT-IP Assessment and Plan Start: 09/19/23 12:18 Freq: NEEDED Status: Active Protocol: Document 09/30/23 09:23 TS (Rec: 09/30/23 09:31 TS [id number]) PT Summary Assessment and Plan Potential Rehabilitation Potential Fair Summary Impairments Pain,ROM,Strength,Balance, Sensation,Bed Mobility, Transfers,Gait,Activity Tolerance Progress Towards Goals Progressing Toward Goals Assessment Summary Noah continues to make some progress with his mobility. He continues to be SBA for all bed mobility. He required some assistance to don post-op shoe prior to ambulation. He continues to ambulate short distances due to pain in L foot. PT continues to recommend home with 03/04 assist. Pt will require FWW prior to d/c. Goals Bed Mobility Goal Independent Transfer Goal Independent,Front Wheeled Walker Gait Goal Independent,Front Wheel Walker Gait Distance 50 Other Goals improve ambulation using FWW 100 ft SBA up/down 20 steps B rail SBA Days to Meet Goals 10 Frequency of Treatment Frequency Of Treatment Once a Day Treatment Plan Physical Therapy Treatment Plan Bed Mobility Training,Transfer Training,Gait Training, Therapeutic Exercise,Balance Retraining,Post Op Education, Discharge Planning,Hot or Cold Pack,Neuromuscular Re-ed, Coordination Retraining Weight Bearing Status Weight Bearing Status Touch Down Weight Bearing Recommendations To Nursing Amount of Assist Needed 1 Person Assist Discharge Recommendations PT Discharge Recommendations Home with 03/04 Assist Available,Home Health Equipment Needed for Home Before FWW and shower chair. Discharge Transportation Needs at Discharge Private Vehicle,Wheelchair/ Cabulance
[2023-09-30 09:58] VITALS: BP 166/81; PULSE 66
[2023-09-30] MEDS: cefTRIAXone 2,000 MG in SODIUM CHLORIDE 0.9% 100 ML 200 MG IV (09:58)
[2023-09-30] MEDS: DOCUSATE 100 MG CAPSULE PO (09:58)
[2023-09-30] MEDS: lisinopriL 20 MG TABLET 40 MG PO (09:58)
[2023-09-30] MEDS: ENOXAPARIN 40 MG/0.4 ML SYRINGE SUBCUT (09:59)
[2023-09-30] MEDS: AMLODIPINE 5 MG TABLET PO (09:59)
[2023-09-30] MEDS: INSULIN GLARGINE 100 UNIT/ML 3ML PEN 30 UNIT SUBCUT (10:00)
[2023-09-30] MEDS: OXYCODONE ER 20 MG TAB PO (10:00)
[2023-09-30] MEDS: SODIUM CHLORIDE 0.9% FLUSH 10 ML IV (10:01)
--- NOTE | 2023-09-30 10:53 | CM.DPC ---
Addendum entered by HOME Hart 09/30/23 14:07: ADD: Patient requesting letter stating he needs a ground floor/main floor apt as he is attempting to work with [employer] to move from his 2nd story apt with many steps to enter. NOEMY provided a letter on hospital letter head (see copy scanned into EMR) stating Ortho recommendations, need for intermediate IV-Abx, wound vac and multiple outpt f/u appointments and provided to patient and let him know is something further needed he would likely need to contact [facility] Castano or talk to Wound Clinic MD if he needs further documentation. Pt appreciative. BF Original Note: DCP Discharge Home with infusion, HH, wound care Per MD, pt remains medically stable to d/c home today with ongoing IV-Abx, wound vac and wound care. Orders placed for pt to have his IV-Abx doses earlier today to discharge in time for Medicaid transport at 1500. Eyad LINDA changed out pt's wound vac last night from the hospital vac to pt's delivered [employer] home vac. NOEMY faxed d/c summary and updated pt address to [facility] (they already have F2F and HH orders from yesterday), [facility], and [facility] and called all 3 and left msg updating on discharge home today. NOEMY called pt's HCS worker Rodrigo Crouch and left msg of pt's discharge today and she will get pt reassigned to an in-home HCS dog races manager Monday10/02/23 towards approval for RUTH. Medicaid cabulance scheduled through [facility] for pickup today at 1500. RN, , and processing technologist aware. NOEMY met bedside with pt and provided him with a typed up list of his upcoming appointments, Medicaid transport number to call to schedule for all upcoming medical appointments at Wound Care, Dr. Rachel with [facility] ID, Ortho f/u appointment, Sig information, [email or web address] [facility] to re-establish with PCP etc... Pt confirms he has a friend that will be to his apt by 1600 to assist with getting his wound vac, bag, walker, etc and be SBA for the stairs into the apt. Pt states he contacted [facility] for additional DME [facility] can [facility] 30 days with [facility]CP. MD sent pt's meds to [facility] to be filled while awaiting PCP appointment. Pt states he also called [facility] and set up Meals on Wheels to be delivered once he gets home and he will have meals dropped off for one meal a day every day of the week and will supplement other foods from home for breakfast and lunch. Plan: Patient to d/c home today via Medicaid [employer] cabulance at 1500 with pharmacy pickup and friend to be present at the apt and pt has list of his upcoming f/u appointments with ID MD, Wound Clinic, [facility], [facility] and Ortho f/u. HOME Hart
[2023-09-30] MEDS: DAPTOMYCIN IV (11:57)
[2023-09-30] MEDS: SODIUM CHLORIDE 0.9% IV (11:57)
[2023-09-30 14:35] VITALS: BP 175/95; PULSE 79
[2023-09-30] MEDS: HYDRALAZINE 25 MG TABLET PO (14:35)
--- NOTE | 2023-09-30 15:28 | PC.NURSE ---
Pt discharged home with jessica at 1520, escorted off floor accompanied by cabulance commercial relief driver and hospital staff. PIV removed, PICC line in place to LUE, discharge teaching completed including follow up appointments, new medications and worsening symptoms. Questions answered and concerns addressed. Patient left the floor with all belongings.
--- NOTE | 2023-10-02 10:38 | CM.DPNOTE ---
DCP Note SLPS received call from Iman at the wound clinic. Reports they would need a one time agreement with pt's insurance order to work with him and for that they need PCP approval. Pt's new PCP, Patrick, has not seen pt yet and therefore cannot approve it. SLPS gave Iman pt's phone number to contact him about current barrier. SLPS reported that pt's previous PCP was Dr. Dodd. Iman reports pt may need to see Rd for dressing change tomorrow? [facility] could also do dressing change. Iman will continue to follow closely. Marilia Cooley, HOME
--- NOTE | 2023-10-04 13:27 | CM.SWNOTE ---
T/C Received call from Dr. Sultana stating that pt continues to call her requesting long-acting pain medication, and wanted an update about his woundcare. She states that since pt recently left the hospital, we should be able to help him with these things. This METAL HARDENER explained to her that we just signed an order for a woundcare consult at [facility], who takes his insurance, for woundcare and wound vac. Called pt and left a detailed message re: his referral to [facility], and that they do show his referral, however it's not been processed yet. They will call him in the next few days to schedule. METAL HARDENER also encouraged him to call the clinic where his pending new pt is to establish care and request to be placed on the waiting list for a sooner appt. to address his pain needs, and that Dr. Sultana will not be prescribing him any further pain medications.
--- NOTE | 2023-10-05 12:13 | CM.DPNOTE ---
NOEMY received a call from Matilda at the [facility] stating they received initial referral on the patient from fax yesterday with facesheet and their order form signed by Hospitalist Dr. Kaplan but needing the dx and ICD-10 code. Otherwise they can accept pt's insurance and no prior auth needed. NOEMY completed the dx and ICD-10 codes and faxed back to Matilda at requested fax [phone] and included pt's d/c summary and wound vac change note and pt's active dx and ICD-10 codes from his admission a few days ago. NOEMY also confirmed that [facility] had just completed RN SOC with pt yesterday 10/04/23 and that it went well and HH will assist with providing ongoing wound care supply needs. HOME Hart
--- NOTE | 2023-10-09 16:12 | CM.DPNOTE ---
CM Discharge Planning Note COIL BUILDER received call from Dr. Rachel at [facility] reporting that she is unable to accept pt's insurance/concerned about Pt not having a PCP. Wilson reported she was concerned about how this happened. COIL BUILDER informed provider that pt was supposed to have follow up care with new PCP, Dr Nguyen in [place]. Wilson requested a call back tomorrow from our interim shared services manager for follow up (p [phone]). HOME Andrew
--- NOTE | 2023-11-02 07:58 | PC.NURSE ---
LAte documentation: On Sep Pt had c/o of pain to his leg 04/20 and I administered Dilaudid 0.5 mg X1, reassess found patient to be asleep and allowed to rest. I must have failed to save the documentation.
== END 2023-09-30 15:33 | disposition home health service (06) | DRG 629 ==
LOC: ED 00:12 → AC 02:37
PROVIDERS: Internal Medicine; Orthopaedic Surgery Foot and Ankle Surgery; Student in an Organized Health Care Education/Training Program; Admitting Provider Internal Medicine; Emergency Provider Emergency Medicine; PCP Internal Medicine; Referring Provider Emergency Medicine; Visit Provider Internal Medicine
PROC: 0QBM0ZZ Excision of Left Tarsal, Open Approach (ICD-10-PCS; principal; 2023-09-20 13:15)
DX: E11.621 Type 2 diabetes mellitus with foot ulcer (principal); E11.52 Type 2 diabetes mellitus with diabetic peripheral angiopathy with gangrene; L03.116 Cellulitis of left lower limb; M60.074 Infective myositis, left foot; L97.422 Non-pressure chronic ulcer of left heel and midfoot with fat layer exposed; I96 Gangrene, not elsewhere classified; M86.8X7 Other osteomyelitis, ankle and foot; E11.65 Type 2 diabetes mellitus with hyperglycemia; I10 Essential (primary) hypertension; M54.6 Pain in thoracic spine; K59.00 Constipation, unspecified; B96.1 Klebsiella pneumoniae [K. pneumoniae] as the cause of diseases classified elsewhere; B95.62 Methicillin resistant Staphylococcus aureus infection as the cause of diseases classified elsewhere; G47.00 Insomnia, unspecified; G89.18 Other acute postprocedural pain; B95.2 Enterococcus as the cause of diseases classified elsewhere; Z91.148 Patient's other noncompliance with medication regimen for other reason; Z79.4 Long term (current) use of insulin; Z87.891 Personal history of nicotine dependence; Z23 Encounter for immunization
CPT/HCPCS: 36415; 36569; 36592; 72128; 73650; 73701; 73720; 73723; 76000; 80048; 80053; 80202; 81001; 81003; 82550; 82962; 83036; 83605; 83735; 85025; 86140; 87040; 87070; 87075; 87077; 87147; 87176; 87186; 87205; 87797; 90471; 90656; 93925; 96365; 96367; 96375; 97116; 97162; 97164; 97165; 97530; 97535; 99233; 99284; J0171; J0692; J0696; J0878; J1170; J1650; J1815; J2250; J2270; J2405; J2543; J2704; J3010; Q2038; Q9967

== ENCOUNTER 2023-10-02 21:58 | Emergency (ER) | payer OTHER, MEDICAID, SELFPAY ==
[2023-09-16 02:52] VITALS: BMI 23.1
[2023-10-02 22:07] VITALS: BP 177/91; PULSE 101; RESP 20; TEMP 36.5; O2SAT 96; BMI 23.7
--- NOTE | 2023-10-02 22:36 | PC.NURSE ---
Patient arrived after accidentally taking disconnecting his wound vac dressing last night. He brought replacement equipment and this RN removed old dressing; irrigated wound with NS and replacing sponge, covered with transparent drape and hooked up to suction. Working well at time of discharge. Pt tolerated well.
--- NOTE | 2023-10-03 05:27 | ED.WOUNDLAC ---
HPI - Wound/Laceration General Chief Complaint: Wound/Laceration Stated Complaint: snagged wound vac from lt foot Time Seen by Provider: 10/02/23 22:17 Source: patient Mode of arrival: Wheelchair History of Present Illness HPI narrative: 63-year-old male with a wound VAC to his left heel after being admitted with a chronic wound and osteomyelitis. Inadvertently snag the tubing to his wound VAC and pulled it out earlier this evening. Was advised by his doctor to come to the emergency department to have this replaced. He has no other complaints. Related Data Previous Rx's Medication Instructions Recorded amlodipine 5 mg tablet 5 mg PO BID #60 tabs 09/30/23 baclofen 10 mg tablet 10 mg PO QID PRN Spasms #30 tabs 09/30/23 blood sugar diagnostic (True #100 ea 09/30/23 Metrix Glucose Test Strip) blood-glucose meter (True Metrix #1 ea 09/30/23 Glucose Meter) insulin glargine 100 unit/mL (3 30 unit (0.3 mL) SUBCUT DAILY #15 09/30/23 mL) subcutaneous pen (Lantus mL Solostar U-100 Insulin) insulin lispro 100 unit/mL 5 unit (0.05 mL) SUBCUT TID #15 mL 09/30/23 subcutaneous cartridge (Humalog U-100 Insulin) lancets 33 gauge #100 ea 09/30/23 lisinopril 40 mg tablet 40 mg PO DAILY #30 tabs 09/30/23 oxycodone-acetaminophen 10 mg-325 1 tab PO Q4-6H PRN pain #20 tabs 09/30/23 mg tablet (Percocet) Allergies Allergy/AdvReac Type Severity Reaction Status Date / Time No Known Drug Allergies Allergy Verified 09/20/23 14:16 Patient History Medical History HTN (hypertension) Type 2 diabetes mellitus Social History household members: none Smoking Status: Former smoker alcohol intake: current Smoking Status: Former smoker alcohol intake frequency: holidays/special occasions only Substance Use Type: marijuana and prescription drug Exam Initial Vital Signs Initial Vital Signs: Vital Signs Temperature 97.7 F 10/02/23 22:07 Pulse Rate 101 H 10/02/23 22:07 Respiratory Rate 20 10/02/23 22:07 Blood Pressure 177/91 H 10/02/23 22:07 Pulse Oximetry 96 10/02/23 22:07 Oxygen Delivery Method Room Air 10/02/23 22:07 Const General: cooperative and No acute distress Resp Effort & Inspection: normal respiratory effort Cardio Other: Normal heart rate Extrem Other: Wound VAC has been reconnected and left heel is redressed. Course Vital Signs Vital signs: Vital Signs - 8 hr 10/02/23 22:07 Temperature 97.7 F Pulse Rate 101 H Respiratory Rate 20 Blood Pressure 177/91 H Pulse Oximetry 96 Oxygen Delivery Method Room Air MDM - Wound/Laceration MDM Narrative Medical decision making narrative: 63-year-old man with a wound VAC in place for chronic osteo. Inadvertently had that disconnected, is reconnect and redressed, discharged to resume previous care Discharge Plan Departure Patient Disposition: Home Clinical Impression: Encounter for post surgical wound check Activity Restrictions/Additional Instructions: Wound VAC was replaced. Continue your previous care. Follow up as previously scheduled. Prescriptions: No Action insulin glargine [Lantus Solostar U-100 Insulin] 100 unit/mL (3 mL) Insulin Pen 30 unit SUBCUT DAILY Qty: 15 0RF oxycodone-acetaminophen [Percocet] 10-325 mg tablet 1 tab PO Q4-6H PRN (Reason: pain) Qty: 20 0RF amlodipine 5 mg Tablet 5 mg PO BID Qty: 60 0RF baclofen 10 mg Tablet 10 mg PO QID PRN (Reason: Spasms) Qty: 30 0RF lisinopril 40 mg tablet 40 mg PO DAILY Qty: 30 0RF Humalog U-100 Insulin 100 unit/mL Cartridge 5 unit SUBCUT TID Qty: 15 0RF (DME) lancets 33 gauge misc See Rx Instructions .Route Qty: 100 0RF Rx Instructions: Use to test once daily (DME) blood-glucose meter [True Metrix Glucose Meter] Misc See Rx Instructions .ROUTE .MEDSUPPLY Qty: 1 0RF Rx Instructions: As directed (DME) True Metrix Glucose Test Strip Strip See Rx Instructions .ROUTE .MEDSUPPLY Qty: 100 0RF Rx Instructions: Use to test once daily Referrals: Jhony Dodd MD [Primary Care Provider] - Stand Alone Forms: Patient Portal/API
== END 2023-10-02 22:38 | disposition home or self-care (01) ==
PROVIDERS: Emergency Provider Emergency Medicine; PCP Internal Medicine
DX: Z48.89 Encounter for other specified surgical aftercare (principal)
CPT/HCPCS: 99281

== ENCOUNTER → 2023-10-09 16:54 | Outpatient (ROUT) | payer OTHER, SELFPAY ==
[2023-09-16 02:52] VITALS: BMI 23.1
[2023-10-09 17:07] LABS: Add Manual Diff / Slide Review NO; Basophils Absolute Auto 0 /uL (0-100); Basophils Percent Auto 0.7 % (0-2); Eosinophils Absolute Auto 200 /uL (0-450); Eosinophils Percent Auto 3.8 % (2-4); Hematocrit 33.7 % (41-53); Hemoglobin 11.1 g/dL (13.5-17.5); Lymphocytes Absolute Auto 1400 /uL (1100-4500); Lymphocytes Percent Auto 27.6 % (25-40); Mean Corpuscular HGB Conc 32.9 % (30-36); Mean Corpuscular Hemoglobin 26.3 PG (26-34); Mean Corpuscular Volume 80.2 fL (80-100); Monocytes Absolute Auto 300 /uL (0-900); Monocytes Percent Auto 5.5 % (3-14); Neutrophils Absolute Auto 3100 /uL (1500-7000); Neutrophils Percent Auto 62.4 % (50-75); Platelet Count 249 X10^3/uL (150-400); Red Cell Distribution Width 14.7 % (11.6-14.8); White Blood Cell Count 4.9 X10^3/uL (4.5-11.0)
[2023-10-09 17:23] LABS: Alanine Aminotransferase 18 IU/L (<50); Albumin 3.9 g/dL (3.5-5.0); Albumin Globulin Ratio 1.1 (1.0-2.8); Alkaline Phosphatase 100 U/L (38-126); Aspartate Aminotransferase 16 IU/L (17-59); BUN Creatinine Ratio 32.5 (6-22); Bilirubin Total 0.4 mg/dL (0.2-1.3); Blood Urea Nitrogen 25 mg/dL (9-20); Calcium 9.1 mg/dL (8.4-10.2); Carbon Dioxide 30 mmol/L (22-32); Chloride 99 mmol/L (98-107); Estimated Glomerular Filt Rate > 60 mL/min (>60); Globulin 3.6 g/dL (1.7-4.1); Glucose 329 mg/dL (80-110); HEMOLYSIS < 15 (0-50); Potassium 4.1 mmol/L (3.4-5.1); Sodium 136 mmol/L (137-145); Total Protein 7.5 g/dL (6.3-8.2)
[2023-10-10 12:33] LABS: C-Reactive Protein Quant 0.9 mg/dL (<1.0); Creatine Kinase 32 U/L (55-170)
== END ==
PROVIDERS: PCP Internal Medicine; Visit Provider Internal Medicine Infectious Disease
DX: E11.621 Type 2 diabetes mellitus with foot ulcer (principal); L03.116 Cellulitis of left lower limb; L02.416 Cutaneous abscess of left lower limb
CPT/HCPCS: 80053; 82550; 85025; 86140

== ENCOUNTER → 2023-10-23 17:09 | Outpatient (ROUT) | payer OTHER, MEDICAID, SELFPAY ==
[2023-09-16 02:52] VITALS: BMI 23.1
[2023-10-23 18:10] LABS: Add Manual Diff / Slide Review NO; Basophils Absolute Auto 0 /uL (0-100); Basophils Percent Auto 0.9 % (0-2); Eosinophils Absolute Auto 100 /uL (0-450); Eosinophils Percent Auto 2.3 % (2-4); Hematocrit 33.9 % (41-53); Hemoglobin 11.3 g/dL (13.5-17.5); Lymphocytes Absolute Auto 1700 /uL (1100-4500); Lymphocytes Percent Auto 32.2 % (25-40); Mean Corpuscular HGB Conc 33.4 % (30-36); Mean Corpuscular Hemoglobin 26.7 PG (26-34); Mean Corpuscular Volume 80.2 fL (80-100); Monocytes Absolute Auto 400 /uL (0-900); Monocytes Percent Auto 7.4 % (3-14); Neutrophils Absolute Auto 3000 /uL (1500-7000); Neutrophils Percent Auto 57.2 % (50-75); Platelet Count 272 X10^3/uL (150-400); Red Blood Cell Count 4.23 X10^6/uL (4.5-5.9); Red Cell Distribution Width 15.4 % (11.6-14.8); White Blood Cell Count 5.2 X10^3/uL (4.5-11.0)
[2023-10-23 18:20] LABS: Alanine Aminotransferase 14 IU/L (<50); Albumin 4.1 g/dL (3.5-5.0); Albumin Globulin Ratio 1.1 (1.0-2.8); Alkaline Phosphatase 88 U/L (38-126); Aspartate Aminotransferase 18 IU/L (17-59); BUN Creatinine Ratio 27.6 (6-22); Bilirubin Total 0.4 mg/dL (0.2-1.3); Blood Urea Nitrogen 24 mg/dL (9-20); C-Reactive Protein Quant 0.8 mg/dL (<1.0); Calcium 9.3 mg/dL (8.4-10.2); Carbon Dioxide 27 mmol/L (22-32); Chloride 102 mmol/L (98-107); Creatine Kinase 36 U/L (55-170); Estimated Glomerular Filt Rate > 60 mL/min (>60); Globulin 3.6 g/dL (1.7-4.1); Glucose 144 mg/dL (80-110); HEMOLYSIS < 15 (0-50); Potassium 4.3 mmol/L (3.4-5.1); Sodium 141 mmol/L (137-145); Total Protein 7.7 g/dL (6.3-8.2)
== END ==
PROVIDERS: PCP Internal Medicine; Visit Provider Internal Medicine Infectious Disease
DX: E11.621 Type 2 diabetes mellitus with foot ulcer (principal); L03.116 Cellulitis of left lower limb; L02.416 Cutaneous abscess of left lower limb
CPT/HCPCS: 80053; 82550; 85025; 86140

== ENCOUNTER 2024-04-17 11:20 | Emergency (ER) | payer OTHER, MEDICAID, SELFPAY ==
[2023-09-16 02:52] VITALS: BMI 23.1
[2024-04-17] VITALS (39 sets, daily range): BP systolic 167–203; BP diastolic 80–108; PULSE 66–86; RESP 14–18; TEMP 36.6; O2SAT 94–99; BMI 25.1
--- NOTE | 2024-04-17 11:58 | DI.RAD.S_ITS ---
PROCEDURE: XR CHEST 1V INDICATIONS: weakness, had cpr 1 week ago, ? rib fx. TECHNIQUE: One view of the chest was acquired. COMPARISON: [facility], CR, XR CHEST FOR PICC 1V, 09/26/2023, 14:04. FINDINGS: Surgical changes and devices: None. Lungs and pleura: Very low lung volumes. Mild bibasilar opacities are present. Mediastinum: Heart size is at the upper limit of normal. Bones and chest wall: No displaced osseous injury on this limited study. IMPRESSION: No displaced osseous injury on this limited study. There is no significant pneumothorax. Lung volumes are very low. Possible bibasilar opacities which may represent airspace disease and atelectasis. If there is high concern for occult injury, consider repeat radiography or cross-sectional imaging. Dictated by: Matt Yang M.D. on 04/17/2024 at 12:50 Approved by: Matt Yang M.D. on 04/17/2024 at 12:51
--- NOTE | 2024-04-17 12:05 | DI.RAD.S_ITS ---
PROCEDURE: XR FOOT LT MIN 3V INDICATIONS: 10-14 days post foot surgery swollen with drainage. TECHNIQUE: 3 views of the foot were acquired. COMPARISON: [facility], CR, XR FOOT 3+ VIEWS LEFT, 03/28/2024, 19:15. FINDINGS: Bones: [id number] scattered degenerative changes. Moderate plantar calcaneal enthesopathy. There is no acute displaced fracture. Lucency is seen in the calcaneal body. Soft tissues: Postsurgical changes and soft tissue swelling are present. IMPRESSION: Indeterminate lucency in the calcaneal body, also seen on prior radiograph. Postsurgical changes and soft tissue swelling. No acute displaced fracture. Plantar calcaneal enthesopathy is present. If there is high concern for further derangement, consider MRI evaluation. Dictated by: Matt Yang M.D. on 04/17/2024 at 12:51 Approved by: Matt Yang M.D. on 04/17/2024 at 12:53
[2024-04-17 12:41] LABS: Add Manual Diff / Slide Review NO; Basophils Absolute Auto 100 /uL (0-100); Basophils Percent Auto 1.4 % (0-2); Eosinophils Absolute Auto 200 /uL (0-450); Eosinophils Percent Auto 2.3 % (2-4); Hematocrit 28.8 % (41-53); Hemoglobin 9.6 g/dL (13.5-17.5); Lymphocytes Absolute Auto 1200 /uL (1100-4500); Lymphocytes Percent Auto 16.7 % (25-40); Mean Corpuscular HGB Conc 33.4 % (30-36); Mean Corpuscular Hemoglobin 25.9 PG (26-34); Mean Corpuscular Volume 77.5 fL (80-100); Monocytes Absolute Auto 500 /uL (0-900); Monocytes Percent Auto 7.6 % (3-14); Neutrophils Absolute Auto 5100 /uL (1500-7000); Platelet Count 396 X10^3/uL (150-400); Red Blood Cell Count 3.72 X10^6/uL (4.5-5.9); Red Cell Distribution Width 16.6 % (11.6-14.8); White Blood Cell Count 7.1 X10^3/uL (4.5-11.0)
[2024-04-17 12:47] LABS: Appearance Urine UA CLEAR; Bilirubin Urine UA NEGATIVE (NEGATIVE); Color Urine UA YELLOW; Glucose Urine UA 3+ g/dL (Negative); Ketones Urine UA NEGATIVE (NEGATIVE); Leukocyte Esterase Urine UA NEGATIVE (NEGATIVE); Nitrite Urine UA NEGATIVE (Negative); Occult Blood Urine UA NEGATIVE (Negative); Protein Urine UA NEGATIVE (Negative); Ur Creatinine Normal (Normal); Ur Specific Gravity Normal (Normal); Urine Amphetamines Negative (Negative); Urine Barbiturates Negative (Negative); Urine Benzodiazepines Negative (Negative); Urine Cocaine Negative (Negative); Urine MDMA Negative (Negative); Urine Methadone Negative (Negative); Urine Methamphetamines Negative (Negative); Urine Opiates Negative (Negative); Urine Oxycodone Positive (Negative); Urine Phencyclidine Negative (Negative); Urine THC Positive (Negative); Urine Tricyclic Antidepressant Negative (Negative); Urine pH Normal (Normal); Urobilinogen Urine UA 0.2 E.U./dL (0.2); pH Urine UA 6.5 (4.5-8.0)
[2024-04-17 12:52] LABS: Alanine Aminotransferase 14 IU/L (<50); Albumin 3.8 g/dL (3.5-5.0); Albumin Globulin Ratio 1.1 (1.0-2.8); Alkaline Phosphatase 92 U/L (38-126); Aspartate Aminotransferase 16 IU/L (17-59); BUN Creatinine Ratio 30.6 (6-22); Bilirubin Total 0.4 mg/dL (0.2-1.3); Blood Urea Nitrogen 26 mg/dL (9-20); Calcium 8.9 mg/dL (8.4-10.2); Carbon Dioxide 28 mmol/L (22-32); Chloride 100 mmol/L (98-107); Estimated Glomerular Filt Rate > 60 mL/min (>60); Globulin 3.4 g/dL (1.7-4.1); Glucose 322 mg/dL (80-110); HEMOLYSIS < 15 (0-50); Lipase 122 U/L (23-300); Potassium 4.4 mmol/L (3.4-5.1); Sodium 137 mmol/L (137-145); Total Protein 7.2 g/dL (6.3-8.2)
--- NOTE | 2024-04-17 12:53 | EKG_ITS ---
[facility] [address] [address] Test Date: 2024-04-17 Pat Name: Noah Gerard Department: [facility] Room: Gender: Male Bilingual Sales Representative: MERRITT : 1960 Requested By: Order Number: [id number] Reading MD: Meir Chavez MD Measurements Intervals [place] Rate: 70 P: CA: 156 QRS: 14 QRSD: 82 T: 36 QT: 400 QTc: 432 Interpretive Statements Normal sinus rhythm Electronically Signed On 04-18-2024 7:36:00 PDT by Meir Chavez MD
[2024-04-17 12:55] LABS: Bacteria Urine None Seen; Culture Indicated Urine Cult Not Indicated; RBC Urine None Seen (0-5/HPF); Squamous Epithelial Cell Urine None Seen (0-5/HPF); Urine Volume 10mL (spun); WBC Urine None Seen (0-5/HPF)
--- NOTE | 2024-04-17 13:13 | ED_ITS ---
HPI - Recheck/Abnormal Lab/Rx General Chief Complaint: Recheck/Abnormal Lab/Rx Stated Complaint: Failure to Thrive, Unable to care for himself Time Seen by Provider: 04/17/24 11:58 Source: patient, RN notes reviewed and old records reviewed Mode of arrival: EMS Limitations: no limitations History of Present Illness HPI narrative: Acute on chronic left diabetic foot infection, nonhealing left foot calcaneal wound, nonhealing left plantar 1st metatarsal head wound, patient has had prior osteomyelitis in the past as well as diskitis. Hypertension, diabetes type 2, mild hyponatremia, chronic pain. History of substance abuse disorder daily marijuana user. Patient presents with request for inability to care for himself. He has multiple medical problems states he was at [facility] was discharged home they attempted to find SNF placement but could not find any locally and patient did not wish to go [place]. Patient denies fevers or chills, he is got some persistent discomfort from the CPR that was performed but no new chest pain no new shortness of breath, no nausea or vomiting. No new GI or urinary symptoms. States he did not urinate on himself in his foot earlier today because he could not make it to the bathroom. His wounds he states his foot is swollen. He states he was following at the facility. Has had recent interventions in the last month on his foot. Has been on antibiotics. He is unsure of his current medication regimen he does not have an up-to-date list or his discharge papers with him. Review of records from [facility] Patient has been on 03/28/2024 for acute on chronic left wound infection sent by outpatient Podiatry at [facility]. Blood cultures were negative had I and D deep wound abscess was cultured started on cefepime Flagyl and vanco during that hospitalization changed to daptomycin on 04/02 had debridement with autograft skin harvest and skin graft on 28/11, patient was given a dose of dalbavancin anticipating discharge. Patient was supposed to have consultation and follow up with ID and Podiatry but missed those visits because he was hospitalized at [facility]. Attempting to get these records. Patient was supposed to receive another dose of dalbavancin on 04/15/2024. Report from [facility]: Patient came in as was likely accidental overdose had multiple medications on board was intubated, was treated for his wounds as well was ultimately discharged home with home health care. Patient states he was nonweightbearing but also describes ambulating with PT with a gait belt in the hospital prior to discharge. Related Data Home Medications Medication Instructions Recorded Confirmed amlodipine 5 mg tablet 5 mg PO BID 04/17/24 04/17/24 amoxicillin 875 mg-potassium 1 tab PO BID 04/17/24 04/17/24 clavulanate 125 mg tablet baclofen 10 mg tablet 10 mg PO 4XD PRN muscle spasm 04/17/24 04/17/24 baclofen 20 mg tablet 20 mg PO 4XD 04/17/24 04/17/24 gabapentin 100 mg capsule 200 mg PO 3XD 04/17/24 04/17/24 insulin glargine 100 unit/mL (3 22 unit SUBCUT DAILY 04/17/24 04/17/24 mL) subcutaneous pen insulin lispro 100 unit/mL 0 - 12 unit SUBCUT TIDWM 04/17/24 04/17/24 subcutaneous pen isosorbide mononitrate 30 mg 30 mg PO DAILY 04/17/24 04/17/24 tablet,extended release 24 hr lisinopril 40 mg tablet 40 mg PO DAILY 04/17/24 04/17/24 magnesium oxide 400 mg PO DAILY 04/17/24 04/17/24 naloxone 4 mg/actuation nasal spray 1 spray intranasal PRN PRN overdose 04/17/24 04/17/24 oxycodone 10 mg tablet 10 mg PO Q4H PRN moderate pain 04/17/24 04/17/24 polyethylene glycol 3350 17 17 g PO DAILY PRN constipation 04/17/24 04/17/24 gram/dose oral powder sennosides 8.6 mg tablet (senna) 8.6 mg PO DAILY constipation 04/17/24 04/17/24 Previous Rx's Medication Instructions Recorded blood sugar diagnostic (True #100 ea 09/30/23 Metrix Glucose Test Strip) blood-glucose meter (True Metrix #1 ea 09/30/23 Glucose Meter) lancets 33 gauge #100 ea 09/30/23 Allergies Allergy/AdvReac Type Severity Reaction Status Date / Time No Known Drug Allergies Allergy Verified 04/17/24 11:33 Review of Systems Review of Systems ROS Unobtainable: All systems reviewed & are unremarkable except as noted in HPI and below Patient History Medical History HTN (hypertension) Type 2 diabetes mellitus Social History household members: none Smoking Status: Former smoker alcohol intake: current Smoking Status: Former smoker alcohol intake frequency: holidays/special occasions only Substance Use Type: marijuana and prescription drug Exam Narrative Exam Narrative: GEN: Male, alert and oriented x 3, patient appears to be in mild distress. Alert, cooperative. HEENT: Atraumatic, pupils are equal round reactive to light, extraocular movements are intact, nares are clear, there is no conjunctival pallor. Throat is clear without any exudates, erythema, tonsillar enlargement or uvular deviation HEART: Regular rate and rhythm without murmur, clicks, rubs. No carotid bruits, pulses are equal in upper and lower extremities LUNGS:Lungs clear to auscultation, no wheezes, rales, crackles, chest moves symmetrically ABD:bowel sounds normal, soft, non-tender, no guarding, rebound, rigidity, no masses noted, no hepatosplenomegaly :No CVA tenderness MSCL: Non-tender, no muscle atrophy, muscles strength 5/5 upper and lower extremities, full range of motion extremities. Patient is left foot has wound appears to be a foreign body the plantar side of the foot, no erythema, no foul odor, no drainage currently. Right lower extremity has a wound on the heel but his prior amputations appear to be well healed no other abscess or signs of infection of the right foot. Patient has cap refill less than 2 seconds both feet. NEURO:CN 2-12 intact. Initial Vital Signs Initial Vital Signs: Vital Signs Temperature 97.8 F 04/17/24 11:20 Pulse Rate 78 04/17/24 11:20 Respiratory Rate 14 04/17/24 11:20 Blood Pressure 196/94 H 04/17/24 11:20 Pulse Oximetry 96 04/17/24 11:20 Oxygen Delivery Method Room Air 04/17/24 11:20 Course Orders Ordered: ED Orders 04/17/24 11:37 Consult to DEAD MAIL CHECKER - Pre Sales Technical Consultant Stat 04/17/24 11:58 XR chest 1V Stat 04/17/24 11:59 EKG-12 Lead Stat 04/17/24 12:05 XR foot LT min 3V Stat 04/17/24 12:25 CBC Auto Diff [Complete Blood Count AUTO DIFF] Stat CMP [Comprehensive Metabolic Panel] Stat Lipase Stat 04/17/24 12:30 Urinalysis and Microscopic Stat urine tox [Urine Drug Screen, Rapid] Stat 04/17/24 13:44 Consult to Physical Therapy Evaluate & Treat Acetaminophen (Acetaminophen 325 Mg Tablet) 650 mg PO Q6H PRN PRN Reason: Fever/Mild Pain (1-3) Last Admin: 04/17/24 18:05 Dose: 650 mg Documented By: RB Amlodipine Besylate (Amlodipine 5 Mg Tablet) 5 mg PO BID SARAH Amoxicillin/Clavulanate Potassium (Amoxicillin/Clav 875/125 Mg) 1 tab PO BID SARAH Gabapentin (Gabapentin 300 Mg Capsule) 300 mg PO TID SARAH Insulin Glargine (Insulin Glargine 100 Unit/Ml 3ml Pen) 22 unit SUBCUT BEDTIME SARAH Insulin Human Lispro (Insulin Lispro 100 Unit/Ml 3ml Vial) 0 unit SUBCUT ACHS SARAH; Protocol Last Admin: 04/17/24 17:13 Dose: 2 unit Documented By: RB Co-signed By: MARQUISEB Isosorbide Mononitrate (Isosorbide Mononitrate Er 30 Mg Tablet) 30 mg PO DAILY SARAH Lisinopril (Lisinopril 20 Mg Tablet) 40 mg PO DAILY SARAH Magnesium Oxide (Magnesium Oxide 400 Mg Tablet) 400 mg PO DAILY SARAH Oxycodone HCl (Oxycodone Ir 5 Mg Tablet) 5 mg PO Q6H PRN PRN Reason: Pain, Moderate (4-6) Last Admin: 04/17/24 18:04 Dose: 5 mg Documented By: RB Discontinued Medications Amlodipine Besylate (Amlodipine 5 Mg Tablet) 5 mg PO NOW ONE Stop: 04/17/24 15:35 Last Admin: 04/17/24 15:38 Dose: 5 mg Documented By: RB Lisinopril (Lisinopril 20 Mg Tablet) 40 mg PO NOW ONE Stop: 04/17/24 15:35 Last Admin: 04/17/24 15:38 Dose: 40 mg Documented By: RB Vital Signs Vital signs: Vital Signs - 8 hr 04/17/24 11:20 04/17/24 11:36 04/17/24 11:41 Temperature 97.8 F Pulse Rate 78 74 Respiratory Rate 14 Blood Pressure 196/94 H 171/83 H Pulse Oximetry 96 95 Oxygen Delivery Method Room Air 04/17/24 11:41 04/17/24 12:00 04/17/24 12:00 Temperature Pulse Rate 74 70 Respiratory Rate Blood Pressure 190/101 H Pulse Oximetry 97 97 Oxygen Delivery Method 04/17/24 12:30 04/17/24 13:00 04/17/24 13:30 Temperature Pulse Rate 77 69 66 Respiratory Rate Blood Pressure Pulse Oximetry 97 97 98 Oxygen Delivery Method 04/17/24 14:00 04/17/24 14:30 04/17/24 15:00 Temperature Pulse Rate 68 67 69 Respiratory Rate Blood Pressure Pulse Oximetry 97 97 97 Oxygen Delivery Method 04/17/24 15:20 04/17/24 15:22 04/17/24 15:26 Temperature Pulse Rate 71 Respiratory Rate Blood Pressure 193/103 H 190/107 H Pulse Oximetry 98 Oxygen Delivery Method 04/17/24 15:26 04/17/24 15:27 04/17/24 15:37 Temperature Pulse Rate Respiratory Rate Blood Pressure 196/108 H Pulse Oximetry 98 99 Oxygen Delivery Method 04/17/24 15:38 04/17/24 15:46 04/17/24 15:46 Temperature Pulse Rate 86 68 Respiratory Rate Blood Pressure 196/108 H 202/96 H Pulse Oximetry 99 Oxygen Delivery Method 04/17/24 16:00 04/17/24 16:00 04/17/24 16:30 Temperature Pulse Rate 70 Respiratory Rate Blood Pressure 194/92 H 180/92 H Pulse Oximetry 98 Oxygen Delivery Method 04/17/24 16:30 04/17/24 17:00 04/17/24 17:00 Temperature Pulse Rate 74 68 Respiratory Rate Blood Pressure 190/97 H Pulse Oximetry 96 98 Oxygen Delivery Method 04/17/24 17:11 04/17/24 17:30 04/17/24 17:42 Temperature Pulse Rate 67 74 Respiratory Rate Blood Pressure 203/98 H Pulse Oximetry 99 97 Oxygen Delivery Method 04/17/24 17:43 04/17/24 17:43 Temperature Pulse Rate 70 Respiratory Rate Blood Pressure 180/86 H Pulse Oximetry 98 Oxygen Delivery Method MDM - Recheck/Abnormal Lab/Rx Lab Data 04/17/24 12:25 04/17/24 12:25 Labs: Lab Results 04/17/24 04/17/24 04/17/24 Range/Units 12:25 12:30 12:30 WBC 7.1 (4.5-11.0) X10^3/uL RBC 3.72 L (4.5-5.9) X10^6/uL Hgb 9.6 L (13.5-17.5) g/dL Hct 28.8 L (41-53) % MCV 77.5 L (80-100) fL MCH 25.9 L (26-34) PG MCHC 33.4 (30-36) % RDW 16.6 H (11.6-14.8) % Plt Count 396 (150-400) X10^3/uL Neut % (Auto) 72.0 (50-75) % Lymph % (Auto) 16.7 L (25-40) % [place] % (Auto) 7.6 (3-14) % Eos % (Auto) 2.3 (2-4) % Baso % (Auto) 1.4 (0-2) % Neut # (Auto) 5100 (6743-9934) /uL Lymph # (Auto) 1200 (1760-5119) /uL [place] # (Auto) 500 (0-900) /uL Eos # (Auto) 200 (0-450) /uL Baso # (Auto) 100 (0-100) /uL Sodium 137 (137-145) mmol/L Potassium 4.4 (3.4-5.1) mmol/L Chloride 100 (98-107) mmol/L Carbon Dioxide 28 (22-32) mmol/L BUN 26 H (9-20) mg/dL Creatinine 0.85 (0.66-1.25) mg/dL Estimated GFR > 60 (>60) mL/min BUN/Creatinine Ratio 30.6 H (6-22) Glucose 322 H (80-110) mg/dL Calcium 8.9 (8.4-10.2) mg/dL Total Bilirubin 0.4 (0.2-1.3) mg/dL AST 16 L (17-59) IU/L ALT 14 (<50) IU/L Alkaline Phosphatase 92 (38-126) U/L Total Protein 7.2 (6.3-8.2) g/dL Albumin 3.8 (3.5-5.0) g/dL Globulin 3.4 (1.7-4.1) g/dL Albumin/Globulin Ratio 1.1 (1.0-2.8) Lipase 122 (23-300) U/L Urine Color Yellow Urine Appearance Clear Urine pH 6.5 Normal (4.5-8.0) Ur Specific [place] 1.010 (1.000-1.035) Urine Protein Negative (Negative) Urine Glucose (UA) 3+ H (Negative) g/dL Urine Ketones Negative (NEGATIVE) Urine Occult Blood Negative (Negative) Urine Nitrate Negative (Negative) Urine Bilirubin Negative (NEGATIVE) Urine Urobilinogen 0.2 (0.2) E.U./dL Ur Leukocyte Esterase Negative (NEGATIVE) Urine RBC None seen (0-5/HPF) Urine WBC None seen (0-5/HPF) Ur Squamous Epith Cells None seen (0-5/HPF) Urine Bacteria None seen (None) Ur Culture Indicated? Cult not indicated Vol Urine Centrifuged 10ml (spun) U Opiates 300ng/mL cut Negative (Negative) Ur Oxycodone Screen Positive H (Negative) Urine Methadone Screen Negative (Negative) Ur Barbiturates Screen Negative (Negative) U Tricyclic Antidepress Negative (Negative) Ur Phencyclidine Scrn Negative (Negative) Ur Amphetamines Screen Negative (Negative) U Methamphetamines Scrn Negative (Negative) Ur MDMA Scrn (Ecstasy) Negative (Negative) U Benzodiazepines Scrn Negative (Negative) Urine Cocaine Screen Negative (Negative) U Marijuana (THC) Screen Positive H (Negative) Urine Specific [place] Normal (Normal) Ur Creatinine Normal (Normal) Point of Care Testing Glucose POC 156 ECG Data Attestation: I personally reviewed and interpreted this ECG as follows: Prior ECG tracings: available for review Interpretation: Sinus rhythm rate of 70, [place] 156 QRS 82 QTC 432. No acute ST elevation. Patient has prior from 11/03/2021 appears similar no acute changes. [facility] Narrative Medical decision making narrative: Labs show white count of 7.1 hemoglobin is 9.6 has been 9-11 in the past, platelets are 396. Chemistry shows sodium 137 potassium 4.4 chloride of 100 CO2 of 28 BUN 26 with a creatinine of 0.85 glucose of 322, calcium 8.9 bilirubin 0.4 AST is 16 ALT of 14 with an alk-phos of 92, LFTs are negative. EKG shows sinus rhythm no acute changes. UA shows 3+ glucose otherwise negative. UDS is positive for marijuana, oxycodone which is on patient's discharge list. Chest x-ray shows no acute osseous change lung volumes are low possible airspace disease and atelectasis. Foot x-ray read indeterminate lucency in the calcaneal body also seen on prior radiographs postsurgical changes soft tissue swelling no acute displaced fracture plantar calcaneal and cyst thought be present. Notes not made but there is what appears to be metal foreign body and bonnie on the anterior/midfoot as well. Patient is hyperglycemic, hypertension but no admittable diagnosis. Patient has not taken his medications today. He is here with his caregiver, they have not picked up any of the prescriptions sent. They note he has had some changes to his medications believe he was started on Imdur and another medication but do not recall what it is called. Patient was given hit to his doses of his home blood pressure medication while trying to figure out his actual new home med list. PT did evaluate patient, patient had quite a bit of pain and difficulty with any sort of weight-bearing on his foot. They felt that he would benefit from SNF placement. DEAD MAIL CHECKER has met with patient, patient does have home health care 4-5 days weekly. They had quite a bit of difficulty getting him placed anywhere we will attempt to seek placement but discussed with patient maybe unsuccessful. Patient signed out to Dr. Duffy overnight while boarding we will re-evaluate with social work in the morning to see about placement. Patient's home medications has been ordered except for his baclofen. Patient glucose improved with insulin was in the 150 range. Blood pressure slowly improving after having some of his oral medication. Patient is aware that placement may not work and that he maybe discharged home tomorrow patient and caregiver are understanding of this plan and seem uncomfortable but would like to attempt tomorrow. Discharge Plan Departure Clinical Impression: Hyperglycemia Prescriptions: No Action (DME) lancets 33 gauge misc See Rx Instructions .Route Qty: 100 0RF Rx Instructions: Use to test once daily (DME) blood-glucose meter [True Metrix Glucose Meter] Misc See Rx Instructions .ROUTE .MEDSUPPLY Qty: 1 0RF Rx Instructions: As directed (DME) True Metrix Glucose Test Strip Strip See Rx Instructions .ROUTE .MEDSUPPLY Qty: 100 0RF Rx Instructions: Use to test once daily amlodipine 5 mg tablet 5 mg PO BID lisinopril 40 mg tablet 40 mg PO DAILY baclofen 20 mg tablet 20 mg PO 4XD baclofen 10 mg tablet 10 mg PO 4XD PRN (Reason: muscle spasm) gabapentin 100 mg capsule 200 mg PO 3XD amoxicillin-pot clavulanate 875-125 mg tablet 1 tab PO BID insulin lispro 100 unit/mL insulin pen 0 - 12 unit SUBCUT TIDWM Patient Comments: inject subcutaneously daily per sliding scale if BG=71-119 No addition; 120- 150 - 2 units; 151-200 - 4 units; 201-250 - 6 units; 251-300 - 8 units; 301-350 - 10 units. Greater than 351 - 12 units. max of 12 units per day sennosides [senna] 8.6 mg tablet 8.6 mg PO DAILY isosorbide mononitrate 30 mg tablet extended release 24 hr 30 mg PO DAILY polyethylene glycol 3350 17 gram/dose powder 17 g PO DAILY PRN (Reason: constipation) insulin glargine 100 unit/mL (3 mL) Insulin Pen 22 unit SUBCUT DAILY oxycodone 10 mg tablet 10 mg PO Q4H PRN (Reason: moderate pain) naloxone 4 mg/actuation spray,non-aerosol 1 spray intranasal PRN PRN (Reason: overdose) magnesium oxide 400 mg magnesium Tablet 400 mg PO DAILY Referrals: Jhony Dodd MD [Primary Care Provider] -
--- NOTE | 2024-04-17 14:50 | PT.IIE ---
Medical History (Last Reviewed 04/17/24 @ 16:39 by Dona Sue DO) HTN (hypertension) Type 2 diabetes mellitus Physical Therapy Inpatient Evaluation/Re-Eval M1 PT/OT-IP Prior Functional Status Start: 04/17/24 16:06 Freq: Status: Active Protocol: Document 04/17/24 14:50 AB (Rec: 04/17/24 16:45 AB [id number]) Medical Review Prior Functional Status Medical History Reviewed Yes Communication able to make needs known Mobility and Gait pt was just at home for ~ 10 hours coming from [facility]. Per nurse, pt was at [facility] 03/29/24 for I&D and ski graft. Pt was just at [facility] for ~ 3-4 days per caregiver. per ER doctor and stated that per pt, he was walking with staff using a FWW at [facility]. per child welfare caseworker, stated that SNF was recommended for pt when he was at [facility] but unable to get any SNF placement and pt was just sent home. Unable to get much PLOF since pt stated that he was just at home for ~ 10 hours and has not gotten up. Social History Household Members none Living Arrangements Apartment/Condo Number of Floors (Floors) One Floor Number of Stairs To Enter/Railing? first floor apartment with 1 step to enter Home Environment Standard Height Toilet,Tub/ Shower Home Equipment Front Wheel Walker,Four Wheel Walker,Tub Transfer Bench,Hand Held Shower Additional Social History Comment pt stated that buildiing manager clinical applications will get him a bedside commode and a manual w/c pt has a caregiver that comes in 4 days/week but hours varies since pt just got approved for ~ 108 RUTH hours M2 PT-IP Current Condition Start: 04/17/24 16:06 Freq: Status: Active Protocol: Document 04/17/24 14:50 AB (Rec: 04/17/24 16:45 AB [id number]) Physical Therapy Current Condition Current Condition Evaluation Date 04/17/24 Treatment Diagnosis failure to thrive; difficulty in walking Onset Date 04/17/24 M3 PT-IP Subjective Start: 04/17/24 16:06 Freq: Status: Active Protocol: Document 04/17/24 14:50 AB (Rec: 04/17/24 16:45 AB [id number]) Subjective Physical Therapy Visit Type Type Initial Evaluation Visit Start Time 14:50 Visit Stop Time 16:05 Number of TELEPHONE INSTRUMENT SUPERVISOR Visits 0 Physical Therapy Visit Comments Patient Comments agreeable to do PT Therapy Pain Assessment Pain When Pain Assessed At Rest Pain Present Pain Present Pain Reported Location Chest Scale Used c/o soreness Pain Management Techniques Distraction,Modification of Treatment,Re-positioning, Timing of Activity with Medications Bilateral Upper Arm Scale Used c/o soreness Pain Management Techniques Distraction,Modification of Treatment,Re-positioning, Timing of Activity with Medications M4 PT-IP Mobility and Gait Start: 04/17/24 16:06 Freq: Status: Active Protocol: Document 04/17/24 14:50 AB (Rec: 04/17/24 16:45 AB [id number]) PT-Bed Mobility Assessment Supine to Sit Supine to Sit Maximum Assistance,1 Person Assistance,Head of Bed Elevated Sit to Supine Sit to Supine Maximum Assistance,1 Person Assistance PT-Transfer Assessment Sit to and From Stand Sit to and from Stand Maximum Assistance,2 Person Assistance,Use of Upper Extremities Equipment Transfer Assistive Device Gait Belt,Front Wheeled Walker Comments Mobility Comments Checked with nurse and gave pt 's medical history. nurse stated that pt was found unresponsive by caregiver and CPR was done and pt brought to ED. stated that pt had L foot I&D and skin graft at [facility] last 03/29/24. stated that they just received records from [facility] (recent hospitalization). child welfare caseworker informed PT that pt was d/c'd from [facility] to home due to difficulty getting pt to SNF rehab. asked nurse regarding pt's weight bearing status on LLE. ER doctor responded and no records obtained for weight bearing status. automation manager called [facility] to ask regarding weight bearing status and message left and unable to obtain info. checked with pt and pt with caregiver. pt stated that he is NWB on LLE. obtained pt's home setup. pt unable to provide much PLOF and stated that he was just home for ~ 10 hours. BP checked: 193/103 on RUE. pt and caregiver stated that pt had not had any of his medications this morning. informed nurse and nurse said that pt's BP has been high and that it should not stop PT from seeing pt. informed nurse that PT has protcols to follow and usually if BP is still high, PT will be on hold . nurse to ask ER doctor for medications for pt. checked back on pt and BP checked on LUE: 190/107. Set up pt while awaiting for nurse 's clarification for BP meds. PT asked caregiver more info regarding pt. stated that she was assisting pt for only 2 days before and recently, pt just had increase of RUTH hours and she should be assisting pt for 4 days/week but with varying hours. pt completed supine to sit max A and cues. pt sat on EOB. CGA for sitting balance. c/o dizziness. BP checked: 196/108 . nurse came in and gave pt BP medications. opted to limit activity due to high BP but PT eval proceeded due to need for d/c planning. pt completed sit to stand max Ax 2 and max cues. unable to stand upright and with unable to maintain NWB on LLE. increase R knee flexion in standing. sat pt back on EOB. instructed pt to scoot towards HOB and completed. cued not to push with LLE. pt completed sit to supine max A and max cues. positioned pt in bed. call light and table place within reach. BP at end of PT seesion: 202/96. nurse and ER doctor aware. informed care advocate regarding SNF d/c plan at this time. informed ER doctor regarding pt's mobility, BP and weight bearing status. ER doctor stated that pt said that he was walking when he was at [facility] so weight bearing status is questionable . will need further clarification but at this time , PT to continue NWB on LLE for safety. M5 PT-IP Objective Assessments Start: 04/17/24 16:06 Freq: Status: Active Protocol: Document 04/17/24 14:50 AB (Rec: 04/17/24 16:45 AB [id number]) Orientation Orientation/Cognition Level of Alertness Alert Orientation Name Safety Awareness Decreased Safety Awareness Memory Description Short Term Impaired,Longterm Impaired Gross Range of Motion Lower Extremity ROM Assessment Within Functional Limits Strength Lower Extremity Strength Assessment Bilaterally Impaired Comments Strength Comments RLE: 3+/5 LLE: 3-/5 Muscle Tone Muscle Tone WNL Yes M6 PT-IP Treatment Start: 04/17/24 16:06 Freq: Status: Active Protocol: Document 04/17/24 14:50 AB (Rec: 04/17/24 16:45 AB [id number]) Physical Therapy Treatment Education Education Provided Weight Bearing Status,Safety M7 PT-IP Assessment and Plan Start: 04/17/24 16:06 Freq: Status: Active Protocol: Document 04/17/24 14:50 AB (Rec: 04/17/24 16:45 AB [id number]) PT Summary Assessment and Plan Potential Rehabilitation Potential Fair Status of Condition at Evaluation Unstable Summary Impairments Pain,ROM,Strength,Balance, Coordination,Sensation,Tone, Cognition,Bed Mobility, Transfers,Gait,Activity Tolerance Assessment Summary PT eval received from ED to assess pt's mobility for possible admit and for d/c plans. pt with recent hospitalizations at [facility] and [facility]. pt had LLE I&D and skin grafts at [facility] and unable to clarify weight bearing status. will follow NWB on LLE during PT session at this time until clarification obtained. pt requiring max A with bed mobility and max A x 2 for sit to stand. pt unable to maintain NWB on LLE and unable to tolerate much standing to be able to transfer or ambulate. pt will require SNF rehab to improve overall mobility and independence. will continue to assess progress. Goals Bed Mobility Goal Minimal Assistance Transfer Goal Minimal Assistance,Front Wheeled Walker Gait Goal Minimal Assistance,Front Wheel Walker Gait Distance 25 Other Goals improve bed mobility, transfers, ambulation using FWW ~ 50 ft SBA Days to Meet Goals 10 Frequency of Treatment Frequency Of Treatment Once a Day Treatment Plan Physical Therapy Treatment Plan Bed Mobility Training,Transfer Training,Gait Training, Therapeutic Exercise,Balance Retraining,Post Op Education, Discharge Planning,Hot or Cold Pack,Neuromuscular Re-ed, Coordination Retraining,Manual Therapy Weight Bearing Status Weight Bearing Status Non-Weight Bearing Allowed Weight Bearing Amount (enter % LLE NWB at this time: will or #) (%) need clarifications Recommendations To Nursing Amount of Assist Needed Mechanical Lift Discharge Recommendations PT Discharge Recommendations SNF Rehab Transportation Needs at Discharge Wheelchair/Cabulance,Stretcher /Ambulance
[2024-04-17] MEDS: lisinopriL 20 MG TABLET 40 MG PO (15:38)
[2024-04-17] MEDS: AMLODIPINE 5 MG TABLET PO (15:38)
--- NOTE | 2024-04-17 15:51 | PC.NURSE ---
Blood was drawn instead of IV. Davon bruner.
[2024-04-17] MEDS: INSULIN LISPRO 100 UNIT/ML 3ML VIAL SUBCUT ×2 (17:13→21:37)
--- NOTE | 2024-04-17 17:20 | CM.SWNOTE ---
Addendum entered by Holli Phillips 04/17/24 17:59: Patient's caregiver is: Pipo Whitley (Ph. # [phone]) She states she is with patient 5 days a week but some of those days of the week she is not able to be with patient 8 hours a day. Holli Phillips, [facility] Original Note: ED ASW SPECIALIST Note Patient is 63 y/o male who presents to ED via EMS after discharge from [facility] ICU yesterday. Patient presents with concerns for ambulation and ADLs, upper body and foot pain. Patient also presents with ongoing infection on left foot. Patient's PCP is Dr. Dodd, patient has [facility] Medicaid insurance. Patient is full code. Patient has hx of left diabetic foot infection, Hypertension, Type 2 Diabetes, mild hyponatremia and chronic pain. Patient endorses hx of JAVON use but states he only uses daily marijuana now. Patient admits to recent Methamphetamine use two weeks ago when someone brought it to him. Patient denies current use or plans for future use. Patient was inpatient at [facility] on 03/28/24-04/05/24 for acute chronic left wound infection, skin graft with plan to f/u with outpt Podiatry. Patient was unable to f/u with outpatient appts because he went to [facility] on 04/08/24 when he was requiring CPR and intubation due to septic shock and accidental overdose of medications. It is reported through records that patient was positive for Methamphetamine at this time. ASW SPECIALIST speaks with Safe Deposit Attendant at [facility] who reports that they attempted to place patient at SNF rehabs, was limited by insurance, patient's preference to not be placed farther than [place] and concerns of patient's JAVON. It is reported that their care management team attempted placement at [facility], [facility], [facility] and [facility]. It is reported that they attempted HH referral for patient through [facility] but those referrals were denied as well. ASW SPECIALIST calls patient's assigned [facility] Principal System Software Engineer Jose Marshall (Ph. # [phone]) who reports that patient has caregiver hours (166/month). Patient has caregiver M-F 8 hours a day. Allan reports patient's daily rate if needed is $180.53. ASW SPECIALIST discusses previous barriers of getting patient placed at SNFs and that patient may need new assessment for higher level of care, it is reported that patient's most recent assessment was in March when patient's caregiver hours increased. ASW SPECIALIST calls [facility] and it is reported that patient has received services before most recently ending in January 2024. Ernestine reports they did not receive a recent referral for HH from [facility] and they could review patient for new referral if needed. ASW SPECIALIST enters room to meet with patient, patient presents as A/Ox4, present in room is patient's caregiver. ASW SPECIALIST discusses previous barriers in seeking SNF rehab placement and states that those may continue to be an issue in seeking SNF rehab placement. ASW SPECIALIST asks about patient's substance use and discusses that this was a barrier in patient getting placed for SNF rehab. Patient admits to recent use about two weeks ago and states prior to that he was clean for ten years and patient denies any intention to use currently or in the future. Patient has been struggling with incontinence recently and caregiver reports concerns with her ability to lift patient up if he falls. Patient states he has a FWW at home that may need to be replaced and caregiver plans to acquire a wheelchair and bedside commode. Patient is currently dependent on caregiver services 5 days a week/ 8 hours a day for assistance with ADLs, presents with trouble ambulating and meeting needs at this time. Patient depends on Medicaid transport and rides from others. Patient endorses he is open to any SNF rehab placement that can be secured. ASW SPECIALIST discusses plan B of HH and patient is open to [facility] and [facility]. [facility] states they do not accept his insurance and patient is limited to [facility] . PT evaluates patient and recommends SNF rehab. ASW SPECIALIST calls [facility] and they report that they denied patient due to concerns for JAVON use. ASW SPECIALIST calls [facility] and leaves MICAH regarding recent referral from [facility] and requests return call. ASW SPECIALIST calls [facility] and leaves Juliet OBRIEN calls back and states she can review patient. ASW SPECIALIST faxes clinicals and PT eval for review. ASW SPECIALIST emails No Sharif clinicals and PT eval for review. ASW SPECIALIST calls [facility] to see if they can review patient again given the change in circumstances and need for SNF rehab. ASW SPECIALIST calls [facility] and leaves MICAH, ASW SPECIALIST faxes clinicals and PT consult for review. Plan: Continue to attempt SNF rehab placement for patient, f/u with SNF rehab facilities that were contacted. Plan B: referral with [facility] with caregiver. At this time there is no admitting dx for patient, patient to board in ED. TAMIKO Reyes Discharge Planning/Care Management CM Discharge Assessment Start: 04/17/24 17:12 Freq: Status: Active Protocol: Document 04/17/24 17:12 LN (Rec: 04/17/24 17:18 LN [id number]) Discharge Planning Assessment Assigned Edger Saw Operator TAMIKO De La Garza Advance Directives? No Advance Directives on File No History Provided By Patient,Medical Record Has Patient been admitted in last 30 Yes days? Comment Patient was admitted at [facility] from 04/08/24-04/16/24 and at [facility] from 03/28/24- 04/05/24. Prior Living Arrangements Apartment/Condo Household Members none Type of transporation used prior to Medicaid Transport admit Comment Patient also receives rides from Caregiver Independent with ADL's No Is patient alert and oriented? Yes Needs Assistance With Bathing,Grooming,Meal Prep, Toileting,Managing Medications ,Home Chores / Shopping Caregiver for Another No DME Already Rented / Owned FWW / Walker Comment Patient has FWW at home with plans to obtain a wheelchair and bedside commode Name of Agency [facility] Contact Phone [phone] Clinicals Faxed No Hours / Month 166 Comment Patient's assigned family service caseworker is Allan Marshall, she reports patient's rate of pay per patient's last assessment earlier this month is $180.53 a day. Patient/Family Preference [facility] Facility Comment Plan A: SNF rehab, plan B: Home Health with caregiver. Referrals Initiated [facility],Home Health Additional Comment SNF rehab vs. HH If patient plan is home with home health No : Has signed face to face form been completed? If patient plan is SNF: Has PASSR been No completed? SNF/HH Preference No preference reported. Patient has limited SNF availability due to patient insurance. Contact Name/Phone [facility], No Sharif, [place]. Has Agency SNF been contacted Yes Please Provide Date Initial DC 04/17/24 Assessment Was Performed
--- NOTE | 2024-04-17 17:25 | PC.NURSE ---
Patient states that the pressure injury on his coccyx is from his inpatient ICU stay at [facility]. Caregiver onsite concurs that there was no skin breakdown in that area prior to hospitalization. This RN assessed area and it is 4cm long and 3cm wide. Turning protocol put in place. Patient wound covered with small alleyvn foam dressing. This RN assessed patient left foot there is 4cm in circumference medial to the patient ball of the left foot. Patient recently had procedure in this area from [facility]. Patient has what appears to be small pin at the top of the wound with three bonnie surrounding the wound on remaining sides. Patient has a 2cm circumference wound outerwardly lateral to the previously described wound. Patient at the base of interior left foot has 4cm long open area with 6 bonnie surrounding the skin. Patient has donor scabbed over piece of skin on left interior skin that measures 3cm long and 1 cm wide. This area is reddish pink surrounding and scabbed over.
[2024-04-17] MEDS: OXYCODONE IR 5 MG TABLET PO (18:04)
[2024-04-17] MEDS: ACETAMINOPHEN 325 MG TABLET 650 MG PO (18:05)
[2024-04-17] MEDS: INSULIN GLARGINE 100 UNIT/ML 3ML PEN 22 UNIT SUBCUT (21:41)
[2024-04-17] MEDS: AMOXICILLIN/CLAV 875/125 MG 1 TAB PO (21:42)
[2024-04-17] MEDS: GABAPENTIN 300 MG CAPSULE PO (21:42)
--- NOTE | 2024-04-17 22:06 | ED_ITS ---
HPI - Recheck/Abnormal Lab/Rx General Chief Complaint: Recheck/Abnormal Lab/Rx Stated Complaint: Failure to Thrive, Unable to care for himself Time Seen by Provider: 04/17/24 11:58 Source: patient, RN notes reviewed and old records reviewed Mode of arrival: EMS Limitations: no limitations Related Data Home Medications Medication Instructions Recorded Confirmed amlodipine 5 mg tablet 5 mg PO BID 04/17/24 04/17/24 amoxicillin 875 mg-potassium 1 tab PO BID 04/17/24 04/17/24 clavulanate 125 mg tablet baclofen 10 mg tablet 10 mg PO 4XD PRN muscle spasm 04/17/24 04/17/24 baclofen 20 mg tablet 20 mg PO 4XD 04/17/24 04/17/24 gabapentin 100 mg capsule 200 mg PO 3XD 04/17/24 04/17/24 insulin glargine 100 unit/mL (3 22 unit SUBCUT DAILY 04/17/24 04/17/24 mL) subcutaneous pen insulin lispro 100 unit/mL 0 - 12 unit SUBCUT TIDWM 04/17/24 04/17/24 subcutaneous pen isosorbide mononitrate 30 mg 30 mg PO DAILY 04/17/24 04/17/24 tablet,extended release 24 hr lisinopril 40 mg tablet 40 mg PO DAILY 04/17/24 04/17/24 magnesium oxide 400 mg PO DAILY 04/17/24 04/17/24 naloxone 4 mg/actuation nasal spray 1 spray intranasal PRN PRN overdose 04/17/24 04/17/24 oxycodone 10 mg tablet 10 mg PO Q4H PRN moderate pain 04/17/24 04/17/24 polyethylene glycol 3350 17 17 g PO DAILY PRN constipation 04/17/24 04/17/24 gram/dose oral powder sennosides 8.6 mg tablet (senna) 8.6 mg PO DAILY constipation 04/17/24 04/17/24 Previous Rx's Medication Instructions Recorded blood sugar diagnostic (True #100 ea 09/30/23 Metrix Glucose Test Strip) blood-glucose meter (True Metrix #1 ea 09/30/23 Glucose Meter) lancets 33 gauge #100 ea 09/30/23 Allergies Allergy/AdvReac Type Severity Reaction Status Date / Time No Known Drug Allergies Allergy Verified 04/17/24 11:33 Patient History Medical History HTN (hypertension) Type 2 diabetes mellitus Social History household members: none Smoking Status: Former smoker alcohol intake: current Smoking Status: Former smoker alcohol intake frequency: holidays/special occasions only Substance Use Type: marijuana and prescription drug Exam Initial Vital Signs Initial Vital Signs: Vital Signs Temperature 97.8 F 04/17/24 11:20 Pulse Rate 78 04/17/24 11:20 Respiratory Rate 14 04/17/24 11:20 Blood Pressure 196/94 H 04/17/24 11:20 Pulse Oximetry 96 04/17/24 11:20 Oxygen Delivery Method Room Air 04/17/24 11:20 Course Orders Ordered: Acetaminophen (Acetaminophen 325 Mg Tablet) 650 mg PO Q6H PRN PRN Reason: Fever/Mild Pain (1-3) Last Admin: 04/17/24 18:05 Dose: 650 mg Documented By: DARYL Amlodipine Besylate (Amlodipine 5 Mg Tablet) 5 mg PO BID [facility] Amoxicillin/Clavulanate Potassium (Amoxicillin/Clav 875/125 Mg) 1 tab PO BID [facility] Last Admin: 04/17/24 21:42 Dose: 1 tab Documented By: FENG Gabapentin (Gabapentin 300 Mg Capsule) 300 mg PO TID [facility] Last Admin: 04/17/24 21:42 Dose: 300 mg Documented By: FENG Insulin Glargine (Insulin Glargine 100 Unit/Ml 3ml Pen) 22 unit SUBCUT BEDTIME [facility] Last Admin: 04/17/24 21:41 Dose: 22 unit Documented By: FENG Co-signed By: SB Insulin Human Lispro (Insulin Lispro 100 Unit/Ml 3ml Vial) 0 unit SUBCUT ACHS [facility]; Protocol Last Admin: 04/17/24 21:37 Dose: 2 unit Documented By: FENG Co-signed By: SB Admin: 04/17/24 17:13 Dose: 2 unit Documented By: RB Co-signed By: CARLINE Isosorbide Mononitrate (Isosorbide Mononitrate Er 30 Mg Tablet) 30 mg PO DAILY [facility] Lisinopril (Lisinopril 20 Mg Tablet) 40 mg PO DAILY [facility] Magnesium Oxide (Magnesium Oxide 400 Mg Tablet) 400 mg PO DAILY [facility] Oxycodone HCl (Oxycodone Ir 5 Mg Tablet) 5 mg PO Q6H PRN PRN Reason: Pain, Moderate (4-6) Last Admin: 04/18/24 00:07 Dose: 5 mg Documented By: Admin: 04/17/24 18:04 Dose: 5 mg Documented By: RB Discontinued Medications Amlodipine Besylate (Amlodipine 5 Mg Tablet) 5 mg PO NOW ONE Stop: 04/17/24 15:35 Last Admin: 04/17/24 15:38 Dose: 5 mg Documented By: RB Lisinopril (Lisinopril 20 Mg Tablet) 40 mg PO NOW ONE Stop: 04/17/24 15:35 Last Admin: 04/17/24 15:38 Dose: 40 mg Documented By: RB Vital Signs Vital signs: Vital Signs - 8 hr 04/17/24 18:39 04/17/24 19:00 04/17/24 19:30 Pulse Rate 85 Respiratory Rate 18 Blood Pressure 168/89 H 173/85 H Pulse Oximetry 94 Oxygen Delivery Method 04/17/24 19:46 04/17/24 19:49 04/17/24 20:00 Pulse Rate 71 Respiratory Rate Blood Pressure 182/90 H 167/80 H Pulse Oximetry 96 Oxygen Delivery Method 04/17/24 20:00 04/17/24 20:30 04/17/24 20:30 Pulse Rate 74 72 Respiratory Rate Blood Pressure 198/93 H Pulse Oximetry 96 96 Oxygen Delivery Method 04/17/24 21:00 04/17/24 21:00 04/17/24 21:30 Pulse Rate 74 71 Respiratory Rate Blood Pressure 180/89 H Pulse Oximetry 95 95 Oxygen Delivery Method 04/17/24 22:00 04/17/24 22:00 04/17/24 22:30 Pulse Rate 76 68 Respiratory Rate 18 Blood Pressure 192/94 H Pulse Oximetry 96 94 Oxygen Delivery Method 04/17/24 23:00 04/17/24 23:00 04/17/24 23:30 Pulse Rate 83 69 Respiratory Rate Blood Pressure 177/84 H Pulse Oximetry 97 95 Oxygen Delivery Method Room Air 04/18/24 00:03 Pulse Rate 69 Respiratory Rate Blood Pressure 156/76 H Pulse Oximetry 96 Oxygen Delivery Method Room Air MDM - Recheck/Abnormal Lab/Rx Lab Data 04/17/24 12:25 04/17/24 12:25 Labs: Lab Results 04/17/24 04/17/24 04/17/24 Range/Units 12:25 12:30 12:30 WBC 7.1 (4.5-11.0) X10^3/uL RBC 3.72 L (4.5-5.9) X10^6/uL Hgb 9.6 L (13.5-17.5) g/dL Hct 28.8 L (41-53) % MCV 77.5 L (80-100) fL MCH 25.9 L (26-34) PG MCHC 33.4 (30-36) % RDW 16.6 H (11.6-14.8) % Plt Count 396 (150-400) X10^3/uL Neut % (Auto) 72.0 (50-75) % Lymph % (Auto) 16.7 L (25-40) % [place] % (Auto) 7.6 (3-14) % Eos % (Auto) 2.3 (2-4) % Baso % (Auto) 1.4 (0-2) % Neut # (Auto) 5100 (7672-1152) /uL Lymph # (Auto) 1200 (4938-0674) /uL [place] # (Auto) 500 (0-900) /uL Eos # (Auto) 200 (0-450) /uL Baso # (Auto) 100 (0-100) /uL Sodium 137 (137-145) mmol/L Potassium 4.4 (3.4-5.1) mmol/L Chloride 100 (98-107) mmol/L Carbon Dioxide 28 (22-32) mmol/L BUN 26 H (9-20) mg/dL Creatinine 0.85 (0.66-1.25) mg/dL Estimated GFR > 60 (>60) mL/min BUN/Creatinine Ratio 30.6 H (6-22) Glucose 322 H (80-110) mg/dL Calcium 8.9 (8.4-10.2) mg/dL Total Bilirubin 0.4 (0.2-1.3) mg/dL AST 16 L (17-59) IU/L ALT 14 (<50) IU/L Alkaline Phosphatase 92 (38-126) U/L Total Protein 7.2 (6.3-8.2) g/dL Albumin 3.8 (3.5-5.0) g/dL Globulin 3.4 (1.7-4.1) g/dL Albumin/Globulin Ratio 1.1 (1.0-2.8) Lipase 122 (23-300) U/L Urine Color Yellow Urine Appearance Clear Urine pH 6.5 Normal (4.5-8.0) Ur Specific [place] 1.010 (1.000-1.035) Urine Protein Negative (Negative) Urine Glucose (UA) 3+ H (Negative) g/dL Urine Ketones Negative (NEGATIVE) Urine Occult Blood Negative (Negative) Urine Nitrate Negative (Negative) Urine Bilirubin Negative (NEGATIVE) Urine Urobilinogen 0.2 (0.2) E.U./dL Ur Leukocyte Esterase Negative (NEGATIVE) Urine RBC None seen (0-5/HPF) Urine WBC None seen (0-5/HPF) Ur Squamous Epith Cells None seen (0-5/HPF) Urine Bacteria None seen (None) Ur Culture Indicated? Cult not indicated Vol Urine Centrifuged 10ml (spun) U Opiates 300ng/mL cut Negative (Negative) Ur Oxycodone Screen Positive H (Negative) Urine Methadone Screen Negative (Negative) Ur Barbiturates Screen Negative (Negative) U Tricyclic Antidepress Negative (Negative) Ur Phencyclidine Scrn Negative (Negative) Ur Amphetamines Screen Negative (Negative) U Methamphetamines Scrn Negative (Negative) Ur MDMA Scrn (Ecstasy) Negative (Negative) U Benzodiazepines Scrn Negative (Negative) Urine Cocaine Screen Negative (Negative) U Marijuana (THC) Screen Positive H (Negative) Urine Specific [place] Normal (Normal) Ur Creatinine Normal (Normal) Point of Care Testing Glucose POC 179 Discharge Plan Departure Clinical Impression: Hyperglycemia Prescriptions: No Action (DME) lancets 33 gauge misc See Rx Instructions .Route Qty: 100 0RF Rx Instructions: Use to test once daily (DME) blood-glucose meter [True Metrix Glucose Meter] Misc See Rx Instructions .ROUTE .MEDSUPPLY Qty: 1 0RF Rx Instructions: As directed (DME) True Metrix Glucose Test Strip Strip See Rx Instructions .ROUTE .MEDSUPPLY Qty: 100 0RF Rx Instructions: Use to test once daily amlodipine 5 mg tablet 5 mg PO BID lisinopril 40 mg tablet 40 mg PO DAILY baclofen 20 mg tablet 20 mg PO 4XD baclofen 10 mg tablet 10 mg PO 4XD PRN (Reason: muscle spasm) gabapentin 100 mg capsule 200 mg PO 3XD amoxicillin-pot clavulanate 875-125 mg tablet 1 tab PO BID insulin lispro 100 unit/mL insulin pen 0 - 12 unit SUBCUT TIDWM Patient Comments: inject subcutaneously daily per sliding scale if BG=71-119 No addition; 120- 150 - 2 units; 151-200 - 4 units; 201-250 - 6 units; 251-300 - 8 units; 301-350 - 10 units. Greater than 351 - 12 units. max of 12 units per day sennosides [senna] 8.6 mg tablet 8.6 mg PO DAILY isosorbide mononitrate 30 mg tablet extended release 24 hr 30 mg PO DAILY polyethylene glycol 3350 17 gram/dose powder 17 g PO DAILY PRN (Reason: constipation) insulin glargine 100 unit/mL (3 mL) Insulin Pen 22 unit SUBCUT DAILY oxycodone 10 mg tablet 10 mg PO Q4H PRN (Reason: moderate pain) naloxone 4 mg/actuation spray,non-aerosol 1 spray intranasal PRN PRN (Reason: overdose) magnesium oxide 400 mg magnesium Tablet 400 mg PO DAILY Referrals: Jhony Dodd MD [Primary Care Provider] -
[2024-04-18] VITALS (24 sets, daily range): BP systolic 140–221; BP diastolic 68–105; PULSE 59–88; RESP 18; TEMP 36.6–37.1; O2SAT 93–100
[2024-04-18] MEDS: OXYCODONE IR 5 MG TABLET PO (00:07)
--- NOTE | 2024-04-18 06:19 | ED.RECABL ---
HPI - Recheck/Abnormal Lab/Rx General Chief Complaint: Recheck/Abnormal Lab/Rx Stated Complaint: Failure to Thrive, Unable to care for himself Time Seen by Provider: 04/17/24 11:58 Source: patient, RN notes reviewed and old records reviewed Mode of arrival: EMS Limitations: no limitations Related Data Home Medications Medication Instructions Recorded Confirmed amlodipine 5 mg tablet 5 mg PO BID 04/17/24 04/17/24 amoxicillin 875 mg-potassium 1 tab PO BID 04/17/24 04/17/24 clavulanate 125 mg tablet baclofen 10 mg tablet 10 mg PO 4XD PRN muscle spasm 04/17/24 04/17/24 baclofen 20 mg tablet 20 mg PO 4XD 04/17/24 04/17/24 gabapentin 100 mg capsule 200 mg PO 3XD 04/17/24 04/17/24 insulin glargine 100 unit/mL (3 22 unit SUBCUT DAILY 04/17/24 04/17/24 mL) subcutaneous pen insulin lispro 100 unit/mL 0 - 12 unit SUBCUT TIDWM 04/17/24 04/17/24 subcutaneous pen isosorbide mononitrate 30 mg 30 mg PO DAILY 04/17/24 04/17/24 tablet,extended release 24 hr lisinopril 40 mg tablet 40 mg PO DAILY 04/17/24 04/17/24 magnesium oxide 400 mg PO DAILY 04/17/24 04/17/24 naloxone 4 mg/actuation nasal spray 1 spray intranasal PRN PRN overdose 04/17/24 04/17/24 oxycodone 10 mg tablet 10 mg PO Q4H PRN moderate pain 04/17/24 04/17/24 polyethylene glycol 3350 17 17 g PO DAILY PRN constipation 04/17/24 04/17/24 gram/dose oral powder sennosides 8.6 mg tablet (senna) 8.6 mg PO DAILY constipation 04/17/24 04/17/24 Previous Rx's Medication Instructions Recorded blood sugar diagnostic (True #100 ea 09/30/23 Metrix Glucose Test Strip) blood-glucose meter (True Metrix #1 ea 09/30/23 Glucose Meter) lancets 33 gauge #100 ea 09/30/23 Allergies Allergy/AdvReac Type Severity Reaction Status Date / Time No Known Drug Allergies Allergy Verified 04/17/24 11:33 Patient History Medical History HTN (hypertension) Type 2 diabetes mellitus Social History household members: none Smoking Status: Former smoker alcohol intake: current Smoking Status: Former smoker alcohol intake frequency: holidays/special occasions only Substance Use Type: marijuana and prescription drug Exam Initial Vital Signs Initial Vital Signs: Vital Signs Temperature 97.8 F 04/17/24 11:20 Pulse Rate 78 04/17/24 11:20 Respiratory Rate 14 04/17/24 11:20 Blood Pressure 196/94 H 04/17/24 11:20 Pulse Oximetry 96 04/17/24 11:20 Oxygen Delivery Method Room Air 04/17/24 11:20 Course Orders Ordered: Discontinued Medications Acetaminophen (Acetaminophen 325 Mg Tablet) 650 mg PO Q6H PRN PRN Reason: Fever/Mild Pain (1-3) Last Admin: 04/17/24 18:05 Dose: 650 mg Documented By: DARYL Amlodipine Besylate (Amlodipine 5 Mg Tablet) 5 mg PO NOW ONE Stop: 04/17/24 15:35 Last Admin: 04/17/24 15:38 Dose: 5 mg Documented By: DARYL Amlodipine Besylate (Amlodipine 5 Mg Tablet) 5 mg PO BID [facility] Last Admin: 04/18/24 08:35 Dose: 5 mg Documented By: JULITO Amoxicillin/Clavulanate Potassium (Amoxicillin/Clav 875/125 Mg) 1 tab PO BID [facility] Last Admin: 04/18/24 08:35 Dose: 1 tab Documented By: Admin: 04/17/24 21:42 Dose: 1 tab Documented By: FENG Gabapentin (Gabapentin 300 Mg Capsule) 300 mg PO TID [facility] Last Admin: 04/18/24 08:34 Dose: 300 mg Documented By: Admin: 04/17/24 21:42 Dose: 300 mg Documented By: FENG Insulin Glargine (Insulin Glargine 100 Unit/Ml 3ml Pen) 22 unit SUBCUT BEDTIME [facility] Last Admin: 04/17/24 21:41 Dose: 22 unit Documented By: FENG Co-signed By: SB Insulin Human Lispro (Insulin Lispro 100 Unit/Ml 3ml Vial) 0 unit SUBCUT ACHS [facility]; Protocol Last Admin: 04/18/24 11:54 Dose: 4 unit Documented By: JULITO Co-signed By: DARYL Admin: 04/18/24 08:36 Dose: 2 unit Documented By: JULITO Co-signed By: DARYL Admin: 04/17/24 21:37 Dose: 2 unit Documented By: FENG Co-signed By: SB Admin: 04/17/24 17:13 Dose: 2 unit Documented By: DARYL Co-signed By: CARLINE Isosorbide Mononitrate (Isosorbide Mononitrate Er 30 Mg Tablet) 30 mg PO DAILY [facility] Last Admin: 04/18/24 09:07 Dose: 30 mg Documented By: JULITO Lisinopril (Lisinopril 20 Mg Tablet) 40 mg PO NOW ONE Stop: 04/17/24 15:35 Last Admin: 04/17/24 15:38 Dose: 40 mg Documented By: DARYL Lisinopril (Lisinopril 20 Mg Tablet) 40 mg PO DAILY [facility] Last Admin: 04/18/24 08:34 Dose: 40 mg Documented By: JULITO Magnesium Oxide (Magnesium Oxide 400 Mg Tablet) 400 mg PO DAILY [facility] Last Admin: 04/18/24 09:07 Dose: 400 mg Documented By: JULITO Oxycodone HCl (Oxycodone Ir 5 Mg Tablet) 5 mg PO Q6H PRN PRN Reason: Pain, Moderate (4-6) Last Admin: 04/18/24 00:07 Dose: 5 mg Documented By: Admin: 04/17/24 18:04 Dose: 5 mg Documented By: DARYL Vital Signs Vital signs: Vital Signs - 8 hr 04/18/24 08:00 04/18/24 08:15 04/18/24 08:15 Temperature Pulse Rate 69 74 Respiratory Rate Blood Pressure 216/104 H Blood Pressure [Left Arm] Pulse Oximetry 97 100 Oxygen Delivery Method 04/18/24 08:16 04/18/24 08:16 04/18/24 08:34 Temperature Pulse Rate 76 88 Respiratory Rate Blood Pressure 221/105 H 199/99 H Blood Pressure [Left Arm] Pulse Oximetry 100 Oxygen Delivery Method 04/18/24 11:59 04/18/24 13:01 Temperature 98.8 F Pulse Rate 77 81 Respiratory Rate 18 18 Blood Pressure 172/87 H Blood Pressure [Left Arm] 140/68 Pulse Oximetry 96 98 Oxygen Delivery Method Room Air Room Air MDM - Recheck/Abnormal Lab/Rx Lab Data 04/17/24 12:25 04/17/24 12:25 Labs: Lab Results 04/17/24 04/17/24 04/17/24 Range/Units 12:25 12:30 12:30 WBC 7.1 (4.5-11.0) X10^3/uL RBC 3.72 L (4.5-5.9) X10^6/uL Hgb 9.6 L (13.5-17.5) g/dL Hct 28.8 L (41-53) % MCV 77.5 L (80-100) fL MCH 25.9 L (26-34) PG MCHC 33.4 (30-36) % RDW 16.6 H (11.6-14.8) % Plt Count 396 (150-400) X10^3/uL Neut % (Auto) 72.0 (50-75) % Lymph % (Auto) 16.7 L (25-40) % [place] % (Auto) 7.6 (3-14) % Eos % (Auto) 2.3 (2-4) % Baso % (Auto) 1.4 (0-2) % Neut # (Auto) 5100 (3208-0671) /uL Lymph # (Auto) 1200 (9912-7008) /uL [place] # (Auto) 500 (0-900) /uL Eos # (Auto) 200 (0-450) /uL Baso # (Auto) 100 (0-100) /uL Sodium 137 (137-145) mmol/L Potassium 4.4 (3.4-5.1) mmol/L Chloride 100 (98-107) mmol/L Carbon Dioxide 28 (22-32) mmol/L BUN 26 H (9-20) mg/dL Creatinine 0.85 (0.66-1.25) mg/dL Estimated GFR > 60 (>60) mL/min BUN/Creatinine Ratio 30.6 H (6-22) Glucose 322 H (80-110) mg/dL Calcium 8.9 (8.4-10.2) mg/dL Total Bilirubin 0.4 (0.2-1.3) mg/dL AST 16 L (17-59) IU/L ALT 14 (<50) IU/L Alkaline Phosphatase 92 (38-126) U/L Total Protein 7.2 (6.3-8.2) g/dL Albumin 3.8 (3.5-5.0) g/dL Globulin 3.4 (1.7-4.1) g/dL Albumin/Globulin Ratio 1.1 (1.0-2.8) Lipase 122 (23-300) U/L Urine Color Yellow Urine Appearance Clear Urine pH 6.5 Normal (4.5-8.0) Ur Specific [place] 1.010 (1.000-1.035) Urine Protein Negative (Negative) Urine Glucose (UA) 3+ H (Negative) g/dL Urine Ketones Negative (NEGATIVE) Urine Occult Blood Negative (Negative) Urine Nitrate Negative (Negative) Urine Bilirubin Negative (NEGATIVE) Urine Urobilinogen 0.2 (0.2) E.U./dL Ur Leukocyte Esterase Negative (NEGATIVE) Urine RBC None seen (0-5/HPF) Urine WBC None seen (0-5/HPF) Ur Squamous Epith Cells None seen (0-5/HPF) Urine Bacteria None seen (None) Ur Culture Indicated? Cult not indicated Vol Urine Centrifuged 10ml (spun) U Opiates 300ng/mL cut Negative (Negative) Ur Oxycodone Screen Positive H (Negative) Urine Methadone Screen Negative (Negative) Ur Barbiturates Screen Negative (Negative) U Tricyclic Antidepress Negative (Negative) Ur Phencyclidine Scrn Negative (Negative) Ur Amphetamines Screen Negative (Negative) U Methamphetamines Scrn Negative (Negative) Ur MDMA Scrn (Ecstasy) Negative (Negative) U Benzodiazepines Scrn Negative (Negative) Urine Cocaine Screen Negative (Negative) U Marijuana (THC) Screen Positive H (Negative) Urine Specific [place] Normal (Normal) Ur Creatinine Normal (Normal) Point of Care Testing Glucose POC 172 Discharge Plan Departure Patient Disposition: Home Clinical Impression: Hyperglycemia, Diabetic foot infection Activity Restrictions/Additional Instructions: I do recommend you continue to take all of your medications as directed. Contact your primary care doctor for a follow-up. Return to the emergency department for new or worsening symptoms. Prescriptions: No Action (DME) lancets 33 gauge misc See Rx Instructions .Route Qty: 100 0RF Rx Instructions: Use to test once daily (DME) blood-glucose meter [True Metrix Glucose Meter] Misc See Rx Instructions .ROUTE .MEDSUPPLY Qty: 1 0RF Rx Instructions: As directed (DME) True Metrix Glucose Test Strip Strip See Rx Instructions .ROUTE .MEDSUPPLY Qty: 100 0RF Rx Instructions: Use to test once daily amlodipine 5 mg tablet 5 mg PO BID lisinopril 40 mg tablet 40 mg PO DAILY baclofen 20 mg tablet 20 mg PO 4XD baclofen 10 mg tablet 10 mg PO 4XD PRN (Reason: muscle spasm) gabapentin 100 mg capsule 200 mg PO 3XD amoxicillin-pot clavulanate 875-125 mg tablet 1 tab PO BID insulin lispro 100 unit/mL insulin pen 0 - 12 unit SUBCUT TIDWM Patient Comments: inject subcutaneously daily per sliding scale if BG=71-119 No addition; 120-150 - 2 units; 151-200 - 4 units; 201-250 - 6 units; 251-300 - 8 units; 301-350 - 10 units. Greater than 351 - 12 units. max of 12 units per day sennosides [senna] 8.6 mg tablet 8.6 mg PO DAILY isosorbide mononitrate 30 mg tablet extended release 24 hr 30 mg PO DAILY polyethylene glycol 3350 17 gram/dose powder 17 g PO DAILY PRN (Reason: constipation) insulin glargine 100 unit/mL (3 mL) Insulin Pen 22 unit SUBCUT DAILY oxycodone 10 mg tablet 10 mg PO Q4H PRN (Reason: moderate pain) naloxone 4 mg/actuation spray,non-aerosol 1 spray intranasal PRN PRN (Reason: overdose) magnesium oxide 400 mg magnesium Tablet 400 mg PO DAILY Referrals: Jhony Dodd MD [Primary Care Provider] - Stand Alone Forms: Patient Portal/API
--- NOTE | 2024-04-18 06:54 | PC.NURSE ---
PRICER note: Did a total bed linen change for patient related to incontinence.
[2024-04-18] MEDS: GABAPENTIN 300 MG CAPSULE PO (08:34)
[2024-04-18] MEDS: lisinopriL 20 MG TABLET 40 MG PO (08:34)
[2024-04-18] MEDS: AMLODIPINE 5 MG TABLET PO (08:35)
[2024-04-18] MEDS: AMOXICILLIN/CLAV 875/125 MG 1 TAB PO (08:35)
[2024-04-18] MEDS: INSULIN LISPRO 100 UNIT/ML 3ML VIAL SUBCUT ×2 (08:36→11:54)
[2024-04-18] MEDS: MAGNESIUM OXIDE 400 MG TABLET PO (09:07)
[2024-04-18] MEDS: ISOSORBIDE MONONITRATE ER 30 MG TABLET PO (09:07)
--- NOTE | 2024-04-18 10:00 | PT.IPTN ---
Physical Therapy Treatment Note M2 PT-IP Current Condition Start: 04/17/24 16:06 Freq: Status: Active Protocol: Document 04/17/24 14:50 AB (Rec: 04/17/24 16:45 AB [id number]) Physical Therapy Current Condition Current Condition Evaluation Date 04/17/24 Treatment Diagnosis failure to thrive; difficulty in walking Onset Date 04/17/24 M3 PT-IP Subjective Start: 04/17/24 16:06 Freq: Status: Active Protocol: Document 04/18/24 10:42 TS (Rec: 04/18/24 11:01 TS [id number]) Subjective Physical Therapy Visit Type Type Treatment Note Visit Start Time 10:00 Visit Stop Time 10:39 Number of BRAILLE TRANSLATOR Visits 1 Physical Therapy Visit Comments Patient Comments Pt reports getting commode and w/c for use at home. He is agreeable to PT. Therapy Pain Assessment Pain When Pain Assessed At Rest Pain Present Pain Present Pain Reported M4 PT-IP Mobility and Gait Start: 04/17/24 16:06 Freq: Status: Active Protocol: Document 04/18/24 10:42 TS (Rec: 04/18/24 11:01 TS [id number]) PT-Bed Mobility Assessment Supine to Sit Supine to Sit Standby Assistance Sit to Supine Sit to Supine Standby Assistance Scooting Scooting to Edge of Bed Standby Assistance PT-Transfer Assessment Sit to and From Stand Sit to and from Stand Standby Assistance Equipment Transfer Assistive Device Gait Belt,Front Wheeled Walker Comments Mobility Comments BP in supine 178/101, HR 70, spo2 low 90's. Supine to sit SBA with HOB flat. STS from bed SBA with BUE support on FWW. In standing pt is TTWB at times for balance, does wber some on L foot with ambulation . He sat on commode, had a BM and performs his own pericare. He ambulated in hallway ~40' SBA/CGA with FWW, pt uses UE's heavily on FWW to support self and fatigues. He ambulated back to room with increased wbering on L foot. Sit to supine into bed SBA. Pt was left in bed, all needs met. Gait Assessment Gait Gait Assistance Required: Standby Assistance,Contact Guard Assist Distance (Feet) 40 Assistive Devices Assistive Device Gait Belt,Front Wheeled Walker Gait Deviations General Gait Pattern Decreased Stride Length, Decreased Feet Clearance Factors Limiting Gait Function Factors Limiting Gait Function Decreased Activity Tolerance, Decreased Strength,Pain,Poor Balance,Poor Safety Awareness Comments Gait Comments See mobility comments. PT-Balance Assessment Sitting Balance and Reactions Static Sitting Balance Ability Normal Dynamic Sitting Balance Ability Good Standing Balance and Reactions Static Standing Balance Ability Good Dynamic Standing Balance Ability Fair Device Used FWW M5 PT-IP Objective Assessments Start: 04/17/24 16:06 Freq: Status: Active Protocol: Document 04/17/24 14:50 AB (Rec: 04/17/24 16:45 AB [id number]) Orientation Orientation/Cognition Level of Alertness Alert Orientation Name Safety Awareness Decreased Safety Awareness Memory Description Short Term Impaired,Alf Impaired Gross Range of Motion Lower Extremity ROM Assessment Within Functional Limits Strength Lower Extremity Strength Assessment Bilaterally Impaired Comments Strength Comments RLE: 3+/5 LLE: 3-/5 Muscle Tone Muscle Tone WNL Yes M6 PT-IP Treatment Start: 04/17/24 16:06 Freq: Status: Active Protocol: Document 04/18/24 10:42 TS (Rec: 04/18/24 11:01 TS [id number]) Physical Therapy Treatment Education Education Provided Weight Bearing Status,Safety M7 PT-IP Assessment and Plan Start: 04/17/24 16:06 Freq: Status: Active Protocol: Document 04/18/24 10:42 TS (Rec: 04/18/24 11:01 TS [id number]) PT Summary Assessment and Plan Potential Rehabilitation Potential Fair Summary Impairments Pain,ROM,Strength,Balance, Coordination,Sensation,Tone, Cognition,Bed Mobility, Transfers,Gait,Activity Tolerance Progress Towards Goals Progressing Toward Goals Assessment Summary Noah is making some progress with his mobility. He performs all bed mobility SBA with from a flat bed. He performs STS x2 SBA with heavy UE support and TTWB on L foot. He ambulates with heavy UE assist on FWW and initially NWBers for the first 20', required foot on ground for last 20'. PT is recommending Home with assist and HHPT vs SNF at this time. Pt could benefit from SNF to improve strength and activity tolerance before d/c home. If pt were to go home landlord is obtaining commode and w/c for pt to use. Goals Bed Mobility Goal Minimal Assistance Transfer Goal Minimal Assistance,Front Wheeled Walker Gait Goal Minimal Assistance,Front Wheel Walker Gait Distance 25 Other Goals improve bed mobility, transfers, ambulation using FWW ~ 50 ft SBA Days to Meet Goals 10 Frequency of Treatment Frequency Of Treatment Once a Day Treatment Plan Physical Therapy Treatment Plan Bed Mobility Training,Transfer Training,Gait Training, Therapeutic Exercise,Balance Retraining,Post Op Education, Discharge Planning,Hot or Cold Pack,Neuromuscular Re-ed, Coordination Retraining,Manual Therapy Weight Bearing Status Weight Bearing Status Non-Weight Bearing Allowed Weight Bearing Amount (enter % LLE NWB at this time: will or #) (%) need clarifications Recommendations To Nursing Amount of Assist Needed 1 Person Assist Discharge Recommendations PT Discharge Recommendations Home vs SNF Transportation Needs at Discharge Private Vehicle,Wheelchair/ Cabulance
--- NOTE | 2024-04-18 13:10 | CM.SWNOTE ---
Addendum entered by Holli Phillips 04/18/24 18:27: MOTOR VEHICLE TECHNICIAN Note MOTOR VEHICLE TECHNICIAN just receives email from [facility] stating that patient was denied for services by clinical operations project manager and MOTOR VEHICLE TECHNICIAN requests to pass along referral to [facility] if possible. [facility] is not an option due to patient's residence on [facility] [facility]. ED MOTOR VEHICLE TECHNICIAN team to f/u with patient after attempting re-routed referral with [facility] . TAMIKO Reyes Original Note: ED MOTOR VEHICLE TECHNICIAN Note Continued SNF search: Left VM with [facility] No [facility]- Denial [facility]- Denial due to Medicaid Anh- Denial MOTOR VEHICLE TECHNICIAN enters room to discuss this with patient, patient presents in good spirits and states he feels better and much stronger today. Patient worked with PT and patient is 1 person assist recommendation for Home with assistance and HH. Patient states his [employer] [place] housing case manager Keisha secured a wheelchair, raised toilet seat and bedside commode for patient. Patient calls Keisha with MOTOR VEHICLE TECHNICIAN present to confirm this. Patient endorses that he is going to have his caregiver service times shifted around so he has an caregiver in some evening hours as well. Patient discusses his substance use history and his desire and motivation to not use substances and steer clear of pain medication if he can. Patient is agreeable to HH referral with [facility]. MOTOR VEHICLE TECHNICIAN calls Ernestine at [facility] and leaves regarding referral and faxes clinicals, F2F and order for PT, OT, RN, MOTOR VEHICLE TECHNICIAN and aide. Patient's caregiver arrives to see patient, and both in agreement with d/c plan to home with HH, DME, caregiver services in place. Patient has upcoming outpatient f/u appts as well to manage his care needs. MOTOR VEHICLE TECHNICIAN calls patient's [facility] housing case manager Allan regarding patient disposition (Ph. # [phone]) and d/c to home with services in place. MOTOR VEHICLE TECHNICIAN leaves and discusses patient's need for another needs assessment given two hospitalizations in recent weeks. Plan: patient d/c to home upon medical clearance with caregiver, [facility] referral in place, patient to f/u with outpatient f/u. TAMIKO Reyes
--- NOTE | 2024-04-20 15:47 | CM.SWNOTE ---
ED MORTUARY TECHNICIAN Note: Handoff received from previous ED MORTUARY TECHNICIAN re: continuity of HH referral for pt discharge. ED MORTUARY TECHNICIAN [facility] was reported that pt is also being declined HH services due to pt's insurance. [facility] is not an option at this time due to pt being on [facility] where they do not provide services. ED MORTUARY TECHNICIAN attempted to contact pt, pt did not answer and MORTUARY TECHNICIAN left a voice message. Pt would benefit from coordination with [facility] systems and referral to their home health services if available. DARLINE Rashid
== END 2024-04-18 13:03 | disposition home or self-care (01) ==
PROVIDERS: Emergency Medicine; Emergency Provider Emergency Medicine; PCP Internal Medicine
DX: E11.65 Type 2 diabetes mellitus with hyperglycemia (principal); R53.1 Weakness; Z79.899 Other long term (current) drug therapy; Z98.890 Other specified postprocedural states; M79.89 Other specified soft tissue disorders
CPT/HCPCS: 71045; 73630; 80053; 80305; 81001; 82962; 83690; 85025; 93005; 93010; 96372; 97116; 97163; 97530; 99283; 99284; J1815